=== PATIENT | female | born 1950 | race African-American/Black ===

== ENCOUNTER 2016-11-29 10:30 | Day surgery (SDC) | payer MEDICARE, OTHER ==
[2016-11-27 09:24] VITALS: BMI 30.2
[~2016-11-29 10:30] MED LIST: LACTATED RINGERS 1,000 ML IV SCH; LIDOCAINE 1% 20 ML VIAL (10MG/ML) FOR IV START INTRADERMA PRN
[2016-11-29 11:00] VITALS: RESP 16; TEMP 97.7
[2016-11-29] MEDS ORDERED: PROPOFOL 10 MG/ML 20 ML VIAL IV ONE (11:31)
--- NOTE | 2016-11-29 12:23 | P.PCN ---
Date of Procedure: 11/29/16 Procedure(s) Performed: BRIEF HISTORY: Patient is a 66-year-old, pleasant -[place] female, scheduled for an upper endoscopy as a part of evaluation of iron deficiency anemia and intermittent black tarry stools. She is has history of end-stage liver disease on hemodialysis and lately has been requiring blood transfusions almost on a monthly basis. Her last upper endoscopy was done a year ago and was noted to have duodenal telangiectasia. She is hence scheduled for an upper endoscopy to evaluate further.. PROCEDURE PERFORMED: Esophagogastroduodenoscopy with argon plasma coagulation. PREOPERATIVE DIAGNOSIS: Iron deficiency anemia and black tarry stools. IV sedation per anesthesia. PROCEDURE: After informed consent was obtained, the patient was brought into the endoscopy unit. IV sedation was administered by Anesthesia under continuous monitoring. Initially the Olympus GIF-140 video endoscope was inserted into the mouth. Esophagus intubated without any difficulty. It was gradually advanced into the stomach and duodenum and carefully examined. The bulb and the second part of the duodenum appeared normal. However there were scattered angiectasia noted in the duodenal bulb as well as along the duodenal sweep one of which had mild oozing . Argon plasma coagulation was performed and all the visualized angiectasia were coagulated with good hemostasis. The scope at this time was withdrawn to the stomach, adequately insufflated with air, and upon careful examination, mucosa of the antrum, body, cardia and the fundus appeared normal. The scope was then withdrawn into the esophagus. The GE junction was located at 39 cm from the incisors. The esophagus appeared normal. There were no erosions or ulcerations seen and the patient tolerated the procedure well. IMPRESSION: 1. Scattered angiectasia in the duodenal bulb as well as the duodenal sweep, one of which had active oozing status post argon plasma coagulation as described above. 2. No evidence of esophagitis or peptic ulcer disease. RECOMMENDATIONS: The findings of this examination were discussed with the patient as well as a family. She was advised to have CBC on a regular basis. She will be seen in office if she has recurrent iron deficiency anemia or bleeding.
[2016-11-29 12:37] VITALS: BP 110/63; PULSE 68
== END 2016-11-29 12:49 | disposition home or self-care (01) ==
LOC: ORWHC2ENDO 10:30
PROVIDERS: ATTEND Internal Medicine Gastroenterology
DX: K31.811 Angiodysplasia of stomach and duodenum with bleeding (principal); D50.9 Iron deficiency anemia, unspecified; I10 Essential (primary) hypertension; E07.9 Disorder of thyroid, unspecified; Z85.3 Personal history of malignant neoplasm of breast; Z90.12 Acquired absence of left breast and nipple; Z90.710 Acquired absence of both cervix and uterus; Z79.899 Other long term (current) drug therapy
CPT/HCPCS: 43255; J2704

== ENCOUNTER 2018-09-09 11:17 | Day surgery (SDC) | payer MEDICARE, OTHER ==
[2018-09-05 13:22] VITALS: BMI 29.3
[~2018-09-09 11:17] MED LIST changes: -LACTATED RINGERS 1,000 ML IV SCH; +MIDAZOLAM (PF) 2 MG/2 ML VIAL IV PRN
[2018-09-09 11:47] VITALS: TEMP 99
[2018-09-09] MEDS: LACTATED RINGERS 1,000 ML IV SCH ×2 (12:10→12:11)
[2018-09-09] MEDS ORDERED: PROPOFOL 10 MG/ML 20 ML VIAL IV ONE (12:11)
[2018-09-09 12:56] VITALS: RESP 18
[2018-09-09] MEDS ORDERED: ACETAMINOPHEN TAB 325 MG TAB PO ONE (13:12)
[2018-09-09] MEDS ORDERED: HEPARIN SODIUM,PORCINE 100 UNIT/ML 5 ML VIAL IV ONE (13:37)
[2018-09-09 13:48] VITALS: BP 130/76; PULSE 78
--- NOTE | 2018-09-09 16:47 | PCN ---
PROCEDURE NOTE DATE OF SERVICE: 09/09/2018. PREOP DIAGNOSIS: Anemia. POSTOP DIAGNOSIS: Anemia. ANESTHESIA: Local with IV systemic sedation. DESCRIPTION OF PROCEDURE: Utilizing the sterile technique, the skin overlying the right iliac crest was prepared with Betadine and alcohol. After adequate sterile draping and local anesthesia, 1% lidocaine and systemic sedation size 11 4 inch Jamshidi needle was utilized to access the periosteum with ease. A total of 10 mL of aspirate and 4 cm bone core biopsies were obtained. The patient tolerated the procedure very well. There was no immediate procedure related complications. TOTAL BLOOD LOSS: Less than 1 mL. RESULTS: Pending. MMODL / IJN: [id number] /
== END 2018-09-09 15:00 | disposition home or self-care (01) ==
LOC: OR 11:17
PROVIDERS: ATTEND Internal Medicine Hematology & Oncology
DX: I12.0 Hypertensive chronic kidney disease with stage 5 chronic kidney disease or end stage renal disease (principal); N18.6 End stage renal disease; D63.1 Anemia in chronic kidney disease; D72.810 Lymphocytopenia; Z99.2 Dependence on renal dialysis; F17.210 Nicotine dependence, cigarettes, uncomplicated; J44.9 Chronic obstructive pulmonary disease, unspecified; M19.90 Unspecified osteoarthritis, unspecified site; K21.9 Gastro-esophageal reflux disease without esophagitis; Z80.49 Family history of malignant neoplasm of other genital organs; Z79.890 Hormone replacement therapy; Z79.51 Long term (current) use of inhaled steroids; Z79.899 Other long term (current) drug therapy
CPT/HCPCS: 84132; 38222; J1642; J2704

== ENCOUNTER 2018-09-23 05:05 | Inpatient (IN) | payer MEDICARE ==
[2018-09-23] MEDS ORDERED: PANTOPRAZOLE 40 MG/10 ML VIAL IVP STA (05:11)
[2018-09-23] MEDS ORDERED: SODIUM CHLORIDE 0.9% 1,000 ML IV STA (05:11)
--- NOTE | 2018-09-23 05:11 | ED ---
GI Bleed HPI - General Stated complaint: abd pain Time Seen by Provider: 09/23/18 05:09 - History of Present Illness Initial comments: Zane is a 68-year-old female with extensive past medical history most significant for chronic renal disease on dialysis Saturday as well as frequent admissions to outside hospital for recurrent episodes of anemia requiring transfusion. Patient reports she was admitted last week to an outside facility and had endoscopy with no acute findings. She reports that today she is experiencing abdominal pain and nausea so she called EMS, EMS reports in route to the hospital she did have a large volume emesis which was noted to be coffee ground. Patient reports feeling better after vomiting. Upon arrival she reported some persistent abdominal pain however she'll large bloody bowel movement reported improvement in her abdominal pain. - Related Data Home Medications Medication Instructions Recorded Confirmed Albuterol Nebulized [Ventolin 2.5 mg INHALATION BID PRN 01/26/15 09/09/18 Nebulized] Labetalol HCl 200 mg PO TID PRN 01/26/15 09/09/18 Levothyroxine Sodium [Synthroid] 100 mcg PO QAM 01/26/15 09/09/18 Umeclidinium [place] [Incruse 2 puff INHALATION BID PRN 11/27/16 09/09/18 Ellipta] Calcitriol [Rocaltrol] 0.25 mcg PO Q48H 02/24/18 09/09/18 Calcium Carb-Mag Carb-Folic 1 each PO TID 02/24/18 09/09/18 [Magnebind 400 Rx] Zolpidem Tartrate [Ambien Cr] 6.25 mg PO HS PRN 02/24/18 09/09/18 Allergies Allergy/AdvReac Type Severity Reaction Status Date / Time No Known Allergies Allergy Verified 09/09/18 11:40 Review of Systems ROS Statement: Those systems with pertinent positive or pertinent negative responses have been documented in the HPI. ROS Other: All systems not noted in ROS Statement are negative. Past Medical History Past Medical History: Asthma, Cancer, COPD, Dialysis, GERD/Reflux, Hearing Disorder / Deafness, Hypertension, Osteoarthritis (OA), Renal Disease, Thyroid Disorder Additional Past Medical History / Comment(s): HEMODIALYSIS SAT,SAT, SAT, BREAST CANCER. anemia- receives blood tranfusions weekly History of Any Multi-Drug Resistant Organisms: None Reported Past Surgical History: Breast Surgery, Hysterectomy Additional Past Surgical History / Comment(s): LEFT MASTECTOMY , DIALYSIS GRAFT - UPPER LEFT ARM, PARTIAL THYROIDECTOMY,COLONOSCOPY, EGD Past Anesthesia/Blood Transfusion Reactions: Motion Sickness Smoking Status: Current every day smoker - Past Family History Daughter(s) Family Medical History: Deep Vein Thrombosis (DVT) Mother Family Medical History: Cancer Additional Family Medical History / Comment(s): OVARIAN Brother(s) Family Medical History: Cancer General Exam - General Exam Comments Initial Comments: Physical Exam GENERAL: Chronically ill appearing, appears uncomfortable HENT: Normocephalic, Atraumatic. EYES: PERRL, EOMI Conjunctival pallor PULMONARY: Unlabored respirations. CARDIOVASCULAR: RRR ABDOMEN: Soft, NABS mild diffuse tenderness SKIN: Pallor, dry : Deferred NEUROLOGIC: Patient is alert and oriented x3. Moving all extremities spontaneously MUSCULOSKELETAL: Generalized atrophy PSYCHIATRIC: situational depression Limitations: no limitations Course Vital Signs 09/23/18 09/23/18 09/23/18 05:14 06:55 07:02 Temperature 97.6 F 97.7 F Pulse Rate 75 87 86 Respiratory 16 18 17 Rate Blood Pressure 88/52 116/62 115/60 O2 Sat by Pulse 98 100 100 Oximetry 09/23/18 07:12 Temperature 97.7 F Pulse Rate 87 Respiratory 17 Rate Blood Pressure 109/59 O2 Sat by Pulse 100 Oximetry Medical Decision Making - Medical Decision Making Was seen and evaluated history is obtained from the patient and review of medical record Upon initial evaluation patient has coffee-ground emesis at bedside patient did have large volume melanotic stool.. Labs with multiple abnormalities including acute on chronic anemia with a hemoglobin of 6.2 patient reports she was last told her hemoglobin was 8.0 on Saturday, patient did not attend dialysis on Saturday she had to attend a She was noted be hypertensive upon arrival however blood pressures improving with fluids patient care was discussed with her primary care physician Dr. Kwong who accepts the admission requested the patient be admitted to the ICU , patient care was discussed with Dr. Sol in the ICU attending who accepts the patient to the ICU for acute anemia with GI bleed. Patient care was discussed with GI on-call doctor while she who is familiar with the patient and performed her endoscopy last week he will evaluate the patient. Nephrology was consult it for management of patient's chronic kidney disease and need for dialysis. - Lab Data Result diagrams: 09/23/18 05:36 09/23/18 05:36 Lab Results 09/23/18 09/23/18 09/23/18 Range/Units 05:36 05:36 05:36 WBC 6.9 (3.8-10.6) k/uL RBC 2.01 L (3.80-5.40) m/uL Hgb 6.2 L* (11.4-16.0) gm/dL Hct 19.8 L* (34.0-46.0) % MCV 98.3 D (80.0-100.0) fL MCH 31.0 (25.0-35.0) pg MCHC 31.6 (31.0-37.0) g/dL RDW 20.5 H (11.5-15.5) % Plt Count 165 (150-450) k/uL Neutrophils % 87 % Lymphocytes % 7 % Monocytes % 2 % Eosinophils % 2 % Basophils % 0 % Neutrophils # 6.0 (1.3-7.7) k/uL Lymphocytes # 0.5 L (1.0-4.8) k/uL Monocytes # 0.2 (0-1.0) k/uL Eosinophils # 0.2 (0-0.7) k/uL Basophils # 0.0 (0-0.2) k/uL Hypochromasia Marked Poikilocytosis Slight Anisocytosis Moderate Macrocytosis Moderate Sodium 135 L (137-145) mmol/L Potassium 5.1 (3.5-5.1) mmol/L Chloride 106 (98-107) mmol/L Carbon Dioxide 21 L (22-30) mmol/L Anion Gap 8 mmol/L BUN 97 H (7-17) mg/dL Creatinine 10.04 H* (0.52-1.04) mg/dL Est GFR (CKD-EPI)AfAm 4 (>60 ml/min/1.73 sqM) Est GFR (CKD-EPI)NonAf 4 (>60 ml/min/1.73 sqM) Glucose 134 H (74-99) mg/dL Plasma Lactic Acid Chin 1.3 (0.7-2.0) mmol/L Calcium 8.2 L (8.4-10.2) mg/dL Total Bilirubin 0.4 (0.2-1.3) mg/dL AST 28 (14-36) U/L ALT 27 (9-52) U/L Alkaline Phosphatase 64 (38-126) U/L Troponin I (0.000-0.034) ng/mL Total Protein 4.8 L (6.3-8.2) g/dL Albumin 2.5 L (3.5-5.0) g/dL Lipase 279 (23-300) U/L Stool Occult Blood (Negative) Blood Type Blood Type Recheck Antibody Screen Crossmatch Spec Expiration Date 09/23/18 09/23/18 09/23/18 Range/Units 05:36 05:36 06:15 WBC (3.8-10.6) k/uL RBC (3.80-5.40) m/uL Hgb (11.4-16.0) gm/dL Hct (34.0-46.0) % MCV (80.0-100.0) fL MCH (25.0-35.0) pg MCHC (31.0-37.0) g/dL RDW (11.5-15.5) % Plt Count (150-450) k/uL Neutrophils % % Lymphocytes % % Monocytes % % Eosinophils % % Basophils % % Neutrophils # (1.3-7.7) k/uL Lymphocytes # (1.0-4.8) k/uL Monocytes # (0-1.0) k/uL Eosinophils # (0-0.7) k/uL Basophils # (0-0.2) k/uL Hypochromasia Poikilocytosis Anisocytosis Macrocytosis Sodium (137-145) mmol/L Potassium (3.5-5.1) mmol/L Chloride (98-107) mmol/L Carbon Dioxide (22-30) mmol/L Anion Gap mmol/L BUN (7-17) mg/dL Creatinine (0.52-1.04) mg/dL Est GFR (CKD-EPI)AfAm (>60 ml/min/1.73 sqM) Est GFR (CKD-EPI)NonAf (>60 ml/min/1.73 sqM) Glucose (74-99) mg/dL Plasma Lactic Acid Chin (0.7-2.0) mmol/L Calcium (8.4-10.2) mg/dL Total Bilirubin (0.2-1.3) mg/dL AST (14-36) U/L ALT (9-52) U/L Alkaline Phosphatase (38-126) U/L Troponin I <0.012 (0.000-0.034) ng/mL Total Protein (6.3-8.2) g/dL Albumin (3.5-5.0) g/dL Lipase (23-300) U/L Stool Occult Blood Positive H (Negative) Blood Type O Positive Blood Type Recheck No Antibody Screen NEGATIVE Crossmatch See Detail Spec Expiration Date 09/26/2018 2334 Disposition Clinical Impression: Melena, Hematemesis, Acute anemia, ESRD (end stage renal disease), Dialysis patient, noncompliant Disposition: ADMITTED IP TO THIS [facility] Condition: Serious Is patient prescribed a controlled substance at d/c from ED?: No
[2018-09-23 05:50] LABS: Anisocytosis Moderate; Basophils % (A) 0 %; Eosinophils # (A) 0.2 k/uL (0-0.7); Eosinophils % (A) 2 %; Hypochromasia Marked; Lymphocytes # (A) 0.5 k/uL (1.0-4.8); Lymphocytes % (A) 7 %; MCHC 31.6 g/dL (31.0-37.0); Macrocytosis Moderate; Monocytes # (A) 0.2 k/uL (0-1.0); Monocytes % (A) 2 %; Neutrophils % (A) 87 %; Platelet Count 165 k/uL (150-450); Poikilocytosis Slight; RBC 2.01 m/uL (3.80-5.40); RDW 20.5 % (11.5-15.5); WBC 6.9 k/uL (3.8-10.6)
[2018-09-23 05:59] LABS: MCV 98.3 fL (80.0-100.0)
[2018-09-23 06:00] LABS: HCT 19.8 % (34.0-46.0); HGB 6.2 gm/dL (11.4-16.0)
[2018-09-23 06:03] LABS: Albumin 2.5 g/dL (3.5-5.0); Calcium 8.2 mg/dL (8.4-10.2); Potassium 5.1 mmol/L (3.5-5.1); Total Bilirubin 0.4 mg/dL (0.2-1.3); Total Protein 4.8 g/dL (6.3-8.2)
[2018-09-23] MEDS ORDERED: NALOXONE 0.4 MG/ML 1 ML VIAL IV PRN (06:16)
[2018-09-23] MEDS: SODIUM CHLORIDE 0.9% 1,000 ML IV SCH (07:04)
[2018-09-23 08:35] VITALS: BMI 29.0
[2018-09-23 09:30] LABS: Glucose,Whole Blood 109 mg/dL (75-99)
[2018-09-23] MEDS: PANTOPRAZOLE 40 MG/10 ML VIAL IV SCH (09:44)
[2018-09-23] MEDS ORDERED: HYDROmorphone 0.5 MG/0.5 ML SYRINGE IVP STA (10:53)
--- NOTE | 2018-09-23 11:55 | P.CONS ---
History of Present Illness - Reason for Consult Consult date: 09/23/18 GI bleed anemia Requesting physician: Julio Kwong - Chief Complaint anemia melena - History of Present Illness 68-year-old female with a history of end-stage renal disease hemodialysis Saturday, chronic iron deficiency anemia requiring multiple blood transfusions iron supplementation in the outpatient setting, GI bleeds of multiple hospitalizations for symptomatic anemia, bleeding small bowel AVMs, multiple endoscopies. Recent bone marrow biopsy a few Weeks ago; MDS versus LEOLA. Patient was recently hospitalized at [facility] over the Weekend for symptomatic anemia acute gi bleed melena. EGD performed Saturday09/20/[address] Fernández with findings of bleeding AVM in the duodenal bulb s/p gold probe ablation. Admission hemoglobin at [facility] was 5.2 and discharge hemoglobin was 8.1. She received 3 units of blood. She reports persistent dark dark-colored bowel movements and nonbloody emesis prior to admission. Epigastric discomfort. Hemoccult was 6.2. MCV 98. Platelet 165. Creatinine 10. BUN 97. FOBT positive. APTT 22.1. Patient does not take any medications that would cause her to bleed. Review of Systems Constitutional: Denies fever, chills, sweats, weight gain, or loss. HEENT: Negative for migraines, blurred vision or loss, earaches, drainage, tinnitus, oral mucosal lesions, dysphagia, or odynophagia. CARDIAC: Negative for chest pain, arrhythmias, or palpitation. RESPIRATORY: Negative for shortness of breath, hemoptysis, cough, or sputum production. GI: See HPI for pertinent findings. : Negative for hematuria, urgency, frequency, polyuria, or dysuria. GYNc: Denies possibility of . Negative vaginal discharge. MUSCULOSKELETAL: Negative for muscle aches, swelling, arthritis, and arthralgias. NEUROLOGIC: Negative for stroke or TIA. ENDOCRINE: Negative for thyroid problems. SKIN: Negative for rash or itching. PSYCHIATRIC: Negative history for depression and anxiety Past Medical History Past Medical History: Asthma, Cancer, COPD, Dialysis, GERD/Reflux, GI Bleed, Hearing Disorder / Deafness, Hypertension, Osteoarthritis (OA), Renal Disease, Thyroid Disorder Additional Past Medical History / Comment(s): HEMODIALYSIS SAT,SAT, SAT-last dialysis was 2/22/19 [facility] d/t unable to go yesterday 09/22/18, anemia- receives blood tranfusions weekly, past upper and lower GI bleeds per pt and recently admitted to [facility] for GI bleed-had EGD-no source found, L breast cancer with L mastectomy and chemotherapy, arthritis in multiple joints, hypothyroid, SOBOBA bilaterally History of Any Multi-Drug Resistant Organisms: None Reported Past Surgical History: Breast Surgery, Hysterectomy, Tubal Ligation Additional Past Surgical History / Comment(s): L BREAST BIOPSY, LEFT MASTECTOMY , DIALYSIS GRAFT- UPPER LEFT ARM, PARTIAL THYROIDECTOMY,COLONOSCOPIES, EGDS, D& C, L SHOULDER CYST REMOVED. Past Anesthesia/Blood Transfusion Reactions: No Reported Reaction, Motion Sickness Additional Past Anesthesia/Blood Transfusion Reaction / Comm: Pt has received numerous transfusions without reaction. Smoking Status: Current every day smoker - Past Family History Daughter(s) Family Medical History: Deep Vein Thrombosis (DVT) Mother Family Medical History: Cancer Additional Family Medical History / Comment(s): OVARIAN Brother(s) Family Medical History: Cancer Additional Family Medical History / Comment(s): Brother had "blood" cancer. Medications and Allergies Home Medications Medication Instructions Recorded Confirmed Type Albuterol Nebulized [Ventolin 2.5 mg INHALATION BID PRN 01/26/15 09/23/18 History Nebulized] Labetalol HCl 200 mg PO TID PRN 01/26/15 09/23/18 History Umeclidinium [place] [Incruse 2 puff INHALATION RT-BID PRN 11/27/16 09/23/18 History Ellipta] Calcitriol [Rocaltrol] 0.25 mcg PO Q48H 02/24/18 09/23/18 History Calcium Carb-Mag Carb-Folic 1 tab PO TID 02/24/18 09/23/18 History [Magnebind 400 Rx] Zolpidem Tartrate [Ambien Cr] 6.25 mg PO HS PRN 02/24/18 09/23/18 History Levothyroxine Sodium [Synthroid] 100 mcg PO DAILY 09/23/18 09/23/18 History Allergies Allergy/AdvReac Type Severity Reaction Status Date / Time No Known Allergies Allergy Verified 09/23/18 08:05 Physical Exam Vitals: Vital Signs Temp Pulse Resp BP Pulse Ox 09/23/18 11:30 82 12 123/68 100 02/26/19 11:00 80 11 L 118/70 100 09/23/18 10:54 97.5 F L 81 12 115/71 100 09/23/18 10:30 79 13 117/70 100 09/23/18 10:24 97.9 F 79 12 112/64 99 09/23/18 10:14 97.8 F 81 12 113/64 100 09/23/18 10:00 78 11 L 113/64 100 09/23/18 09:51 97.5 F L 76 12 100/67 100 09/23/18 09:50 76 15 100 09/23/18 09:47 76 12 100 09/23/18 09:30 100/67 09/23/18 09:20 97.5 F L 76 12 100/67 100 09/23/18 09:12 97.9 F 79 18 100/67 09/23/18 08:40 97.6 F 77 12 104/60 100 09/23/18 08:30 78 12 88/51 100 09/23/18 08:20 79 12 88/51 100 09/23/18 08:10 75 13 82/48 100 09/23/18 08:00 77 12 98/54 100 09/23/18 07:50 82 13 111/59 100 09/23/18 07:42 97.6 F 82 18 111/59 100 09/23/18 07:40 85 23 89/79 09/23/18 07:30 87 19 111/63 09/23/18 07:20 86 12 118/57 100 09/23/18 07:12 97.7 F 87 17 109/59 100 09/23/18 07:10 86 11 L 124/59 99 09/23/18 07:02 97.7 F 86 17 115/60 100 09/23/18 07:00 87 13 116/62 98 09/23/18 06:55 97.6 F 87 18 116/62 100 09/23/18 06:50 87 11 L 116/62 09/23/18 06:40 90 14 112/62 09/23/18 06:30 87 36 H 105/58 99 09/23/18 06:20 84 10 L 105/58 96 09/23/18 06:10 85 16 105/55 100 09/23/18 06:00 83 5 L 100 09/23/18 05:50 81 12 79 L 09/23/18 05:40 80 9 L 87 L 09/23/18 05:30 82 24 102/52 09/23/18 05:20 74 15 88/52 97 09/23/18 05:14 75 16 88/52 98 09/23/18 05:10 100 09/23/18 05:09 100 Intake and Output 09/22/18 09/23/18 09/23/18 22:59 06:59 14:59 Intake Total 370 Balance 370 Intake: IV 60 Sodium Chloride 0.9% 1, 60 000 ml @ 20 mls/hr IV . Q24H [facility] Rx#:[id number] Blood Product 310 Rc As-1 Unit 0 [id number] Rc As-1 Unit 310 [id number] Other: Voiding Method Bedpan # Bowel Movements 1 Weight 76.657 kg 76.657 kg General appearance: The patient is alert, oriented, in no acute distress. HET: Head is normocephalic and atraumatic. Pupils are equal and reactive. Oropharynx is clear without lesions. Neck: Supple without lymphadenopathy. Trachea midline. Heart: S1 S2. Regular rate and rhythm. Lungs: No crackles or wheezes are heard. Abdomen: Soft, nontender, nondistended with bowel sounds. No peritoneal signs. No palpable organomegaly or masses. Extremities: Normal skin color and turgor. No cyanosis, rash, ulceration, clubbing, or edema. Radial and pedal pulses are 2/4 bilaterally. Neurological: No focal deficits. Strength and sensation are grossly intact. Results CBC & Chem 7: 09/23/18 05:36 09/23/18 05:36 Labs: Abnormal Lab Results - Last 24 Hours (Table) 09/23/18 09/23/18 09/23/18 Range/Units 05:36 05:36 05:36 RBC 2.01 L (3.80-5.40) m/uL Hgb 6.2 L* (11.4-16.0) gm/dL Hct 19.8 L* (34.0-46.0) % RDW 20.5 H (11.5-15.5) % Lymphocytes # 0.5 L (1.0-4.8) k/uL Sodium 135 L (137-145) mmol/L Carbon Dioxide 21 L (22-30) mmol/L BUN 97 H (7-17) mg/dL Creatinine 10.04 H* (0.52-1.04) mg/dL Glucose 134 H (74-99) mg/dL POC Glucose (mg/dL) (75-99) mg/dL Calcium 8.2 L (8.4-10.2) mg/dL Total Protein 4.8 L (6.3-8.2) g/dL Albumin 2.5 L (3.5-5.0) g/dL Stool Occult Blood (Negative) Crossmatch See Detail 09/23/18 09/23/18 Range/Units 06:15 09:27 RBC (3.80-5.40) m/uL Hgb (11.4-16.0) gm/dL Hct (34.0-46.0) % RDW (11.5-15.5) % Lymphocytes # (1.0-4.8) k/uL Sodium (137-145) mmol/L Carbon Dioxide (22-30) mmol/L BUN (7-17) mg/dL Creatinine (0.52-1.04) mg/dL Glucose (74-99) mg/dL POC Glucose (mg/dL) 109 H (75-99) mg/dL Calcium (8.4-10.2) mg/dL Total Protein (6.3-8.2) g/dL Albumin (3.5-5.0) g/dL Stool Occult Blood Positive H (Negative) Crossmatch Assessment and Plan (1) Acute GI bleeding Current Visit: Yes Status: Acute Code(s): K92.2 - GASTROINTESTINAL HEMORRHAGE, UNSPECIFIED SNOMED Code(s): 11023482 (2) Chronic GI bleeding Current Visit: Yes Status: Acute Code(s): K92.2 - GASTROINTESTINAL HEMORRHAGE, UNSPECIFIED SNOMED Code(s): 59593209 (3) Small bowel arteriovenous malformation Current Visit: Yes Status: Acute Code(s): K55.20 - ANGIODYSPLASIA OF COLON WITHOUT HEMORRHAGE SNOMED Code(s): 094040288 (4) Acute blood loss anemia Current Visit: Yes Status: Acute Code(s): D62 - ACUTE POSTHEMORRHAGIC ANEMIA SNOMED Code(s): 918817032 (5) Symptomatic anemia Current Visit: Yes Status: Acute Code(s): D64.9 - ANEMIA, UNSPECIFIED SNOMED Code(s): 598631286 (6) ESRD (end stage renal disease) Current Visit: Yes Status: Acute Code(s): N18.6 - END STAGE RENAL DISEASE SNOMED Code(s): 29891912 (7) Melena Current Visit: Yes Status: Acute Code(s): K92.1 - MELENA SNOMED Code(s): 8064680 Plan: 1. Dr. Fernández recommend repeat EGD today. CBC every 6 hours. Protonix 40 mg twice daily. Further recommendations forthcoming after EGD evaluation. The developer support engineer has discussed the risks, benefits and alternative therapies for the above-mentioned procedure and for both sedation/analgesia as well as necessary blood product administration, if indicated, as they pertain to this patient. The patient has indicated understanding and acceptance of the risks and procedures discussed. Thank you for this kind referral and the opportunity to participate in the care of your patient. This consultation was discussed with Dr. Fernández. The impression and plan of care have been directed as dictated.
--- NOTE | 2018-09-23 13:23 | P.HPIM ---
History of Present Illness H&P Date: 09/23/18 Chief Complaint: GI bleeding Yolande is a 68-year-old white female well-known to me. She is admitted over at [facility] about every 2-3 weeks for anemia of chronic disease. She typically receives 1-3 units of packed red blood cells during that stay. She's been worked up for GI bleeding multiple times including just recently with Dr. Fernández. She presented emergency room after having abdominal pain for 1 day and then several episodes of coffee-ground emesis. Her hemoglobin emergency room was 6.2. This is NOT Unusual for her. She has end-stage renal failure on hemodialysis on Saturday. This is thought to be the cause of her anemia in the past as there were no findings on endoscopy. She is now resting comfortably intensive care unit is hearty received 1 unit of packed red blood cells. Review of Systems All systems: negative Past Medical History Past Medical History: Asthma, Cancer (L breast cancer with L mastectomy and chemotherapy, ), COPD, Dialysis, GERD/Reflux, GI Bleed, Hearing Disorder / Deafness, Hypertension, Osteoarthritis (OA), Renal Disease (HEMODIALYSIS SAT,SAT , SAT-last dialysis was 09/19/18), Thyroid Disorder (Hypothyroidism) History of Any Multi-Drug Resistant Organisms: None Reported Past Surgical History: Breast Surgery, Hysterectomy, Tubal Ligation Additional Past Surgical History / Comment(s): L BREAST BIOPSY, LEFT MASTECTOMY , DIALYSIS GRAFT- UPPER LEFT ARM, PARTIAL THYROIDECTOMY,COLONOSCOPIES, EGDS, D& C, L SHOULDER CYST REMOVED. Past Anesthesia/Blood Transfusion Reactions: No Reported Reaction, Motion Sickness Additional Past Anesthesia/Blood Transfusion Reaction / Comment(s): Pt has received numerous transfusions without reaction. Smoking Status: Current every day smoker - Past Family History Daughter(s) Family Medical History: Deep Vein Thrombosis (DVT) Mother Family Medical History: Cancer Additional Family Medical History / Comment(s): OVARIAN Brother(s) Family Medical History: Cancer Additional Family Medical History / Comment(s): Brother had "blood" cancer. Medications and Allergies Home Medications Medication Instructions Recorded Confirmed Type Albuterol Nebulized [Ventolin 2.5 mg INHALATION BID PRN 01/26/15 09/23/18 History Nebulized] Labetalol HCl 200 mg PO TID PRN 01/26/15 09/23/18 History Umeclidinium [place] [Incruse 2 puff INHALATION RT-BID PRN 11/27/16 09/23/18 History Ellipta] Calcitriol [Rocaltrol] 0.25 mcg PO Q48H 02/24/18 09/23/18 History Calcium Carb-Mag Carb-Folic 1 tab PO TID 02/24/18 09/23/18 History [Magnebind 400 Rx] Zolpidem Tartrate [Ambien Cr] 6.25 mg PO HS PRN 02/24/18 09/23/18 History Levothyroxine Sodium [Synthroid] 100 mcg PO DAILY 09/23/18 09/23/18 History Allergies Allergy/AdvReac Type Severity Reaction Status Date / Time No Known Allergies Allergy Verified 09/23/18 08:05 Physical Exam Vitals: Vital Signs Temp Pulse Resp BP Pulse Ox 09/23/18 11:30 82 12 123/68 100 09/23/18 11:00 80 11 L 118/70 100 09/23/18 10:54 97.5 F L 81 12 115/71 100 09/23/18 10:30 79 13 117/70 100 09/23/18 10:24 97.9 F 79 12 112/64 99 09/23/18 10:14 97.8 F 81 12 113/64 100 09/23/18 10:00 78 11 L 113/64 100 09/23/18 09:51 97.5 F L 76 12 100/67 100 09/23/18 09:50 76 15 100 09/23/18 09:47 76 12 100 09/23/18 09:30 100/67 09/23/18 09:20 97.5 F L 76 12 100/67 100 09/23/18 09:12 97.9 F 79 18 100/67 09/23/18 08:40 97.6 F 77 12 104/60 100 09/23/18 08:30 78 12 88/51 100 09/23/18 08:20 79 12 88/51 100 09/23/18 08:10 75 13 82/48 100 09/23/18 08:00 77 12 98/54 100 09/23/18 07:50 82 13 111/59 100 09/23/18 07:42 97.6 F 82 18 111/59 100 09/23/18 07:40 85 23 89/79 09/23/18 07:30 87 19 111/63 09/23/18 07:20 86 12 118/57 100 09/23/18 07:12 97.7 F 87 17 109/59 100 09/23/18 07:10 86 11 L 124/59 99 09/23/18 07:02 97.7 F 86 17 115/60 100 09/23/18 07:00 87 13 116/62 98 09/23/18 06:55 97.6 F 87 18 116/62 100 09/23/18 06:50 87 11 L 116/62 09/23/18 06:40 90 14 112/62 09/23/18 06:30 87 36 H 105/58 99 09/23/18 06:20 84 10 L 105/58 96 09/23/18 06:10 85 16 105/55 100 09/23/18 06:00 83 5 L 100 09/23/18 05:50 81 12 79 L 09/23/18 05:40 80 9 L 87 L 09/23/18 05:30 82 24 102/52 09/23/18 05:20 74 15 88/52 97 09/23/18 05:14 75 16 88/52 98 09/23/18 05:10 100 09/23/18 05:09 100 Intake and Output 09/22/18 09/23/18 09/23/18 22:59 06:59 14:59 Intake Total 370 Balance 370 Intake: IV 60 Sodium Chloride 0.9% 1, 60 000 ml @ 20 mls/hr IV . Q24H [facility] Rx#:[id number] Blood Product 310 As-1 Unit 0 [id number] As-1 Unit 310 [id number] Other: Voiding Method Bedpan # Bowel Movements 1 Weight 76.657 kg 76.657 kg GENERAL: Fatigue -Iraqi female, in mild distress due to abdominal pain. HEAD: Atraumatic, normocephalic. EYES: Pupils equal round and reactive to light, extraocular movements intact, sclera anicteric, conjunctiva are normal. ENT:nares patent, oropharynx clear without exudates. Moist mucous membranes. NECK: Normal range of motion, supple without lymphadenopathy or JVD, no thyromegaly LUNGS: Breath sounds Hoarse to auscultation bilaterally and equal. No wheezes rales or rhonchi. HEART: Regular rate and rhythm without murmurs, rubs or gallops.S1S2 Normal ABDOMEN: Soft, normoactive bowel sounds. No guarding, no rebound. No masses appreciated.Pain to palpation of the right lower quadrant EXTREMITIES: Normal range of motion, no pitting or edema. No clubbing or cyanosis. +Bruit left arm. NEUROLOGICAL: Cranial nerves II through XII grossly intact. Normal speech, normal gait. PSYCH: Normal mood, normal affect. SKIN: Warm, Dry, normal turgor, no rashes or lesions noted. Results CBC & Chem 7: 09/23/18 05:36 09/23/18 05:36 Labs: Abnormal Lab Results - Last 24 Hours (Table) 09/23/18 09/23/18 09/23/18 Range/Units 05:36 05:36 05:36 RBC 2.01 L (3.80-5.40) m/uL Hgb 6.2 L* (11.4-16.0) gm/dL Hct 19.8 L* (34.0-46.0) % RDW 20.5 H (11.5-15.5) % Lymphocytes # 0.5 L (1.0-4.8) k/uL Sodium 135 L (137-145) mmol/L Carbon Dioxide 21 L (22-30) mmol/L BUN 97 H (7-17) mg/dL Creatinine 10.04 H* (0.52-1.04) mg/dL Glucose 134 H (74-99) mg/dL POC Glucose (mg/dL) (75-99) mg/dL Calcium 8.2 L (8.4-10.2) mg/dL Total Protein 4.8 L (6.3-8.2) g/dL Albumin 2.5 L (3.5-5.0) g/dL Stool Occult Blood (Negative) Crossmatch See Detail 09/23/18 09/23/18 Range/Units 06:15 09:27 RBC (3.80-5.40) m/uL Hgb (11.4-16.0) gm/dL Hct (34.0-46.0) % RDW (11.5-15.5) % Lymphocytes # (1.0-4.8) k/uL Sodium (137-145) mmol/L Carbon Dioxide (22-30) mmol/L BUN (7-17) mg/dL Creatinine (0.52-1.04) mg/dL Glucose (74-99) mg/dL POC Glucose (mg/dL) 109 H (75-99) mg/dL Calcium (8.4-10.2) mg/dL Total Protein (6.3-8.2) g/dL Albumin (3.5-5.0) g/dL Stool Occult Blood Positive H (Negative) Crossmatch Thrombosis Risk Factor Assmnt - DVT/VTE Prophylaxis DVT/VTE Prophylaxis: Contraindicated - See note (Active GI bleeding) - Choose All That Apply Any of the Below Risk Factors Present?: Yes Each Factor Represents 1 point: Abnormal pulmonary function (COPD), Obesity ( BMI >25) Other Risk Factors: Yes Each Risk Factor Represents 2 Points: Age 61-74 years Each Risk Factor Represents 3 Points: Family history of DVT/PE Other congenital or acquired thrombophilia - If yes, enter type in comment: No Thrombosis Risk Factor Assessment Total Risk Factor Score: 7 Thrombosis Risk Factor Assessment Level: High Risk Assessment and Plan (1) Hypothyroid Current Visit: Yes Status: Acute Code(s): E03.9 - HYPOTHYROIDISM, UNSPECIFIED SNOMED Code(s): 07670319 (2) Tobacco abuse Current Visit: Yes Status: Acute Code(s): Z72.0 - TOBACCO USE SNOMED Code( s): 388466165 (3) Acute GI bleeding Current Visit: Yes Status: Acute Code(s): K92.2 - GASTROINTESTINAL HEMORRHAGE, UNSPECIFIED SNOMED Code(s): 87045118 (4) Acute blood loss anemia Current Visit: Yes Status: Acute Code(s): D62 - ACUTE POSTHEMORRHAGIC ANEMIA SNOMED Code(s): 428822256 (5) Dialysis patient, noncompliant Current Visit: Yes Status: Acute Code(s): Z91.15 - PATIENT'S NONCOMPLIANCE WITH RENAL DIALYSIS SNOMED Code(s): 939811147091344 (6) ESRD (end stage renal disease) Current Visit: Yes Status: Acute Code(s): N18.6 - END STAGE RENAL DISEASE SNOMED Code(s): 06177746 (7) Hematemesis Current Visit: Yes Status: Acute Code(s): K92.0 - HEMATEMESIS SNOMED Code( s): 8194023 Plan: She is currently receiving 1 unit will receive a second unit, she may still need if there is well.Her anemia is not as severe as it has been recently. We'll consult GI once again and she may need a cauterization and repeat endoscopy. Critical care consult with Dr. Wiggins, Nephrology Await consult and recommendations. Repeat labs in a.m. She was reevaluated in the next 24 hours.
--- NOTE | 2018-09-23 13:52 | P.CNPUL ---
History of Present Illness Consult date: 09/23/18 Requesting physician: Jacob Littlejohn Jr Reason for consult: other Chief complaint: Acute GI blood loss anemia, chronic anemia History of present illness: Patient is 68-year-old -[place]ish female with past medical history of ESRD on hemodialysis on Saturday schedule, chronic iron deficiency anemia, requiring blood transfusions and iron transfusions in the outpatient setting. Previous hospitalizations for GI bleeding. Patient is not on any anticoagulation. She thinks her last colonoscopy was about a year ago, maybe longer. She was hospitalized at [facility] last week, and she had a EGD with Dr. 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 She was transfused with 3 units of packed red blood cells at the [facility] for hemoglobin of 5.2 and discharge hemoglobin was 8.1. Patient started having severe cramping in her lower abdomen yesterday, she had been passing dark stools at home, she had called 911 yesterday went into the emergency. For evaluation, on the way to the hospital patient had a one episode of coffee-ground emesis, and large dark stool. Labs have been reviewed, and showed a white blood count of 6.9, hemoglobin of 6.2, platelet count of 165, sodium was 135, potassium is 5.1, CO2 is 21, BUN was 97, creatinine was 10.04. Stool occult was positive. Complete shortness of breath or chest pain, patient did miss her regular dialysis day yesterday due to a friend's . Denies any fever or chills, she is on 2 L per nasal cannula and her pulse ox 100%. Hemodynamically stable. Patient is receiving 2 units of packed red blood cells, immobile globin of 6.2. He is resting in bed, still having severe abdominal cramping across the lower abdomen , service has been consulted, and the recommendation was appreciated. Further vomiting or bloody bm's since admission. Patient is on IV Protonix 40 mg daily , she was given a liter bolus in the emergency department. She came up to the intensive care unit, and were consulted for ICU management. Review of Systems All systems: negative Constitutional: Denies chills, Denies fever Eyes: denies blurred vision, denies pain Ears, nose, mouth and throat: Denies headache, Denies sore throat Cardiovascular: Denies chest pain, Denies shortness of breath Respiratory: Denies cough Gastrointestinal: Reports abdominal pain, Reports coffee ground emesis, Reports vomiting, Denies diarrhea, Denies nausea Genitourinary: Denies dysuria, Denies hematuria Musculoskeletal: Denies myalgias Integumentary: Denies pruritus, Denies rash Neurological: Denies numbness, Denies weakness Psychiatric: Denies anxiety, Denies depression Endocrine: Denies fatigue, Denies weight change Past Medical History Past Medical History: Asthma, Cancer, COPD, Dialysis, GERD/Reflux, GI Bleed, Hearing Disorder / Deafness, Hypertension, Osteoarthritis (OA), Renal Disease, Thyroid Disorder Additional Past Medical History / Comment(s): HEMODIALYSIS SAT,SAT, SAT-last dialysis was 09/19/18Saturday d/t unable to go yesterday 09/22/18, anemia- receives blood tranfusions weekly, past upper and lower GI bleeds per pt and recently admitted to [facility] for GI bleed-had EGD-no source found, L breast cancer with L mastectomy and chemotherapy, arthritis in multiple joints, hypothyroid, [employer] [place] bilaterally History of Any Multi-Drug Resistant Organisms: None Reported Past Surgical History: Breast Surgery, Hysterectomy, Tubal Ligation Additional Past Surgical History / Comment(s): L BREAST BIOPSY, LEFT MASTECTOMY , DIALYSIS GRAFT- UPPER LEFT ARM, PARTIAL THYROIDECTOMY,COLONOSCOPIES, EGDS, D& C, L SHOULDER CYST REMOVED. Past Anesthesia/Blood Transfusion Reactions: No Reported Reaction, Motion Sickness Additional Past Anesthesia/Blood Transfusion Reaction / Comment(s): Pt has received numerous transfusions without reaction. Smoking Status: Current every day smoker - Past Family History Daughter(s) Family Medical History: Deep Vein Thrombosis (DVT) Mother Family Medical History: Cancer Additional Family Medical History / Comment(s): OVARIAN Brother(s) Family Medical History: Cancer Additional Family Medical History / Comment(s): Brother had "blood" cancer. Medications and Allergies Home Medications Medication Instructions Recorded Confirmed Type Albuterol Nebulized [Ventolin 2.5 mg INHALATION BID PRN 01/26/15 09/23/18 History Nebulized] Labetalol HCl 200 mg PO TID PRN 01/26/15 09/23/18 History Umeclidinium [place] [Incruse 2 puff INHALATION RT-BID PRN 11/27/16 09/23/18 History Ellipta] Calcitriol [Rocaltrol] 0.25 mcg PO Q48H 02/24/18 09/23/18 History Calcium Carb-Mag Carb-Folic 1 tab PO TID 02/24/18 09/23/18 History [Magnebind 400 Rx] Zolpidem Tartrate [Ambien Cr] 6.25 mg PO HS PRN 02/24/18 09/23/18 History Levothyroxine Sodium [Synthroid] 100 mcg PO DAILY 09/23/18 09/23/18 History Allergies Allergy/AdvReac Type Severity Reaction Status Date / Time No Known Allergies Allergy Verified 09/23/18 08:05 Physical Exam Vitals: Vital Signs Temp Pulse Resp BP Pulse Ox 09/23/18 11:30 82 12 123/68 100 09/23/18 11:00 80 11 L 118/70 100 09/23/18 10:54 97.5 F L 81 12 115/71 100 09/23/18 10:30 79 13 117/70 100 09/23/18 10:24 97.9 F 79 12 112/64 99 09/23/18 10:14 97.8 F 81 12 113/64 100 09/23/18 10:00 78 11 L 113/64 100 09/23/18 09:51 97.5 F L 76 12 100/67 100 09/23/18 09:50 76 15 100 09/23/18 09:47 76 12 100 09/23/18 09:30 100/67 09/23/18 09:20 97.5 F L 76 12 100/67 100 09/23/18 09:12 97.9 F 79 18 100/67 09/23/18 08:40 97.6 F 77 12 104/60 100 09/23/18 08:30 78 12 88/51 100 09/23/18 08:20 79 12 88/51 100 09/23/18 08:10 75 13 82/48 100 09/23/18 08:00 77 12 98/54 100 09/23/18 07:50 82 13 111/59 100 09/23/18 07:42 97.6 F 82 18 111/59 100 09/23/18 07:40 85 23 89/79 09/23/18 07:30 87 19 111/63 09/23/18 07:20 86 12 118/57 100 09/23/18 07:12 97.7 F 87 17 109/59 100 09/23/18 07:10 86 11 L 124/59 99 09/23/18 07:02 97.7 F 86 17 115/60 100 09/23/18 07:00 87 13 116/62 98 09/23/18 06:55 97.6 F 87 18 116/62 100 09/23/18 06:50 87 11 L 116/62 09/23/18 06:40 90 14 112/62 09/23/18 06:30 87 36 H 105/58 99 09/23/18 06:20 84 10 L 105/58 96 09/23/18 06:10 85 16 105/55 100 09/23/18 06:00 83 5 L 100 09/23/18 05:50 81 12 79 L 09/23/18 05:40 80 9 L 87 L 09/23/18 05:30 82 24 102/52 09/23/18 05:20 74 15 88/52 97 09/23/18 05:14 75 16 88/52 98 09/23/18 05:10 100 09/23/18 05:09 100 Intake and Output 09/22/18 09/23/18 09/23/18 22:59 06:59 14:59 Intake Total 370 Balance 370 Intake: IV 60 Sodium Chloride 0.9% 1, 60 000 ml @ 20 mls/hr IV . Q24H [facility] Rx#:[id number] Blood Product 310 As-1 Unit 0 [id number] As-1 Unit 310 [id number] Other: Voiding Method Bedpan # Bowel Movements 1 Weight 76.657 kg 76.657 kg GENERAL EXAM: Somnolent, 68-year-old -[place]ish female, to moderate amount of distress from abdominal cramping HEAD: Normocephalic/atraumatic. EYES: Normal reaction of pupils, equal size. Conjunctiva pink, sclera white. NOSE: Clear with pink turbinates. THROAT: No erythema or exudates. NECK: No masses, no JVD, no thyroid enlargement, no adenopathy. CHEST: No chest wall deformity. Symmetrical expansion. LUNGS: Equal air entry with no crackles, wheeze, rhonchi or dullness. CVS: Regular rate and rhythm, normal S1 and S2, no gallops, no murmurs, no rubs ABDOMEN: Soft, nontender. No hepatosplenomegaly, normal bowel sounds, no guarding or rigidity. EXTREMITIES: No clubbing, no edema, no cyanosis, 2+ pulses and upper and lower extremities. MUSCULOSKELETAL: Muscle strength and tone normal. SPINE: No scoliosis or deformity SKIN: No rashes CENTRAL NERVOUS SYSTEM: Alert and oriented -3. No focal deficits, tone is normal in all 4 extremities. PSYCHIATRIC: Alert and oriented -3. Appropriate affect. Intact judgment and insight. Results - Laboratory Findings CBC and BMP: 09/23/18 05:36 09/23/18 05:36 Abnormal lab findings: Abnormal Labs 09/23/18 09/23/18 09/23/18 05:36 05:36 05:36 RBC 2.01 L Hgb 6.2 L* Hct 19.8 L* RDW 20.5 H Lymphocytes # 0.5 L Sodium 135 L Carbon Dioxide 21 L BUN 97 H Creatinine 10.04 H* Glucose 134 H POC Glucose (mg/dL) Calcium 8.2 L Total Protein 4.8 L Albumin 2.5 L Stool Occult Blood Crossmatch See Detail 09/23/18 09/23/18 06:15 09:27 RBC Hgb Hct RDW Lymphocytes # Sodium Carbon Dioxide BUN Creatinine Glucose POC Glucose (mg/dL) 109 H Calcium Total Protein Albumin Stool Occult Blood Positive H Crossmatch Assessment and Plan Plan: Assessment: #1. Acute GI blood loss anemia, patient presented with coffee-ground emesis, and black stools #2. Recent hospitalization for anemia, patient had a EGD on Saturday, 2018 which revealed AVM malformation which was ablated. Patient has received 3 units of packed red blood cells during that admission and was discharged home on Saturday #3. Chronic anemia, with history of multiple blood and iron transfusions #4. End-stage renal disease, on hemodialysis, on Saturday schedule. Patient missed her dialysis yesterday due to a friend's #5. History of left breast cancer status post mastectomy and chemotherapy #6. History of COPD, not active #7. Chronic smoker #8. Hypothyroidism Plan: Patient is being transfused with 2 units of packed red blood cells today for hemoglobin of 6.2, will continue monitoring serial H&H's. Continue with Protonix, GI service has been consulted, and patient will undergo repeat EGD today. Continue close hemodynamic monitoring. She will remain in the intensive care unit. I performed a history & physical examination of the patient and discussed their management with my nurse practitioner, Sierra Jesus. I reviewed the nurse practitioner's note and agree with the documented findings and plan of care. Lung sounds are positive for clear breath sounds. The findings and the impression was discussed with the patient. I attest to the documentation by the nurse practitioner. Time with Patient: Greater than 30
[2018-09-23] MEDS ORDERED: PHENYLEPHRINE-0.9% NACL SYG 1 MG/10 ML SYRINGE ONE (14:58)
[2018-09-23] MEDS ORDERED: LIDOCAINE 1% INJ 10MG/ML (20 ML MDV) ONE (14:58)
[2018-09-23] MEDS ORDERED: IV FLUID CONTINUATION 350 ML IV ONE (14:58)
[2018-09-23] MEDS ORDERED: PROPOFOL 10 MG/ML 20 ML VIAL IV ONE (14:58)
--- NOTE | 2018-09-23 15:30 | P.PCN ---
Date of Procedure: 09/23/18 Description of Procedure: BRIEF HISTORY: 68-year-old female with a history of end-stage renal disease hemodialysis Saturday, chronic iron deficiency anemia requiring multiple blood transfusions iron supplementation in the outpatient setting, GI bleeds of multiple hospitalizations for symptomatic anemia, bleeding small bowel AVMs, multiple endoscopies. Recent bone marrow biopsy a few Weeks ago; MDS versus LEOLA. Patient was recently hospitalized at [facility] over the Weekend for symptomatic anemia acute gi bleed melena. EGD performed Saturday by Dr. Fernández with findings of bleeding AVM in the duodenal bulb s/p gold probe ablation. Admission hemoglobin at [facility] was 5.2 and discharge hemoglobin was 8.1. She received 3 units of blood. She reports persistent dark dark-colored bowel movements and nonbloody emesis prior to admission. Epigastric discomfort. Hemoccult was 6.2. MCV 98. Platelet 165. Creatinine 10. BUN 97. FOBT positive. APTT 22.1. PROCEDURE PERFORMED: Esophagogastroduodenoscopy. PREOPERATIVE DIAGNOSIS: Anemia of acute blood loss, coffee-ground emesis. ESTIMATED BLOOD LOSS: Minimal. IV sedation per anesthesia. PROCEDURE: After informed consent was obtained, the patient was brought into the endoscopy unit. IV sedation was administered by Anesthesia under continuous monitoring. Initially the Olympus GIF-190 video endoscope was inserted into the mouth. Esophagus intubated without any difficulty. It was gradually advanced into the stomach and duodenum and carefully examined. Old dark hemolyzed blood was noted in the bulb and second portion of the duodenum without any source of bleeding or active bleeding noted. The area of prior cold probe ablation on was noted in the duodenal bulb. The scope at this time was withdrawn to the stomach, adequately insufflated with air, and upon careful examination, mucosa of the antrum, body, cardia and the fundus inspected with no source of active bleeding or fresh blood noted. Some old blood seen throughout the stomach. Retained food debris also noted. The scope was then withdrawn into the esophagus. The GE junction was located at 36 cm from the incisors. The esophagus appeared normal. There were no erosions or ulcerations seen and the patient tolerated the procedure well. IMPRESSION: 1. No active bleeding or fresh blood in the entire examined esophagus, stomach and duodenum. 2. Some old hemolyzed blood and debris noted in the stomach and duodenum. 3. Area of prior ablation of AVM in the duodenal wall noted. RECOMMENDATIONS: The findings of this examination were discussed with the patient. Would keep patient nothing by mouth with ice chips and meds with sips of water for now. Continue to monitor hemoglobin and transfuse as needed. Likely source of patient's bleeding is a small bowel AVM which patient has been noted to have in the past. Consideration for capsule endoscopy for further evaluation. Continue Protonix therapy. We will continue to follow.
[2018-09-23] MEDS: HYDROmorphone 0.5 MG/0.5 ML SYRINGE IVP PRN (17:04)
[2018-09-23 17:56] LABS: Anisocytosis Slight; HCT 28.5 % (34.0-46.0); Hypochromasia Moderate; MCH 29.9 pg (25.0-35.0); MCHC 31.6 g/dL (31.0-37.0); MCV 94.6 fL (80.0-100.0); Macrocytosis Slight; Mean Platelet Volume 8.4; Platelet Count 177 k/uL (150-450); Poikilocytosis Slight; RBC 3.02 m/uL (3.80-5.40); WBC 10.7 k/uL (3.8-10.6)
[2018-09-23 18:01] LABS: Prothrombin Time 10.6 sec (9.0-12.0)
[2018-09-24 05:05] LABS: Anisocytosis Slight; HCT 28.6 % (34.0-46.0); Hypochromasia Moderate; MCH 29.9 pg (25.0-35.0); MCHC 31.6 g/dL (31.0-37.0); MCV 94.8 fL (80.0-100.0); Macrocytosis Slight; Mean Platelet Volume 6.9; Platelet Count 212 k/uL (150-450); Poikilocytosis Slight; RBC 3.01 m/uL (3.80-5.40); WBC 10.4 k/uL (3.8-10.6)
[2018-09-24 05:10] LABS: INR 0.9 (<1.2); Partial Thromboplastin Time 26.3 sec (22.0-30.0); Prothrombin Time 10.1 sec (9.0-12.0)
[2018-09-24 05:11] LABS: Albumin 2.5 g/dL (3.5-5.0); Calcium 7.4 mg/dL (8.4-10.2); Magnesium 3.1 mg/dL (1.6-2.3); Phosphorus 6.4 mg/dL (2.5-4.5); Potassium 5.7 mmol/L (3.5-5.1); Total Bilirubin 0.5 mg/dL (0.2-1.3); Total Protein 4.8 g/dL (6.3-8.2)
[2018-09-24 05:48] LABS: Band Neutrophils % 42 %; Lymphocytes # (M) 0.21 k/uL (1.0-4.8); Monocytes # (M) 0.52 k/uL (0-1.0); Neutrophils % (M) 51 %; Nucleated Red Blood Cells 0 /100 WBC (0-0); Total Cells Counted 100
[2018-09-24 05:49] LABS: Target Cells Present
[2018-09-24] MEDS: PANTOPRAZOLE 40 MG/10 ML VIAL IV SCH (09:35)
[2018-09-24] MEDS: SODIUM CHLORIDE 0.9% 1,000 ML IV SCH (09:35)
--- NOTE | 2018-09-24 10:57 | P.NPCON ---
History of Present Illness - Reason for Consult end stage renal disease - History of Present Illness Reason for consultation: End-stage renal disease History of present illness: Patient is a 68-year-old female seen in renal consultation for end-stage renal disease. She is maintained on hemodialysis on a Saturday schedule via left upper extremity AV graft. Patient presented to the hospital with abdominal pain. Hemoglobin was 6.2 on admission. She did receive 3 units of blood transfusion. Hemoglobin stable at 9.0 this morning. She underwent an EGD yesterday which revealed no active bleeding. There are potential plans to do capsule endoscopy this admission. Patient has anemia requiring multiple blood transfusions. 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 She did have black tarry stools last night. No vomiting. Patient does miss outpatient dialysis treatments quite frequently. She scheduled for dialysis today. She missed Saturday's treatment. Vital signs are stable. General: The patient appeared well nourished and normally developed. HEENT: Head exam is unremarkable. Neck is without jugular venous distension. LUNGS: Lungs are clear to auscultation and percussion. Breath sounds decreased. HEART: Rate and Rhythm are regular. First and second heart sounds normal. No murmurs, rubs or gallops. ABDOMEN: Abdominal exam reveals normal bowel sounds. Non-tender and non- distended. No evidence of peritonitis. EXTREMITITES: No clubbing, cyanosis, or edema. Past Medical History Past Medical History: Asthma, Cancer, COPD, Dialysis, GERD/Reflux, GI Bleed, Hearing Disorder / Deafness, Hypertension, Osteoarthritis (OA), Renal Disease, Thyroid Disorder Additional Past Medical History / Comment(s): HEMODIALYSIS SAT,SAT, SAT-last dialysis was 09/19/18Saturday d/t unable to go yesterday 09/22/18, anemia- receives blood tranfusions weekly, past upper and lower GI bleeds per pt and recently admitted to [facility] for GI bleed-had EGD-no source found, L breast cancer with L mastectomy and chemotherapy, arthritis in multiple joints, hypothyroid, PLATINUM bilaterally History of Any Multi-Drug Resistant Organisms: None Reported Past Surgical History: Breast Surgery, Hysterectomy, Tubal Ligation Additional Past Surgical History / Comment(s): L BREAST BIOPSY, LEFT MASTECTOMY , DIALYSIS GRAFT- UPPER LEFT ARM, PARTIAL THYROIDECTOMY,COLONOSCOPIES, EGDS, D& C, L SHOULDER CYST REMOVED. Past Anesthesia/Blood Transfusion Reactions: No Reported Reaction, Motion Sickness Additional Past Anesthesia/Blood Transfusion Reaction / Comment(s): Pt has received numerous transfusions without reaction. Smoking Status: Current every day smoker - Past Family History Daughter(s) Family Medical History: Deep Vein Thrombosis (DVT) Mother Family Medical History: Cancer Additional Family Medical History / Comment(s): OVARIAN Brother(s) Family Medical History: Cancer Additional Family Medical History / Comment(s): Brother had "blood" cancer. Medications and Allergies Home Medications Medication Instructions Recorded Confirmed Type Albuterol Nebulized [Ventolin 2.5 mg INHALATION BID PRN 01/26/15 09/23/18 History Nebulized] Labetalol HCl 200 mg PO TID PRN 01/26/15 09/23/18 History Umeclidinium [place] [Incruse 2 puff INHALATION RT-BID PRN 11/27/16 09/23/18 History Ellipta] Calcitriol [Rocaltrol] 0.25 mcg PO Q48H 02/24/18 09/23/18 History Calcium Carb-Mag Carb-Folic 1 tab PO TID 02/24/18 09/23/18 History [Magnebind 400 Rx] Zolpidem Tartrate [Ambien Cr] 6.25 mg PO HS PRN 02/24/18 09/23/18 History Levothyroxine Sodium [Synthroid] 100 mcg PO DAILY 09/23/18 09/23/18 History Allergies Allergy/AdvReac Type Severity Reaction Status Date / Time No Known Allergies Allergy Verified 09/23/18 08:05 Physical Exam Vitals: Vital Signs Temp Pulse Resp BP Pulse Ox 09/24/18 10:00 81 19 122/72 100 09/24/18 09:00 84 11 L 120/67 98 09/24/18 08:00 98.6 F 85 11 L 139/68 100 09/24/18 07:00 84 16 132/62 100 09/24/18 06:30 84 20 132/62 100 09/24/18 06:00 89 27 H 127/65 100 09/24/18 05:00 81 14 132/64 99 09/24/18 04:00 98.4 F 88 18 136/96 100 09/24/18 03:30 92 12 117/65 99 09/24/18 03:00 88 16 127/65 100 09/24/18 02:30 87 18 118/65 98 09/24/18 02:00 87 15 123/68 99 09/24/18 01:30 89 14 127/65 100 09/24/18 01:00 85 14 126/73 99 09/24/18 00:30 85 14 130/66 99 09/24/18 00:00 98.2 F 89 16 133/70 100 09/23/18 23:30 87 14 130/70 100 09/23/18 23:00 85 16 136/67 98 09/23/18 22:30 84 14 130/75 100 09/23/18 22:00 89 15 138/70 98 09/23/18 21:30 87 20 114/66 97 09/23/18 21:00 87 14 114/65 98 09/23/18 20:30 98.7 F 87 12 118/66 98 09/23/18 20:00 89 12 124/65 98 09/23/18 19:00 87 7 L 126/66 99 09/23/18 18:00 86 12 122/68 98 09/23/18 17:30 84 10 L 122/68 99 09/23/18 17:00 89 10 L 123/65 100 09/23/18 16:30 81 11 L 120/67 98 09/23/18 16:00 98.1 F 83 12 113/61 97 09/23/18 15:00 43 L 12 128/70 100 09/23/18 14:30 86 10 L 129/73 100 09/23/18 14:00 84 10 L 126/72 100 09/23/18 13:30 83 9 L 126/76 100 09/23/18 13:10 98.0 F 84 12 130/71 100 09/23/18 13:00 84 9 L 127/67 100 09/23/18 12:30 82 9 L 114/65 100 09/23/18 12:00 98.0 F 84 12 119/66 100 09/23/18 11:30 82 12 123/68 100 09/23/18 11:00 80 11 L 118/70 100 09/23/18 10:54 97.5 F L 81 12 115/71 100 Intake and Output 09/23/18 09/24/18 09/24/18 22:59 06:59 14:59 Intake Total 160 160 80 Output Total 200 Balance 160 160 -120 Intake: IV 160 160 80 Sodium Chloride 0.9% 1, 160 160 80 000 ml @ 20 mls/hr IV . Q24H [facility] Rx#:[id number] Output: Urine 200 Other: Voiding Method Bedpan Bedpan Bedside Commode # Voids 1 1 # Bowel Movements 1 Weight 78.5 kg Results - Lab Results Most recent lab results Calcium 7.4 mg/dL (8.4-10.2) L 09/24/18 04:35 Phosphorus 6.4 mg/dL (2.5-4.5) H 09/24/18 04:35 Magnesium 3.1 mg/dL (1.6-2.3) H 09/24/18 04:35 09/24/18 04:35 09/24/18 04:35 Assessment and Plan Plan: Assessment: 1. End-stage renal disease maintained on hemodialysis on a Saturday schedule via left upper extremity AV graft. 2. Acute blood loss anemia status post blood transfusion. Hemoglobin stable. Status post EGD which revealed no active bleeding. Concern for small bowel AVMs. 3. Hyperkalemia secondary to GI bleed and chronic kidney disease. 4. Metabolic acidosis secondary to chronic kidney disease. 5. Hypertension with chronic kidney disease. Controlled. 6. Chronic kidney disease mineral bone disease. Plan: Hemodialysis today. Add Aranesp. She can hopefully get the capsule endoscopy done this admission as she's been requiring multiple admissions for anemia and blood transfusions for the last several months. Thank you for the consultation. I will continue to follow the patient with you during her hospital stay.
[2018-09-24] MEDS: DARBEPOETIN ALFA 40 MCG/0.4 ML SYRINGE SQ SCH (12:07)
[2018-09-24] MEDS ORDERED: ALBUTEROL NEBULIZED 2.5 MG/3 ML INHALATION PRN ×2 (12:38→13:00)
[2018-09-24] MEDS ORDERED: LABETALOL 200 MG TAB PO PRN (12:38)
--- NOTE | 2018-09-24 12:42 | P.PN ---
Subjective Progress Note Date: 09/24/18 Principal diagnosis: GI bleed No active bleeding this morning. Hemoglobin stable at 9. Dialysis scheduled today. Status post EGD yesterday but no evidence of active GI bleeding. No emesis. No fever. Minimal abdominal discomfort. Objective - Vital Signs Vital signs: Vital Signs Temp 98.6 F 09/24/18 08:00 Pulse 81 09/24/18 10:00 Resp 19 09/24/18 10:00 BP 122/72 09/24/18 10:00 Pulse Ox 100 09/24/18 10:00 Intake & Output 09/23/18 09/24/18 09/24/18 18:59 06:59 18:59 Intake Total 895 240 80 Output Total 100 200 Balance 795 240 -120 Weight 76.657 kg 78.5 kg Intake: IV 275 240 80 Sodium Chloride 0.9% 1, 200 240 80 000 ml @ 20 mls/hr IV . Q24H [facility] Rx#:[id number] Blood Product 620 Rc As-1 Unit 310 [id number] Rc As-1 Unit 310 [id number] Output: Urine 100 200 Other: Voiding Method Bedpan Bedpan Bedside Commode # Voids 1 1 # Bowel Movements 1 1 - Exam General appearance: The patient is alert, oriented, in no acute distress. HET: Head is normocephalic and atraumatic. Pupils are equal and reactive. Oropharynx is clear without lesions. Neck: Supple without lymphadenopathy. Trachea midline. Heart: S1 S2. Regular rate and rhythm. Lungs: No crackles or wheezes are heard. Abdomen: Soft, mildly tender midabdomen, nondistended with bowel sounds. No peritoneal signs. No palpable organomegaly or masses. Extremities: Normal skin color and turgor. No cyanosis, rash, ulceration, clubbing, or edema. Radial and pedal pulses are 2/4 bilaterally. Neurological: No focal deficits. Strength and sensation are grossly intact. - Labs CBC & Chem 7: 09/24/18 04:35 09/24/18 04:35 Labs: Abnormal Lab Results - Last 24 Hours (Table) 09/23/18 09/23/18 09/24/18 Range/Units 05:36 17:32 04:35 WBC 10.7 H (3.8-10.6) k/uL RBC 3.02 L 3.01 L (3.80-5.40) m/uL Hgb 9.0 L D 9.0 L (11.4-16.0) gm/dL Hct 28.5 L 28.6 L (34.0-46.0) % RDW 19.0 H 19.0 H (11.5-15.5) % Neutrophils # (Manual) 9.60 H (1.3-7.7) k/uL Lymphocytes # (Manual) 0.21 L (1.0-4.8) k/uL Potassium (3.5-5.1) mmol/L Chloride (98-107) mmol/L Carbon Dioxide (22-30) mmol/L BUN (7-17) mg/dL Creatinine (0.52-1.04) mg/dL Calcium (8.4-10.2) mg/dL Phosphorus (2.5-4.5) mg/dL Magnesium (1.6-2.3) mg/dL AST (14-36) U/L Total Protein (6.3-8.2) g/dL Albumin (3.5-5.0) g/dL Crossmatch See Detail 09/24/18 Range/Units 04:35 WBC (3.8-10.6) k/uL RBC (3.80-5.40) m/uL Hgb (11.4-16.0) gm/dL Hct (34.0-46.0) % RDW (11.5-15.5) % Neutrophils # (Manual) (1.3-7.7) k/uL Lymphocytes # (Manual) (1.0-4.8) k/uL Potassium 5.7 H (3.5-5.1) mmol/L Chloride 110 H (98-107) mmol/L Carbon Dioxide 20 L (22-30) mmol/L BUN 98 H (7-17) mg/dL Creatinine 10.19 H* (0.52-1.04) mg/dL Calcium 7.4 L (8.4-10.2) mg/dL Phosphorus 6.4 H (2.5-4.5) mg/dL Magnesium 3.1 H (1.6-2.3) mg/dL AST 61 H (14-36) U/L Total Protein 4.8 L (6.3-8.2) g/dL Albumin 2.5 L (3.5-5.0) g/dL Crossmatch Assessment and Plan (1) Acute GI bleeding Narrative/Plan: Status post recent surveillance EGD yesterday with no evidence of active bleeding previous EGD performed 09/20/2018 reported findings of bleeding AVM in the duodenal bulb status post gold probe ablation. Current Visit: Yes Status: Acute Code(s): K92.2 - GASTROINTESTINAL HEMORRHAGE, UNSPECIFIED SNOMED Code(s): 83019504 (2) Chronic GI bleeding Current Visit: Yes Status: Acute Code(s): K92.2 - GASTROINTESTINAL HEMORRHAGE, UNSPECIFIED SNOMED Code(s): 73354483 (3) Small bowel arteriovenous malformation Current Visit: Yes Status: Acute Code(s): K55.20 - ANGIODYSPLASIA OF COLON WITHOUT HEMORRHAGE SNOMED Code(s): 690071919 (4) Acute blood loss anemia Current Visit: Yes Status: Acute Code(s): D62 - ACUTE POSTHEMORRHAGIC ANEMIA SNOMED Code(s): 241247800 (5) Symptomatic anemia Current Visit: Yes Status: Acute Code(s): D64.9 - ANEMIA, UNSPECIFIED SNOMED Code(s): 241340465 (6) ESRD (end stage renal disease) Current Visit: Yes Status: Acute Code(s): N18.6 - END STAGE RENAL DISEASE SNOMED Code(s): 58940166 (7) Melena Current Visit: Yes Status: Acute Code(s): K92.1 - MELENA SNOMED Code(s): 3376336 Plan: 1. Capsule endoscopy tomorrow morning rule out small bowel pathology. Clear liquid renal diet today NPO after midnight. CBC monitoring. Protonix 40 mg twice daily. Assessment and plan a care discussed with Dr. Fernández
--- NOTE | 2018-09-24 12:43 | P.PN ---
Philip Lanier is a 68-year-old white female well-known to me. She is admitted over at [facility] about every 2-3 weeks for anemia of chronic disease. She typically receives 1-3 units of packed red blood cells during that stay. She's been worked up for GI bleeding multiple times including just recently with Dr. 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 She presented emergency room after having abdominal pain for 1 day and then several episodes of coffee-ground emesis. Her hemoglobin emergency room was 6.2. This is NOT Unusual for her. She has end-stage renal failure on hemodialysis on Saturday. This is thought to be the cause of her anemia in the past as there were no findings on endoscopy. She is now resting comfortably intensive care unit is hearty received 1 unit of packed red blood cells. 09/24/2018: Patient is resting comfortably intensive care unit. She is scheduled to have dialysis later today. She is status post EGD yesterday. She was found to have no active bleeding or fresh blood in the esophagus stomach and duodenum. She was found to have the the area of prior ablation of AV M of the duodenal wall was once again noted by him. GI is now planning a pill endoscopy in the morning. She is currently on clear liquids. She continues to complain of some mild left lower quadrant abdominal pain. She is status post 2 units packed red blood cells in total. Hemoglobin today is 9.0.she denies any chest pains, pressures, or shortness of breath this time. Objective - Vital Signs Vital signs: Vital Signs Temp 98.6 F 09/24/18 08:00 Pulse 81 09/24/18 10:00 Resp 19 09/24/18 10:00 BP 122/72 09/24/18 10:00 Pulse Ox 100 09/24/18 10:00 Intake & Output 09/23/18 09/24/18 09/24/18 18:59 06:59 18:59 Intake Total 895 240 80 Output Total 100 200 Balance 795 240 -120 Weight 76.657 kg 78.5 kg Intake: IV 275 240 80 Sodium Chloride 0.9% 1, 200 240 80 000 ml @ 20 mls/hr IV . Q24H [facility] Rx#:[id number] Blood Product 620 Rc As-1 Unit 310 [id number] Rc As-1 Unit 310 [id number] Output: Urine 100 200 Other: Voiding Method Bedpan Bedpan Bedside Commode # Voids 1 1 # Bowel Movements 1 1 - Exam GENERAL: Fatigued -Citizen Of [place] female, in min distress due to abdominal pain. NECK: Normal range of motion, supple without lymphadenopathy or JVD, no thyromegaly LUNGS: Breath sounds Hoarse to auscultation bilaterally and equal. No wheezes rales or rhonchi. HEART: Regular rate and rhythm without murmurs, rubs or gallops.S1S2 Normal ABDOMEN: Soft, normoactive bowel sounds. No guarding, no rebound. No masses appreciated.Pain to palpation of the right lower quadrant EXTREMITIES: Normal range of motion, no pitting or edema. No clubbing or cyanosis. +Bruit left arm. NEUROLOGICAL: Cranial nerves II through XII grossly intact. Normal speech, normal gait. PSYCH: Normal mood, normal affect. SKIN: Warm, Dry, normal turgor, no rashes or lesions noted. - Labs CBC & Chem 7: 09/24/18 04:35 09/24/18 04:35 Labs: Abnormal Lab Results - Last 24 Hours (Table) 09/23/18 09/23/18 09/24/18 Range/Units 05:36 17:32 04:35 WBC 10.7 H (3.8-10.6) k/uL RBC 3.02 L 3.01 L (3.80-5.40) m/uL Hgb 9.0 L D 9.0 L (11.4-16.0) gm/dL Hct 28.5 L 28.6 L (34.0-46.0) % RDW 19.0 H 19.0 H (11.5-15.5) % Neutrophils # (Manual) 9.60 H (1.3-7.7) k/uL Lymphocytes # (Manual) 0.21 L (1.0-4.8) k/uL Potassium (3.5-5.1) mmol/L Chloride (98-107) mmol/L Carbon Dioxide (22-30) mmol/L BUN (7-17) mg/dL Creatinine (0.52-1.04) mg/dL Calcium (8.4-10.2) mg/dL Phosphorus (2.5-4.5) mg/dL Magnesium (1.6-2.3) mg/dL AST (14-36) U/L Total Protein (6.3-8.2) g/dL Albumin (3.5-5.0) g/dL Crossmatch See Detail 09/24/18 Range/Units 04:35 WBC (3.8-10.6) k/uL RBC (3.80-5.40) m/uL Hgb (11.4-16.0) gm/dL Hct (34.0-46.0) % RDW (11.5-15.5) % Neutrophils # (Manual) (1.3-7.7) k/uL Lymphocytes # (Manual) (1.0-4.8) k/uL Potassium 5.7 H (3.5-5.1) mmol/L Chloride 110 H (98-107) mmol/L Carbon Dioxide 20 L (22-30) mmol/L BUN 98 H (7-17) mg/dL Creatinine 10.19 H* (0.52-1.04) mg/dL Calcium 7.4 L (8.4-10.2) mg/dL Phosphorus 6.4 H (2.5-4.5) mg/dL Magnesium 3.1 H (1.6-2.3) mg/dL AST 61 H (14-36) U/L Total Protein 4.8 L (6.3-8.2) g/dL Albumin 2.5 L (3.5-5.0) g/dL Crossmatch Assessment and Plan (1) Hypothyroid Current Visit: Yes Status: Acute Code(s): E03.9 - HYPOTHYROIDISM, UNSPECIFIED SNOMED Code(s): 06928763 (2) Tobacco abuse Current Visit: Yes Status: Acute Code(s): Z72.0 - TOBACCO USE SNOMED Code( s): 217924775 (3) Acute GI bleeding Current Visit: Yes Status: Acute Code(s): K92.2 - GASTROINTESTINAL HEMORRHAGE, UNSPECIFIED SNOMED Code(s): 05004263 (4) Acute blood loss anemia Current Visit: Yes Status: Acute Code(s): D62 - ACUTE POSTHEMORRHAGIC ANEMIA SNOMED Code(s): 375496749 (5) Dialysis patient, noncompliant Current Visit: Yes Status: Acute Code(s): Z91.15 - PATIENT'S NONCOMPLIANCE WITH RENAL DIALYSIS SNOMED Code(s): 099195140853544 (6) ESRD (end stage renal disease) Current Visit: Yes Status: Acute Code(s): N18.6 - END STAGE RENAL DISEASE SNOMED Code(s): 02875047 (7) Hematemesis Current Visit: Yes Status: Acute Code(s): K92.0 - HEMATEMESIS SNOMED Code( s): 6169800 Plan: Await consult and recommendations.weight pill endoscopy in the a.m. Repeat labs in a.m. She was reevaluated in the next 24 hours.she can go to a [facility] clear by critical care and GI.
--- NOTE | 2018-09-24 13:53 | P.PN ---
Subjective Progress Note Date: 09/24/18 Principal diagnosis: GI bleed. Patient is 68-year-old -[place] female with past medical history of ESRD on hemodialysis on Saturday schedule, chronic iron deficiency anemia, requiring blood transfusions and iron transfusions in the outpatient setting. Previous hospitalizations for GI bleeding. Patient is not on any anticoagulation. She thinks her last colonoscopy was about a year ago, maybe longer. She was hospitalized at [facility] last week, and she had a EGD with Dr. 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 She was transfused with 3 units of packed red blood cells at the [facility] for hemoglobin of 5.2 and discharge hemoglobin was 8.1. Patient started having severe cramping in her lower abdomen yesterday, she had been passing dark stools at home, she had called 911 yesterday went into the emergency. For evaluation, on the way to the hospital patient had a one episode of coffee-ground emesis, and large dark stool. Labs have been reviewed, and showed a white blood count of 6.9, hemoglobin of 6.2, platelet count of 165, sodium was 135, potassium is 5.1, CO2 is 21, BUN was 97, creatinine was 10.04. Stool occult was positive. Complete shortness of breath or chest pain, patient did miss her regular dialysis day yesterday due to a friend's . Denies any fever or chills, she is on 2 L per nasal cannula and her pulse ox 100%. Hemodynamically stable. Patient is receiving 2 units of packed red blood cells, immobile globin of 6.2. He is resting in bed, still having severe abdominal cramping across the lower abdomen , service has been consulted, and the recommendation was appreciated. Further vomiting or bloody bm's since admission. Patient is on IV Protonix 40 mg daily , she was given a liter bolus in the emergency department. She came up to the intensive care unit, and were consulted for ICU management. The patient is seen today 09/24/2018 in follow-up in the intensive care unit. She is currently sitting up in a chair at the bedside. She is awake and alert in no acute distress. Currently maintaining good O2 saturations up to 100% on room air. She's been afebrile. Hemodynamically stable. White count 10.4. Potassium 5.7. Chloride 110. Bicarb 20. Creatinine 10.19. Stool for occult blood was positive. No further active bleeding this morning. EGD performed yesterday showed no evidence of active GI bleeding. She is scheduled for hemodialysis today. Possible capsule endoscopy this admission. Objective - Vital Signs Vital signs: Vital Signs Temp 98.6 F 09/24/18 08:00 Pulse 81 09/24/18 10:00 Resp 19 09/24/18 10:00 BP 122/72 09/24/18 10:00 Pulse Ox 100 09/24/18 10:00 Intake & Output 09/23/18 09/24/18 09/24/18 18:59 06:59 18:59 Intake Total 895 240 80 Output Total 100 200 Balance 795 240 -120 Weight 76.657 kg 78.5 kg Intake: IV 275 240 80 Sodium Chloride 0.9% 1, 200 240 80 000 ml @ 20 mls/hr IV . Q24H [facility] Rx#:[id number] Blood Product 620 Rc As-1 Unit 310 [id number] Rc As-1 Unit 310 [id number] Output: Urine 100 200 Other: Voiding Method Bedpan Bedpan Bedside Commode # Voids 1 1 # Bowel Movements 1 1 - Exam GENERAL EXAM: Awake alert, 68-year-old female, no acute distress less abdominal cramping HEAD: Normocephalic/atraumatic. EYES: Normal reaction of pupils, equal size. Conjunctiva pink, sclera white. NOSE: Clear with pink turbinates. THROAT: No erythema or exudates. NECK: No masses, no JVD, no thyroid enlargement, no adenopathy. CHEST: No chest wall deformity. Symmetrical expansion. LUNGS: Equal air entry with no crackles, wheeze, rhonchi or dullness. CVS: Regular rate and rhythm, normal S1 and S2, no gallops, no murmurs, no rubs ABDOMEN: Soft, nontender. No hepatosplenomegaly, normal bowel sounds, no guarding or rigidity. EXTREMITIES: No clubbing, no edema, no cyanosis, 2+ pulses and upper and lower extremities. MUSCULOSKELETAL: Muscle strength and tone normal. SPINE: No scoliosis or deformity SKIN: No rashes CENTRAL NERVOUS SYSTEM: Alert and oriented -3. No focal deficits, tone is normal in all 4 extremities. PSYCHIATRIC: Alert and oriented -3. Appropriate affect. Intact judgment and insight. - Labs CBC & Chem 7: 09/24/18 04:35 09/24/18 04:35 Labs: Abnormal Lab Results - Last 24 Hours (Table) 09/23/18 09/24/18 09/24/18 Range/Units 17:32 04:35 04:35 WBC 10.7 H (3.8-10.6) k/uL RBC 3.02 L 3.01 L (3.80-5.40) m/uL Hgb 9.0 L D 9.0 L (11.4-16.0) gm/dL Hct 28.5 L 28.6 L (34.0-46.0) % RDW 19.0 H 19.0 H (11.5-15.5) % Neutrophils # (Manual) 9.60 H (1.3-7.7) k/uL Lymphocytes # (Manual) 0.21 L (1.0-4.8) k/uL Potassium 5.7 H (3.5-5.1) mmol/L Chloride 110 H (98-107) mmol/L Carbon Dioxide 20 L (22-30) mmol/L BUN 98 H (7-17) mg/dL Creatinine 10.19 H* (0.52-1.04) mg/dL Calcium 7.4 L (8.4-10.2) mg/dL Phosphorus 6.4 H (2.5-4.5) mg/dL Magnesium 3.1 H (1.6-2.3) mg/dL AST 61 H (14-36) U/L Total Protein 4.8 L (6.3-8.2) g/dL Albumin 2.5 L (3.5-5.0) g/dL Assessment and Plan Assessment: Assessment: #1. Acute GI blood loss anemia, patient presented with coffee-ground emesis, and black stools #2. Recent hospitalization for anemia, patient had a EGD on Saturday, 2018 which revealed AVM malformation which was ablated. Patient has received 3 units of packed red blood cells during that admission and was discharged home on Saturday #3. Chronic anemia, with history of multiple blood and iron transfusions #4. End-stage renal disease, on hemodialysis, on Saturday schedule. Patient missed her dialysis yesterday due to a friend's #5. History of left breast cancer status post mastectomy and chemotherapy #6. History of COPD, not active #7. Chronic smoker #8. Hypothyroidism Plan: The patient was seen and evaluated by Dr. Sol. Lab results reviewed. She is currently stable from the pulmonary and critical care standpoint. EGD showed no active bleeding. Possible capsule study this admission. She is due for hemodialysis today. If she remains stable she could be transferred out of the ICU. We will continue to follow make further recommendations based on her clinical status. I, the cosigning physician, performed a history & physical examination of the patient. Lungs sounds are clear. Maintaining good O2 saturations in the 90s on room air. I discussed the assessment and plan of care with my nurse practitioner, Claribel Aviles. I attest to the above note as dictated by her.
[2018-09-24] MEDS: IPRATROPIUM 0.5 MG/2.5 ML NEBU INHALATION SCH ×2 (15:27→19:33)
[2018-09-24] MEDS: LEVOTHYROXINE 100 MCG TAB PO SCH (15:51)
[2018-09-24] MEDS: CALCIUM CARB-MAG CARB-FOLIC 1 EACH TAB PO SCH ×2 (15:51→22:15)
[2018-09-24] MEDS: CALCITRIOL 0.25 MCG CAP PO SCH (15:51)
[2018-09-24] MEDS ORDERED: POLYETHYLENE GLYCOL 3350 17 GM POWD.PACK PO ONE (17:00)
[2018-09-24] MEDS ORDERED: ZOLPIDEM 5 MG TAB PO PRN (21:00)
[2018-09-25 06:01] LABS: Anisocytosis Slight; HCT 27.1 % (34.0-46.0); HGB 8.6 gm/dL (11.4-16.0); Hypochromasia Moderate; MCH 29.5 pg (25.0-35.0); MCHC 31.6 g/dL (31.0-37.0); MCV 93.2 fL (80.0-100.0); Platelet Count 208 k/uL (150-450); Poikilocytosis Slight; RBC 2.91 m/uL (3.80-5.40); RDW 18.3 % (11.5-15.5)
[2018-09-25 06:11] LABS: Albumin 2.4 g/dL (3.5-5.0); Magnesium 2.3 mg/dL (1.6-2.3); Phosphorus 5.6 mg/dL (2.5-4.5); Potassium 4.6 mmol/L (3.5-5.1); Total Bilirubin 0.4 mg/dL (0.2-1.3); Total Protein 4.7 g/dL (6.3-8.2)
[2018-09-25] MEDS: SODIUM CHLORIDE 0.9% 1,000 ML IV SCH (06:22)
[2018-09-25] MEDS: LEVOTHYROXINE 100 MCG TAB PO SCH (06:22)
[2018-09-25] MEDS ORDERED: SIMETHICONE 40 MG/0.6 ML DROPS 2,000 MG/30 ML BOTTLE PO ONE (07:36)
[2018-09-25] MEDS: IPRATROPIUM 0.5 MG/2.5 ML NEBU INHALATION SCH ×4 (09:33→19:38)
--- NOTE | 2018-09-25 09:46 | P.PN ---
Subjective Patient is seen in follow-up for end-stage renal disease. She is maintained on hemodialysis on a Saturday schedule. Hemoglobin 8.6 today. She is undergoing capsule endoscopy. Denies chest pain or shortness of breath. Tolerated hemodialysis well yesterday. Vital signs are stable. General: The patient appeared well nourished and normally developed. HEENT: Head exam is unremarkable. Neck is without jugular venous distension. LUNGS: Lungs are clear to auscultation and percussion. Breath sounds decreased. HEART: Rate and Rhythm are regular. First and second heart sounds normal. No murmurs, rubs or gallops. ABDOMEN: Abdominal exam reveals normal bowel sounds. Non-tender and non- distended. No evidence of peritonitis. EXTREMITITES: No clubbing, cyanosis, or edema. Objective - Vital Signs Vital signs: Vital Signs Temp 99.3 F 09/25/18 06:17 Pulse 89 09/25/18 06:17 Resp 15 09/25/18 06:17 BP 131/71 09/25/18 06:17 Pulse Ox 100 09/25/18 06:17 Intake & Output 09/24/18 09/25/18 09/25/18 18:59 06:59 18:59 Intake Total 160 320 Output Total 400 Balance -240 320 Weight 76.7 kg Intake: IV 160 280 Sodium Chloride 0.9% 1, 160 280 000 ml @ 20 mls/hr IV . Q24H [facility] Rx#:[id number] Oral 40 Output: Urine 400 Other: Voiding Method Bedside Commode Bedside Commode # Bowel Movements 1 - Labs CBC & Chem 7: 09/25/18 05:29 09/25/18 05:29 Labs: Abnormal Lab Results - Last 24 Hours (Table) 09/25/18 09/25/18 Range/Units 05:29 05:29 RBC 2.91 L (3.80-5.40) m/uL Hgb 8.6 L (11.4-16.0) gm/dL Hct 27.1 L (34.0-46.0) % RDW 18.3 H (11.5-15.5) % Sodium 135 L (137-145) mmol/L BUN 53 H (7-17) mg/dL Creatinine 6.76 H (0.52-1.04) mg/dL Calcium 7.0 L (8.4-10.2) mg/dL Phosphorus 5.6 H (2.5-4.5) mg/dL AST 44 H (14-36) U/L Total Protein 4.7 L (6.3-8.2) g/dL Albumin 2.4 L (3.5-5.0) g/dL Assessment and Plan Plan: Assessment: 1. End-stage renal disease maintained on hemodialysis on a Saturday schedule via left upper extremity AV graft. 2. Acute blood loss anemia status post blood transfusion. Hemoglobin stable. Status post EGD which revealed no active bleeding. Concern for small bowel AVMs. 3. Hyperkalemia secondary to GI bleed and chronic kidney disease. Improved postdialysis. 4. Metabolic acidosis secondary to chronic kidney disease. Improved postdialysis. 5. Hypertension with chronic kidney disease. Controlled. 6. Chronic kidney disease mineral bone disease. 7. Status post parathyroidectomy maintained on calcium supplementation and calcitriol. Plan: Hemodialysis tomorrow. Maintain Aranesp. Follow up results of capsule endoscopy.
[2018-09-25] MEDS: PANTOPRAZOLE 40 MG/10 ML VIAL IV SCH (10:21)
[2018-09-25] MEDS: CALCIUM CARB-MAG CARB-FOLIC 1 EACH TAB PO SCH ×3 (10:22→21:46)
[2018-09-25] MEDS: HYDROmorphone 0.5 MG/0.5 ML SYRINGE IVP PRN (10:32)
--- NOTE | 2018-09-25 12:04 | P.PN ---
Subjective Progress Note Date: 09/25/18 Principal diagnosis: GI bleed Per nursing no active bleeding. Small bowel capsule endoscopy in process. Reports mild epigastric discomfort. Afebrile. Hemoglobin 8.6. Objective - Vital Signs Vital signs: Vital Signs Temp 99.3 F 09/25/18 06:17 Pulse 89 09/25/18 06:17 Resp 15 09/25/18 06:17 BP 131/71 09/25/18 06:17 Pulse Ox 100 09/25/18 06:17 Intake & Output 09/24/18 09/25/18 09/25/18 18:59 06:59 18:59 Intake Total 160 320 Output Total 400 Balance -240 320 Weight 76.7 kg Intake: IV 160 280 Sodium Chloride 0.9% 1, 160 280 000 ml @ 20 mls/hr IV . Q24H [facility] Rx#:[id number] Oral 40 Output: Urine 400 Other: Voiding Method Bedside Commode Bedside Commode Bedside Commode # Bowel Movements 1 - Exam General appearance: The patient is alert, oriented, in no acute distress. HET: Head is normocephalic and atraumatic. Pupils are equal and reactive. Oropharynx is clear without lesions. Neck: Supple without lymphadenopathy. Trachea midline. Heart: S1 S2. Regular rate and rhythm. Lungs: No crackles or wheezes are heard. Abdomen: Soft, mildly tender midabdomen, nondistended with bowel sounds. No peritoneal signs. No palpable organomegaly or masses. Extremities: Normal skin color and turgor. No cyanosis, rash, ulceration, clubbing, or edema. Radial and pedal pulses are 2/4 bilaterally. Neurological: No focal deficits. Strength and sensation are grossly intact. - Labs CBC & Chem 7: 09/25/18 05:29 09/25/18 05:29 Labs: Abnormal Lab Results - Last 24 Hours (Table) 09/25/18 09/25/18 Range/Units 05:29 05:29 RBC 2.91 L (3.80-5.40) m/uL Hgb 8.6 L (11.4-16.0) gm/dL Hct 27.1 L (34.0-46.0) % RDW 18.3 H (11.5-15.5) % Sodium 135 L (137-145) mmol/L BUN 53 H (7-17) mg/dL Creatinine 6.76 H (0.52-1.04) mg/dL Calcium 7.0 L (8.4-10.2) mg/dL Phosphorus 5.6 H (2.5-4.5) mg/dL AST 44 H (14-36) U/L Total Protein 4.7 L (6.3-8.2) g/dL Albumin 2.4 L (3.5-5.0) g/dL Assessment and Plan (1) Acute GI bleeding Narrative/Plan: Status post recent surveillance EGD yesterday with no evidence of active bleeding previous EGD performed 09/20/2018 reported findings of bleeding AVM in the duodenal bulb status post gold probe ablation. Underlying small bowel source of bleed cannot be excluded. Capsule endoscopy in process. Current Visit: Yes Status: Acute Code(s): K92.2 - GASTROINTESTINAL HEMORRHAGE, UNSPECIFIED SNOMED Code(s): 20195883 (2) Chronic GI bleeding Current Visit: Yes Status: Acute Code(s): K92.2 - GASTROINTESTINAL HEMORRHAGE, UNSPECIFIED SNOMED Code(s): 61600211 (3) Small bowel arteriovenous malformation Current Visit: Yes Status: Acute Code(s): K55.20 - ANGIODYSPLASIA OF COLON WITHOUT HEMORRHAGE SNOMED Code(s): 087006749 (4) Acute blood loss anemia Current Visit: Yes Status: Acute Code(s): D62 - ACUTE POSTHEMORRHAGIC ANEMIA SNOMED Code(s): 528712944 (5) Symptomatic anemia Current Visit: Yes Status: Acute Code(s): D64.9 - ANEMIA, UNSPECIFIED SNOMED Code(s): 431089464 (6) ESRD (end stage renal disease) Current Visit: Yes Status: Acute Code(s): N18.6 - END STAGE RENAL DISEASE SNOMED Code(s): 37047158 (7) Melena Current Visit: Yes Status: Acute Code(s): K92.1 - MELENA SNOMED Code(s): 9949962 Plan: 1. Capsule endoscopy; will review results in a.m. Clear liquid renal diet today. CBC monitoring. Protonix 40 mg twice daily. Assessment and plan a care discussed with Dr. Fernández
--- NOTE | 2018-09-25 13:17 | P.PN ---
Philip Lanier is a 68-year-old white female well-known to me. She is admitted over at [facility] about every 2-3 weeks for anemia of chronic disease. She typically receives 1-3 units of packed red blood cells during that stay. She's been worked up for GI bleeding multiple times including just recently with Dr. 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 She presented emergency room after having abdominal pain for 1 day and then several episodes of coffee-ground emesis. Her hemoglobin emergency room was 6.2. This is NOT Unusual for her. She has end-stage renal failure on hemodialysis on Saturday. This is thought to be the cause of her anemia in the past as there were no findings on endoscopy. She is now resting comfortably intensive care unit is hearty received 1 unit of packed red blood cells. 09/24/2018: Patient is resting comfortably intensive care unit. She is scheduled to have dialysis later today. She is status post EGD yesterday. She was found to have no active bleeding or fresh blood in the esophagus stomach and duodenum. She was found to have the the area of prior ablation of AV M of the duodenal wall was once again noted by him. GI is now planning a pill endoscopy in the morning. She is currently on clear liquids. She continues to complain of some mild left lower quadrant abdominal pain. She is status post 2 units packed red blood cells in total. Hemoglobin today is 9.0.she denies any chest pains, pressures, or shortness of breath this time. 09/25/2018: Patient resting comfortably in the Intensive care unit.She is undergoing pill endoscopy.Hemoglobin is 8.6 today.she denies any chest pains, pressures, or shortness of breath this time.He continues to have some mild pain and now indicates suprapubic area. Objective - Vital Signs Vital signs: Vital Signs Temp 99.3 F 09/25/18 06:17 Pulse 89 09/25/18 06:17 Resp 15 09/25/18 06:17 BP 131/71 09/25/18 06:17 Pulse Ox 100 09/25/18 06:17 Intake & Output 09/24/18 09/25/18 09/25/18 18:59 06:59 18:59 Intake Total 160 320 Output Total 400 Balance -240 320 Weight 76.7 kg Intake: IV 160 280 Sodium Chloride 0.9% 1, 160 280 000 ml @ 20 mls/hr IV . Q24H [facility] Rx#:[id number] Oral 40 Output: Urine 400 Other: Voiding Method Bedside Commode Bedside Commode Bedside Commode # Bowel Movements 1 - Exam GENERAL: Fatigued -[place] female, in min distress due to abdominal pain. NECK: Normal range of motion, supple without lymphadenopathy or JVD, no thyromegaly LUNGS: Breath sounds Hoarse to auscultation bilaterally and equal. No wheezes rales or rhonchi. HEART: Regular rate and rhythm without murmurs, rubs or gallops.S1S2 Normal ABDOMEN: Soft, normoactive bowel sounds. No guarding, no rebound. No masses appreciated.Pain to palpation of the right lower quadrant EXTREMITIES: Normal range of motion, no pitting or edema. No clubbing or cyanosis. +Bruit left arm. NEUROLOGICAL: Cranial nerves II through XII grossly intact. Normal speech, normal gait. PSYCH: Normal mood, normal affect. SKIN: Warm, Dry, normal turgor, no rashes or lesions noted. - Labs CBC & Chem 7: 09/25/18 05:29 09/25/18 05:29 Labs: Abnormal Lab Results - Last 24 Hours (Table) 09/25/18 09/25/18 Range/Units 05:29 05:29 RBC 2.91 L (3.80-5.40) m/uL Hgb 8.6 L (11.4-16.0) gm/dL Hct 27.1 L (34.0-46.0) % RDW 18.3 H (11.5-15.5) % Sodium 135 L (137-145) mmol/L BUN 53 H (7-17) mg/dL Creatinine 6.76 H (0.52-1.04) mg/dL Calcium 7.0 L (8.4-10.2) mg/dL Phosphorus 5.6 H (2.5-4.5) mg/dL AST 44 H (14-36) U/L Total Protein 4.7 L (6.3-8.2) g/dL Albumin 2.4 L (3.5-5.0) g/dL Assessment and Plan (1) Hypothyroid Current Visit: Yes Status: Acute Code(s): E03.9 - HYPOTHYROIDISM, UNSPECIFIED SNOMED Code(s): 63763953 (2) Tobacco abuse Current Visit: Yes Status: Acute Code(s): Z72.0 - TOBACCO USE SNOMED Code( s): 306355376 (3) Acute GI bleeding Current Visit: Yes Status: Acute Code(s): K92.2 - GASTROINTESTINAL HEMORRHAGE, UNSPECIFIED SNOMED Code(s): 87144464 (4) Acute blood loss anemia Current Visit: Yes Status: Acute Code(s): D62 - ACUTE POSTHEMORRHAGIC ANEMIA SNOMED Code(s): 794546231 (5) Dialysis patient, noncompliant Current Visit: Yes Status: Acute Code(s): Z91.15 - PATIENT'S NONCOMPLIANCE WITH RENAL DIALYSIS SNOMED Code(s): 580580245376055 (6) ESRD (end stage renal disease) Current Visit: Yes Status: Acute Code(s): N18.6 - END STAGE RENAL DISEASE SNOMED Code(s): 52343709 (7) Hematemesis Current Visit: Yes Status: Acute Code(s): K92.0 - HEMATEMESIS SNOMED Code( s): 3477166 Plan: Await pill endoscopy to be completed Repeat labs in a.m. She was reevaluated in the next 24 hours.she can go to a [facility] clear by critical care and GI. she may be stable for D/C in am. continue Dialysisi [facility]
--- NOTE | 2018-09-25 16:53 | P.PN ---
Subjective Progress Note Date: 09/25/18 Patient is 68-year-old -[place] female with past medical history of ESRD on hemodialysis on Saturday schedule, chronic iron deficiency anemia, requiring blood transfusions and iron transfusions in the outpatient setting. Previous hospitalizations for GI bleeding. Patient is not on any anticoagulation. She thinks her last colonoscopy was about a year ago, maybe longer. She was hospitalized at [facility] last week, and she had a EGD with Dr. 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 She was transfused with 3 units of packed red blood cells at the [facility] for hemoglobin of 5.2 and discharge hemoglobin was 8.1. Patient started having severe cramping in her lower abdomen yesterday, she had been passing dark stools at home, she had called 911 yesterday went into the emergency. For evaluation, on the way to the hospital patient had a one episode of coffee-ground emesis, and large dark stool. Labs have been reviewed, and showed a white blood count of 6.9, hemoglobin of 6.2, platelet count of 165, sodium was 135, potassium is 5.1, CO2 is 21, BUN was 97, creatinine was 10.04. Stool occult was positive. Complete shortness of breath or chest pain, patient did miss her regular dialysis day yesterday due to a friend's . Denies any fever or chills, she is on 2 L per nasal cannula and her pulse ox 100%. Hemodynamically stable. Patient is receiving 2 units of packed red blood cells, immobile globin of 6.2. He is resting in bed, still having severe abdominal cramping across the lower abdomen , service has been consulted, and the recommendation was appreciated. Further vomiting or bloody bm's since admission. Patient is on IV Protonix 40 mg daily , she was given a liter bolus in the emergency department. She came up to the intensive care unit, and were consulted for ICU management. The patient is seen today 09/24/2018 in follow-up in the intensive care unit. She is currently sitting up in a chair at the bedside. She is awake and alert in no acute distress. Currently maintaining good O2 saturations up to 100% on room air. She's been afebrile. Hemodynamically stable. White count 10.4. Potassium 5.7. Chloride 110. Bicarb 20. Creatinine 10.19. Stool for occult blood was positive. No further active bleeding this morning. EGD performed yesterday showed no evidence of active GI bleeding. She is scheduled for hemodialysis today. Possible capsule endoscopy this admission. On 09/25/2018, I'm seeing this patient for a follow-up. She is doing well. Her last dialysis session was yesterday. She is having oral intake. No nausea. No vomiting. No GI bleed. EGD was performed and the patient has no active site of GI bleeding in the upper GI tract and the patient is undergoing a capsule endoscopy for now. Hemoglobin is stable at 8.6. Rest of the electrodes are all within normal limits pH is resting comfortably in bed. She remains on IV Protonix. Objective - Vital Signs Vital signs: Vital Signs Temp 98.6 F 09/25/18 15:00 Pulse 81 09/25/18 15:08 Resp 17 09/25/18 15:00 BP 142/72 09/25/18 15:00 Pulse Ox 97 09/25/18 15:00 Intake & Output 09/24/18 09/25/18 09/25/18 18:59 06:59 18:59 Intake Total 160 320 Output Total 400 0 Balance -240 320 0 Weight 76.7 kg Intake: IV 160 280 Sodium Chloride 0.9% 1, 160 280 000 ml @ 20 mls/hr IV . Q24H [facility] Rx#:[id number] Oral 40 Output: Urine 400 0 Other: Voiding Method Bedside Commode Bedside Commode Bedside Commode # Bowel Movements 1 - Exam GENERAL EXAM: Awake alert, 68-year-old female, no acute distress less abdominal cramping HEAD: Normocephalic/atraumatic. EYES: Normal reaction of pupils, equal size. Conjunctiva pink, sclera white. NOSE: Clear with pink turbinates. THROAT: No erythema or exudates. NECK: No masses, no JVD, no thyroid enlargement, no adenopathy. CHEST: No chest wall deformity. Symmetrical expansion. LUNGS: Equal air entry with no crackles, wheeze, rhonchi or dullness. CVS: Regular rate and rhythm, normal S1 and S2, no gallops, no murmurs, no rubs ABDOMEN: Soft, nontender. No hepatosplenomegaly, normal bowel sounds, no guarding or rigidity. EXTREMITIES: No clubbing, no edema, no cyanosis, 2+ pulses and upper and lower extremities. MUSCULOSKELETAL: Muscle strength and tone normal. SPINE: No scoliosis or deformity SKIN: No rashes CENTRAL NERVOUS SYSTEM: Alert and oriented -3. No focal deficits, tone is normal in all 4 extremities. PSYCHIATRIC: Alert and oriented -3. Appropriate affect. Intact judgment and insight. - Labs CBC & Chem 7: 09/25/18 05:29 09/25/18 05:29 Labs: Abnormal Lab Results - Last 24 Hours (Table) 09/25/18 09/25/18 Range/Units 05:29 05:29 RBC 2.91 L (3.80-5.40) m/uL Hgb 8.6 L (11.4-16.0) gm/dL Hct 27.1 L (34.0-46.0) % RDW 18.3 H (11.5-15.5) % Sodium 135 L (137-145) mmol/L BUN 53 H (7-17) mg/dL Creatinine 6.76 H (0.52-1.04) mg/dL Calcium 7.0 L (8.4-10.2) mg/dL Phosphorus 5.6 H (2.5-4.5) mg/dL AST 44 H (14-36) U/L Total Protein 4.7 L (6.3-8.2) g/dL Albumin 2.4 L (3.5-5.0) g/dL Assessment and Plan Plan: Assessment: #1. Acute GI blood loss anemia, patient presented with coffee-ground emesis, and black stools. Upper GI endoscopy was negative. The patient undergoing a capsule endoscopy for now. Hemoglobin stable at 8.6. #2. Recent hospitalization for anemia, patient had a EGD on Saturday, 2018 which revealed AVM malformation which was ablated. Patient has received 3 units of packed red blood cells during that admission and was discharged home on Saturday. Repeat endoscopy was done and the patient was not found to have any acute bleeding site and the previous AV malformation was well ablated. No ulceration. Endoscopy Was Recommended. #3. Chronic anemia, with history of multiple blood and iron transfusions #4. End-stage renal disease, on hemodialysis, on Saturday schedule. The patient is less dialysis was yesterday. #5. History of left breast cancer status post mastectomy and chemotherapy #6. History of COPD, not active #7. Chronic smoker #8. Hypothyroidism Plan The patient is stable. Hemoglobin stable. Capsule endoscopy to be completed patient can be transferred to a medical surgical floor.
[2018-09-26] MEDS: SODIUM CHLORIDE 0.9% 1,000 ML IV SCH (05:34)
[2018-09-26] MEDS: LEVOTHYROXINE 100 MCG TAB PO SCH (06:08)
[2018-09-26] MEDS: CALCIUM CARB-MAG CARB-FOLIC 1 EACH TAB PO SCH ×3 (08:10→21:18)
[2018-09-26] MEDS: PANTOPRAZOLE 40 MG/10 ML VIAL IV SCH (08:10)
[2018-09-26] MEDS: IPRATROPIUM 0.5 MG/2.5 ML NEBU INHALATION SCH ×4 (08:25→20:36)
--- NOTE | 2018-09-26 08:59 | P.PN ---
Subjective Patient is seen in follow-up for end-stage renal disease. She is maintained on hemodialysis on a Saturday schedule. Hemoglobin 8.6 as of yesterday. She is undergoing capsule endoscopy. Denies chest pain or shortness of breath. Scheduled for hemodialysis today. Feels tired. No active complaints. No active bleeding. Vital signs are stable. General: The patient appeared well nourished and normally developed. HEENT: Head exam is unremarkable. Neck is without jugular venous distension. LUNGS: Lungs are clear to auscultation and percussion. Breath sounds decreased. HEART: Rate and Rhythm are regular. First and second heart sounds normal. No murmurs, rubs or gallops. ABDOMEN: Abdominal exam reveals normal bowel sounds. Non-tender and non- distended. No evidence of peritonitis. EXTREMITITES: No clubbing, cyanosis, or edema. Objective - Vital Signs Vital signs: Vital Signs Temp 99.0 F 09/26/18 08:33 Pulse 68 09/26/18 08:33 Resp 18 09/26/18 08:33 BP 119/68 09/26/18 08:33 Pulse Ox 100 09/26/18 08:33 Intake & Output 09/25/18 09/26/18 09/26/18 18:59 06:59 18:59 Output Total 0 Balance 0 Output: Urine 0 Other: Voiding Method Bedside Commode Bedside Commode # Voids 1 - Labs CBC & Chem 7: 09/25/18 05:29 09/25/18 05:29 Assessment and Plan Plan: Assessment: 1. End-stage renal disease maintained on hemodialysis on a Saturday schedule via left upper extremity AV graft. 2. Acute blood loss anemia status post blood transfusion. Hemoglobin 8.6 as of yesterday. Status post EGD which revealed no active bleeding. Concern for small bowel AVMs. 3. Hyperkalemia secondary to GI bleed and chronic kidney disease. Improved postdialysis. 4. Metabolic acidosis secondary to chronic kidney disease. Improved postdialysis. 5. Hypertension with chronic kidney disease. Controlled. 6. Chronic kidney disease mineral bone disease. 7. Status post parathyroidectomy maintained on calcium supplementation and calcitriol. Plan: Hemodialysis today. Maintain Aranesp. Follow up results of capsule endoscopy.
[2018-09-26 11:10] LABS: Glucose,Whole Blood 82 mg/dL (75-99)
--- NOTE | 2018-09-26 12:03 | P.PN ---
Subjective Progress Note Date: 09/26/18 Principal diagnosis: GI bleed Per nursing no active bleeding. Small bowel capsule endoscopy completed results pending. Receiving dialysis. Hungry. Afebrile. Hemoglobin 8.6 yesterday no CBC today to review. Objective - Vital Signs Vital signs: Vital Signs Temp 99.0 F 09/26/18 08:33 Pulse 68 09/26/18 08:33 Resp 18 09/26/18 08:33 BP 119/68 09/26/18 08:33 Pulse Ox 100 09/26/18 08:33 Intake & Output 09/25/18 09/26/18 09/26/18 18:59 06:59 18:59 Output Total 0 Balance 0 Weight 76.7 kg Output: Urine 0 Other: Voiding Method Bedside Commode Bedside Commode Bedside Commode # Voids 1 - Exam General appearance: The patient is alert, oriented, in no acute distress. HET: Head is normocephalic and atraumatic. Pupils are equal and reactive. Oropharynx is clear without lesions. Neck: Supple without lymphadenopathy. Trachea midline. Heart: S1 S2. Regular rate and rhythm. Lungs: No crackles or wheezes are heard. Abdomen: Soft, mildly tender midabdomen, nondistended with bowel sounds. No peritoneal signs. No palpable organomegaly or masses. Extremities: Normal skin color and turgor. No cyanosis, rash, ulceration, clubbing, or edema. Radial and pedal pulses are 2/4 bilaterally. Neurological: No focal deficits. Strength and sensation are grossly intact. - Labs CBC & Chem 7: 09/25/18 05:29 09/25/18 05:29 Assessment and Plan (1) Acute GI bleeding Narrative/Plan: Status post recent surveillance EGD yesterday with no evidence of active bleeding previous EGD performed 09/20/2018 reported findings of bleeding AVM in the duodenal bulb status post gold probe ablation. Underlying small bowel source of bleed cannot be excluded. Capsule endoscopy in process. Current Visit: Yes Status: Acute Code(s): K92.2 - GASTROINTESTINAL HEMORRHAGE, UNSPECIFIED SNOMED Code(s): 41938356 (2) Chronic GI bleeding Current Visit: Yes Status: Acute Code(s): K92.2 - GASTROINTESTINAL HEMORRHAGE, UNSPECIFIED SNOMED Code(s): 60171064 (3) Small bowel arteriovenous malformation Current Visit: Yes Status: Acute Code(s): K55.20 - ANGIODYSPLASIA OF COLON WITHOUT HEMORRHAGE SNOMED Code(s): 160075577 (4) Acute blood loss anemia Current Visit: Yes Status: Acute Code(s): D62 - ACUTE POSTHEMORRHAGIC ANEMIA SNOMED Code(s): 431189608 (5) Symptomatic anemia Current Visit: Yes Status: Acute Code(s): D64.9 - ANEMIA, UNSPECIFIED SNOMED Code(s): 963433778 (6) ESRD (end stage renal disease) Current Visit: Yes Status: Acute Code(s): N18.6 - END STAGE RENAL DISEASE SNOMED Code(s): 75546116 (7) Melena Current Visit: Yes Status: Acute Code(s): K92.1 - MELENA SNOMED Code(s): 0734098 Plan: 1. Small bowel capsule results pending further recommendations to follow. Full liquid renal diet. CBC monitoring. Continue GI prophylaxis. Assessment and plan a care discussed with Dr. Fernández
[2018-09-26 12:19] LABS: Anisocytosis Slight; Basophils % (A) 0 %; Eosinophils # (A) 0.1 k/uL (0-0.7); Eosinophils % (A) 2 %; HCT 30.3 % (34.0-46.0); HGB 9.5 gm/dL (11.4-16.0); Hypochromasia Moderate; Lymphocytes # (A) 0.2 k/uL (1.0-4.8); Lymphocytes % (A) 3 %; MCH 28.5 pg (25.0-35.0); MCHC 31.4 g/dL (31.0-37.0); MCV 90.7 fL (80.0-100.0); Monocytes # (A) 0.3 k/uL (0-1.0); Monocytes % (A) 6 %; Neutrophils # (A) 4.8 k/uL (1.3-7.7); Neutrophils % (A) 87 %; Platelet Count 251 k/uL (150-450); Poikilocytosis Slight; RBC 3.33 m/uL (3.80-5.40); RDW 17.1 % (11.5-15.5); WBC 5.6 k/uL (3.8-10.6)
[2018-09-26] MEDS: HYDROcodone/APAP 5-325MG 1 EACH TAB PO PRN (13:24)
--- NOTE | 2018-09-26 14:17 | P.PN ---
Philip Lanier is a 68-year-old white female well-known to me. She is admitted over at [facility] about every 2-3 weeks for anemia of chronic disease. She typically receives 1-3 units of packed red blood cells during that stay. She's been worked up for GI bleeding multiple times including just recently with Dr. 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 She presented emergency room after having abdominal pain for 1 day and then several episodes of coffee-ground emesis. Her hemoglobin emergency room was 6.2. This is NOT Unusual for her. She has end-stage renal failure on hemodialysis on Saturday. This is thought to be the cause of her anemia in the past as there were no findings on endoscopy. She is now resting comfortably intensive care unit is hearty received 1 unit of packed red blood cells. 09/24/2018: Patient is resting comfortably intensive care unit. She is scheduled to have dialysis later today. She is status post EGD yesterday. She was found to have no active bleeding or fresh blood in the esophagus stomach and duodenum. She was found to have the the area of prior ablation of AV M of the duodenal wall was once again noted by him. GI is now planning a pill endoscopy in the morning. She is currently on clear liquids. She continues to complain of some mild left lower quadrant abdominal pain. She is status post 2 units packed red blood cells in total. Hemoglobin today is 9.0.she denies any chest pains, pressures, or shortness of breath this time. 09/25/2018: Patient resting comfortably in the Intensive care unit.She is undergoing pill endoscopy.Hemoglobin is 8.6 today.she denies any chest pains, pressures, or shortness of breath this time.He continues to have some mild pain and now indicates suprapubic area. 09/26/2018: Patient is resting comfortably now on the floor. She is status post pill endoscopy. Results are pending. She complains of ongoing minimal and the little pain suprapubically. She is on full liquids this time. She is asking for more food.she denies any chest pains, pressures, or shortness of breath this time.He continues to have some mild pain and now indicates suprapubic area. Objective - Vital Signs Vital signs: Vital Signs Temp 98.5 F 09/26/18 13:29 Pulse 103 H 09/26/18 13:29 Resp 16 09/26/18 13:29 BP 105/56 09/26/18 13:29 Pulse Ox 100 09/26/18 08:33 Intake & Output 09/25/18 09/26/18 09/26/18 18:59 06:59 18:59 Intake Total 482 Output Total 0 Balance 0 482 Weight 76.7 kg Intake: Oral 482 Output: Urine 0 Other: Voiding Method Bedside Commode Bedside Commode Bedside Commode # Voids 1 - Exam GENERAL: Fatigued -Y[place]i female, in min distress due to abdominal pain. NECK: Normal range of motion, supple without lymphadenopathy or JVD, no thyromegaly LUNGS: Breath sounds Hoarse to auscultation bilaterally and equal. No wheezes rales or rhonchi. HEART: Regular rate and rhythm without murmurs, rubs or gallops.S1S2 Normal ABDOMEN: Soft, normoactive bowel sounds. No guarding, no rebound. No masses appreciated.Pain to palpation of the right lower quadrant EXTREMITIES: Normal range of motion, no pitting or edema. No clubbing or cyanosis. +Bruit left arm. NEUROLOGICAL: Cranial nerves II through XII grossly intact. Normal speech, normal gait. PSYCH: Normal mood, normal affect. SKIN: Warm, Dry, normal turgor, no rashes or lesions noted. - Labs CBC & Chem 7: 09/26/18 12:08 09/25/18 05:29 Labs: Abnormal Lab Results - Last 24 Hours (Table) 09/26/18 Range/Units 12:08 RBC 3.33 L (3.80-5.40) m/uL Hgb 9.5 L (11.4-16.0) gm/dL Hct 30.3 L (34.0-46.0) % RDW 17.1 H (11.5-15.5) % Lymphocytes # 0.2 L (1.0-4.8) k/uL Assessment and Plan (1) Hypothyroid Current Visit: Yes Status: Acute Code(s): E03.9 - HYPOTHYROIDISM, UNSPECIFIED SNOMED Code(s): 63905642 (2) Tobacco abuse Current Visit: Yes Status: Acute Code(s): Z72.0 - TOBACCO USE SNOMED Code( s): 413540647 (3) Acute GI bleeding Current Visit: Yes Status: Acute Code(s): K92.2 - GASTROINTESTINAL HEMORRHAGE, UNSPECIFIED SNOMED Code(s): 90261895 (4) Acute blood loss anemia Current Visit: Yes Status: Acute Code(s): D62 - ACUTE POSTHEMORRHAGIC ANEMIA SNOMED Code(s): 213873164 (5) Dialysis patient, noncompliant Current Visit: Yes Status: Acute Code(s): Z91.15 - PATIENT'S NONCOMPLIANCE WITH RENAL DIALYSIS SNOMED Code(s): 874340488948588 (6) ESRD (end stage renal disease) Current Visit: Yes Status: Acute Code(s): N18.6 - END STAGE RENAL DISEASE SNOMED Code(s): 51457942 (7) Hematemesis Current Visit: Yes Status: Acute Code(s): K92.0 - HEMATEMESIS SNOMED Code( s): 6687828 Plan: 4 ongoing continued pain, we'll check a urinalysis as her pain is suprapubic. Advance diet as a renal liquid diet is minimal Await pill endoscopy results Repeat labs in a.m. She was reevaluated in the next 24 hours. she may be stable for D/C in am. continue Dialysisi [facility]
[2018-09-26] MEDS: CALCITRIOL 0.25 MCG CAP PO SCH (15:09)
[2018-09-26 16:52] LABS: Glucose,Whole Blood 119 mg/dL (75-99)
[2018-09-27] MEDS: LEVOTHYROXINE 100 MCG TAB PO SCH (05:15)
[2018-09-27] MEDS: SODIUM CHLORIDE 0.9% 1,000 ML IV SCH (05:16)
[2018-09-27] MEDS: IPRATROPIUM 0.5 MG/2.5 ML NEBU INHALATION SCH ×4 (07:44→20:09)
[2018-09-27] MEDS: PANTOPRAZOLE 40 MG/10 ML VIAL IV SCH (09:57)
[2018-09-27] MEDS: CALCIUM CARB-MAG CARB-FOLIC 1 EACH TAB PO SCH ×3 (09:57→23:05)
[2018-09-27 10:46] LABS: Anisocytosis Slight; Basophils % (A) 0 %; Eosinophils # (A) 0.1 k/uL (0-0.7); Eosinophils % (A) 2 %; HCT 25.4 % (34.0-46.0); HGB 8.2 gm/dL (11.4-16.0); Hypochromasia Moderate; Lymphocytes # (A) 0.2 k/uL (1.0-4.8); Lymphocytes % (A) 2 %; MCH 29.7 pg (25.0-35.0); MCHC 32.1 g/dL (31.0-37.0); MCV 92.5 fL (80.0-100.0); Mean Platelet Volume 6.9; Monocytes # (A) 0.6 k/uL (0-1.0); Monocytes % (A) 10 %; Neutrophils # (A) 5.4 k/uL (1.3-7.7); Neutrophils % (A) 84 %; Platelet Count 239 k/uL (150-450); Poikilocytosis Slight; RBC 2.75 m/uL (3.80-5.40); RDW 17.1 % (11.5-15.5); WBC 6.4 k/uL (3.8-10.6)
[2018-09-27] MEDS ORDERED: NA PHOS,M-B/NA PHOS,DI-BA 133 ML ENEMA RECTAL STA (12:04)
--- NOTE | 2018-09-27 12:54 | P.PN ---
Subjective Progress Note Date: 09/27/18 Seen and examined for the follow-up of end-stage renal disease. Tolerating lunch. No abdominal pain nausea vomiting or diarrhea. Objective - Vital Signs Vital signs: Vital Signs Temp 98.5 F 09/27/18 07:53 Pulse 95 09/27/18 07:53 Resp 16 09/27/18 07:53 BP 134/61 09/27/18 07:53 Pulse Ox 100 09/27/18 07:53 Intake & Output 09/26/18 09/27/18 09/27/18 18:59 06:59 18:59 Intake Total 592 70 Output Total 0 Balance 592 70 Weight 76.7 kg Intake: IV 70 Sodium Chloride 0.9% 1, 70 000 ml @ 20 mls/hr IV . Q24H EDWARD Rx#:[id number] Oral 592 Output: Urine 0 Other: Voiding Method Bedside Commode # Voids 0 # Bowel Movements 0 - Exam No acute distress S1-S2 heard Lungs clear Left upper arm AVG. - Labs CBC & Chem 7: 09/27/18 10:00 09/25/18 05:29 Labs: Abnormal Lab Results - Last 24 Hours (Table) 09/26/18 09/27/18 Range/Units 16:50 10:00 RBC 2.75 L (3.80-5.40) m/uL Hgb 8.2 L (11.4-16.0) gm/dL Hct 25.4 L (34.0-46.0) % RDW 17.1 H (11.5-15.5) % Lymphocytes # 0.2 L (1.0-4.8) k/uL POC Glucose (mg/dL) 119 H (75-99) mg/dL Assessment and Plan Assessment: #1 end-stage renal disease, MWF via left upper arm AVG. #2 anemia suspect GI bleed, status post PRBC. Hemoglobin stable #3 hypertension with ESRD #4 metabolic bone disease with ESRD #5 hyperkalemia resolved with dialysis. Plan: #1 plan hemodialysis Saturday as per outpatient schedule. #2 hemodynamically stable. Appreciate GI input #3 on add Aranesp.
--- NOTE | 2018-09-27 12:55 | P.PN ---
Progress Note - Text Patient was seen and examined today. Planning discharge later this afternoon. UA is pending. pill endoscopy results and further GI recommendations forthcoming.
--- NOTE | 2018-09-27 13:06 | PN ---
PROGRESS NOTE DATE OF DICTATION: 09/27/2018 This patient is a 68-year-old -[place] female admitted to hospital with anemia and GI bleed. She underwent an upper endoscopy by Dr. Fernández on 09/23/2018 and was noted to have no active bleeding. 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 Because of the ongoing anemia, she underwent a small bowel capsule endoscopy 2 days ago which showed multiple scattered angiectasia in the proximal jejunum with no active bleeding. The patient denies any symptoms. She complains of some nausea but no abdominal pain. No melena. PHYSICAL EXAMINATION: Appears comfortable. No apparent distress. Vital signs are stable. Blood pressure is 132/61, pulse rate 95, temperature 98.5. HEENT EXAMINATION: Unremarkable. Conjunctivae are pink, sclerae anicteric. Oral cavity with no lesions. NECK: No JVD or lymph node enlargement. Chest was clear to auscultation. HEART: Regular rate and rhythm. ABDOMEN: Soft. Bowel sounds are positive. No organomegaly. EXTREMITIES: No pedal edema. SKIN: No rashes. NEURO: Alert and oriented x3. No focal deficits. LABS: Labs from today show WBC 6.4, hemoglobin 8.2. Platelets are normal. Basic metabolic panel showed a BUN of 53 and creatinine 6.76. IMPRESSION: 1. Anemia/gastrointestinal bleed. She underwent EGD 3 days ago that showed no evidence of active bleeding. She had an EGD on 09/20/2018 while at [facility] that showed actively bleeding duodenal AVM that was cauterized. Subsequent small-bowel capsule endoscopy done 2 days ago showed multiple scattered angiectasia in the small bowel with no active bleeding. 2. End-stage renal disease, on hemodialysis. 3. Chronic anemia. RECOMMENDATIONS: Discussed with the patient the small-bowel capsule endoscopy results that showed scattered angioectasia in the proximal small bowel. At this time, since the hemoglobin is stable, we will not have any further endoscopic intervention. However, if she continues to drop her hemoglobin, we will consider a small bowel enteroscopy in the near future. Thank you for this consultation. MMODL / IJN: [id number] /
[2018-09-27] MEDS ORDERED: MAGNESIUM CITRATE 296 ML BOTTLE PO ONE (15:45)
[2018-09-28] MEDS: LEVOTHYROXINE 100 MCG TAB PO SCH (05:46)
[2018-09-28] MEDS: PANTOPRAZOLE 40 MG/10 ML VIAL IV SCH (08:08)
[2018-09-28] MEDS: CALCIUM CARB-MAG CARB-FOLIC 1 EACH TAB PO SCH ×3 (08:11→21:04)
[2018-09-28] MEDS: SODIUM CHLORIDE 0.9% 1,000 ML IV SCH (08:13)
[2018-09-28] MEDS: IPRATROPIUM 0.5 MG/2.5 ML NEBU INHALATION SCH ×4 (08:37→20:06)
[2018-09-28] MEDS ORDERED: NA PHOS,M-B/NA PHOS,DI-BA 133 ML ENEMA RECTAL ONE (10:47)
--- NOTE | 2018-09-28 12:01 | PN ---
PROGRESS NOTE DATE OF SERVICE: September 28, 2018 Patient is a 68-year-old pleasant white female admitted to the hospital with symptomatic anemia and a hemoglobin of 7, requiring a unit of blood transfusion. She had an upper endoscopy done by Dr. Fernández 4 days ago, which was unremarkable with no active bleeding. She had an upper endoscopy on September 20 that showed an actively bleeding arteriovenous malformation in the duodenum that was cauterized. Subsequent small bowel capsule endoscopy showed multiple nonbleeding arteriovenous malformations in the proximal small bowel. She complains of lower abdominal discomfort and constipation. No bowel movements for the last 3 days. She was given a bottle of magnesium citrate yesterday with no help. PHYSICAL EXAMINATION: She appears comfortable, in no apparent distress. Vital signs stable. Blood pressure is 133/86, pulse rate 82 per minute and afebrile. HEENT examination unremarkable. Conjunctivae pink. Sclerae anicteric. Oral cavity no lesions. Neck: No JVD or lymph node enlargement. Chest was clear to auscultation. HEART: Regular rate and rhythm. ABDOMEN: Soft, it was slightly tender in the lower abdominal area. Extremities: No pedal edema. Skin: No rashes. NEUROLOGIC: Alert and oriented x3. No focal deficits. LABS: From today hemoglobin is 8.2, WBC is 6.4, and platelets are normal. IMPRESSION: 1. Anemia most likely multifactorial in etiology, part of it contributed with anemia of chronic disease and partly related to occult blood loss. Recent small bowel capsule endoscopy showed scattered angioectasia in the proximal small bowel with no active bleeding. 2. End-stage renal disease, on hemodialysis. 3. Abdominal pain and constipation. No help with magnesium citrate yesterday. RECOMMENDATIONS: 1. We will give her Fleets enema x1 today. 2. Monitor CBC on a daily basis. 3. Plan on outpatient small bowel endoscopy. 4. We will follow with you closely during the hospital stay. Thank you for this consultation. MMODL / IJN: [id number] /
[2018-09-28 12:21] LABS: Amorphous Sediment,Urine Few /hpf; Appearance,Urine Cloudy (Clear); Bilirubin,Urine Negative (Negative); Blood,Urine Negative (Negative); Color,Urine Yellow; Glucose,Urine (UA) Negative (Negative); Ketones,Urine Negative (Negative); Leukocyte Esterase,Urine Negative (Negative); Nitrite,Urine Negative (Negative); Protein,Urine 1+ (Negative); Specific Gravity,Urine 1.012 (1.001-1.035); Squamous Epithelial Cell,Urine 4 /hpf (0-4); Urobilinogen,Urine <2.0 mg/dL (<2.0); WBC,Urine 2 /hpf (0-5)
--- NOTE | 2018-09-28 12:23 | P.PN ---
Philip Lanier is a 68-year-old white female well-known to me. She is admitted over at [facility] about every 2-3 weeks for anemia of chronic disease. She typically receives 1-3 units of packed red blood cells during that stay. She's been worked up for GI bleeding multiple times including just recently with Dr. 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 She presented emergency room after having abdominal pain for 1 day and then several episodes of coffee-ground emesis. Her hemoglobin emergency room was 6.2. This is NOT Unusual for her. She has end-stage renal failure on hemodialysis on Saturday. This is thought to be the cause of her anemia in the past as there were no findings on endoscopy. She is now resting comfortably intensive care unit is hearty received 1 unit of packed red blood cells. 09/24/2018: Patient is resting comfortably intensive care unit. She is scheduled to have dialysis later today. She is status post EGD yesterday. She was found to have no active bleeding or fresh blood in the esophagus stomach and duodenum. She was found to have the the area of prior ablation of AV M of the duodenal wall was once again noted by him. GI is now planning a pill endoscopy in the morning. She is currently on clear liquids. She continues to complain of some mild left lower quadrant abdominal pain. She is status post 2 units packed red blood cells in total. Hemoglobin today is 9.0.she denies any chest pains, pressures, or shortness of breath this time. 09/25/2018: Patient resting comfortably in the Intensive care unit.She is undergoing pill endoscopy.Hemoglobin is 8.6 today.she denies any chest pains, pressures, or shortness of breath this time.He continues to have some mild pain and now indicates suprapubic area. 09/26/2018: Patient is resting comfortably now on the floor. She is status post pill endoscopy. Results are pending. She complains of ongoing minimal and the little pain suprapubically. She is on full liquids this time. She is asking for more food.she denies any chest pains, pressures, or shortness of breath this time.He continues to have some mild pain and now indicates suprapubic area. 09/28/2018: Patient continued to have suprapubic pain yesterday, but her urine was never sent. GI had cleared her with outpatient follow-up. Patient though not had a stool and had refused enema in favor of the mag citrate. Currently she continues with the same complaints. Objective - Vital Signs Vital signs: Vital Signs Temp 98.2 F 09/28/18 07:00 Pulse 89 09/28/18 07:00 Resp 17 09/28/18 07:40 BP 119/68 09/28/18 07:00 Pulse Ox 100 09/28/18 07:00 Intake & Output 09/27/18 09/28/18 09/28/18 18:59 06:59 18:59 Intake Total 0 Balance 0 Intake: Intake, IV Titration 0 Amount Sodium Chloride 0.9% 1, 0 000 ml @ 20 mls/hr IV . Q24H EDWARD Rx#:[id number] Other: Voiding Method Bedside Commode # Voids 1 1 - Exam GENERAL: Fatigued -[place] female, in min distress due to abdominal pain. NECK: Normal range of motion, supple without lymphadenopathy or JVD, no thyromegaly LUNGS: Breath sounds Hoarse to auscultation bilaterally and equal. No wheezes rales or rhonchi. HEART: Regular rate and rhythm without murmurs, rubs or gallops.S1S2 Normal ABDOMEN: Soft, normoactive bowel sounds. No guarding, no rebound. No masses appreciated.Pain to palpation of the right lower quadrant EXTREMITIES: Normal range of motion, no pitting or edema. No clubbing or cyanosis. +Bruit left arm. NEUROLOGICAL: Cranial nerves II through XII grossly intact. Normal speech, normal gait. PSYCH: Normal mood, normal affect. SKIN: Warm, Dry, normal turgor, no rashes or lesions noted. - Labs CBC & Chem 7: 09/27/18 10:00 09/25/18 05:29 Assessment and Plan (1) Hypothyroid Current Visit: Yes Status: Acute Code(s): E03.9 - HYPOTHYROIDISM, UNSPECIFIED SNOMED Code(s): 22424928 (2) Tobacco abuse Current Visit: Yes Status: Acute Code(s): Z72.0 - TOBACCO USE SNOMED Code( s): 721142661 (3) Acute GI bleeding Current Visit: Yes Status: Acute Code(s): K92.2 - GASTROINTESTINAL HEMORRHAGE, UNSPECIFIED SNOMED Code(s): 71737009 (4) Acute blood loss anemia Current Visit: Yes Status: Acute Code(s): D62 - ACUTE POSTHEMORRHAGIC ANEMIA SNOMED Code(s): 909122444 (5) Dialysis patient, noncompliant Current Visit: Yes Status: Acute Code(s): Z91.15 - PATIENT'S NONCOMPLIANCE WITH RENAL DIALYSIS SNOMED Code(s): 795893388824501 (6) ESRD (end stage renal disease) Current Visit: Yes Status: Acute Code(s): N18.6 - END STAGE RENAL DISEASE SNOMED Code(s): 96189001 (7) Hematemesis Current Visit: Yes Status: Acute Code(s): K92.0 - HEMATEMESIS SNOMED Code( s): 7962644 Plan: 4 ongoing continued pain, we'll check a urinalysis as her pain is suprapubic. This was not done yesterday for some reason. It is been collected today. We will obtain a KUB abdomen evaluate the pain for constipation at this time. A fleets enemas been ordered, she was encouraged to use it. Due to her ongoing pain, or discharge is been held this time. continue Dialysisi MWF Wait results of upcoming tests, and she may be stable for discharge later today.
--- NOTE | 2018-09-28 13:50 | XR ---
EXAMINATION TYPE: XR abdomen 2V DATE OF EXAM: 09/28/2018 CLINICAL DATA: 68 year-old female abdominal pain, low hemoglobin, PHH COMPARISON: 08/27/2010 FINDINGS: No evidence for free intraperitoneal air. Gassy colon and small bowel loops with multiple air-fluid levels seen throughout. Some of the colon i s mildly dilated measuring up to 6.6 cm. Some small bowel loops are also mildly dilated measuring up to 3.6 cm. IMPRESSION: Gassy colon and small bowel loops with multiple air-fluid levels. There is mild dilatation of both sm all and large bowel. Correlate for a marked generalized ileus. Distal colonic obstruction is also a d ifferential consideration. Clinically correlate.
--- NOTE | 2018-09-28 14:27 | P.PN ---
Subjective Progress Note Date: 09/28/18 Seen and examined for the follow-up of end-stage renal disease. Came back from x-ray just now still complaining of abdominal pain. No nausea vomiting or diarrhea. Objective - Vital Signs Vital signs: Vital Signs Temp 98.2 F 09/28/18 07:00 Pulse 89 09/28/18 07:00 Resp 17 09/28/18 07:40 BP 119/68 09/28/18 07:00 Pulse Ox 100 09/28/18 07:00 Intake & Output 09/27/18 09/28/18 09/28/18 18:59 06:59 18:59 Intake Total 0 Balance 0 Intake: Intake, IV Titration 0 Amount Sodium Chloride 0.9% 1, 0 000 ml @ 20 mls/hr IV . Q24H EDWARD Rx#:[id number] Other: Voiding Method Bedside Commode # Voids 1 1 2 # Bowel Movements 1 - Exam No acute distress S1-S2 heard Lungs clear Left upper arm AVG. - Labs CBC & Chem 7: 09/27/18 10:00 09/25/18 05:29 Labs: Abnormal Lab Results - Last 24 Hours (Table) 09/28/18 Range/Units 12:00 Urine Appearance Cloudy H (Clear) Urine Protein 1+ H (Negative) Amorphous Sediment Few H (None) /hpf Assessment and Plan Assessment: #1 end-stage renal disease, MWF via left upper arm AVG. #2 anemia suspect GI bleed, status post PRBC. Hemoglobin stable #3 hypertension with ESRD #4 metabolic bone disease with ESRD #5 hyperkalemia resolved with dialysis. #6 abdominal pain with Ileus. Plan: #1 plan hemodialysis Saturday as per outpatient schedule. #2 hemodynamically stable. Appreciate GI input, capsule endoscopy multiple angiodysplasias no active bleeding #3 on Aranesp.
[2018-09-28] MEDS: CALCITRIOL 0.25 MCG CAP PO SCH (15:41)
[2018-09-29] MEDS: LEVOTHYROXINE 100 MCG TAB PO SCH (05:43)
[2018-09-29] MEDS: SODIUM CHLORIDE 0.9% 1,000 ML IV SCH (07:49)
[2018-09-29] MEDS: CALCIUM CARB-MAG CARB-FOLIC 1 EACH TAB PO SCH ×3 (07:53→22:25)
[2018-09-29] MEDS: PANTOPRAZOLE 40 MG/10 ML VIAL IV SCH (07:53)
[2018-09-29] MEDS: IPRATROPIUM 0.5 MG/2.5 ML NEBU INHALATION SCH ×4 (08:47→20:10)
[2018-09-29 08:48] LABS: Anisocytosis Slight; Basophils % (A) 0 %; Eosinophils # (A) 0.1 k/uL (0-0.7); Eosinophils % (A) 2 %; HGB 8.3 gm/dL (11.4-16.0); Hypochromasia Moderate; Lymphocytes # (A) 0.2 k/uL (1.0-4.8); Lymphocytes % (A) 3 %; MCH 28.6 pg (25.0-35.0); MCHC 30.7 g/dL (31.0-37.0); MCV 93.1 fL (80.0-100.0); Mean Platelet Volume 6.9; Monocytes # (A) 0.7 k/uL (0-1.0); Monocytes % (A) 9 %; Neutrophils % (A) 82 %; Platelet Count 333 k/uL (150-450); Poikilocytosis Slight; RDW 17.2 % (11.5-15.5); WBC 7.3 k/uL (3.8-10.6)
--- NOTE | 2018-09-29 17:39 | P.PN ---
Subjective Progress Note Date: 09/29/18 Principal diagnosis: Blood loss anemia, anemia of chronic disease, end-stage renal disease with hemodialysis Patient's awake alert oriented, complains of mild diffuse abdominal pain Objective - Vital Signs Vital signs: Vital Signs Temp 98.3 F 09/29/18 15:00 Pulse 85 09/29/18 15:00 Resp 12 09/29/18 15:00 BP 123/63 09/29/18 15:00 Pulse Ox 98 09/29/18 15:00 Intake & Output 09/28/18 09/29/18 09/29/18 18:59 06:59 18:59 Weight 76.7 kg Other: Voiding Method Bedside Commode Toilet # Voids 2 1 1 # Bowel Movements 1 - Exam General: [Patient awake, alert and oriented times 3. Patient in no acute distress.] Conjunctiva pale HEENT: [PERRL. EOMI. No pharyngeal erythema or exudate.] Neck: [No adenopathy.] Cardiac: [Heart regular in rate and rhythm. No S3. No S4. No clicks, rubs. No murmur.] Lungs: [Clear to auscultation bilaterally.] Abdomen: [No mass. No organomegaly. Bowel sounds presnt and normoactive in all 4 quadrants.] Extremes: [No edema no cyanosis no claudication normal pulses] : Normal female genitalia Musculoskeletal: [No joint erythema, edema or tenderness.] Skin: [No rash.] Neurologic: [No lateralizing deficits. CN II - XII grossly intact.] Lymphatic: [No adenopathy.] - Labs CBC & Chem 7: 09/29/18 08:14 09/25/18 05:29 Labs: Abnormal Lab Results - Last 24 Hours (Table) 09/29/18 Range/Units 08:14 RBC 2.90 L (3.80-5.40) m/uL Hgb 8.3 L (11.4-16.0) gm/dL Hct 27.0 L (34.0-46.0) % MCHC 30.7 L (31.0-37.0) g/dL RDW 17.2 H (11.5-15.5) % Lymphocytes # 0.2 L (1.0-4.8) k/uL Assessment and Plan (1) Acute GI bleeding Current Visit: Yes Status: Acute Code(s): K92.2 - GASTROINTESTINAL HEMORRHAGE, UNSPECIFIED SNOMED Code(s): 65359730 (2) Acute anemia Current Visit: Yes Status: Acute Code(s): D64.9 - ANEMIA, UNSPECIFIED SNOMED Code(s): 313080679 (3) Acute blood loss anemia Current Visit: Yes Status: Acute Code(s): D62 - ACUTE POSTHEMORRHAGIC ANEMIA SNOMED Code(s): 268513061 (4) Chronic GI bleeding Current Visit: Yes Status: Acute Code(s): K92.2 - GASTROINTESTINAL HEMORRHAGE, UNSPECIFIED SNOMED Code(s): 21593054 (5) Dialysis patient, noncompliant Current Visit: Yes Status: Acute Code(s): Z91.15 - PATIENT'S NONCOMPLIANCE WITH RENAL DIALYSIS SNOMED Code(s): 525477166693749 (6) Difficulty in walking Current Visit: Yes Status: Acute Code(s): R26.2 - DIFFICULTY IN WALKING, NOT ELSEWHERE CLASSIFIED SNOMED Code(s): 636097296 (7) ESRD (end stage renal disease) Current Visit: Yes Status: Acute Code(s): N18.6 - END STAGE RENAL DISEASE SNOMED Code(s): 69276258 Plan: #1 end-stage renal disease hemodialysis via left upper arm #2 anemia secondary to GI bleed status post transfused with packed red cells hemoglobin is as high as it's been in some time at 8.5 #3 hypertension end-stage renal disease #4 metabolic bone disease with end-stage renal disease Hyperkalemia resolved with dialysis #6 abdominal pain with ileus patient didn't move bowels prior to my examination Plan hemodialysis this evening Patient is hemodynamically stable discuss case with GI will advance diet as tolerated Patient is on Aranesp. Anticipate possible discharge home tomorrow Time with Patient: Greater than 30
--- NOTE | 2018-09-29 19:50 | PN ---
PROGRESS NOTE Patient is seen for followup for end-stage renal disease. She was admitted with severe anemia and she was found to have a GI bleed. Patient had EGD on September 20 which showed actively bleeding AVM, and that was cauterized. However, she had a repeat EGD done about 5 days ago which did not reveal any new findings. There were multiple AVMs with no bleeding. Patient is scheduled for hemodialysis today. She denies any significant complaints except for abdominal discomfort. Oral intake is on the lower side. On examination this morning, blood pressure was 135/73, heart rate of 90 per minute. Patient is afebrile. EXAMINATION OF THE HEART: S1 and S2. EXAMINATION OF LUNGS: Bilateral breath sounds are heard. ABDOMEN: Soft, non-tender. Examination of lower extremities shows no significant edema. [employer] exam is grossly intact. Labs show hemoglobin of 8.3 g/dL. ASSESSMENT: 1. End-stage renal disease, on hemodialysis on a Saturday, Saturday, Saturday schedule via left arm AV fistula. Patient will be dialyzed today. 2. Gastrointestinal bleed with previous endoscopy on September 20 showing active bleeding from AVM which was cauterized. Repeat endoscopy about 5 days ago did not reveal any new findings. 3. Chronic kidney disease mineral bone disorder. 4. Anemia, multifactorial, maintained on Aranesp. 5. Hypothyroidism. PLAN: Hemodialysis today. MMODL / IJN: [id number] /
[2018-09-29] MEDS: POLYETHYLENE GLYCOL 3350 17 GM POWD.PACK PO SCH (22:25)
--- NOTE | 2018-09-29 22:45 | P.PN ---
Subjective Progress Note Date: 09/29/18 Principal diagnosis: Anemia of acute blood loss Lying in bed, abdominal pain improving. She does report a bowel movement today but still feels somewhat constipated. No blood per rectum reported. Objective - Vital Signs Vital signs: Vital Signs Temp 99.1 F 09/29/18 19:51 Pulse 81 09/29/18 19:51 Resp 16 09/29/18 19:51 BP 129/71 09/29/18 19:51 Pulse Ox 98 09/29/18 19:51 Intake & Output 09/29/18 09/29/18 09/30/18 06:59 18:59 06:59 Weight 76.7 kg Other: Voiding Method Toilet # Voids 1 1 - Exam On physical examination, patient appears comfortable in no apparent distress. HEAD: Normocephalic, atraumatic. EYES: No scleral icterus. No conjunctival injection. MOUTH: No lesions, tongue midline. NECK: Trachea midline, no gross abnormalities. CHEST: Clear to auscultation with no wheezing or rhonchi appreciated. HEART: Regular rate and rhythm. ABDOMEN: Soft, obese. Bowel sounds are positive. No organomegaly. No guarding or rigidity. EXTREMITIES: No pedal edema. SKIN: No rashes, no jaundice. NEUROLOGIC: Alert and oriented x3. No focal deficits. - Labs CBC & Chem 7: 09/29/18 08:14 09/25/18 05:29 Labs: Abnormal Lab Results - Last 24 Hours (Table) 09/29/18 Range/Units 08:14 RBC 2.90 L (3.80-5.40) m/uL Hgb 8.3 L (11.4-16.0) gm/dL Hct 27.0 L (34.0-46.0) % MCHC 30.7 L (31.0-37.0) g/dL RDW 17.2 H (11.5-15.5) % Lymphocytes # 0.2 L (1.0-4.8) k/uL Assessment and Plan (1) Acute GI bleeding Narrative/Plan: No active bleeding on upper endoscopy, however video capsule endoscopy showed multiple nonbleeding arteriovenous malformations in the small bowel which are likely the source of the patient's acute blood loss. Current Visit: Yes Status: Acute Code(s): K92.2 - GASTROINTESTINAL HEMORRHAGE, UNSPECIFIED SNOMED Code(s): 02642418 (2) Acute blood loss anemia Current Visit: Yes Status: Acute Code(s): D62 - ACUTE POSTHEMORRHAGIC ANEMIA SNOMED Code(s): 015328807 Plan: Supportive care Diet advanced Continue to monitor hemoglobin and transfuse as needed Consider small bowel enteroscopy if further signs or symptoms of GI bleeding or if hemoglobin falls further, however at this time stable with no active bleeding seen on video capsule endoscopy MiraLAX daily added to bowel regimen Thank you for allowing us to participate in care of the patient we will continue to follow
[2018-09-30] MEDS: LEVOTHYROXINE 100 MCG TAB PO SCH (05:29)
[2018-09-30] MEDS: PANTOPRAZOLE 40 MG/10 ML VIAL IV SCH (08:15)
[2018-09-30] MEDS: CALCIUM CARB-MAG CARB-FOLIC 1 EACH TAB PO SCH ×3 (08:15→20:16)
[2018-09-30] MEDS: SODIUM CHLORIDE 0.9% 1,000 ML IV SCH (08:16)
--- NOTE | 2018-09-30 09:21 | P.PN ---
Subjective Progress Note Date: 09/30/18 Principal diagnosis: GI bleed Small nonbloody bowel movement today. Reports generalized abdominal discomfort no emesis. Hemoglobin yesterday 8.3. Objective - Vital Signs Vital signs: Vital Signs Temp 98.7 F 09/30/18 07:00 Pulse 87 09/30/18 07:00 Resp 14 09/30/18 07:00 BP 121/71 09/30/18 07:00 Pulse Ox 100 09/30/18 07:00 Intake & Output 09/29/18 09/30/18 09/30/18 18:59 06:59 18:59 Weight 76.7 kg Other: Voiding Method Toilet # Voids 1 0 - Exam General appearance: The patient is alert, oriented, in no acute distress. HET: Head is normocephalic and atraumatic. Pupils are equal and reactive. Oropharynx is clear without lesions. Neck: Supple without lymphadenopathy. Trachea midline. Heart: S1 S2. Regular rate and rhythm. Lungs: No crackles or wheezes are heard. Abdomen: Soft, mildly tender midabdomen, nondistended with bowel sounds. No peritoneal signs. No palpable organomegaly or masses. Extremities: Normal skin color and turgor. No cyanosis, rash, ulceration, clubbing, or edema. Radial and pedal pulses are 2/4 bilaterally. Neurological: No focal deficits. Strength and sensation are grossly intact. - Labs CBC & Chem 7: 09/29/18 08:14 09/25/18 05:29 Assessment and Plan (1) Acute GI bleeding Narrative/Plan: No active bleeding on upper endoscopy, however video capsule endoscopy showed multiple nonbleeding arteriovenous malformations in the small bowel which are likely the source of the patient's acute blood loss. Current Visit: Yes Status: Acute Code(s): K92.2 - GASTROINTESTINAL HEMORRHAGE, UNSPECIFIED SNOMED Code(s): 71701616 (2) Chronic GI bleeding Current Visit: Yes Status: Acute Code(s): K92.2 - GASTROINTESTINAL HEMORRHAGE, UNSPECIFIED SNOMED Code(s): 61098470 (3) Small bowel arteriovenous malformation Current Visit: Yes Status: Acute Code(s): K55.20 - ANGIODYSPLASIA OF COLON WITHOUT HEMORRHAGE SNOMED Code(s): 413874872 (4) Acute blood loss anemia Current Visit: Yes Status: Acute Code(s): D62 - ACUTE POSTHEMORRHAGIC ANEMIA SNOMED Code(s): 034460379 (5) Symptomatic anemia Current Visit: Yes Status: Acute Code(s): D64.9 - ANEMIA, UNSPECIFIED SNOMED Code(s): 843493589 (6) ESRD (end stage renal disease) Current Visit: Yes Status: Acute Code(s): N18.6 - END STAGE RENAL DISEASE SNOMED Code(s): 51564456 (7) Melena Current Visit: Yes Status: Acute Code(s): K92.1 - MELENA SNOMED Code(s): 8952410 Plan: Supportive care; discharge planning per medicine. Diet advanced Continue to monitor hemoglobin and transfuse as needed Consider small bowel enteroscopy if further signs or symptoms of GI bleeding or if hemoglobin falls further, however at this time stable with no active bleeding seen on video capsule endoscopy MiraLAX daily added to bowel regimen Assessment and plan a care discussed with Dr. Fernández
[2018-09-30] MEDS: IPRATROPIUM 0.5 MG/2.5 ML NEBU INHALATION SCH ×4 (09:33→19:22)
--- NOTE | 2018-09-30 12:26 | PN ---
PROGRESS NOTE Patient is seen for followup for end-stage renal disease. She had her dialysis yesterday, which patient tolerated fairly well. She continues to complain of abdominal pain. Patient has not had much bowel movement. An abdominal x-ray done about 2 days ago shows nonspecific gas pattern. The patient is not eating much. She is being seen by GI. PHYSICAL EXAMINATION: On examination, blood pressure is 121/71, heart rate 87 per minute. She is afebrile. EXAMINATION OF THE HEART: S1 and S2. EXAMINATION OF THE LUNGS: Decreased breath sounds at the bases. Abdomen is soft, nontender. Examination of the lower extremities shows no evidence of edema. 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 ASSESSMENT: 1. End-stage renal disease, on hemodialysis on a Saturday, Saturday, Saturday schedule. 2. Acute gastrointestinal bleed, currently no active bleeding noted. 3. Abdominal pain, etiology unclear. The patient is not eating much. I will add some lactulose as she has not had good bowel movements yet, even with the enemas. I feel the patient may be re-admitted if her abdominal pain is not improved prior to admission. 4. Anemia secondary to gastrointestinal bleed and anemia of chronic disease. 5. Chronic kidney disease mineral bone disorder. PLAN: Add lactulose. Hemodialysis in a.m. if patient is still hospitalized. Consider repeating imaging studies of the abdomen. MMODL / IJN: [id number] /
[2018-09-30] MEDS: CALCITRIOL 0.25 MCG CAP PO SCH (14:49)
[2018-09-30] MEDS: HYDROcodone/APAP 5-325MG 1 EACH TAB PO PRN (16:39)
--- NOTE | 2018-09-30 17:51 | P.PN ---
Subjective Progress Note Date: 09/30/18 Principal diagnosis: Blood loss anemia, anemia of chronic disease, end-stage renal disease with hemodialysis Patient's awake alert oriented, complains of mild diffuse abdominal pain, persistent abdominal pain mild reviewed x-ray suggests mechanical ileus Objective - Vital Signs Vital signs: Vital Signs Temp 98.3 F 09/30/18 15:00 Pulse 87 09/30/18 15:00 Resp 16 09/30/18 15:00 BP 98/61 09/30/18 15:00 Pulse Ox 95 09/30/18 15:00 Intake & Output 09/29/18 09/30/18 09/30/18 18:59 06:59 18:59 Weight 76.7 kg Other: Voiding Method Toilet Toilet # Voids 1 0 0 - Exam General: [Patient awake, alert and oriented times 3. Patient in no acute distress.] Conjunctiva pale HEENT: [PERRL. EOMI. No pharyngeal erythema or exudate.] Neck: [No adenopathy.] Cardiac: [Heart regular in rate and rhythm. No S3. No S4. No clicks, rubs. No murmur.] Lungs: [Clear to auscultation bilaterally.] Abdomen: [No mass. No organomegaly. Bowel sounds noted however dull and limited Extremes: [No edema no cyanosis no claudication normal pulses] : Normal female genitalia Musculoskeletal: [No joint erythema, edema or tenderness.] Skin: [No rash.] Neurologic: [No lateralizing deficits. CN II - XII grossly intact.] Lymphatic: [No adenopathy.] - Labs CBC & Chem 7: 09/29/18 08:14 09/25/18 05:29 Assessment and Plan (1) Acute GI bleeding Current Visit: Yes Status: Acute Code(s): K92.2 - GASTROINTESTINAL HEMORRHAGE, UNSPECIFIED SNOMED Code(s): 37529730 (2) Acute anemia Current Visit: Yes Status: Acute Code(s): D64.9 - ANEMIA, UNSPECIFIED SNOMED Code(s): 012911175 (3) Acute blood loss anemia Current Visit: Yes Status: Acute Code(s): D62 - ACUTE POSTHEMORRHAGIC ANEMIA SNOMED Code(s): 756214060 (4) Chronic GI bleeding Current Visit: Yes Status: Acute Code(s): K92.2 - GASTROINTESTINAL HEMORRHAGE, UNSPECIFIED SNOMED Code(s): 56419236 (5) Dialysis patient, noncompliant Current Visit: Yes Status: Acute Code(s): Z91.15 - PATIENT'S NONCOMPLIANCE WITH RENAL DIALYSIS SNOMED Code(s): 868708097402923 (6) Difficulty in walking Current Visit: Yes Status: Acute Code(s): R26.2 - DIFFICULTY IN WALKING, NOT ELSEWHERE CLASSIFIED SNOMED Code(s): 763045580 (7) ESRD (end stage renal disease) Current Visit: Yes Status: Acute Code(s): N18.6 - END STAGE RENAL DISEASE SNOMED Code(s): 05781944 Plan: #1 end-stage renal disease hemodialysis via left upper arm #2 anemia secondary to GI bleed status post transfused with packed red cells hemoglobin is as high as it's been in some time at 8.5 #3 hypertension end-stage renal disease #4 metabolic bone disease with end-stage renal disease Hyperkalemia resolved with dialysis #6 abdominal pain with ileus patient , did have small non-tarry brown BM earlier today Plan hemodialysis this evening Patient is hemodynamically stable discuss case with GI will advance diet as tolerated Patient is on Aranesp. Did initiate lactulose orally for bowel movements was suggested by Dr. Nugent however the order was not written Anticipate possible discharge home tomorrow Time with Patient: Greater than 30
[2018-09-30] MEDS: POLYETHYLENE GLYCOL 3350 17 GM POWD.PACK PO SCH (20:18)
[2018-09-30] MEDS: LACTULOSE 20 GM/30 ML CUP PO SCH (20:18)
[2018-09-30] MEDS: DICYCLOMINE 10 MG CAP PO PRN (22:58)
[2018-10-01] MEDS: LEVOTHYROXINE 100 MCG TAB PO SCH (05:21)
[2018-10-01] MEDS: IPRATROPIUM 0.5 MG/2.5 ML NEBU INHALATION SCH ×4 (07:17→19:57)
[2018-10-01] MEDS: SODIUM CHLORIDE 0.9% 1,000 ML IV SCH (10:50)
[2018-10-01] MEDS: CALCIUM CARB-MAG CARB-FOLIC 1 EACH TAB PO SCH ×2 (10:51→16:46)
[2018-10-01] MEDS: LACTULOSE 20 GM/30 ML CUP PO SCH (10:54)
[2018-10-01] MEDS: PANTOPRAZOLE 40 MG/10 ML VIAL IV SCH (10:54)
--- NOTE | 2018-10-01 11:55 | P.PN ---
Subjective Progress Note Date: 10/01/18 Principal diagnosis: GI bleed Status post recent surveillance EGD last week for evaluation of GI bleed anemia followed by small bowel capsule endoscopy with evidence of multiple bleeding AVMs. Presently not actively bleeding. Small nonbloody bowel movement today. Reports generalized abdominal discomfort midabdomen now much improved from yesterday no emesis. Hemoglobin 2 days ago 8.3. Dialysis schedule today. Afebrile. Objective - Vital Signs Vital signs: Vital Signs Temp 98.1 F 10/01/18 07:10 Pulse 86 10/01/18 07:10 Resp 18 10/01/18 07:10 BP 119/67 10/01/18 07:10 Pulse Ox 97 10/01/18 07:17 Intake & Output 09/30/18 10/01/18 10/01/18 18:59 06:59 18:59 Intake Total 296 Balance 296 Intake: Oral 296 Other: Voiding Method Toilet Toilet # Voids 0 1 - Exam General appearance: The patient is alert, oriented, in no acute distress. HET: Head is normocephalic and atraumatic. Pupils are equal and reactive. Oropharynx is clear without lesions. Neck: Supple without lymphadenopathy. Trachea midline. Heart: S1 S2. Regular rate and rhythm. Lungs: No crackles or wheezes are heard. Abdomen: Soft, mildly tender midabdomen, nondistended with bowel sounds. No peritoneal signs. No palpable organomegaly or masses. Extremities: Normal skin color and turgor. No cyanosis, rash, ulceration, clubbing, or edema. Radial and pedal pulses are 2/4 bilaterally. Neurological: No focal deficits. Strength and sensation are grossly intact. - Labs CBC & Chem 7: 09/29/18 08:14 09/25/18 05:29 Assessment and Plan (1) Acute GI bleeding Narrative/Plan: No active bleeding on upper endoscopy, however video capsule endoscopy showed multiple nonbleeding arteriovenous malformations in the small bowel which are likely the source of the patient's acute blood loss. Current Visit: Yes Status: Acute Code(s): K92.2 - GASTROINTESTINAL HEMORRHAGE, UNSPECIFIED SNOMED Code(s): 38279683 (2) Chronic GI bleeding Current Visit: Yes Status: Acute Code(s): K92.2 - GASTROINTESTINAL HEMORRHAGE, UNSPECIFIED SNOMED Code(s): 84905895 (3) Small bowel arteriovenous malformation Current Visit: Yes Status: Acute Code(s): K55.20 - ANGIODYSPLASIA OF COLON WITHOUT HEMORRHAGE SNOMED Code(s): 640370162 (4) Acute blood loss anemia Current Visit: Yes Status: Acute Code(s): D62 - ACUTE POSTHEMORRHAGIC ANEMIA SNOMED Code(s): 472631807 (5) Symptomatic anemia Current Visit: Yes Status: Acute Code(s): D64.9 - ANEMIA, UNSPECIFIED SNOMED Code(s): 777677908 (6) ESRD (end stage renal disease) Current Visit: Yes Status: Acute Code(s): N18.6 - END STAGE RENAL DISEASE SNOMED Code(s): 11722394 (7) Melena Current Visit: Yes Status: Acute Code(s): K92.1 - MELENA SNOMED Code(s): 1818745 Plan: 1. Abdominal pain not much improvement with laxatives hand drawer in Dr. Fernández recommends computed tomography scan abdomen and pelvis with oral contrast only. CBC BMP. We'll continue to follow. Continue with present medical therapy. Assessment and plan a care discussed with Dr. Fernández
[2018-10-01] MEDS: IOPAMIDOL-300 CONTRAST 30 ML VIAL (ORAL USE) PO PRN ×2 (12:54→14:16)
--- NOTE | 2018-10-01 13:59 | P.PN ---
Subjective Progress Note Date: 10/01/18 Principal diagnosis: Blood loss anemia, anemia of chronic disease, end-stage renal disease with hemodialysis Patient's awake alert oriented, complains of mild diffuse abdominal pain, persistent abdominal pain mild reviewed x-ray suggests mechanical ileus 10/01/2018 Patient awake alert vital signs are stable abdomin is much less tender today, GI recommending CT abdomen and pelvis with oral contrast to assess abdominal discomfort. Hemodialysis today as well Objective - Vital Signs Vital signs: Vital Signs Temp 98.1 F 10/01/18 07:10 Pulse 86 10/01/18 07:10 Resp 18 10/01/18 07:10 BP 119/67 10/01/18 07:10 Pulse Ox 97 10/01/18 07:17 Intake & Output 09/30/18 10/01/18 10/01/18 18:59 06:59 18:59 Intake Total 296 Balance 296 Intake: Oral 296 Other: Voiding Method Toilet Toilet # Voids 0 1 - Exam General: [Patient awake, alert and oriented times 3. Patient in no acute distress.] Conjunctiva pale HEENT: [PERRL. EOMI. No pharyngeal erythema or exudate.] Neck: [No adenopathy.] Cardiac: [Heart regular in rate and rhythm. No S3. No S4. No clicks, rubs. No murmur.] Lungs: [Clear to auscultation bilaterally.] Abdomen: [No mass. No organomegaly. Bowel sounds noted however dull and limited Extremes: [No edema no cyanosis no claudication normal pulses] : Normal female genitalia Musculoskeletal: [No joint erythema, edema or tenderness.] Skin: [No rash.] Neurologic: [No lateralizing deficits. CN II - XII grossly intact.] Lymphatic: [No adenopathy.] - Labs CBC & Chem 7: 09/29/18 08:14 09/25/18 05:29 Assessment and Plan (1) Acute GI bleeding Current Visit: Yes Status: Acute Code(s): K92.2 - GASTROINTESTINAL HEMORRHAGE, UNSPECIFIED SNOMED Code(s): 42809373 (2) Acute anemia Current Visit: Yes Status: Acute Code(s): D64.9 - ANEMIA, UNSPECIFIED SNOMED Code(s): 995866493 (3) Acute blood loss anemia Current Visit: Yes Status: Acute Code(s): D62 - ACUTE POSTHEMORRHAGIC ANEMIA SNOMED Code(s): 899479001 (4) Chronic GI bleeding Current Visit: Yes Status: Acute Code(s): K92.2 - GASTROINTESTINAL HEMORRHAGE, UNSPECIFIED SNOMED Code(s): 34666534 (5) Dialysis patient, noncompliant Current Visit: Yes Status: Acute Code(s): Z91.15 - PATIENT'S NONCOMPLIANCE WITH RENAL DIALYSIS SNOMED Code(s): 295111808315634 (6) Difficulty in walking Current Visit: Yes Status: Acute Code(s): R26.2 - DIFFICULTY IN WALKING, NOT ELSEWHERE CLASSIFIED SNOMED Code(s): 875343258 (7) ESRD (end stage renal disease) Current Visit: Yes Status: Acute Code(s): N18.6 - END STAGE RENAL DISEASE SNOMED Code(s): 41546302 Plan: #1 end-stage renal disease hemodialysis via left upper arm #2 anemia secondary to GI bleed status post transfused with packed red cells hemoglobin is as high as it's been in some time at 8.5 #3 hypertension end-stage renal disease #4 metabolic bone disease with end-stage renal disease Hyperkalemia resolved with dialysis #6 abdominal pain with ileus patient , significant bowel sounds throughout, abdominal gas no BM today Plan hemodialysis this evening Patient is hemodynamically stable discuss case with GI will advance diet as tolerated Patient is on Aranesp. Did initiate lactulose, yesterday GI is recommending CT abdomen and pelvis with oral contrast, awaiting test and results will also get a CBC for tomorrow Anticipate possible discharge home tomorrow Time with Patient: Greater than 30
[2018-10-01] MEDS: DARBEPOETIN ALFA 40 MCG/0.4 ML SYRINGE SQ SCH (14:17)
[2018-10-01 15:33] LABS: Anisocytosis Slight; Basophils % (A) 0 %; Eosinophils # (A) 0.1 k/uL (0-0.7); Eosinophils % (A) 1 %; HCT 28.2 % (34.0-46.0); HGB 8.6 gm/dL (11.4-16.0); Hypochromasia Moderate; Lymphocytes # (A) 0.2 k/uL (1.0-4.8); Lymphocytes % (A) 3 %; MCH 27.5 pg (25.0-35.0); MCHC 30.5 g/dL (31.0-37.0); Mean Platelet Volume 7.3; Monocytes # (A) 0.8 k/uL (0-1.0); Monocytes % (A) 11 %; Neutrophils # (A) 5.4 k/uL (1.3-7.7); Neutrophils % (A) 80 %; Platelet Count 446 k/uL (150-450); Poikilocytosis Slight; RBC 3.13 m/uL (3.80-5.40); RDW 17.3 % (11.5-15.5); WBC 6.7 k/uL (3.8-10.6)
--- NOTE | 2018-10-01 15:37 | CT ---
EXAMINATION TYPE: CT abdomen pelvis wo con DATE OF EXAM: 10/01/2018 COMPARISON: Prior CT 01/21/2014, abdomen 09/28/2018 HISTORY: Abdominal pain, acute anemia CT DLP: 410 mGycm Automated exposure control for dose reduction was used. TECHNIQUE: Helical acquisition of images from the lung bases through the pelvis. FINDINGS: Lack of intravenous contrast could compromise sensitivity. There is gastric wall thickening . Luminal high attenuation is present within the stomach and portions of the small bowel possibly rel ated to medication, correlate. LUNG BASES: Some minimal basilar atelectasis or scarring is present. Possible central line coursing t owards the right ventricle is decreased pericardial effusion. AORTA: No significant abnormality is appreciated. LIVER/GB: No significant abnormality is appreciated. PANCREAS: No significant abnormality is seen. SPLEEN: No significant abnormality is seen. ADRENALS: No significant abnormality is seen. KIDNEYS: Small as on prior exam. Possible cortical cyst present on the right measuring 2 cm.. REPRODUCTIVE ORGANS: Not seen URINARY BLADDER: No significant abnormality is seen. BOWEL: Some colonic wall thickening is noted towards the splenic flexure. There is a metallic densit y present within the proximal large bowel measuring 15 mm with associated artifact. Diverticular heaton ges associated with the colon. Small bowel fold thickening also present. Colonic interposition anteri or to the liver. FREE AIR: No Free Air is visible. ASCITES: None visible. PELVIC ADENOPATHY: None visualized. RETROPERITONEAL ADENOPATHY: No Retroperitoneal Adenopathy visible. OSSEOUS STRUCTURES: No significant abnormality is seen. IMPRESSION: CORRELATE FOR GASTROENTERITIS, COLITIS. CORRELATE FOR LUMINAL HIGH DENSITY CONTENTS WITHIN THE STOMAC H AND SMALL BOWEL. NONCONTRAST EXAM. Diverticulosis and additional findings above.
[2018-10-01 15:49] LABS: Calcium 7.2 mg/dL (8.4-10.2); Potassium 4.4 mmol/L (3.5-5.1)
[2018-10-01] MEDS ORDERED: GELATIN SPONGE,ABSORB (LARGE) 1 EACH SPONGE ONE (18:00)
[2018-10-01 19:05] LABS: Glucose,Whole Blood 113 mg/dL (75-99)
[2018-10-01] MEDS ORDERED: SODIUM CHLORIDE 0.9% 500 ML 500 ML IV ONE (19:11)
[2018-10-01] MEDS ORDERED: SODIUM CHLORIDE 0.9% 500 ML 500 ML IV PRN (21:07)
--- NOTE | 2018-10-01 21:56 | PN ---
PROGRESS NOTE Patient was seen this morning for followup for end-stage renal disease. She states her abdominal pain is slightly better. Patient also had some bowel movement. She is maintained on lactulose. On examination this morning, blood pressure was 119/67, heart rate of about 90 per minute. Patient is afebrile. EXAMINATION OF THE HEART: S1 and S2. EXAMINATION OF LUNGS: Bilateral breath sounds are heard. ABDOMEN: Soft. There is minimal tenderness noted in the lower abdomen. Examination of lower extremities shows no significant edema. 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 Labs show hemoglobin 8.6 on 10/01/2018, sodium 134, potassium 4.4, serum calcium 7.2. ASSESSMENT: 1. End-stage renal disease, on hemodialysis on a Saturday, Saturday, Saturday schedule. Patient will be dialyzed today. 2. Anemia secondary to gastrointestinal bleed, currently stable. No active bleeding noted at this time. 3. Abdominal pain, etiology unclear, possibly related to constipation. There is some improvement in her abdominal pain. I will continue with the lactulose. Patient is being followed by GI. 4. Chronic kidney disease mineral bone disorder. 5. Hypertension, currently stable. PLAN: Hemodialysis today. Increase oral intake and increase lactulose to b.i.d. MMODL / IJN: [id number] /
[2018-10-01 22:44] LABS: Anisocytosis Slight; Basophils % (A) 0 %; Eosinophils % (A) 0 %; HCT 27.9 % (34.0-46.0); HGB 8.7 gm/dL (11.4-16.0); Hypochromasia Marked; Lymphocytes # (A) 0.2 k/uL (1.0-4.8); Lymphocytes % (A) 3 %; MCH 28.3 pg (25.0-35.0); MCHC 31.2 g/dL (31.0-37.0); MCV 90.7 fL (80.0-100.0); Mean Platelet Volume 6.4; Monocytes # (A) 0.7 k/uL (0-1.0); Monocytes % (A) 10 %; Neutrophils # (A) 5.9 k/uL (1.3-7.7); Neutrophils % (A) 85 %; Platelet Count 396 k/uL (150-450); Poikilocytosis Slight; RBC 3.07 m/uL (3.80-5.40); RDW 17.3 % (11.5-15.5); WBC 6.9 k/uL (3.8-10.6)
[2018-10-02] MEDS: CALCIUM CARB-MAG CARB-FOLIC 1 EACH TAB PO SCH ×3 (01:19→15:25)
[2018-10-02] MEDS: POLYETHYLENE GLYCOL 3350 17 GM POWD.PACK PO SCH ×2 (01:19→20:04)
[2018-10-02] MEDS: LACTULOSE 20 GM/30 ML CUP PO SCH (07:45)
[2018-10-02] MEDS: PANTOPRAZOLE 40 MG TABLET PO SCH (07:46)
[2018-10-02] MEDS: LEVOTHYROXINE 100 MCG TAB PO SCH (07:46)
[2018-10-02] MEDS: SODIUM CHLORIDE 0.9% 1,000 ML IV SCH (07:46)
[2018-10-02] MEDS: IPRATROPIUM 0.5 MG/2.5 ML NEBU INHALATION SCH ×4 (08:41→20:31)
--- NOTE | 2018-10-02 11:10 | P.PN ---
Subjective Progress Note Date: 10/02/18 Principal diagnosis: GI bleed Status post recent surveillance EGD last week for evaluation of GI bleed anemia followed by small bowel capsule endoscopy with evidence of multiple bleeding AVMs. Presently not actively bleeding. Reports generalized abdominal discomfort midabdomen mildly improved from yesterday no emesis. Hemoglobin stable 8.7. Afebrile. CT no evidence of free air or bowel obstruction metallic density mentioned in the colon most likely small bowel capsule from noninvasive endoscopy. Objective - Vital Signs Vital signs: Vital Signs Temp 98.6 F 10/02/18 07:00 Pulse 96 10/02/18 07:00 Resp 20 10/02/18 07:00 BP 115/66 10/02/18 07:00 Pulse Ox 100 10/02/18 07:00 Intake & Output 10/01/18 10/02/18 10/02/18 18:59 06:59 18:59 Intake Total 50 200 Balance 50 200 Weight 76.7 kg Intake: Oral 50 200 Other: Voiding Method Toilet Toilet # Voids 1 - Exam General appearance: The patient is alert, oriented, in no acute distress. HET: Head is normocephalic and atraumatic. Pupils are equal and reactive. Or opharynx is clear without lesions. Neck: Supple without lymphadenopathy. Trachea midline. Heart: S1 S2. Regular rate and rhythm. Lungs: No crackles or wheezes are heard. Abdomen: Soft, mildly tender midabdomen, nondistended with bowel sounds. No peritoneal signs. No palpable organomegaly or masses. Extremities: Normal skin color and turgor. No cyanosis, rash, ulceration, clubbing, or edema. Radial and pedal pulses are 2/4 bilaterally. Neurological: No focal deficits. Strength and sensation are grossly intact. - Labs CBC & Chem 7: 10/01/18 22:18 10/01/18 15:00 Labs: Abnormal Lab Results - Last 24 Hours (Table) 10/01/18 10/01/18 10/01/18 Range/Units 15:00 15:00 19:03 RBC 3.13 L (3.80-5.40) m/uL Hgb 8.6 L (11.4-16.0) gm/dL Hct 28.2 L (34.0-46.0) % MCHC 30.5 L (31.0-37.0) g/dL RDW 17.3 H (11.5-15.5) % Lymphocytes # 0.2 L (1.0-4.8) k/uL Sodium 134 L (137-145) mmol/L Chloride 97 L (98-107) mmol/L BUN 74 H (7-17) mg/dL Creatinine 9.38 H* (0.52-1.04) mg/dL POC Glucose (mg/dL) 113 H (75-99) mg/dL Calcium 7.2 L (8.4-10.2) mg/dL 10/01/18 Range/Units 22:18 RBC 3.07 L (3.80-5.40) m/uL Hgb 8.7 L (11.4-16.0) gm/dL Hct 27.9 L (34.0-46.0) % MCHC (31.0-37.0) g/dL RDW 17.3 H (11.5-15.5) % Lymphocytes # 0.2 L (1.0-4.8) k/uL Sodium (137-145) mmol/L Chloride (98-107) mmol/L BUN (7-17) mg/dL Creatinine (0.52-1.04) mg/dL POC Glucose (mg/dL) (75-99) mg/dL Calcium (8.4-10.2) mg/dL Assessment and Plan (1) Acute GI bleeding Narrative/Plan: No active bleeding on upper endoscopy, however video capsule endoscopy showed multiple nonbleeding arteriovenous malformations in the small bowel which are likely the source of the patient's acute blood loss. Current Visit: Yes Status: Acute Code(s): K92.2 - GASTROINTESTINAL HEMORRHAGE, UNSPECIFIED SNOMED Code(s): 93952902 (2) Chronic GI bleeding Current Visit: Yes Status: Acute Code(s): K92.2 - GASTROINTESTINAL HEMORRHAGE, UNSPECIFIED SNOMED Code(s): 72323932 (3) Small bowel arteriovenous malformation Current Visit: Yes Status: Acute Code(s): K55.20 - ANGIODYSPLASIA OF COLON WITHOUT HEMORRHAGE SNOMED Code(s): 949918713 (4) Acute blood loss anemia Current Visit: Yes Status: Acute Code(s): D62 - ACUTE POSTHEMORRHAGIC ANEMIA SNOMED Code(s): 110958309 (5) Symptomatic anemia Current Visit: Yes Status: Acute Code(s): D64.9 - ANEMIA, UNSPECIFIED SNOMED Code(s): 123652006 (6) ESRD (end stage renal disease) Current Visit: Yes Status: Acute Code(s): N18.6 - END STAGE RENAL DISEASE SNOMED Code(s): 29421637 (7) Melena Current Visit: Yes Status: Acute Code(s): K92.1 - MELENA SNOMED Code(s): 9411780 Plan: 1. Agreeable for discharge. Return to office 1-2 weeks. CBC monitoring outpatient setting. Iron supplementation blood transfusion as indicated. Assessment and plan a care discussed with Dr. Fernández
--- NOTE | 2018-10-02 12:37 | P.PN ---
Subjective Patient is seen in follow-up for end-stage renal disease. She is maintained on hemodialysis on a Saturday schedule. Hemoglobin stable at 8.7. Complains of mild abdominal discomfort. Had 2 loose bowel movements this morning. No chest pain or shortness of breath. Vital signs are stable. General: The patient appeared well nourished and normally developed. HEENT: Head exam is unremarkable. Neck is without jugular venous distension. LUNGS: Lungs are clear to auscultation and percussion. Breath sounds decreased. HEART: Rate and Rhythm are regular. First and second heart sounds normal. No murmurs, rubs or gallops. ABDOMEN: Abdominal exam reveals normal bowel sounds. Non-tender and non- distended. No evidence of peritonitis. EXTREMITITES: No clubbing, cyanosis, or edema. Objective - Vital Signs Vital signs: Vital Signs Temp 98.6 F 10/02/18 07:00 Pulse 96 10/02/18 07:00 Resp 20 10/02/18 07:00 BP 115/66 10/02/18 07:00 Pulse Ox 100 10/02/18 07:00 Intake & Output 10/01/18 10/02/18 10/02/18 18:59 06:59 18:59 Intake Total 50 200 Balance 50 200 Weight 76.7 kg Intake: Oral 50 200 Other: Voiding Method Toilet Toilet # Voids 1 - Labs CBC & Chem 7: 10/01/18 22:18 10/01/18 15:00 Labs: Abnormal Lab Results - Last 24 Hours (Table) 10/01/18 10/01/18 10/01/18 Range/Units 15:00 15:00 19:03 RBC 3.13 L (3.80-5.40) m/uL Hgb 8.6 L (11.4-16.0) gm/dL Hct 28.2 L (34.0-46.0) % MCHC 30.5 L (31.0-37.0) g/dL RDW 17.3 H (11.5-15.5) % Lymphocytes # 0.2 L (1.0-4.8) k/uL Sodium 134 L (137-145) mmol/L Chloride 97 L (98-107) mmol/L BUN 74 H (7-17) mg/dL Creatinine 9.38 H* (0.52-1.04) mg/dL POC Glucose (mg/dL) 113 H (75-99) mg/dL Calcium 7.2 L (8.4-10.2) mg/dL 10/01/18 Range/Units 22:18 RBC 3.07 L (3.80-5.40) m/uL Hgb 8.7 L (11.4-16.0) gm/dL Hct 27.9 L (34.0-46.0) % MCHC (31.0-37.0) g/dL RDW 17.3 H (11.5-15.5) % Lymphocytes # 0.2 L (1.0-4.8) k/uL Sodium (137-145) mmol/L Chloride (98-107) mmol/L BUN (7-17) mg/dL Creatinine (0.52-1.04) mg/dL POC Glucose (mg/dL) (75-99) mg/dL Calcium (8.4-10.2) mg/dL Assessment and Plan Plan: Assessment: 1. End-stage renal disease maintained on hemodialysis on a Saturday F riday schedule via left upper extremity AV graft. 2. Acute blood loss anemia status post blood transfusion. Hemoglobin stable. Status post EGD which revealed no active bleeding. Capsule endoscopy revealed AVMs. 3. Hyperkalemia secondary to GI bleed and chronic kidney disease. Improved postdialysis. 4. Metabolic acidosis secondary to chronic kidney disease. Improved postdialysis. 5. Hypertension with chronic kidney disease. Controlled. 6. Chronic kidney disease mineral bone disease. 7. Status post parathyroidectomy maintained on calcium supplementation and calcitriol. Plan: Hemodialysis tomorrow. Maintain Aranesp.
[2018-10-02] MEDS: CALCITRIOL 0.25 MCG CAP PO SCH (15:25)
--- NOTE | 2018-10-02 18:21 | P.DS ---
Providers Date of admission: 09/23/18 06:16 Expected date of discharge: 10/02/18 Attending physician: Julio Kwong Consults: 09/23/18 06:16 Consult Physician Stat Consulting Provider: Vini Sol Consult Reason/Comments: GIB - ICU mgmt Do you want consulting provider notified?: Already Contacted Consult Physician Stat Consulting Provider: Karri Fernández Consult Reason/Comments: unstable GIB Do you want consulting provider notified?: Already Contacted 09/23/18 13:23 Consult Physician Routine Consulting Provider: Arpan Blackburn Consult Reason/Comments: esrd Do you want consulting provider notified?: Yes Primary care physician: Jacob Littlejohn - Discharge Diagnosis(es) (1) Acute GI bleeding Current Visit: Yes Status: Acute (2) Acute anemia Current Visit: Yes Status: Acute (3) Acute blood loss anemia Current Visit: Yes Status: Acute (4) Chronic GI bleeding Current Visit: Yes Status: Acute (5) Dialysis patient, noncompliant Current Visit: Yes Status: Acute (6) Difficulty in walking Current Visit: Yes Status: Acute (7) ESRD (end stage renal disease) Current Visit: Yes Status: Acute Hospital Course: This patient was admitted to the hospital with acute GI bleed she has known history of duodenal ulcer disease as well as intermittent chronic gastritis as well as end-stage renal disease anemia of chronic disease and hemodialysis dependent General: [Patient awake, alert and oriented times 3. Patient in no acute distress.] HEENT: [PERRL. EOMI. No pharyngeal erythema or exudate.] Neck: [No adenopathy.] Cardiac: [Heart regular in rate and rhythm. No S3. No S4. No clicks, rubs. No murmur.] Lungs: [Clear to auscultation bilaterally.] Abdomen: [No mass. No organomegaly. Bowel sounds presnt and normoactive in all 4 quadrants.] Extremes: [No edema no cyanosis no claudication normal pulses] : Normal female genitalia Musculoskeletal: [No joint erythema, edema or tenderness.] Skin: [No rash.] Neurologic: [No lateralizing deficits. CN II - XII grossly intact.] Lymphatic: [No adenopathy.] Pertinent Studies: Patient is to be dialyzed tonight and if dialysis completes early enough she wishes to go home this evening If not achieving goal home first thing tomorrow morning I will follow up with her in the office early next week Patient Condition at Discharge: Fair Plan - Discharge Summary Discharge Rx Participant: Yes New Discharge Prescriptions: No Action Albuterol Nebulized [Ventolin Nebulized] 2.5 mg INHALATION BID PRN PRN Reason: Shortness Of Breath Labetalol HCl 200 mg PO TID PRN PRN Reason: elevated blood pressure Umeclidinium [place] [Incruse Ellipta] 2 puff INHALATION RT-BID PRN PRN Reason: Shortness Of Breath Calcitriol [Rocaltrol] 0.25 mcg PO Q48H Zolpidem Tartrate [Ambien Cr] 6.25 mg PO HS PRN PRN Reason: Insomnia Calcium Carb-Mag Carb-Folic [Magnebind 400 Rx] 1 tab PO TID Levothyroxine Sodium [Synthroid] 100 mcg PO DAILY Discharge Medication List Albuterol Nebulized [Ventolin Nebulized] 2.5 mg INHALATION BID PRN 01/26/15 [History] Labetalol HCl 200 mg PO TID PRN 01/26/15 [History] Umeclidinium [place] [Incruse Ellipta] 2 puff INHALATION RT-BID PRN 11/27/16 [History] Calcitriol [Rocaltrol] 0.25 mcg PO Q48H 02/24/18 [History] Calcium Carb-Mag Carb-Folic [Magnebind 400 Rx] 1 tab PO TID 02/24/18 [History] Zolpidem Tartrate [Ambien Cr] 6.25 mg PO HS PRN 02/24/18 [History] Levothyroxine Sodium [Synthroid] 100 mcg PO DAILY 09/23/18 [History] Follow up Appointment(s)/Referral(s): Jacob Littlejohn Jr, DO [Primary Care Provider] - 10/07/18 1:30 pm [facility] [NON-STAFF] - Karri Fernández MD [STAFF PHYSICIAN] - 2 Weeks Activity/Diet/Wound Care/Special Instructions: Rollator walker - delivered to bedside by [facility] Plan Goals (MU): May be discharged tonight following dialysis if dialysis is completed before 10:00 Discharge Disposition: HOME SELF-CARE
[2018-10-02] MEDS ORDERED: ONDANSETRON 4 MG TAB PO PRN (20:05)
[2018-10-02 20:08] LABS: Glucose,Whole Blood 96 mg/dL (75-99)
[2018-10-02] MEDS: DICYCLOMINE 10 MG CAP PO PRN (20:32)
[2018-10-02] MEDS ORDERED: ONDANSETRON 4 MG/2 ML VIAL IVP PRN (20:58)
[2018-10-03] MEDS: CALCIUM CARB-MAG CARB-FOLIC 1 EACH TAB PO SCH ×2 (00:38→08:48)
[2018-10-03] MEDS: SODIUM CHLORIDE 0.9% 1,000 ML IV SCH (06:33)
[2018-10-03 06:52] LABS: Glucose,Whole Blood 96 mg/dL (75-99)
[2018-10-03 07:09] VITALS: RESP 14; TEMP 98.8
[2018-10-03] MEDS: IPRATROPIUM 0.5 MG/2.5 ML NEBU INHALATION SCH ×2 (07:50→11:54)
[2018-10-03] MEDS: LACTULOSE 20 GM/30 ML CUP PO SCH (08:48)
[2018-10-03] MEDS: LEVOTHYROXINE 100 MCG TAB PO SCH (08:49)
[2018-10-03] MEDS: PANTOPRAZOLE 40 MG TABLET PO SCH (08:49)
[2018-10-03 11:00] LABS: Albumin 2.5 g/dL (3.5-5.0); Calcium 6.9 mg/dL (8.4-10.2); Potassium 4.3 mmol/L (3.5-5.1); Total Bilirubin 0.3 mg/dL (0.2-1.3); Total Protein 5.1 g/dL (6.3-8.2)
[2018-10-03 11:34] LABS: Glucose,Whole Blood 82 mg/dL (75-99)
[2018-10-03 13:42] VITALS: BP 118/63; PULSE 90
[2018-10-03] MEDS: DICYCLOMINE 10 MG CAP PO PRN (14:24)
== END 2018-10-03 15:40 | disposition home or self-care (01) | DRG 377 ==
LOC: EC 05:05 → 2SICU 06:16 → 4SSUR 09-25 17:33
PROVIDERS: ADMIT Family Medicine; ATTEND Family Medicine
PROC: 30233N1 Transfusion of Nonautologous Red Blood Cells into Peripheral Vein, Percutaneous Approach (ICD-10-PCS; 2018-09-23)
PROC: 0DJ08ZZ Inspection of Upper Intestinal Tract, Via Natural or Artificial Opening Endoscopic (ICD-10-PCS; principal; 2018-09-23 09:40)
PROC: 5A1D70Z Performance of Urinary Filtration, Intermittent, Less than 6 Hours Per Day (ICD-10-PCS; 2018-09-24)
PROC: 0DJ07ZZ Inspection of Upper Intestinal Tract, Via Natural or Artificial Opening (ICD-10-PCS; 2018-09-25)
PROC: 5A1D70Z Performance of Urinary Filtration, Intermittent, Less than 6 Hours Per Day (ICD-10-PCS; 2018-09-26)
PROC: 5A1D70Z Performance of Urinary Filtration, Intermittent, Less than 6 Hours Per Day (ICD-10-PCS; 2018-09-29)
PROC: 5A1D70Z Performance of Urinary Filtration, Intermittent, Less than 6 Hours Per Day (ICD-10-PCS; 2018-10-01)
PROC: 5A1D70Z Performance of Urinary Filtration, Intermittent, Less than 6 Hours Per Day (ICD-10-PCS; 2018-10-03)
DX: K31.811 Angiodysplasia of stomach and duodenum with bleeding (principal); N18.6 End stage renal disease; D62 Acute posthemorrhagic anemia; I12.0 Hypertensive chronic kidney disease with stage 5 chronic kidney disease or end stage renal disease; E87.2 Acidosis; K56.7 Ileus, unspecified; J44.9 Chronic obstructive pulmonary disease, unspecified; E83.9 Disorder of mineral metabolism, unspecified; E87.5 Hyperkalemia; D50.0 Iron deficiency anemia secondary to blood loss (chronic); D63.1 Anemia in chronic kidney disease; E89.0 Postprocedural hypothyroidism; K21.9 Gastro-esophageal reflux disease without esophagitis; M19.90 Unspecified osteoarthritis, unspecified site; H91.90 Unspecified hearing loss, unspecified ear; R26.2 Difficulty in walking, not elsewhere classified; F17.210 Nicotine dependence, cigarettes, uncomplicated; Z71.6 Tobacco abuse counseling; Z79.51 Long term (current) use of inhaled steroids; Z79.890 Hormone replacement therapy; Z79.899 Other long term (current) drug therapy; Z99.2 Dependence on renal dialysis; Z91.15 Patient's noncompliance with renal dialysis; Z90.710 Acquired absence of both cervix and uterus; Z90.12 Acquired absence of left breast and nipple; Z92.21 Personal history of antineoplastic chemotherapy; Z87.11 Personal history of peptic ulcer disease; Z85.3 Personal history of malignant neoplasm of breast; Z98.51 Tubal ligation status; Z83.2 Family history of diseases of the blood and blood-forming organs and certain disorders involving the immune mechanism; Z80.41 Family history of malignant neoplasm of ovary; Z80.6 Family history of leukemia
CPT/HCPCS: 36415; 43235; 74019; 74176; 80048; 80053; 81001; 82272; 83605; 83690; 83735; 84100; 84484; 85025; 85027; 85610; 85730; 86850; 86900; 86901; 86920; 90935; 91110; 94760; 96361; 96374; 99285

== ENCOUNTER 2018-10-07 18:06 | Inpatient (IN) | payer MEDICARE ==
--- NOTE | 2018-10-07 18:50 | ED ---
Abdominal Pain HPI - General Chief Complaint: Abdominal Pain Stated Complaint: Abd.pain Time Seen by Provider: 10/07/18 18:22 Source: patient, EMS Mode of arrival: EMS Limitations: no limitations - History of Present Illness Initial Comments: 68-year-old female with past medical history of COPD, end-stage renal disease on dialysis Saturday last dialysis was Saturday (missed Saturday), hypertension, previous GI bleed presenting today for chief complaint of diffuse abdominal pain and diarrhea. Patient states that she was admitted and discha rged recently from the hospital this past Saturday. She states she had a paracentesis performed at this time. Patient states the pain is in her whole stomach she cannot localize the pain. She states that is constant and she has had diarrhea that is light in color and foul smelling. She states she has to 3 episodes today, she states she has come weaker as the diarrhea continues.Pt states she has had some mild SOB that feels identical to when she has "low blood". Patient denies any fever, chills, night sweats, nausea, vomiting, chest pain, headache, dizziness. Patient denies melena or hematochezia. Patient denies use of anticoagulants. Patient states she has been able to eat and drink however she feels as though "the runs right through her". Remaining review of systems negative, Patient denies any recent numbness or tingling, dysuria or hematuria, constipation, palpitations, visual changes, or any other complaints. Upon arrival pt VS within acceptable limits, patient afebrile. - Related Data Home Medications Medication Instructions Recorded Confirmed Albuterol Nebulized [Ventolin 2.5 mg INHALATION RT-BID PRN 01/26/15 10/07/18 Nebulized] Labetalol HCl 200 mg PO TID PRN 01/26/15 10/07/18 Umeclidinium [place] [Incruse 2 puff INHALATION RT-BID PRN 11/27/16 10/07/18 Ellipta] Calcitriol [Rocaltrol] 0.25 mcg PO Q48H 02/24/18 10/07/18 Calcium Carb-Mag Carb-Folic 1 tab PO TID 02/24/18 10/07/18 [Magnebind 400 Rx] Zolpidem Tartrate [Ambien Cr] 6.25 mg PO HS PRN 02/24/18 10/07/18 Levothyroxine Sodium [Synthroid] 100 mcg PO DAILY 09/23/18 10/07/18 Omeprazole 20 mg PO DAILY PRN 10/07/18 10/07/18 Allergies Allergy/AdvReac Type Severity Reaction Status Date / Time No Known Allergies Allergy Verified 10/07/18 18:24 Review of Systems ROS Statement: Those systems with pertinent positive or pertinent negative responses have been documented in the HPI. ROS Other: All systems not noted in ROS Statement are negative. Past Medical History Past Medical History: Asthma, Cancer, COPD, Dialysis, GERD/Reflux, GI Bleed, Hearing Disorder / Deafness, Hypertension, Osteoarthritis (OA), Renal Disease, Thyroid Disorder Additional Past Medical History / Comment(s): HEMODIALYSIS SAT,SAT, SAT-last dialysis was 09/19/18Saturday d/t unable to go yesterday 09/22/18, anemia- receives blood tranfusions weekly, past upper and lower GI bleeds per pt and recently admitted to [facility] for GI bleed-had EGD-no source found, L breast cancer with L mastectomy and chemotherapy, arthritis in multiple joints, hypothyroid, ATQASUK bilaterally History of Any Multi-Drug Resistant Organisms: None Reported Past Surgical History: Breast Surgery, Hysterectomy, Tubal Ligation Additional Past Surgical History / Comment(s): L BREAST BIOPSY, LEFT MASTECTOMY , DIALYSIS GRAFT- UPPER LEFT ARM, PARTIAL THYROIDECTOMY,COLONOSCOPIES, EGDS, D&C, L SHOULDER CYST REMOVED. Past Anesthesia/Blood Transfusion Reactions: No Reported Reaction, Motion Sickness Additional Past Anesthesia/Blood Transfusion Reaction / Comment(s): Pt has received numerous transfusions without reaction. Past Psychological History: No Psychological Hx Reported Smoking Status: Current every day smoker Past Alcohol Use History: None Reported Past Drug Use History: None Reported - Past Family History Daughter(s) Family Medical History: Deep Vein Thrombosis (DVT) Mother Family Medical History: Cancer Additional Family Medical History / Comment(s): OVARIAN Brother(s) Family Medical History: Cancer Additional Family Medical History / Comment(s): Brother had "blood" cancer. General Exam - General Exam Comments Initial Comments: General: The patient is awake and alert, in no distress, and does not appear acutely ill. Eye: +3 mm pupils are equal, round and reactive to light, extra-ocular movements are intact. No nystagmus. There is normal conjunctiva bilaterally. No signs of icterus. Ears, nose, mouth and throat: There are moist mucous membranes and no oral lesions. Neck: The neck is supple, there is no tenderness or JVD. Cardiovascular: There is a regular rate and rhythm. No murmur, rub or gallop is appreciated. Respiratory: Lungs are clear to auscultation, respirations are non-labored, breath sounds are equal. No wheezes, stridor, rales, or rhonchi. Gastrointestinal: No noted diaphoresis, jaundice, pallor, protecting postures or squirming. Symmetrical pigmentation of abdomen without signs of inflammation, striae present. Umbilicus mildline, inverted without swelling. No dilated veins. Abdomen contour obese, no noted abdominal distention. No visible masses. No p eristalsis, aortic pulsations, or ventral hernia. Bowel sounds audible in all 4 quadrants, unremarkable. Patient tender to light and deep palpation diffusely no localization of the pain no rigidity. Mild guarding. Liver edge, not palpable. Spleen edge, right and left kidney not palpable. Superior bladder margin non-tender. Special Testing: Positive shifting dullness, fluid wave. Negative [place], Rovsing, McBurney, Z[place]ma, cutaneous hyperesthesia. Negative Heel Jar test. No CVA tenderness. D igital rectal exam deferred. Negative ojeda turners or cullens sign Musculoskeletal: Normal ROM, no tenderness. Strength 5/5. Sensation intact. Radial pulses equal bilaterally 2+. Neurological: A&O x 3. CN II-XII intact, There are no obvious motor or sensory deficits. Coordination appears grossly intact. Speech is normal. Skin: Skin is warm and dry and no rashes or lesions are noted. Psychiatric: Cooperative, appropriate mood & affect, normal judgment. Limitations: no limitations Course Vital Signs 10/07/18 10/07/18 10/07/18 18:18 18:30 21:20 Temperature 97.4 F L 97.6 F Pulse Rate 88 89 Respiratory 16 18 18 Rate Blood Pressure 114/64 114/64 119/92 O2 Sat by Pulse 100 99 100 Oximetry - Reevaluation(s) Reevaluation #1: Critical hemoglobin value. Transfusion initiated. Patient refused occult blood, I explained the importance of the test--patient continues to refuse, saying "I have no GI bleed" 10/07/18 19:56 Medical Decision Making - Medical Decision Making 68-year-old female end-stage renal disease. Patient missed dialysis on Saturday. Presenting for abdominal pain, diarrhea. Patient states she has mild shortness of breath similar to when she's had low hemoglobin in the past. Patient denies chest pain. Hemoglobin 5. Patient transfused red blood cells. In addition patient creatinine elevated, mildly elevated from baseline. Patient refused repeatedly occult blood testing. Differential diagnosis for low hemoglobin include GI bleed. pt given protonix. Potassium within normal limits. Calcium appears chronically low. Patient give IVF. Discussed the case with attending provider Dr. Cotter who admitted patient after speaking with accepting physician Dr. Kwong. Further orders at this time. Nephrology as well as GI on consult. Patient appears stable upon transfer to the floor. Patient agreeable to admission denies questions at this time. - Lab Data Result diagrams: 10/07/18 19:11 10/07/18 19:11 Lab Results 10/07/18 10/07/18 10/07/18 Range/Units 19:11 19:11 19:11 WBC 7.9 (3.8-10.6) k/uL RBC 1.79 L (3.80-5.40) m/uL Hgb 5.1 L* D (11.4-16.0) gm/dL Hct 16.2 L* (34.0-46.0) % MCV 90.6 (80.0-100.0) fL MCH 28.3 (25.0-35.0) pg MCHC 31.2 (31.0-37.0) g/dL RDW 18.3 H (11.5-15.5) % Plt Count 591 H (150-450) k/uL Neutrophils % 88 % Lymphocytes % 3 % Monocytes % 6 % Eosinophils % 1 % Basophils % 0 % Neutrophils # 7.0 (1.3-7.7) k/uL Lymphocytes # 0.2 L (1.0-4.8) k/uL Monocytes # 0.5 (0-1.0) k/uL Eosinophils # 0.1 (0-0.7) k/uL Basophils # 0.0 (0-0.2) k/uL Hypochromasia Marked Poikilocytosis Slight Anisocytosis Slight Sodium 137 (137-145) mmol/L Potassium 4.3 (3.5-5.1) mmol/L Chloride 102 (98-107) mmol/L Carbon Dioxide 19 L (22-30) mmol/L Anion Gap 16 mmol/L BUN 92 H (7-17) mg/dL Creatinine 12.62 H* (0.52-1.04) mg/dL Est GFR (CKD-EPI)AfAm 3 (>60 ml/min/1.73 sqM) Est GFR (CKD-EPI)NonAf 3 (>60 ml/min/1.73 sqM) Glucose 98 (74-99) mg/dL Plasma Lactic Acid Chin 1.1 (0.7-2.0) mmol/L Calcium 6.8 L (8.4-10.2) mg/dL Total Bilirubin 0.4 (0.2-1.3) mg/dL AST 19 (14-36) U/L ALT 25 (9-52) U/L Alkaline Phosphatase 72 (38-126) U/L Total Protein 5.6 L (6.3-8.2) g/dL Albumin 2.8 L (3.5-5.0) g/dL Amylase 69 (30-110) U/L Lipase 238 (23-300) U/L Disposition Clinical Impression: Anemia, Low hemoglobin, Abdominal pain, Diarrhea, Hypocalcemia, End stage renal disease Disposition: ADMITTED IP TO THIS [facility] Condition: Stable Is patient prescribed a controlled substance at d/c from ED?: No Time of Disposition: 20:38 Decision to Admit Reason: Admit from EC Decision Date: 10/07/18 Decision Time: 20:38
[2018-10-07 19:35] LABS: Anisocytosis Slight; Basophils % (A) 0 %; Eosinophils # (A) 0.1 k/uL (0-0.7); Eosinophils % (A) 1 %; Hypochromasia Marked; Lymphocytes # (A) 0.2 k/uL (1.0-4.8); Lymphocytes % (A) 3 %; MCH 28.3 pg (25.0-35.0); MCHC 31.2 g/dL (31.0-37.0); MCV 90.6 fL (80.0-100.0); Mean Platelet Volume 6.2; Monocytes # (A) 0.5 k/uL (0-1.0); Monocytes % (A) 6 %; Neutrophils % (A) 88 %; Platelet Count 591 k/uL (150-450); Poikilocytosis Slight; RBC 1.79 m/uL (3.80-5.40); RDW 18.3 % (11.5-15.5); WBC 7.9 k/uL (3.8-10.6)
[2018-10-07 19:37] LABS: HCT 16.2 % (34.0-46.0); HGB 5.1 gm/dL (11.4-16.0)
[2018-10-07 19:38] LABS: Albumin 2.8 g/dL (3.5-5.0); Calcium 6.8 mg/dL (8.4-10.2); Potassium 4.3 mmol/L (3.5-5.1); Total Bilirubin 0.4 mg/dL (0.2-1.3); Total Protein 5.6 g/dL (6.3-8.2)
--- NOTE | 2018-10-07 19:43 | XR ---
EXAMINATION: XR chest 2V DATE AND TIME: 10/07/2018 7:30 PM CLINICAL INDICATION: PHH; Pain TECHNIQUE: Departmental protocol COMPARISON: 09/30/2015 FINDINGS: Right IJ catheter tip superimposed over the right atrium; this catheter was not present on the prior study. Bilateral axillary stents noted. The cardiac silhouette is not enlarged. Thoracic aorta tortuosity redemonstrated. The lungs are clear. The pleural spaces are negative. The skeletal structures and soft tissues are negative for acute findings. IMPRESSION: NO ACUTE PROCESS. Right IJ catheter tip superimposed over the right atrium.
[2018-10-07] MEDS ORDERED: SODIUM CHLORIDE 0.9% 1,000 ML IV ONE (19:56)
[2018-10-07] MEDS ORDERED: NALOXONE 0.4 MG/ML 1 ML VIAL IV PRN (20:26)
[2018-10-07] MEDS ORDERED: PANTOPRAZOLE 40 MG/10 ML VIAL IVP STA (20:39)
--- NOTE | 2018-10-07 20:47 | CT ---
EXAMINATION TYPE: CT abdomen pelvis wo con DATE OF EXAM: 10/07/2018 COMPARISON: 10/01/2018 CT HISTORY: Abdomen pain & diarrhea CT DLP: 433 mGycm Automated exposure control for dose reduction was used. TECHNIQUE: Helical acquisition of images was performed from the lung bases through the pelvis. FINDINGS: Within the limitations of noncontrast CT the following observations are made: VISUALIZED SUPRADIAPHRAGMATIC STRUCTURES: No acute findings. However, coronary calcifications noted, with mild cardiomegaly and mitral valve plane calcifications. LIVER/GB: No significant abnormality is appreciated. PANCREAS: No significant abnormality is seen. SPLEEN: No significant abnormality is seen. ADRENALS: No significant abnormality is seen. KIDNEYS: Bilateral renal atrophy with bilateral renal cysts noted. Obstructive uropathy. PERITONEAL CAVITY: No pneumoperitoneum or fluid. RETROPERITONEAL ADENOPATHY: None visualized REPRODUCTIVE ORGANS: No significant abnormality is seen URINARY BLADDER: No significant abnormality is seen. PELVIC ADENOPATHY: None visualized. OSSEOUS STRUCTURES: No acute findings. BOWEL: The descending colon shows circumferential moderate mural thickening and indistinctness. Ther e are numerous colonic diverticula, and these include numerous diverticula along the course of the in flammatory left colon changes, but the segment of involved colon is longer than expected for divertic ulitis. Would suggest clinical consideration of ischemic or inflammatory/infectious colitis. No pneum atosis. No extraluminal gas. No fluid collections. IMPRESSION: OVERALL SIMILAR LEFT COLONIC FINDINGS WHEN COMPARED THE PRIOR CT OF 10/01/2018.
[2018-10-07] MEDS: SODIUM CHLORIDE 0.9% 1,000 ML IV SCH (21:27)
[2018-10-08 00:04] LABS: INR 0.9 (<1.2); Partial Thromboplastin Time 24.6 sec (22.0-30.0); Prothrombin Time 9.9 sec (9.0-12.0)
[2018-10-08 09:25] LABS: Anisocytosis Slight; HCT 25.5 % (34.0-46.0); Hypochromasia Marked; MCH 28.3 pg (25.0-35.0); MCHC 31.4 g/dL (31.0-37.0); MCV 90.1 fL (80.0-100.0); Mean Platelet Volume 6.2; Platelet Count 393 k/uL (150-450); Poikilocytosis Slight; Potassium 4.2 mmol/L (3.5-5.1); RBC 2.84 m/uL (3.80-5.40); RDW 18.3 % (11.5-15.5); WBC 6.7 k/uL (3.8-10.6)
[2018-10-08 09:34] LABS: Calcium 6.3 mg/dL (8.4-10.2)
--- NOTE | 2018-10-08 09:38 | P.CONS ---
History of Present Illness - Reason for Consult Consult date: 10/08/18 GI bleed anemia Requesting physician: Julio Kwong - Chief Complaint abdominal pain diarrhea - History of Present Illness 68-year-old female end-stage renal disease hemodialysis dependent, chronic anemia, multiple GI bleeds, history of small bowel duodenal AVMs, multiple hospitalizations for GI bleeds/anemia. Patient was recently discharged 6 days ago after being hospitalized for 10 days for acute GI bleed abdominal pain. Patient underwent EGD September 20 at [facility] for acute GI bleed anemia with findings of a actively bleeding AVM in the duodenum that was cauterized. She subsequently was readmitted a few days later here at [facility] for persistent anemia abdominal pain. Re-surveillance EGD performed no evidence of active bleeding. Small bowel capsule endoscopy was completed with findings of multiple angiectasias in the proximal small bowel. Received a total of 3 units of blood during her last hospital admission but has received multiple units of blood and an outpatient basis over the last few months. Discharge hemoglobin on 10/01/2018 was 8.7. Admission hemoglobin 5.1. MCV 90. Platelet 591. INR 0.9. BUN 92. Creatinine 12.6. CT abdomen and pelvis descending colon shows circumferential moderate mural thickening indistinctiveness. Numerous colonic diverticula along the course of the inflammatory left colon but the segment involved is longer than expected for diverticulitis differentials include possible ischemic possible inflammatory possible infectious colitis. No evidence of pneumatosis or extraluminal gas. Patient reports left lower quadrant abdominal pain with multiple nonbloody bowel movements. She mainly denies melena or gross hematochezia. C. diff negative. Patient received 1 unit of blood last night and repeat CBC is pending. Presently her abdominal pain is improved. Dialysis schedule today. Review of Systems Constitutional: Denies fever, chills, sweats, weight gain, or loss. HEENT: Negative for migraines, blurred vision or loss, earaches, drainage, tinnitus, oral mucosal lesions, dysphagia, or odynophagia. CARDIAC: Negative for chest pain, arrhythmias, or palpitation. RESPIRATORY: Negative for shortness of breath, hemoptysis, cough, or sputum production. GI: See HPI for pertinent findings. : Negative for hematuria, urgency, frequency, polyuria, or dysuria. GYNc: Denies possibility of . Negative vaginal discharge. MUSCULOSKELETAL: Negative for muscle aches, swelling, arthritis, and arthralgias. NEUROLOGIC: Negative for stroke or TIA. ENDOCRINE: Negative for thyroid problems. SKIN: Negative for rash or itching. PSYCHIATRIC: Negative history for depression and anxiety Past Medical History Past Medical History: Asthma, Cancer, COPD, Dialysis, GERD/Reflux, GI Bleed, Hearing Disorder / Deafness, Hypertension, Osteoarthritis (OA), Renal Disease, Thyroid Disorder Additional Past Medical History / Comment(s): HEMODIALYSIS SAT,SAT, SAT-last dialysis was 09/19/18Saturday d/t unable to go yesterday 09/22/18, anemia- receives blood tranfusions weekly, past upper and lower GI bleeds per pt and recently admitted to [facility] for GI bleed-had EGD-no source found, L breast cancer with L mastectomy and chemotherapy, arthritis in multiple joints, hypothyroid, MCGRATH bilaterally History of Any Multi-Drug Resistant Organisms: None Reported Past Surgical History: Breast Surgery, Hysterectomy, Tubal Ligation Additional Past Surgical History / Comment(s): L BREAST BIOPSY, LEFT MASTECTOMY , DIALYSIS GRAFT- UPPER LEFT ARM, PARTIAL THYROIDECTOMY,COLONOSCOPIES, EGDS, D&C, L SHOULDER CYST REMOVED. Past Anesthesia/Blood Transfusion Reactions: No Reported Reaction, Motion Sickness Additional Past Anesthesia/Blood Transfusion Reaction / Comm: Pt has received numerous transfusions without reaction. Past Psychological History: No Psychological Hx Reported Smoking Status: Current every day smoker Past Alcohol Use History: None Reported Past Drug Use History: None Reported - Past Family History Daughter(s) Family Medical History: Deep Vein Thrombosis (DVT) Mother Family Medical History: Cancer Additional Family Medical History / Comment(s): OVARIAN Brother(s) Family Medical History: Cancer Additional Family Medical History / Comment(s): Brother had "blood" cancer. Medications and Allergies Home Medications Medication Instructions Recorded Confirmed Type Albuterol Nebulized [Ventolin 2.5 mg INHALATION RT-BID PRN 01/26/15 10/07/18 History Nebulized] Labetalol HCl 200 mg PO TID PRN 01/26/15 10/07/18 History Umeclidinium [place] [Incruse 2 puff INHALATION RT-BID PRN 11/27/16 10/07/18 H istory Ellipta] Calcitriol [Rocaltrol] 0.25 mcg PO Q48H 02/24/18 10/07/18 History Calcium Carb-Mag Carb-Folic 1 tab PO TID 02/24/18 10/07/18 History [Magnebind 400 Rx] Zolpidem Tartrate [Ambien Cr] 6.25 mg PO HS PRN 02/24/18 10/07/18 History Levothyroxine Sodium [Synthroid] 100 mcg PO DAILY 09/23/18 10/07/18 History Omeprazole 20 mg PO DAILY PRN 10/07/18 10/07/18 History Allergies Allergy/AdvReac Type Severity Reaction Status Date / Time No Known Allergies Allergy Verified 10/07/18 18:24 Physical Exam Vitals: Vital Signs Temp Pulse Pulse Resp BP BP Pulse Ox 10/08/18 07:00 98.0 F 84 15 119/66 100 10/08/18 00:29 98.0 F 85 16 130/73 10/08/18 00:18 98.4 F 84 16 118/73 100 10/08/18 00:03 98.2 F 85 16 127/69 100 10/07/18 23:33 98.3 F 87 15 120/68 100 10/07/18 23:31 98.3 F 87 15 120/68 100 10/07/18 23:23 98.3 F 89 14 120/69 100 10/07/18 23:20 98.3 F 89 14 120/69 100 10/07/18 22:10 98.2 F 87 14 120/70 100 10/07/18 21:20 97.6 F 89 18 119/92 100 10/07/18 18:30 18 114/64 99 10/07/18 18:18 97.4 F L 88 16 114/64 100 Intake and Output 10/07/18 10/08/18 10/08/18 22:59 06:59 14:59 Intake Total 1145 Output Total 3 Balance 1142 Intake: Intake, IV Titration 525 Amount Sodium Chloride 0.9% 1, 525 000 ml @ 75 mls/hr IV . [id number] Rx#:[id number] Blood Product 620 Rc As-1 Unit 310 [id number] Output: Urine/Stool Mix 3 Other: Voiding Method Bedpan # Bowel Movements 1 Weight 76.204 kg General appearance: The patient is alert, oriented, in no acute distress. HET: Head is normocephalic and atraumatic. Pupils are equal and reactive. Oropharynx is clear without lesions. Neck: Supple without lymphadenopathy. Trachea midline. Heart: S1 S2. Regular rate and rhythm. Lungs: No crackles or wheezes are heard. Abdomen: Soft, dairy mild left lower quadrant tenderness, nondistended with bowel sounds. No peritoneal signs. No palpable organomegaly or masses. Extremities: Normal skin color and turgor. No cyanosis, rash, ulceration, clubbing, or edema. Radial and pedal pulses are 2/4 bilaterally. Neurological: No focal deficits. Strength and sensation are grossly intact. Results CBC & Chem 7: 10/08/18 08:55 10/08/18 08:55 Labs: Abnormal Lab Results - Last 24 Hours (Table) 10/07/18 10/07/18 10/07/18 Range/Units 19:11 19:11 20:32 RBC 1.79 L (3.80-5.40) m/uL Hgb 5.1 L* D (11.4-16.0) gm/dL Hct 16.2 L* (34.0-46.0) % RDW 18.3 H (11.5-15.5) % Plt Count 591 H (150-450) k/uL Lymphocytes # 0.2 L (1.0-4.8) k/uL Carbon Dioxide 19 L (22-30) mmol/L BUN 92 H (7-17) mg/dL Creatinine 12.62 H* (0.52-1.04) mg/dL Calcium 6.8 L (8.4-10.2) mg/dL Total Protein 5.6 L (6.3-8.2) g/dL Albumin 2.8 L (3.5-5.0) g/dL Crossmatch See Detail CT scan - abdomen: report reviewed (Dr. Min) Assessment and Plan (1) Abdominal pain Narrative/Plan: 68-year-old female end-stage renal disease hemodialysis dependent with a history of GI bleed secondary to bleeding small bowel angiectasia status post EGD 2 within the last 3 weeks with findings of bleeding duodenal AVM status post APC as well as small bowel capsule endoscopy that reported multiple angiectasia is in the proximal small bowel. Recent surveillance EGD 2 weeks ago reported no evidence of active bleeding. Admitted with left lower quadrant abdominal pain with multiple episodes of nonbloody diarrhea and recurrent anemia hemoglobin 5.1 suggestive of acute blood loss anemia most likely from bleeding small bowel AVMs however underlying colonic source cannot be excluded. Computed tomography scan reported segment of left colon that appeared inflamed possible ischemic possible inflammatory possible infectious differential. Current Visit: Yes Status: Acute Code(s): R10.9 - UNSPECIFIED ABDOMINAL PAIN SNOMED Code(s): 39649686 (2) ESRD (end stage renal disease) Current Visit: Yes Status: Acute Code(s): N18.6 - END STAGE RENAL DISEASE SNOMED Code(s): 75120024 (3) Acute blood loss anemia Current Visit: No Status: Acute Code(s): D62 - ACUTE POSTHEMORRHAGIC ANEMIA SNOMED Code(s): 598635213 (4) Small bowel arteriovenous malformation Current Visit: Yes Status: Acute Code(s): K55.20 - ANGIODYSPLASIA OF COLON WITHOUT HEMORRHAGE SNOMED Code(s): 392782554 Plan: 1. Presently abdominal pain is improved. No evidence of active bleeding per patient and nursing. Continue with Protonix 40 mg daily. Hemodialysis today. Blood transfusions as indicated. Inpatient endoscopy will be contingent on her clinical course patient may require a push enteroscopy if bleeding occurs. Dr. Min recommends blood transfusions as indicated. Iron therapy. 2. Light diet renal as tolerated. Thank you for this kind referral and the opportunity to participate in the care of your patient. This consultation was discussed with Dr. Min. The impression and plan of care have been directed as dictated.
[2018-10-08] MEDS ORDERED: LABETALOL 200 MG TAB PO PRN (13:05)
[2018-10-08] MEDS ORDERED: PANTOPRAZOLE 40 MG TABLET PO PRN (13:05)
[2018-10-08] MEDS ORDERED: ALBUTEROL NEBULIZED 2.5 MG/3 ML INHALATION PRN (13:05)
--- NOTE | 2018-10-08 13:05 | P.HPIM ---
History of Present Illness H&P Date: 10/08/18 Chief Complaint: End-stage renal disease, recent history of GI bleed admitted 6 days ago 68-year-old female well-known to my practice end-stage renal disease with hemodialysis dependent history of GI bleed secondary to small bowel angiectasia is status post EGD 2 within the last 3 weeks per GI bleedings of duodenal AVM post-capsule endoscopy multiple telangiectasias in the proximal small bowel. Patient has been followed up with heme oncology for iron infusions as well as possible diagnosis of angiodysplasia. Was admitted last night through the emergency room with a hemoglobin of 5 patient complains of less abdominal pain than a last stay. Review of Systems Constitutional: Reports as per HPI (Conjunctiva pale) Ears, nose, mouth and throat: Reports as per HPI Cardiovascular: Reports as per HPI Respiratory: Reports as per HPI Gastrointestinal: Reports as per HPI, Reports excessive gas Genitourinary: Reports as per HPI Menstruation: Reports postmenopausal Integumentary: Reports as per HPI Neurological: Reports as per HPI Psychiatric: Reports as per HPI Past Medical History Past Medical History: Asthma, Cancer, COPD, Dialysis, GERD/Reflux, GI Bleed, Hearing Disorder / Deafness, Hypertension, Osteoarthritis (OA), Renal Disease, Thyroid Disorder Additional Past Medical History / Comment(s): HEMODIALYSIS SAT,SAT, SAT-last dialysis was 09/19/18Saturday d/t unable to go yesterday 09/22/18, anemia- receives blood tranfusions weekly, past upper and lower GI bleeds per pt and recently admitted to [facility] for GI bleed-had EGD-no source found, L breast cancer with L mastectomy and chemotherapy, arthritis in multiple joints, hypothyroid, THLOPTHLOCCO [place] bilaterally History of Any Multi-Drug Resistant Organisms: None Reported Past Surgical History: Breast Surgery, Hysterectomy, Tubal Ligation Additional Past Surgical History / Comment(s): L BREAST BIOPSY, LEFT MASTECTOMY , DIALYSIS GRAFT- UPPER LEFT ARM, PARTIAL THYROIDECTOMY,COLONOSCOPIES, EGDS, D&C, L SHOULDER CYST REMOVED. Past Anesthesia/Blood Transfusion Reactions: No Reported Reaction, Motion Sickness Additional Past Anesthesia/Blood Transfusion Reaction / Comment(s): Pt has received numerous transfusions without reaction. Past Psychological History: No Psychological Hx Reported Smoking Status: Current every day smoker Past Alcohol Use History: None Reported Past Drug Use History: None Reported - Past Family History Daughter(s) Family Medical History: Deep Vein Thrombosis (DVT) Mother Family Medical History: Cancer Additional Family Medical History / Comment(s): OVARIAN Brother(s) Family Medical History: Cancer Additional Family Medical History / Comment(s): Brother had "blood" cancer. Medications and Allergies Home Medications Medication Instructions Recorded Confirmed Type Albuterol Nebulized [Ventolin 2.5 mg INHALATION RT-BID PRN 01/26/15 10/07/18 History Nebulized] Labetalol HCl 200 mg PO TID PRN 01/26/15 10/07/18 History Umeclidinium [place] [Incruse 2 puff INHALATION RT-BID PRN 11/27/16 10/07/18 His tory Ellipta] Calcitriol [Rocaltrol] 0.25 mcg PO Q48H 02/24/18 10/07/18 History Calcium Carb-Mag Carb-Folic 1 tab PO TID 02/24/18 10/07/18 History [Magnebind 400 Rx] Zolpidem Tartrate [Ambien Cr] 6.25 mg PO HS PRN 02/24/18 10/07/18 History Levothyroxine Sodium [Synthroid] 100 mcg PO DAILY 09/23/18 10/07/18 History Omeprazole 20 mg PO DAILY PRN 10/07/18 10/07/18 History Allergies Allergy/AdvReac Type Severity Reaction Status Date / Time No Known Allergies Allergy Verified 10/07/18 18:24 Physical Exam Osteopathic Statement: *. No significant issues noted on an osteopathic structural exam other than those noted in the History and Physical/Consult. Vitals: Vital Signs Temp Pulse Pulse Resp BP BP Pulse Ox 10/08/18 08:00 84 15 10/08/18 07:00 98.0 F 84 15 119/66 100 10/08/18 00:29 98.0 F 85 16 130/73 10/08/18 00:18 98.4 F 84 16 118/73 100 10/08/18 00:03 98.2 F 85 16 127/69 100 10/07/18 23:33 98.3 F 87 15 120/68 100 10/07/18 23:31 98.3 F 87 15 120/68 100 10/07/18 23:23 98.3 F 89 14 120/69 100 10/07/18 23:20 98.3 F 89 14 120/69 100 10/07/18 22:10 98.2 F 87 14 120/70 100 10/07/18 21:20 97.6 F 89 18 119/92 100 10/07/18 18:30 18 114/64 99 10/07/18 18:18 97.4 F L 88 16 114/64 100 Intake and Output 10/07/18 10/08/18 10/08/18 22:59 06:59 14:59 Intake Total 1145 120 Output Total 3 Balance 1142 120 Intake: Intake, IV Titration 525 Amount Sodium Chloride 0.9% 1, 525 000 ml @ 75 mls/hr IV . [id number] [facility] Rx#:[id number] Oral 120 Blood Product 620 Rc As-1 Unit 310 [id number] Output: Urine/Stool Mix 3 Other: Voiding Method Bedpan Bedpan # Bowel Movements 1 Weight 76.204 kg General: [Patient awake, alert and oriented times 3. Patient in no acute distress.] HEENT: [PERRL. EOMI. No pharyngeal erythema or exudate.] Neck: [No adenopathy.] Cardiac: [Heart regular in rate and rhythm. No S3. No S4. No clicks, rubs. No murmur.] Lungs: [Clear to auscultation bilaterally.] Abdomen: [No mass. No organomegaly. Bowel sounds presnt and normoactive in all 4 quadrants.] Mild diffuse abdominal pain Extremes: [No edema no cyanosis no claudication normal pulses] : Normal female genitalia Musculoskeletal: [No joint erythema, edema or tenderness.] Skin: [No rash.] Neurologic: [No lateralizing deficits. CN II - XII grossly intact.] Lymphatic: [No adenopathy.] Results CBC & Chem 7: 10/08/18 08:55 10/08/18 08:55 Labs: Abnormal Lab Results - Last 24 Hours (Table) 10/07/18 10/07/18 10/07/18 Range/Units 19:11 19:11 20:32 RBC 1.79 L (3.80-5.40) m/uL Hgb 5.1 L* D (11.4-16.0) gm/dL Hct 16.2 L* (34.0-46.0) % RDW 18.3 H (11.5-15.5) % Plt Count 591 H (150-450) k/uL Lymphocytes # 0.2 L (1.0-4.8) k/uL Carbon Dioxide 19 L (22-30) mmol/L BUN 92 H (7-17) mg/dL Creatinine 12.62 H* (0.52-1.04) mg/dL Glucose (74-99) mg/dL Calcium 6.8 L (8.4-10.2) mg/dL Total Protein 5.6 L (6.3-8.2) g/dL Albumin 2.8 L (3.5-5.0) g/dL Stool Lactoferrin (NEGATIVE) Crossmatch See Detail 10/07/18 10/08/18 10/08/18 Range/Units Unknown 08:55 08:55 RBC 2.84 L (3.80-5.40) m/uL Hgb 8.0 L D (11.4-16.0) gm/dL Hct 25.5 L (34.0-46.0) % RDW 18.3 H (11.5-15.5) % Plt Count (150-450) k/uL Lymphocytes # (1.0-4.8) k/uL Carbon Dioxide 17 L (22-30) mmol/L BUN 85 H (7-17) mg/dL Creatinine 11.55 H* (0.52-1.04) mg/dL Glucose 123 H (74-99) mg/dL Calcium 6.3 L* (8.4-10.2) mg/dL Total Protein (6.3-8.2) g/dL Albumin (3.5-5.0) g/dL Stool Lactoferrin POSITIVE H (NEGATIVE) Crossmatch Microbiology - Last 24 Hours (Table) 10/07/18 Unknown Stool Culture - Preliminary Stool Thrombosis Risk Factor Assmnt - Choose All That Apply Any of the Below Risk Factors Present?: Yes Each Factor Represents 1 point: Abnormal pulmonary function (COPD), Obesity (BMI >25) Other Risk Factors: Yes Each Risk Factor Represents 2 Points: Age 61-74 years Other congenital or acquired thrombophilia - If yes, enter type in comment: No Thrombosis Risk Factor Assessment Total Risk Factor Score: 4 Thrombosis Risk Factor Assessment Level: Moderate Risk Assessment and Plan (1) Anemia Current Visit: Yes Status: Acute Code(s): D64.9 - ANEMIA, UNSPECIFIED SNOMED Code(s): 743537144 (2) ESRD (end stage renal disease) Current Visit: Yes Status: Acute Code(s): N18.6 - END STAGE RENAL DISEASE SNOMED Code(s): 53319608 (3) Low hemoglobin Current Visit: Yes Status: Acute Code(s): D64.9 - ANEMIA, UNSPECIFIED SNOMED Code(s): 601858388 (4) Acute anemia Current Visit: No Status: Acute Code(s): D64.9 - ANEMIA, UNSPECIFIED SNOMED Code(s): 142534320 (5) Symptomatic anemia Current Visit: No Status: Acute Code(s): D64.9 - ANEMIA, UNSPECIFIED SNOMED Code(s): 451412353 Plan: End-stage renal disease dialysis dependent Dialysis today Anemia of chronic disease, recent GI bleed within the last 3 weeks, Weakness fatigue secondary to anemia Consultation with GI secondary to GI bleed appreciated Small bowel AVM by history apparently no evidence of bleeding Transfuse PRBCs as scheduled Time with Patient: Greater than 30
[2018-10-08] MEDS ORDERED: IPRATROPIUM 0.5 MG/2.5 ML NEBU INHALATION PRN (13:15)
[2018-10-08] MEDS: SODIUM CHLORIDE 0.9% 1,000 ML IV SCH (13:35)
[2018-10-08] MEDS: CALCIUM CARB-MAG CARB-FOLIC 1 EACH TAB PO SCH (17:11)
--- NOTE | 2018-10-08 20:50 | CONS ---
CONSULTATION REASON FOR CONSULT: End-stage renal disease. HISTORY OF PRESENT ILLNESS: Patient is a 68-year-old female with end-stage renal disease, on hemodialysis on a Saturday, Saturday, Saturday schedule. Patient was admitted to the hospital with significant anemia and hemoglobin of 5.1 g/dL. She has been transfused. Hemoglobin was up to 8.0. Patient does have history of GI bleed with significant AVMs in her bowel. She did have cauterization of one of the bleeding AVMs on one of her previous admissions in August. On this admission, patient denies any active bleeding. She did have some abdominal pain during her last admission but denies any significant abdominal pain currently. Patient did not go for her dialysis on Saturday. Her last treatment was last week. PAST MEDICAL HISTORY: 1. End-stage renal disease. 2. Anemia with history of GI bleed with duodenal AVMs and AVMs throughout her bowel as well. 3. Osteoarthritis. 4. CKD mineral bone disorder. 5. History of left breast cancer with left mastectomy and chemotherapy. 6. Hypothyroidism. 7. COPD. 8. Gastroesophageal reflux disease. 9. Hearing loss. PAST SURGICAL HISTORY: 1. Hysterectomy. 2. Tubal ligation. 3. Breast biopsy. 4. Left mastectomy. 5. AV graft. 6. Thyroidectomy. 7. Colonoscopies. 8. EGD. 9. Dilation and curettage. MEDICATIONS: Include: 1. Labetalol. 2. Rocaltrol. 3. MagnaBind. 4. Synthroid. 5. Omeprazole. ALLERGIES: NONE. PHYSICAL EXAMINATION: Patient is comfortable, awake. She is not in any acute distress. Blood pressure this morning was 119/66, heart rate about 84 per minute. Patient is afebrile. EXAMINATION OF THE HEART: S1 and S2. EXAMINATION OF LUNGS: Bilateral breath sounds are heard. ABDOMEN: Soft, non-tender. Examination of lower extremities shows no significant edema. BENEFIT DIRECTOR exam is grossly intact. LABS: Hemoglobin 8.0, potassium 4.2, BUN 85, serum creatinine 11.5. ASSESSMENT: 1. End-stage renal disease, on hemodialysis on a Saturday, Saturday, Saturday schedule. Patient will be dialyzed today. 2. Anemia with history of gastrointestinal bleed with previous history of bleeding AVM and history of multiple AVMs throughout the bowel noted on capsule endoscopy. GI is on consult. 3. Chronic kidney disease mineral bone disorder. 4. Hypertension. PLAN: Discontinue IV fluids. Hemodialysis today. Will follow up with plans from GI standpoint. Unfortunately, there may not be much more that could be done since patient does have significant AVMs which could potentially bleed at any time. MMSHYAML / SURENDRA: [id number] /
[2018-10-08 23:16] LABS: Hepatitis B Surface AB- Quant 3.5 mIU/mL
[2018-10-09] MEDS: LEVOTHYROXINE 100 MCG TAB PO SCH (05:17)
[2018-10-09] MEDS: CALCIUM CARB-MAG CARB-FOLIC 1 EACH TAB PO SCH ×3 (07:36→16:59)
--- NOTE | 2018-10-09 10:56 | P.PN ---
Subjective Progress Note Date: 10/09/18 Principal diagnosis: GI bleed anemia abdominal pain No bleeding. Hgb 8 s/p 1 unit of blood. Afebrile. Positive lactoferrin. Objective - Vital Signs Vital signs: Vital Signs Temp 99.0 F 10/09/18 06:54 Pulse 82 10/09/18 06:54 Resp 16 10/09/18 06:54 BP 107/60 10/09/18 06:54 Pulse Ox 100 10/09/18 06:54 Intake & Output 10/08/18 10/09/18 10/09/18 18:59 06:59 18:59 Intake Total 360 1200 Balance 360 1200 Intake: Intake, IV Titration 1200 Amount Sodium Chloride 0.9% 1, 1200 000 ml @ 75 mls/hr IV . [id number] [facility] Rx#:[id number] Oral 360 Other: Voiding Method Bedpan Bedpan # Voids 1 # Bowel Movements 1 1 - Exam General appearance: The patient is alert, oriented, in no acute distress. HET: Head is normocephalic and atraumatic. Pupils are equal and reactive. Oropharynx is clear without lesions. Neck: Supple without lymphadenopathy. Trachea midline. Heart: S1 S2. Regular rate and rhythm. Lungs: No crackles or wheezes are heard. Abdomen: Soft, dairy mild left lower quadrant tenderness, nondistended with bowel sounds. No peritoneal signs. No palpable organomegaly or masses. Extremities: Normal skin color and turgor. No cyanosis, rash, ulceration, clubbing, or edema. Radial and pedal pulses are 2/4 bilaterally. Neurological: No focal deficits. Strength and sensation are grossly intact. - Labs CBC & Chem 7: 10/08/18 08:55 10/08/18 08:55 Labs: Abnormal Lab Results - Last 24 Hours (Table) 10/07/18 Range/Units Unknown Stool Lactoferrin POSITIVE H (NEGATIVE) Microbiology - Last 24 Hours (Table) 10/07/18 19:55 Blood Culture - Preliminary Blood No Growth after 24 hours 10/07/18 Unknown Stool Culture - Preliminary Stool Assessment and Plan (1) Abdominal pain Narrative/Plan: 68-year-old female end-stage renal disease hemodialysis dependent with a history of GI bleed secondary to bleeding small bowel angiectasia status post EGD 2 within the last 3 weeks with findings of bleeding duodenal AVM status post APC as well as small bowel capsule endoscopy that reported multiple angiectasia is in the proximal small bowel. Recent surveillance EGD 2 weeks ago reported no evidence of active bleeding. Admitted with left lower quadrant abdominal pain with multiple episodes of nonbloody diarrhea and recurrent anemia hemoglobin 5.1 suggestive of acute blood loss anemia most likely from bleeding small bowel AVMs however underlying colonic source cannot be excluded. Computed tomography scan reported segment of left colon that appeared inflamed possible ischemic possible inflammatory possible infectious differential. Current Visit: Yes Status: Acute Code(s): R10.9 - UNSPECIFIED ABDOMINAL PAIN SNOMED Code(s): 38354624 (2) ESRD (end stage renal disease) Current Visit: Yes Status: Acute Code(s): N18.6 - END STAGE RENAL DISEASE SNOMED Code(s): 05580259 (3) Acute blood loss anemia Current Visit: No Status: Acute Code(s): D62 - ACUTE POSTHEMORRHAGIC ANEMIA SNOMED Code(s): 541717440 (4) Small bowel arteriovenous malformation Current Visit: Yes Status: Acute Code(s): K55.20 - ANGIODYSPLASIA OF COLON WITHOUT HEMORRHAGE SNOMED Code(s): 221677229 Plan: 1. No evidence of active bleeding per patient and nursing. Continue with Protonix 40 mg daily. Hemodialysis as scheduled. Blood transfusions as indicated. Inpatient endoscopy will be contingent on her clinical course patient may require a push enteroscopy if bleeding occurs. Dr. Min recommends blood transfusions as indicated. Iron therapy. 2. Light diet renal as tolerated. Assessment and plan of care discussed with Dr. Min.
[2018-10-09] MEDS: CALCITRIOL 0.25 MCG CAP PO SCH (12:31)
--- NOTE | 2018-10-09 16:18 | PN ---
PROGRESS NOTE Patient is seen for followup for end-stage renal disease. She was admitted with anemia and has been transfused packed RBCs. Most likely, she had another GI bleed. No further bleeding is noted. The patient's CT scan did show evidence of possible colitis. This morning she states she is having abdominal pain and does not have an appetite. PHYSICAL EXAMINATION: Blood pressure was 107/60, heart rate 82 per minute. She is afebrile. Examination of the heart S1, S2. Examination of the lungs, decreased breath sounds at bases. Examination of the abdomen reveals mild tenderness in the left lower quadrant. Examination of the lower extremities shows no evidence of edema. EDITORIAL CLERK exam is grossly intact. LAB: Show from yesterday, hemoglobin 8.0. We do not have any labs today. ASSESSMENT: 1. End-stage renal disease, on hemodialysis on a Saturday, Saturday, Saturday schedule. We will plan for hemodialysis in a.m. 2. Anemia with previous history of GI bleed with a history of multiple AVMs. 3. Possible diverticulitis versus colitis. 4. Chronic kidney disease mineral bone disorder. PLAN: We will discuss with Gastroenterology regarding possible course of antibiotics and will plan for hemodialysis in a.m. MMODL / IJN: [id number] /
--- NOTE | 2018-10-09 18:57 | P.PN ---
Subjective Progress Note Date: 10/09/18 Principal diagnosis: End-stage renal disease hemodialysis dependent, chronic anemia, blood loss anemia recent GI bleed Patient is awake alert vital signs stable hemoglobin 8 complains of mild left lower quadrant irritation consistent with inflammatory process on the left Blood cultures no growth at 24 hours stool culture final result pending Awaiting final blood cultures before starting any antibiotics Objective - Vital Signs Vital signs: Vital Signs Temp 98.7 F 10/09/18 14:02 Pulse 82 10/09/18 14:02 Resp 16 10/09/18 14:02 BP 107/61 10/09/18 14:02 Pulse Ox 100 10/09/18 14:02 Intake & Output 10/08/18 10/09/18 10/09/18 18:59 06:59 18:59 Intake Total 360 1200 1100 Balance 360 1200 1100 Intake: Intake, IV Titration 1200 300 Amount Sodium Chloride 0.9% 1, 1200 300 000 ml @ 75 mls/hr IV . [id number] [facility] Rx#:[id number] Oral 360 800 Other: Voiding Method Bedpan Bedpan # Voids 1 1 # Bowel Movements 1 1 - Exam General: [Patient awake, alert and oriented times 3. Patient in no acute distress.] HEENT: [PERRL. EOMI. No pharyngeal erythema or exudate.] Neck: [No adenopathy.] Cardiac: [Heart regular in rate and rhythm. No S3. No S4. No clicks, rubs. No murmur.] Lungs: [Clear to auscultation bilaterally.] Abdomen: [No mass. No organomegaly. Bowel sounds presnt and normoactive in all 4 quadrants.] Extremes: [No edema no cyanosis no claudication normal pulses] : Normal female genitalia Musculoskeletal: [No joint erythema, edema or tenderness.] Skin: [No rash.] Neurologic: [No lateralizing deficits. CN II - XII grossly intact.] Lymphatic: [No adenopathy.] - Labs CBC & Chem 7: 10/08/18 08:55 10/08/18 08:55 Labs: Microbiology - Last 24 Hours (Table) 10/07/18 19:55 Blood Culture - Preliminary Blood No Growth after 24 hours Assessment and Plan (1) Anemia Current Visit: Yes Status: Acute Code(s): D64.9 - ANEMIA, UNSPECIFIED SNOMED Code(s): 151327624 (2) ESRD (end stage renal disease) Current Visit: Yes Status: Acute Code(s): N18.6 - END STAGE RENAL DISEASE SNOMED Code(s): 89638241 (3) Low hemoglobin Current Visit: Yes Status: Acute Code(s): D64.9 - ANEMIA, UNSPECIFIED SNOMED Code(s): 071956452 (4) Acute anemia Current Visit: No Status: Acute Code(s): D64.9 - ANEMIA, UNSPECIFIED SNOM ED Code(s): 481450957 (5) Symptomatic anemia Current Visit: No Status: Acute Code(s): D64.9 - ANEMIA, UNSPECIFIED SNOMED Code(s): 472126536 Plan: End-stage renal disease dialysis dependent Dialysis today Anemia of chronic disease, recent GI bleed within the last 3 weeks, Weakness fatigue secondary to anemia Consultation with GI secondary to GI bleed appreciated Small bowel AVM by history apparently no evidence of bleeding Blood cultures negative after 24 hours stool culture pending Transfuse PRBCs as scheduled
[2018-10-10] MEDS: LEVOTHYROXINE 100 MCG TAB PO SCH (05:59)
[2018-10-10] MEDS: CALCIUM CARB-MAG CARB-FOLIC 1 EACH TAB PO SCH ×3 (07:28→18:21)
--- NOTE | 2018-10-10 08:46 | P.PN ---
Subjective Progress Note Date: 10/10/18 Principal diagnosis: GI bleed anemia abdominal pain Mild left sided abdominal pain. Passing looser BM this morning slight blood tinged. CBC pending. Dialysis today. Afebrile. Objective - Vital Signs Vital signs: Vital Signs Temp 98.2 F 10/10/18 07:00 Pulse 80 10/10/18 07:00 Resp 17 10/10/18 07:00 BP 104/61 10/10/18 07:00 Pulse Ox 99 10/10/18 07:00 Intake & Output 10/09/18 10/10/18 10/10/18 18:59 06:59 18:59 Intake Total 1100 500 Balance 1100 500 Intake: Intake, IV Titration 300 Amount Sodium Chloride 0.9% 1, 300 000 ml @ 75 mls/hr IV . [id number] [facility] Rx#:[id number] Oral 800 500 Other: Voiding Method Bedpan # Voids 1 - Exam General appearance: The patient is alert, oriented, in no acute distress. HET: Head is normocephalic and atraumatic. Pupils are equal and reactive. Oropharynx is clear without lesions. Neck: Supple without lymphadenopathy. Trachea midline. Heart: S1 S2. Regular rate and rhythm. Lungs: No crackles or wheezes are heard. Abdomen: Soft, dairy mild left lower quadrant tenderness, nondistended with bowel sounds. No peritoneal signs. No palpable organomegaly or masses. Extremities: Normal skin color and turgor. No cyanosis, rash, ulceration, clubbing, or edema. Radial and pedal pulses are 2/4 bilaterally. Neurological: No focal deficits. Strength and sensation are grossly intact. - Labs CBC & Chem 7: 10/10/18 09:23 10/10/18 09:23 Labs: Microbiology - Last 24 Hours (Table) 10/07/18 19:55 Blood Culture - Preliminary Blood No Growth after 48 hours Assessment and Plan (1) Abdominal pain Narrative/Plan: 68-year-old female end-stage renal disease hemodialysis dependent with a history of GI bleed secondary to bleeding small bowel angiectasia status post EGD 2 within the last 3 weeks with findings of bleeding duodenal AVM status post APC as well as small bowel capsule endoscopy that reported multiple angiectasia is in the proximal small bowel. Recent surveillance EGD 2 weeks ago reported no evidence of active bleeding. Admitted with left lower quadrant abdominal pain with multiple episodes of nonbloody diarrhea and recurrent anemia hemoglobin 5.1 suggestive of acute blood loss anemia most likely from bleeding small bowel AVMs however underlying colonic source cannot be excluded. Computed tomography scan reported segment of left colon that appeared inflamed possible ischemic possible inflammatory possible infectious differential. Current Visit: Yes Status: Acute Code(s): R10.9 - UNSPECIFIED ABDOMINAL PAIN SNOMED Code(s): 96152663 (2) ESRD (end stage renal disease) Current Visit: Yes Status: Acute Code(s): N18.6 - END STAGE RENAL DISEASE SNOMED Code(s): 14600275 (3) Acute blood loss anemia Current Visit: No Status: Acute Code(s): D62 - ACUTE POSTHEMORRHAGIC ANEMIA SNOMED Code(s): 145473787 (4) Small bowel arteriovenous malformation Current Visit: Yes Status: Acute Code(s): K55.20 - ANGIODYSPLASIA OF COLON WITHOUT HEMORRHAGE SNOMED Code(s): 831660909 Plan: 1. CBC daily. Continue with Protonix 40 mg daily. Hemodialysis as scheduled. Blood transfusions as indicated. Inpatient endoscopy/push enteroscopy scheduled tomorrow with Dr. Min. 2. Light diet renal as tolerated for now clear liquids for dinner. Nothing by mouth after midnight. Assessment and plan of care discussed with Dr. Dooley.
[2018-10-10 09:49] LABS: Anisocytosis Slight; Basophils % (A) 1 %; Eosinophils # (A) 0.1 k/uL (0-0.7); Eosinophils % (A) 2 %; HCT 21.6 % (34.0-46.0); Hypochromasia Marked; Lymphocytes # (A) 0.2 k/uL (1.0-4.8); Lymphocytes % (A) 4 %; MCH 28.2 pg (25.0-35.0); MCHC 31.2 g/dL (31.0-37.0); MCV 90.4 fL (80.0-100.0); Mean Platelet Volume 6.1; Monocytes # (A) 0.4 k/uL (0-1.0); Monocytes % (A) 7 %; Neutrophils # (A) 4.2 k/uL (1.3-7.7); Neutrophils % (A) 85 %; Platelet Count 311 k/uL (150-450); Poikilocytosis Slight; RBC 2.39 m/uL (3.80-5.40); RDW 18.6 % (11.5-15.5)
[2018-10-10 09:51] LABS: Calcium 6.6 mg/dL (8.4-10.2); Potassium 3.3 mmol/L (3.5-5.1)
[2018-10-10 10:08] LABS: HGB 6.7 gm/dL (11.4-16.0)
--- NOTE | 2018-10-10 15:52 | P.PN ---
Subjective Progress Note Date: 10/10/18 Principal diagnosis: End-stage renal disease hemodialysis dependent, chronic anemia, blood loss anemia recent GI bleed Patient is awake alert vital signs stable hemoglobin 8 complains of mild left lower quadrant irritation consistent with inflammatory process on the left Blood cultures no growth at 24 hours stool culture final result pending Awaiting final blood cultures before starting any antibiotics 10/10/2018 Patient's awake alert, vital signs are stable awaiting final blood and stool cultures. Patient's still complaining of left-sided discomfort enteroscopy being performed by Dr. Dinh tomorrow patient does not have an elevated white count and is afebrile Objective - Vital Signs Vital signs: Vital Signs Temp 98.2 F 10/10/18 15:03 Pulse 82 10/10/18 15:03 Resp 12 10/10/18 15:03 BP 119/66 10/10/18 15:03 Pulse Ox 100 10/10/18 15:00 Intake & Output 10/09/18 10/10/18 10/10/18 18:59 06:59 18:59 Intake Total 1100 500 200 Balance 1100 500 200 Intake: Intake, IV Titration 300 Amount Sodium Chloride 0.9% 1, 300 000 ml @ 75 mls/hr IV . [id number] [facility] Rx#:[id number] Oral 800 500 200 Blood Product 0 Rc As-1 Unit 0 [id number] Other: Voiding Method Bedpan # Voids 1 2 - Exam General: [Patient awake, alert and oriented times 3. Patient in no acute distress.] HEENT: [PERRL. EOMI. No pharyngeal erythema or exudate.] Neck: [No adenopathy.] Cardiac: [Heart regular in rate and rhythm. No S3. No S4. No clicks, rubs. No murmur.] Lungs: [Clear to auscultation bilaterally.] Abdomen: [No mass. No organomegaly. Bowel sounds presnt and normoactive in all 4 quadrants.] Extremes: [No edema no cyanosis no claudication normal pulses] : Normal female genitalia Musculoskeletal: [No joint erythema, edema or tenderness.] Skin: [No rash.] Neurologic: [No lateralizing deficits. CN II - XII grossly intact.] Lymphatic: [No adenopathy.] - Labs CBC & Chem 7: 10/10/18 09:23 10/10/18 09:23 Labs: Abnormal Lab Results - Last 24 Hours (Table) 10/07/18 10/10/18 10/10/18 Range/Units 20:32 09:23 09:23 RBC 2.39 L (3.80-5.40) m/uL Hgb 6.7 L* (11.4-16.0) gm/dL Hct 21.6 L (34.0-46.0) % RDW 18.6 H (11.5-15.5) % Lymphocytes # 0.2 L (1.0-4.8) k/uL Potassium 3.3 L (3.5-5.1) mmol/L Chloride 109 H (98-107) mmol/L BUN 47 H (7-17) mg/dL Creatinine 8.46 H* (0.52-1.04) mg/dL Glucose 126 H (74-99) mg/dL Calcium 6.6 L (8.4-10.2) mg/dL Crossmatch See Detail Microbiology - Last 24 Hours (Table) 10/07/18 Unknown Stool Culture - Preliminary Stool 10/07/18 19:55 Blood Culture - Preliminary Blood No Growth after 48 hours Assessment and Plan (1) Anemia Current Visit: Yes Status: Acute Code(s): D64.9 - ANEMIA, UNSPECIFIED SNOMED Code(s): 736304446 (2) ESRD (end stage renal disease) Current Visit: Yes Status: Acute Code(s): N18.6 - END STAGE RENAL DISEASE SNOMED Code(s): 12570697 (3) Low hemoglobin Current Visit: Yes Status: Acute Code(s): D64.9 - ANEMIA, UNSPECIFIED SNOMED Code(s): 431822687 (4) Acute anemia Current Visit: No Status: Acute Code(s): D64.9 - ANEMIA, UNSPECIFIED SNOMED Code(s): 409636804 (5) Symptomatic anemia Current Visit: No Status: Acute Code(s): D64.9 - ANEMIA, UNSPECIFIED SNOMED Code(s): 678128476 Plan: End-stage renal disease dialysis dependent Dialysis today Anemia of chronic disease, recent GI bleed within the last 3 weeks, Weakness fatigue secondary to anemia Consultation with GI secondary to GI bleed appreciated 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 Dinh to perform push enteroscopy tomorrow Transfuse PRBCs as scheduled Time with Patient: Greater than 30
--- NOTE | 2018-10-10 23:46 | PN ---
PROGRESS NOTE Patient is seen for followup for end-stage renal disease. She was seen this morning. The patient stated she was having mild abdominal pain. However, she states that she has been eating better and her pain is not as bad as it was initially. The patient is scheduled for hemodialysis today. PHYSICAL EXAMINATION: This morning the blood pressure was 104/61, heart rate of 90 per minute. Patient is afebrile. Examination of the heart S1, S2. Examination of the lungs, decreased breath sounds at bases. ABDOMEN: Soft. Minimal tenderness in the left lower quadrant. LEAD PRINCIPAL TECHNICAL ARCHITECT exam is grossly intact. LAB: Show hemoglobin 6.7 today. Sodium 139, potassium 3.3. ASSESSMENT: 1. End-stage renal disease, on hemodialysis on a Saturday, Saturday, Saturday schedule. 2. Anemia with history of gastrointestinal bleed, status post packed RBCs transfusion. Hemoglobin drawn with dialysis came back at 6.7. We will recheck it again in a.m. and if it is lower patient will be transfused again. She is being followed by Gastroenterology. The patient will be maintained on Aranesp as well. 3. CKD mineral bone disorder, currently on Rocaltrol. PLAN: Hemodialysis today. Add Aranesp and follow up on Gastroenterology recommendations. MMODL / IJN: [id number] /
[2018-10-11] MEDS: LEVOTHYROXINE 100 MCG TAB PO SCH (07:09)
[2018-10-11] MEDS ORDERED: DARBEPOETIN ALFA 40 MCG/0.4 ML SYRINGE SQ SCH (07:45)
[2018-10-11] MEDS: CALCIUM CARB-MAG CARB-FOLIC 1 EACH TAB PO SCH ×3 (08:05→17:16)
[2018-10-11] MEDS: CALCITRIOL 0.25 MCG CAP PO SCH (08:05)
--- NOTE | 2018-10-11 10:22 | P.PN ---
Subjective Progress Note Date: 10/11/18 Principal diagnosis: End-stage renal disease hemodialysis dependent, chronic anemia, blood loss anemia recent GI bleed Patient is awake alert vital signs stable hemoglobin 8 complains of mild left lower quadrant irritation consistent with inflammatory process on the left Blood cultures no growth at 24 hours stool culture final result pending Awaiting final blood cultures before starting any antibiotics 10/10/2018 Patient's awake alert, vital signs are stable awaiting final blood and stool cultures. Patient's still complaining of left-sided discomfort enteroscopy being performed by Dr. Dinh tomorrow patient does not have an elevated white count and is afebrile 10/11/2018 Patient awake alert oriented 3, still complains of mild left quadrant pain, GI procedure boarded for tomorrow Objective - Vital Signs Vital signs: Vital Signs Temp 98.8 F 10/11/18 07:00 Pulse 91 10/11/18 07:00 Resp 15 10/11/18 07:00 BP 115/56 10/11/18 07:00 Pulse Ox 100 10/11/18 07:00 Intake & Output 10/10/18 10/11/18 10/11/18 18:59 06:59 18:59 Intake Total 510 1250 100 Balance 510 1250 100 Intake: Oral 200 1250 100 Blood Product 310 Rc As-1 Unit 310 [id number] Other: Voiding Method Bedpan Bedpan # Voids 2 2 - Exam General: [Patient awake, alert and oriented times 3. Patient in no acute distress.] HEENT: [PERRL. EOMI. No pharyngeal erythema or exudate.] Neck: [No adenopathy.] Cardiac: [Heart regular in rate and rhythm. No S3. No S4. No clicks, rubs. No murmur.] Lungs: [Clear to auscultation bilaterally.] Abdomen: [No mass. No organomegaly. Bowel sounds presnt and normoactive in all 4 quadrants.] Extremes: [No edema no cyanosis no claudication normal pulses] : Normal female genitalia Musculoskeletal: [No joint erythema, edema or tenderness.] Skin: [No rash.] Neurologic: [No lateralizing deficits. CN II - XII grossly intact.] Lymphatic: [No adenopathy.] - Labs CBC & Chem 7: 10/10/18 09:23 10/10/18 09:23 Labs: Abnormal Lab Results - Last 24 Hours (Table) 10/07/18 Range/Units 20:32 Crossmatch See Detail Microbiology - Last 24 Hours (Table) 10/07/18 Unknown Stool Culture - Final Stool 10/07/18 19:55 Blood Culture - Preliminary Blood No Growth after 72 hours Assessment and Plan (1) Anemia Current Visit: Yes Status: Acute Code(s): D64.9 - ANEMIA, UNSPECIFIED SNOMED Code(s): 065901488 (2) ESRD (end stage renal disease) Current Visit: Yes Status: Acute Code(s): N18.6 - END STAGE RENAL DISEASE SNOMED Code(s): 79500419 (3) Low hemoglobin Current Visit: Yes Status: Acute Code(s): D64.9 - ANEMIA, UNSPECIFIED SNOMED Code(s): 081876829 (4) Acute anemia Current Visit: No Status: Acute Code(s): D64.9 - ANEMIA, UNSPECIFIED SNOMED Code(s): 932700862 (5) Symptomatic anemia Current Visit: No Status: Acute Code(s): D64.9 - ANEMIA, UNSPECIFIED SNOMED Code(s): 096380456 Plan: End-stage renal disease dialysis dependent Dialysis today Anemia of chronic disease, recent GI bleed within the last 3 weeks, Weakness fatigue secondary to anemia Consultation with GI secondary to GI bleed appreciated 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 Dinh to perform push enteroscopy tomorrow Transfuse PRBCs as scheduled
[2018-10-11 11:01] LABS: Anisocytosis Slight; Basophils % (A) 1 %; Eosinophils # (A) 0.1 k/uL (0-0.7); Eosinophils % (A) 1 %; HCT 24.5 % (34.0-46.0); HGB 7.7 gm/dL (11.4-16.0); Hypochromasia Marked; Lymphocytes # (A) 0.3 k/uL (1.0-4.8); Lymphocytes % (A) 5 %; MCH 27.8 pg (25.0-35.0); MCHC 31.3 g/dL (31.0-37.0); Mean Platelet Volume 6.8; Monocytes # (A) 0.4 k/uL (0-1.0); Monocytes % (A) 9 %; Neutrophils # (A) 3.9 k/uL (1.3-7.7); Neutrophils % (A) 81 %; Platelet Count 276 k/uL (150-450); Poikilocytosis Slight; RBC 2.75 m/uL (3.80-5.40); RDW 18.3 % (11.5-15.5); WBC 4.8 k/uL (3.8-10.6)
[2018-10-11] MEDS: HYDROmorphone 1 MG/ML 1 ML SYRINGE IVP PRN (12:00)
--- NOTE | 2018-10-11 15:38 | PN ---
PROGRESS NOTE Patient is seen for followup for end-stage renal disease. She was dialyzed yesterday. Patient is complaining of abdominal pain again today. She states she does not want to eat much. She has been evaluated by GI and it looks like patient is scheduled for a push enteroscopy, I believe for tomorrow. PHYSICAL EXAMINATION: Currently, blood pressure this morning was 115/56, heart rate 91 per minute, patient is afebrile. Examination of the heart, S1, S2. Examination of the lungs, bilateral breath sounds are heard. Abdomen is soft, mild tenderness noted in the left lower quadrant. LITHOGRAPH DESIGNER exam is grossly intact. Examination of the lower extremities shows no evidence of edema. LABS: Show hemoglobin 7.7 today. Potassium was 3.3 yesterday. ASSESSMENT: 1. End-stage renal disease, on hemodialysis on a Saturday, Saturday, Saturday schedule. Patient will be dialyzed again on Saturday. 2. Gastrointestinal bleed. Scheduled for push enteroscopy tomorrow. Patient has been followed by GI. She has significant AVMs throughout the bowel. 3. Hypokalemia, status post replacement with dialysis yesterday. 4. Hypertension, currently controlled. 5. CKD mineral bone disorder, maintained on calcitriol. PLAN: Repeat hemodialysis on Saturday. Will follow up on results of push enteroscopy tomorrow. MMODL / IJN: [id number] /
--- NOTE | 2018-10-11 17:29 | PN ---
PROGRESS NOTE DATE OF SERVICE: 10/11/2018 Patient is a 68-year-old pleasant white female admitted to the hospital with severe symptomatic anemia with a hemoglobin of 6.5 requiring 2 units of blood transfusion. Patient had multiple hospitalizations recently with severe anemia and black tarry stools. She had an upper endoscopy by Dr. Fernández in August of 2018 at [facility] that showed actively bleeding duodenal angioectasia that was cauterized. Subsequently, she had a repeat upper endoscopy 3 weeks ago, which did not show any further bleeding. She did have small bowel capsule endoscopy that showed multiple nonbleeding angioectasia in the proximal small bowel. She has end-stage renal disease on hemodialysis, the last one was yesterday. This morning she still complains of some abdominal pain. Reports no nausea, vomiting. Has black tarry stools. PHYSICAL EXAMINATION: Appears comfortable, in no apparent distress. Vital signs are stable. Blood pressure is 132/62, pulse rate 94, temperature 99.6. HEENT examination unremarkable. Conjunctivae are pink, sclerae nonicteric, oral cavity no lesions. The chest was clear to auscultation. HEART: Regular rate and rhythm. ABDOMEN: Soft. Bowel sounds are positive. No organomegaly. EXTREMITIES: No pedal edema. SKIN: No rashes. NEURO: Alert and oriented x3. No focal deficits. LABS: Hemoglobin 7.7, yesterday it was 6.7, BUN is 47, creatinine 8.46. IMPRESSION: Acute gastrointestinal bleed with intermittent episodes of melena and drop in hemoglobin requiring blood transfusions frequently in the last several months. Upper endoscopy by Dr. Fernández in August of 2018 showed actively bleeding duodenal angioectasia that was cauterized. A small bowel capsule endoscopy showed multiple nonbleeding angioectasia in the proximal small bowel. RECOMMENDATION: 1. Will proceed with EGD/small bowel enteroscopy tomorrow with possible cautery. 2. In the meantime, monitor CBC on a daily basis and transfuse if the hemoglobin is less than 7. 3. Continue with PPIs. 4. Will follow the patient closely during the hospital stay. Thank you for this consultation. MMODL / IJN: [id number] /
[2018-10-12] MEDS: LEVOTHYROXINE 100 MCG TAB PO SCH (07:23)
[2018-10-12] MEDS: CALCIUM CARB-MAG CARB-FOLIC 1 EACH TAB PO SCH ×3 (07:23→17:34)
[2018-10-12] MEDS: HYDROmorphone 1 MG/ML 1 ML SYRINGE IVP PRN ×2 (08:49→17:34)
[2018-10-12] MEDS ORDERED: IV FLUID CONTINUATION 500 ML IV ONE (09:12)
[2018-10-12] MEDS ORDERED: PROPOFOL 10 MG/ML 20 ML VIAL IV ONE (09:17)
--- NOTE | 2018-10-12 09:30 | P.PCN ---
Date of Procedure: 10/12/18 Procedure(s) Performed: BRIEF HISTORY: Patient is a 68-year-old, pleasant, of intermittent female, admitted to the hospital with recurrent melena and severe anemia requiring blood transfusions frequently. She had upper endoscopy a month ago that showed bleeding arterial venous malformation the duodenum that was cauterized. The sequelae because of the persistent GI bleed and anemia and she had a small bowel capsule endoscopy that showed multiple scattered angiectasia in the proximal small bowel with no active bleeding. Patient was discharged home and she was readmitted within a week with anemia and hemoglobin of 6.5 requiring 2 more units of blood transfusion. Hence she is scheduled for an upper endoscopy/enteroscopy to evaluate this further. PROCEDURE PERFORMED: Esophagogastroduodenoscopy/enteroscopy with cautery using a gold. PREOPERATIVE DIAGNOSIS: Recurrent GI bleed/small bowel capsule endoscopy showing scattered angiectasia in the proximal small bowel. IV sedation per anesthesia. PROCEDURE: After informed consent was obtained, the patient was brought into the endoscopy unit. IV sedation was administered by Anesthesia under continuous monitoring. Initially the Olympus GIF-140 video endoscope was inserted into the mouth. Esophagus intubated without any difficulty. It was gradually advanced into the stomach, duodenum and proximal jejunum and carefully examined. The scope was advanced at least 100 cm into the proximal small bowel. In the proximal jejunum there were 3 scattered angiectasia identified each measuring between 5-6 mm in size with no active bleeding and ultimate cauterized using a gold probe. The bulb of the duodenum appeared normal. In the second part of the duodenum there was a 5 mm angiectasia with no active bleeding that was also cauterized. The scope at this time was withdrawn to the stomach, adequately insufflated with air, and upon careful examination, mucosa of the antrum, body, cardia and the fundus appeared normal. The scope was then withdrawn into the esophagus. The GE junction was located at 39 cm from the incisors. The esophagus appeared normal. There were no erosions or ulcerations seen and the patient tolerated the procedure well. IMPRESSION: 1. Scattered angiectasia noted in the duodenum and the proximal jejunum with no active bleeding status post cautery using a gold probe. 2. Hiatal hernia. RECOMMENDATIONS: The findings of this examination were discussed with the patient. Diet will be advanced as tolerated. Monitor CBC closely. If she continues to have recurrent anemia/melena she may be a candidate for a small bowel double balloon enteroscopy for which she needs to be transferred to [facility]..
--- NOTE | 2018-10-12 13:51 | P.PN ---
Subjective Progress Note Date: 10/12/18 Principal diagnosis: End-stage renal disease hemodialysis dependent, chronic anemia, blood loss anemia recent GI bleed Patient is awake alert vital signs stable hemoglobin 8 complains of mild left lower quadrant irritation consistent with inflammatory process on the left Blood cultures no growth at 24 hours stool culture final result pending Awaiting final blood cultures before starting any antibiotics 10/10/2018 Patient's awake alert, vital signs are stable awaiting final blood and stool cultures. Patient's still complaining of left-sided discomfort enteroscopy being performed by Dr. Dinh tomorrow patient does not have an elevated white count and is afebrile 10/11/2018 Patient awake alert oriented 3, still complains of mild left quadrant pain, GI procedure boarded for tomorrow 10/12/2018 Patient drowsy but arousable still feeling the effects of the anesthetic underwent push enteroscopy with gold probe. No evidence of re-current bleeding however multiple angiectasia is we will follow serial H&H's will reevaluate patient in the morning Objective - Vital Signs Vital signs: Vital Signs Temp 97.6 F 10/12/18 10:59 Pulse 76 10/12/18 10:59 Resp 15 10/12/18 10:59 BP 128/75 10/12/18 10:59 Pulse Ox 100 10/12/18 10:59 Intake & Output 10/11/18 10/12/18 10/12/18 18:59 06:59 18:59 Intake Total 460 580 100 Balance 460 580 100 Intake: IV 100 Oral 460 580 Other: # Voids 1 1 - Exam General: [Patient awake, alert and oriented times 3. Patient in no acute distress.] HEENT: [PERRL. EOMI. No pharyngeal erythema or exudate.] Neck: [No adenopathy.] Cardiac: [Heart regular in rate and rhythm. No S3. No S4. No clicks, rubs. No murmur.] Lungs: [Clear to auscultation bilaterally.] Abdomen: [No mass. No organomegaly. Bowel sounds presnt and normoactive in all 4 quadrants.] Extremes: [No edema no cyanosis no claudication normal pulses] : Normal female genitalia Musculoskeletal: [No joint erythema, edema or tenderness.] Skin: [No rash.] Neurologic: [No lateralizing deficits. CN II - XII grossly intact.] Lymphatic: [No adenopathy.] - Labs CBC & Chem 7: 10/11/18 10:38 10/10/18 09:23 Labs: Microbiology - Last 24 Hours (Table) 10/07/18 Unknown Stool Culture - Final Stool 10/07/18 19:55 Blood Culture - Preliminary Blood No Growth after 96 hours Assessment and Plan (1) Anemia Current Visit: Yes Status: Acute Code(s): D64.9 - ANEMIA, UNSPECIFIED SNOMED Code(s): 530642767 (2) ESRD (end stage renal disease) Current Visit: Yes Status: Acute Code(s): N18.6 - END STAGE RENAL DISEASE SNOMED Code(s): 12417234 (3) Low hemoglobin Current Visit: Yes Status: Acute Code(s): D64.9 - ANEMIA, UNSPECIFIED SNOMED Code(s): 036703506 (4) Acute anemia Current Visit: No Status: Acute Code(s): D64.9 - ANEMIA, UNSPECIFIED SNOMED Code(s): 014172463 (5) Symptomatic anemia Current Visit: No Status: Acute Code(s): D64.9 - ANEMIA, UNSPECIFIED SNOMED Code(s): 873788466 Plan: End-stage renal disease dialysis dependent Dialysis today Anemia of chronic disease, recent GI bleed within the last 3 weeks, Weakness fatigue secondary to anemia Consultation with GI secondary to GI bleed appreciated 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 Gustavo Dooley performed push enteroscopy with gold probe little or no active bleeding noted we'll follow serial H&H's Transfuse PRBCs as scheduled Time with Patient: Greater than 30
--- NOTE | 2018-10-12 14:54 | PN ---
PROGRESS NOTE Patient is seen for followup for end-stage renal disease. She is complaining of abdominal pain today. Patient had EGD, enteroscopy done today. She was found to have scattered angioectasia in the duodenum. No active bleeding was noted. PHYSICAL EXAMINATION: This morning blood pressure was 111/61, heart rate 79 per minute. She is afebrile. Examination of the heart S1, S2. Examination lungs bilateral breath sounds are heard. Abdomen is soft. Mild tenderness in the lower abdomen. Examination of lower extremities shows no evidence of edema. LAB: Show hemoglobin 7.7 from yesterday. ASSESSMENT: 1. End-stage renal disease, on hemodialysis on a Saturday, Saturday, Saturday schedule. Patient will be dialyzed tomorrow. 2. Gastrointestinal bleed status post EGD today with no evidence of active bleeding. The patient does have significant angioectasia in the bowel. 3. Hypokalemia, status post replacement with dialysis. 4. Abdominal pain, nonspecific. 5. Anemia status post packed RBCs transfusion. Etiology is gastrointestinal bleed. PLAN: Hemodialysis in a.m. Repeat CBC in a.m. and transfuse if indicated. MMODL / IJN: [id number] /
[2018-10-13] MEDS: LEVOTHYROXINE 100 MCG TAB PO SCH (06:11)
[2018-10-13] MEDS: CALCIUM CARB-MAG CARB-FOLIC 1 EACH TAB PO SCH ×3 (07:41→17:30)
[2018-10-13] MEDS ORDERED: GELATIN SPONGE,ABSORB (LARGE) 1 EACH SPONGE ONE (08:19)
[2018-10-13 10:06] LABS: Anisocytosis Slight; Basophils % (A) 1 %; Eosinophils # (A) 0.1 k/uL (0-0.7); Eosinophils % (A) 2 %; HCT 25.1 % (34.0-46.0); HGB 7.6 gm/dL (11.4-16.0); Hypochromasia Marked; Lymphocytes # (A) 0.2 k/uL (1.0-4.8); Lymphocytes % (A) 4 %; MCH 26.5 pg (25.0-35.0); MCHC 30.1 g/dL (31.0-37.0); MCV 88.1 fL (80.0-100.0); Mean Platelet Volume 7.5; Monocytes # (A) 0.4 k/uL (0-1.0); Monocytes % (A) 6 %; Neutrophils # (A) 5.3 k/uL (1.3-7.7); Neutrophils % (A) 87 %; Platelet Count 312 k/uL (150-450); Poikilocytosis Slight; RBC 2.85 m/uL (3.80-5.40); WBC 6.1 k/uL (3.8-10.6)
--- NOTE | 2018-10-13 10:21 | P.PN ---
Subjective Patient is seen in follow-up for end-stage renal disease. She is maintained on hemodialysis on a Saturday schedule. Currently seen while undergoing hemodialysis. Denies any active bleeding. Hemoglobin 7.6 this morning. No chest pain or shortness of breath. Vital signs are stable. General: The patient appeared well nourished and normally developed. HEENT: Head exam is unremarkable. Neck is without jugular venous distension. LUNGS: Lungs are clear to auscultation and percussion. Breath sounds decreased. HEART: Rate and Rhythm are regular. First and second heart sounds normal. No murmurs, rubs or gallops. ABDOMEN: Abdominal exam reveals normal bowel sounds. Non-tender and non- distended. No evidence of peritonitis. EXTREMITITES: No clubbing, cyanosis, or edema. Objective - Vital Signs Vital signs: Vital Signs Temp 98.5 F 10/13/18 07:00 Pulse 78 10/13/18 07:00 Resp 12 10/13/18 07:00 BP 109/64 10/13/18 07:00 Pulse Ox 98 10/13/18 07:00 Intake & Output 10/12/18 10/13/18 10/13/18 18:59 06:59 18:59 Intake Total 100 240 Balance 100 240 Intake: IV 100 Oral 240 Other: # Voids 1 0 # Bowel Movements 0 - Labs CBC & Chem 7: 10/13/18 09:45 10/10/18 09:23 Labs: Abnormal Lab Results - Last 24 Hours (Table) 10/13/18 Range/Units 09:45 RBC 2.85 L (3.80-5.40) m/uL Hgb 7.6 L (11.4-16.0) gm/dL Hct 25.1 L (34.0-46.0) % MCHC 30.1 L (31.0-37.0) g/dL RDW 18.0 H (11.5-15.5) % Lymphocytes # 0.2 L (1.0-4.8) k/uL Microbiology - Last 24 Hours (Table) 10/07/18 19:55 Blood Culture - Preliminary Blood No Growth after 120 hours 10/07/18 Unknown Stool Culture - Final Stool Assessment and Plan Plan: Assessment: 1. End-stage renal disease maintained on hemodialysis on a Saturday schedule. 2. Acute GI bleed status post blood transfusion this admission. She underwent EGD and enteroscopy on October 12 which showed scattered angiectasias in the proximal small bowel. Maintained on Aranesp. 3. Hypertension with chronic kidney disease. Controlled. 4. Chronic kidney disease mineral bone disease status post parathyroidectomy maintained on calcitriol. Plan: Currently seen while undergoing hemodialysis. Next treatment on Saturday.
[2018-10-13 10:34] LABS: Calcium 6.9 mg/dL (8.4-10.2); Potassium 3.9 mmol/L (3.5-5.1)
--- NOTE | 2018-10-13 12:56 | P.PN ---
Subjective Per Dr. Jacob Littlejohn End-stage renal disease hemodialysis dependent, chronic anemia, blood loss anemia recent GI bleed Patient is awake alert vital signs stable hemoglobin 8 complains of mild left lower quadrant irritation consistent with inflammatory process on the left Blood cultures no growth at 24 hours stool culture final result pending Awaiting final blood cultures before starting any antibiotics 10/10/2018 Patient's awake alert, vital signs are stable awaiting final blood and stool cultures. Patient's still complaining of left-sided discomfort enteroscopy being performed by Dr. Dinh tomorrow patient does not have an elevated white count and is afebrile 10/11/2018 Patient awake alert oriented 3, still complains of mild left quadrant pain, GI procedure boarded for tomorrow 10/12/2018 Patient drowsy but arousable still feeling the effects of the anesthetic underwent push enteroscopy with gold probe. No evidence of re-current bleeding however multiple angiectasia is we will follow serial H&H's will reevaluate patient in the morning 10/13/2018. Patient is awake and alert. She is undergoing dialysis. She is admitted for low hemoglobin once again, this is a chronic ongoing issue for her. She recently underwent EGD, colonoscopy, and pill endoscopy. She was hospitalized and evaluated for this. She came emergency room just recently with abdominal pain and diarrhea. She is doing better. She underwent EGD 1 days ago with findings of Scattered angiectasia noted in the duodenum and the proximal jejunum with no active bleeding status post cautery using a gold probe. She continues to complain of some mild generalized abdominal pain and diarrhea. GI and nephrology are following her. She denies any chest pains, pressures, or shortness of breath this time. Objective - Vital Signs Vital signs: Vital Signs Temp 98.5 F 10/13/18 07:00 Pulse 78 10/13/18 07:00 Resp 12 10/13/18 07:00 BP 109/64 10/13/18 07:00 Pulse Ox 98 10/13/18 07:00 Intake & Output 10/12/18 10/13/18 10/13/18 18:59 06:59 18:59 Intake Total 100 240 Balance 100 240 Intake: IV 100 Oral 240 Other: # Voids 1 0 # Bowel Movements 0 - Exam General: The patient is awake and Fatigued, in no distress, She is currently undergoing dialysis. Neck: The neck is supple, there is no thyromegaly, lymphadenopathy, tenderness or JVD. Chest wall: Dialysis catheter in place. Cardiovascular: S1S2 is normal, There is a regular rate and rhythm. No murmur, rub or gallop is appreciated. Respiratory: Lungs are clear to auscultation bilaterally, respirations are non-labored, breath sounds are equal. Gastrointestinal: Soft, non-distended, without masses or organomegaly noted. There is no rebound or guarding present. Bowel sounds are unremarkable. There is generalized pain to palpation, mild Musculoskeletal: Normal ROM, no tenderness, There is no pedal edema. There is no calf tenderness or swelling. No cords were appreciated. Neurological: CN II-XII intact, there are no obvious motor or sensory deficits. Coordination appears grossly intact. Speech is normal. Skin: Skin is warm and dry and no rashes or lesions are noted. - Labs CBC & Chem 7: 10/13/18 09:45 10/13/18 09:45 Labs: Abnormal Lab Results - Last 24 Hours (Table) 10/13/18 10/13/18 Range/Units 09:45 09:45 RBC 2.85 L (3.80-5.40) m/uL Hgb 7.6 L (11.4-16.0) gm/dL Hct 25.1 L (34.0-46.0) % MCHC 30.1 L (31.0-37.0) g/dL RDW 18.0 H (11.5-15.5) % Lymphocytes # 0.2 L (1.0-4.8) k/uL BUN 43 H (7-17) mg/dL Creatinine 8.48 H* (0.52-1.04) mg/dL Glucose 120 H (74-99) mg/dL Calcium 6.9 L (8.4-10.2) mg/dL Microbiology - Last 24 Hours (Table) 10/07/18 19:55 Blood Culture - Preliminary Blood No Growth after 120 hours 10/07/18 Unknown Stool Culture - Final Stool Assessment and Plan (1) Chronic blood loss anemia Current Visit: Yes Status: Acute Code(s): D50.0 - IRON DEFICIENCY ANEMIA SECONDARY TO BLOOD LOSS (CHRONIC) SNOMED Code(s): 622431886 (2) Abdominal pain Current Visit: Yes Status: Acute Code(s): R10.9 - UNSPECIFIED ABDOMINAL PAIN SNOMED Code(s): 06529711 (3) Diarrhea Current Visit: Yes Status: Acute Code(s): R19.7 - DIARRHEA, UNSPECIFIED SNOMED Code(s): 46403428 (4) ESRD (end stage renal disease) Current Visit: Yes Status: Acute Code(s): N18.6 - END STAGE RENAL DISEASE SNOMED Code(s): 27494710 (5) Small bowel arteriovenous malformation Current Visit: Yes Status: Acute Code(s): K55.20 - ANGIODYSPLASIA OF COLON WITHOUT HEMORRHAGE SNOMED Code(s): 659268341 (6) Chronic GI bleeding Current Visit: No Status: Acute Code(s): K92.2 - GASTROINTESTINAL HEMORRHAGE, UNSPECIFIED SNOMED Code(s): 63306943 (7) Dialysis patient, noncompliant Current Visit: No Status: Acute Code(s): Z91.15 - PATIENT'S NONCOMPLIANCE WITH RENAL DIALYSIS SNOMED Code(s): 862150865965723 (8) Symptomatic anemia Current Visit: No Status: Acute Code(s): D64.9 - ANEMIA, UNSPECIFIED SNOMED Code(s): 038104125 (9) Tobacco abuse Current Visit: No Status: Acute Code(s): Z72.0 - TOBACCO USE SNOMED Code(s): 859458261 Plan: She'll continue hemodialysis, Saturday, at the direction of nephrology. We'll await further recommendations from gastroenterology before discharge. She'll continue on a renal diet as tolerated. Weight on her upcoming laboratory studies, but her hemoglobin was stable today. She'll be reevaluated in the next 24 hours.
[2018-10-13] MEDS: CALCITRIOL 0.25 MCG CAP PO SCH (13:09)
[2018-10-13] MEDS: HYDROmorphone 1 MG/ML 1 ML SYRINGE IVP PRN (15:43)
--- NOTE | 2018-10-13 21:44 | P.PN ---
Subjective Progress Note Date: 10/13/18 Principal diagnosis: GI bleed, anemia of acute blood loss, small bowel avm's Patient lying in bed, tolerating her diet. No signs or symptoms of GI bleeding. Objective - Vital Signs Vital signs: Vital Signs Temp 99.1 F 10/13/18 20:02 Pulse 84 10/13/18 20:02 Resp 16 10/13/18 20:02 BP 93/55 10/13/18 20:02 Pulse Ox 100 10/13/18 20:02 Intake & Output 10/13/18 10/13/18 10/14/18 06:59 18:59 06:59 Intake Total 240 100 Balance 240 100 Intake: Oral 240 100 Other: Voiding Method Bedpan # Voids 0 0 # Bowel Movements 0 - Exam On physical examination, patient appears comfortable in no apparent distress. HEAD: Normocephalic, atraumatic. EYES: No scleral icterus. No conjunctival injection. MOUTH: No lesions, tongue midline. NECK: Trachea midline, no gross abnormalities. CHEST: Clear to auscultation with no wheezing or rhonchi appreciated. HEART: Regular rate and rhythm. ABDOMEN: Soft, obese. Bowel sounds are positive. No organomegaly. No guarding or rigidity. EXTREMITIES: No pedal edema. SKIN: No rashes, no jaundice. NEUROLOGIC: Alert and oriented x3. No focal deficits. - Labs CBC & Chem 7: 10/13/18 09:45 10/13/18 09:45 Labs: Abnormal Lab Results - Last 24 Hours (Table) 10/13/18 10/13/18 Range/Units 09:45 09:45 RBC 2.85 L (3.80-5.40) m/uL Hgb 7.6 L (11.4-16.0) gm/dL Hct 25.1 L (34.0-46.0) % MCHC 30.1 L (31.0-37.0) g/dL RDW 18.0 H (11.5-15.5) % Lymphocytes # 0.2 L (1.0-4.8) k/uL BUN 43 H (7-17) mg/dL Creatinine 8.48 H* (0.52-1.04) mg/dL Glucose 120 H (74-99) mg/dL Calcium 6.9 L (8.4-10.2) mg/dL Microbiology - Last 24 Hours (Table) 10/07/18 19:55 Blood Culture - Preliminary Blood No Growth after 120 hours Assessment and Plan (1) Chronic blood loss anemia Narrative/Plan: Patient with long-standing history of anemia which is multifactorial in the setting of end-stage renal disease and chronic blood loss due to small bowel AVMs. On this admission patient was taken for a push enteroscopy with multiple small bowel AVMs in the duodenum and jejunum ablated. Current Visit: Yes Status: Acute Code(s): D50.0 - IRON DEFICIENCY ANEMIA SECONDARY TO BLOOD LOSS (CHRONIC) SNOMED Code(s): 578747318 (2) Small bowel arteriovenous malformation Current Visit: Yes Status: Acute Code(s): K55.20 - ANGIODYSPLASIA OF COLON WITHOUT HEMORRHAGE SNOMED Code(s): 145120337 Plan: Supportive care Okay for diet Continue to monitor hemoglobin and hematocrit and transfuse as needed Continue to monitor for signs or symptoms of GI bleeding Continue Protonix therapy The patient has further bleeding then would benefit from referral to tertiary center such as [facility] for double balloon enteroscopy Thank you for allowing us to participate in the care of the patient we will continue to follow
[2018-10-14] MEDS: LEVOTHYROXINE 100 MCG TAB PO SCH (05:24)
[2018-10-14 07:53] LABS: Anisocytosis Slight; Basophils % (A) 0 %; Eosinophils # (A) 0.1 k/uL (0-0.7); Eosinophils % (A) 3 %; HCT 25.2 % (34.0-46.0); Hypochromasia Marked; Lymphocytes # (A) 0.2 k/uL (1.0-4.8); Lymphocytes % (A) 6 %; MCH 28.5 pg (25.0-35.0); MCHC 31.7 g/dL (31.0-37.0); MCV 90.1 fL (80.0-100.0); Mean Platelet Volume 6.1; Monocytes # (A) 0.4 k/uL (0-1.0); Monocytes % (A) 10 %; Neutrophils # (A) 3.1 k/uL (1.3-7.7); Neutrophils % (A) 79 %; Platelet Count 289 k/uL (150-450); Poikilocytosis Slight; RDW 18.3 % (11.5-15.5)
[2018-10-14] MEDS: HYDROmorphone 1 MG/ML 1 ML SYRINGE IVP PRN (08:39)
[2018-10-14] MEDS: CALCIUM CARB-MAG CARB-FOLIC 1 EACH TAB PO SCH ×3 (08:45→18:04)
[2018-10-14] MEDS ORDERED: HYDROcodone/APAP 5-325MG 1 EACH TAB PO PRN (11:15)
--- NOTE | 2018-10-14 11:51 | P.PN ---
Subjective Patient is seen in follow-up for end-stage renal disease. She is maintained on hemodialysis on a Saturday schedule. Tolerated hemodialysis well yesterday. Patient states she's having left lower quadrant abdominal discomfort. She had 2 episodes of black bowel movements this morning. Hemoglobin 8.0 this morning. No chest pain or shortness of breath. Hemoglobin 7.6 this morning. No chest pain or shortness of breath. Vital signs are stable. General: The patient appeared well nourished and normally developed. HEENT: Head exam is unremarkable. Neck is without jugular venous distension. LUNGS: Lungs are clear to auscultation and percussion. Breath sounds decreased. HEART: Rate and Rhythm are regular. First and second heart sounds normal. No murmurs, rubs or gallops. ABDOMEN: Abdominal exam reveals normal bowel sounds. Mild tenderness to palpation. Soft. EXTREMITITES: No clubbing, cyanosis, or edema. Objective - Vital Signs Vital signs: Vital Signs Temp 99.4 F 10/14/18 07:00 Pulse 90 10/14/18 07:00 Resp 12 10/14/18 07:00 BP 122/64 10/14/18 07:00 Pulse Ox 100 10/14/18 07:00 Intake & Output 10/13/18 10/14/18 10/14/18 18:59 06:59 18:59 Intake Total 240 350 Balance 240 350 Intake: Oral 240 350 Other: Voiding Method Bedpan Toilet # Voids 0 - Labs CBC & Chem 7: 10/14/18 07:09 10/13/18 09:45 Labs: Abnormal Lab Results - Last 24 Hours (Table) 10/14/18 Range/Units 07:09 RBC 2.80 L (3.80-5.40) m/uL Hgb 8.0 L (11.4-16.0) gm/dL Hct 25.2 L (34.0-46.0) % RDW 18.3 H (11.5-15.5) % Lymphocytes # 0.2 L (1.0-4.8) k/uL Microbiology - Last 24 Hours (Table) 10/07/18 19:55 Blood Culture - Final Blood No Growth after 144 hours Assessment and Plan Plan: Assessment: 1. End-stage renal disease maintained on hemodialysis on a Saturday schedule. 2. Acute GI bleed status post blood transfusion this admission. She underwent EGD and enteroscopy on October 12 which showed scattered angiectasias in the proximal small bowel. Maintained on Aranesp. She again had 2 episodes of black colored bowel movements today. 3. Hypertension with chronic kidney disease. Controlled. 4. Chronic kidney disease mineral bone disease status post parathyroidectomy maintained on calcitriol. Plan: Hemodialysis tomorrow. Discussed with GI. No further intervention plans. They recommend transferring her to a tertiary care facility for further workup.
--- NOTE | 2018-10-14 12:20 | P.PN ---
Subjective End-stage renal disease hemodialysis dependent, chronic anemia, blood loss anemia recent GI bleed Patient is awake alert vital signs stable hemoglobin 8 complains of mild left lower quadrant irritation consistent with inflammatory process on the left Blood cultures no growth at 24 hours stool culture final result pending Awaiting final blood cultures before starting any antibiotics 10/10/2018 Patient's awake alert, vital signs are stable awaiting final blood and stool cultures. Patient's still complaining of left-sided discomfort enteroscopy being performed by Dr. Dinh tomorrow patient does not have an elevated white count and is afebrile 10/11/2018 Patient awake alert oriented 3, still complains of mild left quadrant pain, GI procedure boarded for tomorrow 10/12/2018 Patient drowsy but arousable still feeling the effects of the anesthetic underwent push enteroscopy with gold probe. No evidence of re-current bleeding however multiple angiectasia is we will follow serial H&H's will reevaluate patient in the morning The above notes are per Dr. Jacob Littlejohn 10/13/2018. Patient is awake and alert. She is undergoing dialysis. She is admitted for low hemoglobin once again, this is a chronic ongoing issue for her. She rece ntly underwent EGD, colonoscopy, and pill endoscopy. She was hospitalized and evaluated for this. She came emergency room just recently with abdominal pain and diarrhea. She is doing better. She underwent EGD 1 days ago with findings of Scattered angiectasia noted in the duodenum and the proximal jejunum with no active bleeding status post cautery using a gold probe. She continues to complain of some mild generalized abdominal pain and diarrhea. GI and nephrology are following her. She denies any chest pains, pressures, or shortness of breath this time. 10/14/2018: Nursing reports she had black stool last night, but it has not been checked for occult blood. GI indicate that should she have any more active bleeding she should be transferred [facility].. She continues to com plain of left lower quadrant pain. She denies any chest pains, pressures, or shortness breath. She had hemodialysis 1 day ago. Objective - Vital Signs Vital signs: Vital Signs Temp 99.4 F 10/14/18 07:00 Pulse 90 10/14/18 07:00 Resp 12 10/14/18 07:00 BP 122/64 10/14/18 07:00 Pulse Ox 100 10/14/18 07:00 Intake & Output 10/13/18 10/14/18 10/14/18 18:59 06:59 18:59 Intake Total 240 350 Balance 240 350 Intake: Oral 240 350 Other: Voiding Method Bedpan Toilet # Voids 0 - Exam General: The patient is awake and Fatigued, in no distress, She is currently undergoing dialysis. Neck: The neck is supple, there is no thyromegaly, lymphadenopathy, tenderness or JVD. Chest wall: Dialysis catheter in place. Cardiovascular: S1S2 is normal, There is a regular rate and rhythm. No murmur, rub or gallop is appreciated. Respiratory: Lungs are clear to auscultation bilaterally, respirations are non-labored, breath sounds are equal. Gastrointestinal: Soft, non-distended, without masses or organomegaly noted. There is no rebound or guarding present. Bowel sounds are unremarkable. There is now mild to moderate left lower quadrant pain to palpation. Musculoskeletal: Normal ROM, no tenderness, There is no pedal edema. There is no calf tenderness or swelling. No cords were appreciated. Neurological: CN II-XII intact, there are no obvious motor or sensory deficits. Coordination appears grossly intact. Speech is normal. Skin: Skin is warm and dry and no rashes or lesions are noted. - Labs CBC & Chem 7: 10/14/18 07:09 10/13/18 09:45 Labs: Abnormal Lab Results - Last 24 Hours (Table) 10/14/18 Range/Units 07:09 RBC 2.80 L (3.80-5.40) m/uL Hgb 8.0 L (11.4-16.0) gm/dL Hct 25.2 L (34.0-46.0) % RDW 18.3 H (11.5-15.5) % Lymphocytes # 0.2 L (1.0-4.8) k/uL Microbiology - Last 24 Hours (Table) 10/07/18 19:55 Blood Culture - Final Blood No Growth after 144 hours Assessment and Plan (1) Chronic blood loss anemia Current Visit: Yes Status: Acute Code(s): D50.0 - IRON DEFICIENCY ANEMIA SECONDARY TO BLOOD LOSS (CHRONIC) SNOMED Code(s): 687723841 (2) Abdominal pain Current Visit: Yes Status: Acute Code(s): R10.9 - UNSPECIFIED ABDOMINAL PAIN SNOMED Code(s): 04897555 (3) Diarrhea Current Visit: Yes Status: Acute Code(s): R19.7 - DIARRHEA, UNSPECIFIED SNOMED Code(s): 02096759 (4) ESRD (end stage renal disease) Current Visit: Yes Status: Acute Code(s): N18.6 - END STAGE RENAL DISEASE SNOMED Code(s): 83507736 (5) Small bowel arteriovenous malformation Current Visit: Yes Status: Acute Code(s): K55.20 - ANGIODYSPLASIA OF COLON WITHOUT HEMORRHAGE SNOMED Code(s): 015477028 (6) Chronic GI bleeding Current Visit: No Status: Acute Code(s): K92.2 - GASTROINTESTINAL HEMORRHAGE, UNSPECIFIED SNOMED Code(s): 41114935 (7) Dialysis patient, noncompliant Current Visit: No Status: Acute Code(s): Z91.15 - PATIENT'S NONCOMPLIANCE WITH RENAL DIALYSIS SNOMED Code(s): 656014753859353 (8) Symptomatic anemia Current Visit: No Status: Acute Code(s): D64.9 - ANEMIA, UNSPECIFIED SNOMED Code(s): 847554847 (9) Tobacco abuse Current Visit: No Status: Acute Code(s): Z72.0 - TOBACCO USE SNOMED Code(s): 326934243 Plan: She'll continue hemodialysis, Saturday, at the direction of nephrology. We'll await on her stool. She has no further stool today, and she like to go home, she could go with [facility] when necessary for her abdominal pain. She'll continue on a renal diet as tolerated. She'll be reevaluated in the next 24 hours or discharged based on the current findings
[2018-10-14 13:50] VITALS: BMI 28.8
[2018-10-15] MEDS: LEVOTHYROXINE 100 MCG TAB PO SCH (05:58)
[2018-10-15] MEDS: CALCIUM CARB-MAG CARB-FOLIC 1 EACH TAB PO SCH ×3 (08:10→15:01)
[2018-10-15 08:30] VITALS: RESP 12
[2018-10-15 08:59] LABS: Anisocytosis Slight; Basophils % (A) 1 %; Eosinophils # (A) 0.2 k/uL (0-0.7); Eosinophils % (A) 5 %; HCT 23.6 % (34.0-46.0); HGB 7.5 gm/dL (11.4-16.0); Hypochromasia Marked; Lymphocytes # (A) 0.4 k/uL (1.0-4.8); Lymphocytes % (A) 10 %; MCH 28.9 pg (25.0-35.0); MCHC 31.8 g/dL (31.0-37.0); MCV 90.9 fL (80.0-100.0); Mean Platelet Volume 7.9; Monocytes # (A) 0.5 k/uL (0-1.0); Monocytes % (A) 13 %; Neutrophils # (A) 2.8 k/uL (1.3-7.7); Neutrophils % (A) 70 %; Platelet Count 282 k/uL (150-450)
--- NOTE | 2018-10-15 11:52 | P.PN ---
Subjective Patient is seen in follow-up for end-stage renal disease. She is maintained on hemodialysis on a Saturday schedule. Currently seen while undergoing hemodialysis. Abdominal discomfort is improved. No chest pain or shortness of breath. Hemoglobin 7.5 today. According to the nurse no bowel movements overnight. No active bleeding noted. Vital signs are stable. General: The patient appeared well nourished and normally developed. HEENT: Head exam is unremarkable. Neck is without jugular venous distension. LUNGS: Lungs are clear to auscultation and percussion. Breath sounds decreased. HEART: Rate and Rhythm are regular. First and second heart sounds normal. No murmurs, rubs or gallops. ABDOMEN: Abdominal exam reveals normal bowel sounds. Mild tenderness to palpation. Soft. EXTREMITITES: No clubbing, cyanosis, or edema. Objective - Vital Signs Vital signs: Vital Signs Temp 98.4 F 10/15/18 07:00 Pulse 74 10/15/18 07:00 Resp 12 10/15/18 07:00 BP 121/66 10/15/18 07:00 Pulse Ox 99 10/15/18 07:00 Intake & Output 10/14/18 10/15/18 10/15/18 18:59 06:59 18:59 Intake Total 250 Balance 250 Weight 76.204 kg Intake: Oral 250 Other: Voiding Method Toilet Toilet Toilet # Voids 0 - Labs CBC & Chem 7: 10/15/18 07:15 10/13/18 09:45 Labs: Abnormal Lab Results - Last 24 Hours (Table) 10/15/18 Range/Units 07:15 RBC 2.60 L (3.80-5.40) m/uL Hgb 7.5 L (11.4-16.0) gm/dL Hct 23.6 L (34.0-46.0) % RDW 18.0 H (11.5-15.5) % Lymphocytes # 0.4 L (1.0-4.8) k/uL Assessment and Plan Plan: Assessment: 1. End-stage renal disease maintained on hemodialysis on a Saturday schedule. 2. Acute GI bleed status post blood transfusion this admission. She underwent EGD and enteroscopy on October 12 which showed scattered angiectasias in the proximal small bowel. Maintained on Aranesp. 3. Hypertension with chronic kidney disease. Controlled. 4. Chronic kidney disease mineral bone disease status post parathyroidectomy maintained on calcitriol. Plan: Currently seen while undergoing hemodialysis. Next treatment on Saturday. Discussed with GI. No further intervention plans. They recommend transferring her to a tertiary care facility for further workup if she was to develop active bleeding again. Stable to be discharged home from nephrology standpoint.
--- NOTE | 2018-10-15 13:10 | P.DS ---
Providers Date of admission: 10/07/18 20:23 Expected date of discharge: 10/15/18 Attending physician: Julio Kwong Consults: 10/07/18 20:26 Consult Physician Routine Consulting Provider: Elizabeth Nugent Consult Reason/Comments: ESRD patient Do you want consulting provider notified?: Yes Primary care physician: Jacob Littlejohn - Discharge Diagnosis(es) (1) Chronic blood loss anemia Current Visit: Yes Status: Acute (2) Abdominal pain Current Visit: Yes Status: Acute (3) Diarrhea Current Visit: Yes Status: Acute (4) ESRD (end stage renal disease) Current Visit: Yes Status: Acute (5) Small bowel arteriovenous malformation Current Visit: Yes Status: Acute (6) Chronic GI bleeding Current Visit: No Status: Acute (7) Dialysis patient, noncompliant Current Visit: No Status: Acute (8) Symptomatic anemia Current Visit: No Status: Acute (9) Tobacco abuse Current Visit: No Status: Acute Hospital Course: End-stage renal disease hemodialysis dependent, chronic anemia, blood loss anemia recent GI bleed Patient is awake alert vital signs stable hemoglobin 8 complains of mild left lower quadrant irritation consistent with inflammatory process on the left Blood cultures no growth at 24 hours stool culture final result pending Awaiting final blood cultures before starting any antibiotics 10/10/2018 Patient's awake alert, vital signs are stable awaiting final blood and stool cultures. Patient's still complaining of left-sided discomfort enteroscopy being performed by Dr. Dinh tomorrow patient does not have an elevated white count and is afebrile 10/11/2018 Patient awake alert oriented 3, still complains of mild left quadrant pain, GI procedure boarded for tomorrow 10/12/2018 Patient drowsy but arousable still feeling the effects of the anesthetic underwent push enteroscopy with gold probe. No evidence of re-current bleeding however multiple angiectasia is we will follow serial H&H's will reevaluate patient in the morning The above notes are per Dr. Jacob Littlejohn 10/13/2018. Patient is awake and alert. She is undergoing dialysis. She is admitted for low hemoglobin once again, this is a chronic ongoing issue for her. She recently underwent EGD, colonoscopy, and pill endoscopy. She was hospitalized and evaluated for this. She came emergency room just recently with abdominal pain and diarrhea. She is doing better. She underwent EGD 1 days ago with findings of Scattered angiectasia noted in the duodenum and the proximal jejunum with no active bleeding status post cautery using a gold probe. She continues to complain of some mild generalized abdominal pain and diarrhea. GI and nephrology are following her. She denies any chest pains, pressures, or shortness of breath this time. 10/14/2018: Nursing reports she had black stool last night, but it has not been checked for occult blood. GI indicate that should she have any more active bleeding she should be transferred [facility].. She continues to complain of left lower quadrant pain. She denies any chest pains, pressures, or shortness breath. She had hemodialysis 1 day ago. 10/15/2018: No bowel movement for the past 2 days. She reports her pain is much improved with [place]. She like to go home. Patient Condition at Discharge: Stable Plan - Discharge Summary Discharge Rx Participant: Yes New Discharge Prescriptions: New HYDROcodone/APAP 5-325MG [[place] 5-325] 1 each PO Q6HR PRN #20 tab PRN Reason: Pain Continue Albuterol Nebulized [Ventolin Nebulized] 2.5 mg INHALATION RT-BID PRN PRN Reason: Shortness Of Breath Labetalol HCl 200 mg PO TID PRN PRN Reason: elevated blood pressure Umeclidinium [place] [Incruse Ellipta] 2 puff INHALATION RT-BID PRN PRN Reason: Shortness Of Breath Calcitriol [Rocaltrol] 0.25 mcg PO Q48H Zolpidem Tartrate [Ambien Cr] 6.25 mg PO HS PRN PRN Reason: Insomnia Calcium Carb-Mag Carb-Folic [Magnebind 400] 1 tab PO TID Levothyroxine Sodium [Synthroid] 100 mcg PO DAILY Omeprazole 20 mg PO DAILY PRN PRN Reason: Gi Upset Discharge Medication List Albuterol Nebulized [Ventolin Nebulized] 2.5 mg INHALATION RT-BID PRN 01/26/15 [History] Labetalol HCl 200 mg PO TID PRN 01/26/15 [History] Umeclidinium [place] [Incruse Ellipta] 2 puff INHALATION RT-BID PRN 11/27/16 [History] Calcitriol [Rocaltrol] 0.25 mcg PO Q48H 02/24/18 [History] Calcium Carb-Mag Carb-Folic [Magnebind 400] 1 tab PO TID 02/24/18 [History] Zolpidem Tartrate [Ambien Cr] 6.25 mg PO HS PRN 02/24/18 [History] Levothyroxine Sodium [Synthroid] 100 mcg PO DAILY 09/23/18 [History] Omeprazole 20 mg PO DAILY PRN 10/07/18 [History] HYDROcodone/APAP 5-325MG [[place] 5-325] 1 each PO Q6HR PRN #20 tab 10/15/18 [Rx] Follow up Appointment(s)/Referral(s): [facility], [NON-STAFF] - As Needed Activity/Diet/Wound Care/Special Instructions: [facility] may have shower chairs. Please call to check into this, #[phone]. Discharge Disposition: HOME SELF-CARE
[2018-10-15] MEDS: CALCITRIOL 0.25 MCG CAP PO SCH (15:01)
[2018-10-15 15:31] VITALS: BP 135/66; PULSE 86; TEMP 98
== END 2018-10-15 16:34 | disposition home health service (06) | DRG 377 ==
LOC: EC 18:06 → 4SSUR 20:23
PROVIDERS: ADMIT Family Medicine; ATTEND Family Medicine
PROC: 30240N1 Transfusion of Nonautologous Red Blood Cells into Central Vein, Open Approach (ICD-10-PCS; 2018-10-07)
PROC: 5A1D70Z Performance of Urinary Filtration, Intermittent, Less than 6 Hours Per Day (ICD-10-PCS; 2018-10-08)
PROC: 0D5A8ZZ Destruction of Jejunum, Via Natural or Artificial Opening Endoscopic (ICD-10-PCS; 2018-10-12)
PROC: 0D598ZZ Destruction of Duodenum, Via Natural or Artificial Opening Endoscopic (ICD-10-PCS; principal; 2018-10-12 08:45)
PROC: 5A1D70Z Performance of Urinary Filtration, Intermittent, Less than 6 Hours Per Day (ICD-10-PCS; 2018-10-13)
PROC: 5A1D70Z Performance of Urinary Filtration, Intermittent, Less than 6 Hours Per Day (ICD-10-PCS; 2018-10-14)
PROC: 5A1D70Z Performance of Urinary Filtration, Intermittent, Less than 6 Hours Per Day (ICD-10-PCS; 2018-10-15)
DX: K55.21 Angiodysplasia of colon with hemorrhage (principal); N18.6 End stage renal disease; I12.0 Hypertensive chronic kidney disease with stage 5 chronic kidney disease or end stage renal disease; D62 Acute posthemorrhagic anemia; E83.9 Disorder of mineral metabolism, unspecified; E83.51 Hypocalcemia; J44.9 Chronic obstructive pulmonary disease, unspecified; K31.819 Angiodysplasia of stomach and duodenum without bleeding; D50.0 Iron deficiency anemia secondary to blood loss (chronic); E87.6 Hypokalemia; D63.8 Anemia in other chronic diseases classified elsewhere; K44.9 Diaphragmatic hernia without obstruction or gangrene; K21.9 Gastro-esophageal reflux disease without esophagitis; E89.2 Postprocedural hypoparathyroidism; E89.0 Postprocedural hypothyroidism; H91.90 Unspecified hearing loss, unspecified ear; M19.90 Unspecified osteoarthritis, unspecified site; F17.200 Nicotine dependence, unspecified, uncomplicated; Z71.6 Tobacco abuse counseling; Z91.15 Patient's noncompliance with renal dialysis; Z99.2 Dependence on renal dialysis; Z79.890 Hormone replacement therapy; Z79.899 Other long term (current) drug therapy; Z90.12 Acquired absence of left breast and nipple; Z85.3 Personal history of malignant neoplasm of breast; Z98.51 Tubal ligation status; Z90.710 Acquired absence of both cervix and uterus; Z92.21 Personal history of antineoplastic chemotherapy; Z83.2 Family history of diseases of the blood and blood-forming organs and certain disorders involving the immune mechanism; Z80.41 Family history of malignant neoplasm of ovary; Z80.6 Family history of leukemia
CPT/HCPCS: 36415; 43255; 71046; 74176; 80048; 80053; 82150; 83605; 83630; 83690; 85025; 85027; 85610; 85730; 86706; 86850; 86900; 86901; 86920; 87040; 87045; 87046; 87324; 87340; 90935; 93005; 96361; 96374; 99285

== ENCOUNTER 2019-01-30 10:34 | Inpatient (IN) | payer MEDICARE, OTHER ==
--- NOTE | 2019-01-30 11:18 | ED ---
General Adult HPI - General Chief complaint: Recheck/Abnormal Lab/Rx Stated complaint: low hemoglobin Time Seen by Provider: 01/30/19 10:40 Source: patient, RN notes reviewed Mode of arrival: wheelchair Limitations: no limitations - History of Present Illness Initial comments: This is a 69-year-old female who presents emergency department with past medical history significant for renal failure. Patient states she also has hypertension. Patient states she is also been anemic and gets a transfusion on a regular basis. Patient states she started feeling fatigued and short of breath over the last few days and she decided come in to be checked because this is typical she feels when she is very anemic. Patient denies any chest pain or palpitations. Patient denies any headache. Patient states she is slightly lightheaded on occasion. Patient denies any abdominal pain patient denies nausea vomiting diarrhea. Patient denies any calf pain or leg swelling. - Related Data Home Medications Medication Instructions Recorded Confirmed Albuterol Nebulized [Ventolin 2.5 mg INHALATION RT-BID PRN 01/26/15 01/30/19 Nebulized] Labetalol HCl 200 mg PO TID PRN 01/26/15 01/30/19 Levothyroxine Sodium [Synthroid] 100 mcg PO DAILY 09/23/18 01/30/19 Calcitriol [Rocaltrol] 0.5 mcg PO DAILY 01/30/19 01/30/19 Calcium Acetate [PhosLo] 667 mg PO TID 01/30/19 01/30/19 traMADol HCL [Ultram] 50 mg PO Q6H PRN 01/30/19 01/30/19 Allergies Allergy/AdvReac Type Severity Reaction Status Date / Time No Known Allergies Allergy Verified 01/30/19 10:51 Review of Systems ROS Statement: Those systems with pertinent positive or pertinent negative responses have been documented in the HPI. ROS Other: All systems not noted in ROS Statement are negative. Past Medical History Past Medical History: Asthma, Cancer, COPD, Dialysis, GERD/Reflux, GI Bleed, Hearing Disorder / Deafness, Hypertension, Osteoarthritis (OA), Renal Disease, Thyroid Disorder Additional Past Medical History / Comment(s): HEMODIALYSIS MON,WED, FRI-, anemia- receives blood tranfusions weekly, past upper and lower GI bleeds L breast cancer with L mastectomy and chemotherapy, arthritis in multiple joints, hypothyroid, T[place]ALIP bilaterally History of Any Multi-Drug Resistant Organisms: None Reported Past Surgical History: Breast Surgery, Hysterectomy, Tubal Ligation Additional Past Surgical History / Comment(s): L BREAST BIOPSY, LEFT MASTECTOMY , DIALYSIS GRAFT- UPPER LEFT ARM, PARTIAL THYROIDECTOMY,COLONOSCOPIES, EGDS, D&C, L SHOULDER CYST REMOVED. Past Anesthesia/Blood Transfusion Reactions: No Reported Reaction, Motion Sickness Additional Past Anesthesia/Blood Transfusion Reaction / Comment(s): Pt has received numerous transfusions without reaction. Past Psychological History: No Psychological Hx Reported Smoking Status: Current every day smoker Past Alcohol Use History: None Reported Past Drug Use History: None Reported - Past Family History Daughter(s) Family Medical History: Deep Vein Thrombosis (DVT) Mother Family Medical History: Cancer Additional Family Medical History / Comment(s): OVARIAN Brother(s) Family Medical History: Cancer Additional Family Medical History / Comment(s): Brother had "blood" cancer. General Exam - General Exam Comments Initial Comments: GENERAL: Patient is well-developed and well-nourished. Patient is nontoxic and well- hydrated and is in mild distress. ENT: Neck is soft and supple. No significant lymphadenopathy is noted. Oropharynx is clear. Moist mucous membranes. Neck has full range of motion without eliciting any pain. EYES: The sclera were anicteric and conjunctiva were very pale. Extraocular movements were intact and pupils were equal round and reactive to light. Eyelids were unremarkable. PULMONARY: Unlabored respirations. Good breath sounds bilaterally. No audible rales rhonchi or wheezing was noted. CARDIOVASCULAR: There is a regular rate and rhythm without any murmurs gallops or rubs. ABDOMEN: Soft and nontender with normal bowel sounds. SKIN: Skin is clear with no lesions or rashes and otherwise unremarkable. NEUROLOGIC: Patient is alert and oriented x3. Cranial nerves II through XII are grossly intact. Motor and sensory are also intact. Normal speech, volume and content. Symmetrical smile. MUSCULOSKELETAL: Normal extremities with adequate strength and full range of motion. No lower extremity swelling or edema. No calf tenderness. LYMPHATICS: No significant lymphadenopathy is noted PSYCHIATRIC: Normal psychiatric evaluation. Limitations: no limitations Course Vital Signs 01/30/19 10:40 Temperature 98.4 F Pulse Rate 81 Respiratory 18 Rate Blood Pressure 118/64 O2 Sat by Pulse 100 Oximetry Medical Decision Making - Medical Decision Making EKG shows a normal sinus rhythm at 81 bpm HI interval is 178 QRS is 92 QT interval 410 QTC is 476. Patient's EKG shows no ST segment elevation or depression. Patient's hemoglobin Qubec 4. once I ordered 2 units of packed red blood cells. - Lab Data Result diagrams: 01/30/19 11:54 01/30/19 11:54 Lab Results 01/30/19 01/30/19 01/30/19 Range/Units 11:53 11:54 11:54 WBC 4.3 (3.8-10.6) k/uL RBC 1.35 L (3.80-5.40) m/uL Hgb 4.1 L* (11.4-16.0) gm/dL Hct 13.6 L* (34.0-46.0) % MCV 100.3 H (80.0-100.0) fL MCH 30.5 (25.0-35.0) pg MCHC 30.4 L (31.0-37.0) g/dL RDW 17.0 H (11.5-15.5) % Plt Count 250 (150-450) k/uL Neutrophils % 82 % Lymphocytes % 6 % Monocytes % 5 % Eosinophils % 5 % Basophils % 0 % Neutrophils # 3.5 (1.3-7.7) k/uL Lymphocytes # 0.2 L (1.0-4.8) k/uL Monocytes # 0.2 (0-1.0) k/uL Eosinophils # 0.2 (0-0.7) k/uL Basophils # 0.0 (0-0.2) k/uL Manual Slide Review Performed Polychromasia Present Hypochromasia Moderate Poikilocytosis (manual Present Anisocytosis Slight Macrocytosis Slight PT 10.4 (9.0-12.0) sec INR 1.0 (<1.2) APTT 24.0 (22.0-30.0) sec Sodium (137-145) mmol/L Potassium (3.5-5.1) mmol/L Chloride (98-107) mmol/L Carbon Dioxide (22-30) mmol/L Anion Gap mmol/L BUN (7-17) mg/dL Creatinine (0.52-1.04) mg/dL Est GFR (CKD-EPI)AfAm (>60 ml/min/1.73 sqM) Est GFR (CKD-EPI)NonAf (>60 ml/min/1.73 sqM) Glucose (74-99) mg/dL Calcium (8.4-10.2) mg/dL Magnesium (1.6-2.3) mg/dL Total Bilirubin (0.2-1.3) mg/dL AST (14-36) U/L ALT (9-52) U/L Alkaline Phosphatase (38-126) U/L Total Protein (6.3-8.2) g/dL Albumin (3.5-5.0) g/dL Blood Type O Positive Blood Type Recheck No Antibody Screen NEGATIVE Crossmatch See Detail Spec Expiration Date 02/02/2019 - 235201/30/19 Range/Units 11:54 WBC (3.8-10.6) k/uL RBC (3.80-5.40) m/uL Hgb (11.4-16.0) gm/dL Hct (34.0-46.0) % MCV (80.0-100.0) fL MCH (25.0-35.0) pg MCHC (31.0-37.0) g/dL RDW (11.5-15.5) % Plt Count (150-450) k/uL Neutrophils % % Lymphocytes % % Monocytes % % Eosinophils % % Basophils % % Neutrophils # (1.3-7.7) k/uL Lymphocytes # (1.0-4.8) k/uL Monocytes # (0-1.0) k/uL Eosinophils # (0-0.7) k/uL Basophils # (0-0.2) k/uL Manual Slide Review Polychromasia Hypochromasia Poikilocytosis (manual Anisocytosis Macrocytosis PT (9.0-12.0) sec INR (<1.2) APTT (22.0-30.0) sec Sodium 140 (137-145) mmol/L Potassium 5.2 H (3.5-5.1) mmol/L Chloride 108 H (98-107) mmol/L Carbon Dioxide 17 L (22-30) mmol/L Anion Gap 15 mmol/L BUN 138 H* (7-17) mg/dL Creatinine 10.38 H* (0.52-1.04) mg/dL Est GFR (CKD-EPI)AfAm 4 (>60 ml/min/1.73 sqM) Est GFR (CKD-EPI)NonAf 3 (>60 ml/min/1.73 sqM) Glucose 88 (74-99) mg/dL Calcium 6.7 L (8.4-10.2) mg/dL Magnesium 2.4 H (1.6-2.3) mg/dL Total Bilirubin 0.2 (0.2-1.3) mg/dL AST 26 (14-36) U/L ALT 18 (9-52) U/L Alkaline Phosphatase 36 L (38-126) U/L Total Protein 5.0 L (6.3-8.2) g/dL Albumin 2.7 L (3.5-5.0) g/dL Blood Type Blood Type Recheck Antibody Screen Crossmatch Spec Expiration Date Disposition Clinical Impression: Anemia, Renal failure Disposition: ADMITTED IP TO THIS [facility] Referrals: Jacob Littlejohn Jr, [Primary Care Provider] - 1-2 days Time of Disposition: 13:08
[2019-01-30 12:05] LABS: Anisocytosis Slight; Basophils % (A) 0 %; Eosinophils # (A) 0.2 k/uL (0-0.7); Eosinophils % (A) 5 %; Hypochromasia Moderate; Lymphocytes # (A) 0.2 k/uL (1.0-4.8); Lymphocytes % (A) 6 %; MCH 30.5 pg (25.0-35.0); MCHC 30.4 g/dL (31.0-37.0); MCV 100.3 fL (80.0-100.0); Macrocytosis Slight; Mean Platelet Volume 6.8; Monocytes # (A) 0.2 k/uL (0-1.0); Monocytes % (A) 5 %; Neutrophils # (A) 3.5 k/uL (1.3-7.7); Neutrophils % (A) 82 %; Platelet Count 250 k/uL (150-450); RBC 1.35 m/uL (3.80-5.40); WBC 4.3 k/uL (3.8-10.6)
[2019-01-30 12:10] LABS: HCT 13.6 % (34.0-46.0); HGB 4.1 gm/dL (11.4-16.0)
[2019-01-30 12:14] LABS: Albumin 2.7 g/dL (3.5-5.0); Calcium 6.7 mg/dL (8.4-10.2); Magnesium 2.4 mg/dL (1.6-2.3); Potassium 5.2 mmol/L (3.5-5.1); Total Bilirubin 0.2 mg/dL (0.2-1.3)
[2019-01-30 12:21] LABS: Prothrombin Time 10.4 sec (9.0-12.0)
[2019-01-30 12:41] LABS: Poikilocytosis (M) Present; Polychromasia Present
[2019-01-30] MEDS ORDERED: IPRATROPIUM-ALBUTEROL 3 ML NEB INHALATION PRN (15:49)
[2019-01-30] MEDS: IPRATROPIUM-ALBUTEROL 3 ML NEB INHALATION SCH ×2 (16:20→21:08)
[2019-01-30 20:02] VITALS: RESP 18
[2019-01-30] MEDS ORDERED: ALBUTEROL NEBULIZED 2.5 MG/3 ML INHALATION PRN (20:36)
[2019-01-30] MEDS ORDERED: traMADol 50 MG TAB PO PRN (20:36)
[2019-01-30] MEDS ORDERED: LABETALOL 200 MG TAB PO PRN (20:36)
[2019-01-30] MEDS: CALCIUM ACETATE 667 MG CAP PO SCH (20:46)
[2019-01-30 20:53] LABS: Anisocytosis Slight; Basophils % (A) 0 %; Eosinophils # (A) 0.1 k/uL (0-0.7); Eosinophils % (A) 4 %; HCT 22.3 % (34.0-46.0); Lymphocytes # (A) 0.3 k/uL (1.0-4.8); Lymphocytes % (A) 8 %; MCH 29.6 pg (25.0-35.0); MCHC 32.6 g/dL (31.0-37.0); Mean Platelet Volume 6.7; Monocytes # (A) 0.2 k/uL (0-1.0); Monocytes % (A) 7 %; Neutrophils % (A) 80 %; Platelet Count 206 k/uL (150-450); RBC 2.46 m/uL (3.80-5.40); RDW 17.1 % (11.5-15.5); WBC 3.7 k/uL (3.8-10.6)
[2019-01-30 21:08] LABS: HGB 7.3 gm/dL (11.4-16.0); MCV 90.6 fL (80.0-100.0)
[2019-01-31] MEDS ORDERED: LEVOTHYROXINE 100 MCG TAB PO SCH (06:30)
[2019-01-31] MEDS: IPRATROPIUM-ALBUTEROL 3 ML NEB INHALATION SCH ×2 (08:08→11:16)
[2019-01-31] MEDS: CALCIUM ACETATE 667 MG CAP PO SCH (08:50)
[2019-01-31] MEDS ORDERED: CALCITRIOL 0.25 MCG CAP PO SCH (09:00)
[2019-01-31 09:15] LABS: Anisocytosis Slight; Basophils % (A) 0 %; Eosinophils # (A) 0.2 k/uL (0-0.7); Eosinophils % (A) 4 %; HCT 23.8 % (34.0-46.0); HGB 7.7 gm/dL (11.4-16.0); Hypochromasia Slight; Lymphocytes # (A) 0.4 k/uL (1.0-4.8); Lymphocytes % (A) 8 %; MCH 29.1 pg (25.0-35.0); MCHC 32.4 g/dL (31.0-37.0); MCV 89.9 fL (80.0-100.0); Mean Platelet Volume 7.2; Monocytes # (A) 0.3 k/uL (0-1.0); Monocytes % (A) 6 %; Neutrophils % (A) 81 %; Platelet Count 217 k/uL (150-450); Poikilocytosis Slight; RBC 2.65 m/uL (3.80-5.40); RDW 17.7 % (11.5-15.5)
--- NOTE | 2019-01-31 10:35 | CONS ---
CONSULTATION REASON FOR CONSULT: End-stage renal disease. HISTORY OF PRESENT ILLNESS: The patient is a 69-year-old female with end-stage renal disease, on hemodialysis on a Saturday, Saturday, Saturday schedule. Patient was admitted to the hospital with complaints of weakness, increased shortness of breath. She is admitted to the hospital almost every week for blood transfusions. She had a GI bleed previously in March of last year with EGD showing bleeding from AVMs. The patient has also been evaluated by Hematology/Oncology. She was supposed to see Hematology out of town at [place], but the patient has not been there yet. There have been issues with noncompliance. No active bleeding noted at this time. The patient was transfused packed RBCs. She has received 2 units. Her hemoglobin is up to 7.3 from 4.1. Repeat labs from today are pending. The patient states she was dialyzed yesterday. PAST MEDICAL HISTORY: 1. End-stage renal disease. 2. Anemia of chronic disease as well as anemia from possibly underlying GI bleed, with stool for occult blood being negative on previous admissions. The patient had an EGD done by Dr. Dooley in September of 2018 which showed AVMs, but no active bleeding was noted at that time. She is status post packed RBCs transfusion. We will repeat CBC today. Consider GI consult again. 3. CKD mineral bone disorder. Maintain patient on her phosphate binders in the form of PhosLo and continue with the Rocaltrol as well. 4. Hypertension, controlled. 5. Hypothyroidism, maintained on supplementation. PLAN: Repeat CBC today. Next hemodialysis will be on Saturday. MMODL / IJN: [id number] /
[2019-01-31 11:42] VITALS: BP 110/69; PULSE 68; TEMP 98
--- NOTE | 2019-01-31 12:13 | P.HPIM ---
History of Present Illness H&P Date: 01/31/19 Chief Complaint: Weakness and fatigue This is a 69-year-old female, well known to me with end-stage renal dialysis disease on hemodialysis Saturday. She has a history of chronic recurrent anemia. She is requiring transfusions approximately every 2 weeks. She frequently presents to [facility] but is now here at [facility]. She is a patient of my partner. She reports finishing dialysis yesterday and the becoming more weak as time goes on. She knows the warning signs present emergency room here. She is found to have a hemoglobin of 4.1. She is now status post 2 units and resting comfortably in her hospital bed. She is supposed to attend a hematology oncology appointment [facility] but has not made it yet. She's had multiple EGDs and colonoscopies and workup for anemia, no significant findings. Review of Systems All systems: negative Past Medical History Past Medical History: Asthma, Cancer, COPD, Dialysis, GERD/Reflux, GI Bleed, Hearing Disorder / Deafness, Hypertension, Osteoarthritis (OA), Renal Disease, Thyroid Disorder Additional Past Medical History / Comment(s): HEMODIALYSIS SAT,SAT, SAT-, anemia- receives blood tranfusions weekly, past upper and lower GI bleeds L breast cancer with L mastectomy and chemotherapy, arthritis in multiple joints, hypothyroid, [place] bilaterally History of Any Multi-Drug Resistant Organisms: None Reported Past Surgical History: Breast Surgery, Hysterectomy, Tubal Ligation Additional Past Surgical History / Comment(s): L BREAST BIOPSY, LEFT MASTECTOMY , DIALYSIS GRAFT- UPPER LEFT ARM, PARTIAL THYROIDECTOMY,COLONOSCOPIES, EGDS, D&C, L SHOULDER CYST REMOVED. Past Anesthesia/Blood Transfusion Reactions: No Reported Reaction, Motion Sickness Additional Past Anesthesia/Blood Transfusion Reaction / Comment(s): Pt has received numerous transfusions without reaction. Past Psychological History: No Psychological Hx Reported Additional Psychological History / Comment(s): Pt resides alone. She has a nebulizer. She uses no assistive device. She does not drive, she takes the bus. Smoking Status: Current every day smoker Past Alcohol Use History: None Reported Additional Past Alcohol Use History / Comment(s): STARTED SMOKING AT AGE 17 SMOKES LESS THAN 1/2PPD Past Drug Use History: None Reported - Past Family History Daughter(s) Family Medical History: Deep Vein Thrombosis (DVT) Mother Family Medical History: Cancer Additional Family Medical History / Comment(s): OVARIAN Brother(s) Family Medical History: Cancer Additional Family Medical History / Comment(s): Brother had "blood" cancer. Medications and Allergies Home Medications Medication Instructions Recorded Confirmed Type Albuterol Nebulized [Ventolin 2.5 mg INHALATION RT-BID PRN 01/26/15 01/30/19 History Nebulized] Labetalol HCl 200 mg PO TID PRN 01/26/15 01/30/19 History Levothyroxine Sodium [Synthroid] 100 mcg PO DAILY 09/23/18 01/30/19 History Calcitriol [Rocaltrol] 0.5 mcg PO DAILY 01/30/19 01/30/19 History Calcium Acetate [PhosLo] 667 mg PO TID 01/30/19 01/30/19 History traMADol HCL [Ultram] 50 mg PO Q6H PRN 01/30/19 01/30/19 History Allergies Allergy/AdvReac Type Severity Reaction Status Date / Time No Known Allergies Allergy Verified 01/30/19 10:51 Physical Exam Vitals: Vital Signs Temp Pulse Pulse Resp BP BP Pulse Ox 01/31/19 11:37 98 F 68 18 110/69 100 01/31/19 08:34 97.5 F L 75 18 109/64 100 01/31/19 08:18 74 01/31/19 08:08 72 01/31/19 04:00 97.4 F L 65 18 130/67 100 01/31/19 00:00 97.7 F 70 18 117/55 100 01/30/19 21:19 80 01/30/19 21:10 80 01/30/19 20:01 98.0 F 77 18 119/61 100 01/30/19 20:00 98.0 F 77 18 119/61 100 01/30/19 19:02 98.1 F 80 16 146/70 01/30/19 18:20 98.1 F 79 16 114/59 01/30/19 17:51 98.1 F 87 16 102/51 01/30/19 17:41 98.1 F 83 97/63 01/30/19 16:00 97.9 F 82 16 122/62 98 01/30/19 15:58 97.8 F 79 16 110/58 01/30/19 15:45 97.8 F 79 16 120/58 99 01/30/19 15:12 97.8 F 79 16 120/58 99 01/30/19 14:50 98.3 F 88 20 101/59 99 01/30/19 14:30 98.1 F 80 18 118/63 100 01/30/19 14:20 98.0 F 78 18 120/64 100 01/30/19 13:00 97.8 F 77 18 118/62 100 Intake and Output 01/30/19 01/31/19 01/31/19 22:59 06:59 14:59 Intake Total 1240 240 Output Total 1000 Balance 240 240 Intake: Oral 240 Blood Product 1240 Rc As-1 Unit 310 [id number] Rc As-3 Unit 310 [id number] Output: Hemodialysis 1000 Other: Voiding Method Toilet Toilet # Voids 1 Weight 77.6 kg GENERAL: Fatigue -Greek woman who looks her stated age and in no acute distress. HEAD: Atraumatic, normocephalic. EYES: Pupils equal round and reactive to light, extraocular movements intact, sclera anicteric, conjunctiva are normal. ENT:nares patent, oropharynx clear without exudates. Moist mucous membranes. NECK: Normal range of motion, supple without lymphadenopathy or JVD, no thyromegaly LUNGS: Breath sounds coarse to auscultation bilaterally and equal. No wheezes rales or rhonchi. HEART: Regular rate and rhythm without rubs or gallops.S1S2 Normal, some over 6 systolic ejection murmur noted today. ABDOMEN: Soft, nontender, normoactive bowel sounds. No guarding, no rebound. No masses appreciated. EXTREMITIES: Normal range of motion, no pitting or edema. No clubbing or cyanosis. Renal bruit in the left arm is auscultated. NEUROLOGICAL: Cranial nerves II through XII grossly intact. Normal speech, normal gait. PSYCH: Normal mood, normal affect. SKIN: Warm, Dry, normal turgor, no rashes or lesions noted. Results CBC & Chem 7: 01/31/19 08:35 01/30/19 11:54 Labs: Abnormal Lab Results - Last 24 Hours (Table) 01/30/19 01/30/19 01/30/19 Range/Units 11:53 11:54 11:54 WBC (3.8-10.6) k/uL RBC 1.35 L (3.80-5.40) m/uL Hgb 4.1 L* (11.4-16.0) gm/dL Hct 13.6 L* (34.0-46.0) % MCV 100.3 H (80.0-100.0) fL MCHC 30.4 L (31.0-37.0) g/dL RDW 17.0 H (11.5-15.5) % Lymphocytes # 0.2 L (1.0-4.8) k/uL Potassium 5.2 H (3.5-5.1) mmol/L Chloride 108 H (98-107) mmol/L Carbon Dioxide 17 L (22-30) mmol/L BUN 138 H* (7-17) mg/dL Creatinine 10.38 H* (0.52-1.04) mg/dL Calcium 6.7 L (8.4-10.2) mg/dL Magnesium 2.4 H (1.6-2.3) mg/dL Alkaline Phosphatase 36 L (38-126) U/L Total Protein 5.0 L (6.3-8.2) g/dL Albumin 2.7 L (3.5-5.0) g/dL Crossmatch See Detail 01/30/19 01/31/19 Range/Units 20:28 08:35 WBC 3.7 L (3.8-10.6) k/uL RBC 2.46 L 2.65 L (3.80-5.40) m/uL Hgb 7.3 L D 7.7 L (11.4-16.0) gm/dL Hct 22.3 L 23.8 L (34.0-46.0) % MCV (80.0-100.0) fL MCHC (31.0-37.0) g/dL RDW 17.1 H 17.7 H (11.5-15.5) % Lymphocytes # 0.3 L 0.4 L (1.0-4.8) k/uL Potassium (3.5-5.1) mmol/L Chloride (98-107) mmol/L Carbon Dioxide (22-30) mmol/L BUN (7-17) mg/dL Creatinine (0.52-1.04) mg/dL Calcium (8.4-10.2) mg/dL Magnesium (1.6-2.3) mg/dL Alkaline Phosphatase (38-126) U/L Total Protein (6.3-8.2) g/dL Albumin (3.5-5.0) g/dL Crossmatch Thrombosis Risk Factor Assmnt - DVT/VTE Prophylaxis DVT/VTE Prophylaxis: Low risk, early ambulation encouraged - Choose All That Apply Any of the Below Risk Factors Present?: No Each Risk Factor Represents 2 Points: Age 61-74 years Thrombosis Risk Factor Assessment Total Risk Factor Score: 2 Thrombosis Risk Factor Assessment Level: Low Risk Assessment and Plan (1) Acute anemia Current Visit: No Status: Acute Code(s): D64.9 - ANEMIA, UNSPECIFIED SNOMED Code(s): 300045596 (2) Dialysis patient, noncompliant Current Visit: No Status: Acute Code(s): Z91.15 - PATIENT'S NONCOMPLIANCE WITH RENAL DIALYSIS SNOMED Code(s): 281817784224330 (3) COPD (chronic obstructive pulmonary disease) Current Visit: Yes Status: Acute Code(s): J44.9 - CHRONIC OBSTRUCTIVE PULMONARY DISEASE, UNSPECIFIED SNOMED Code(s): 25471127 (4) Essential (primary) hypertension Current Visit: Yes Status: Acute Code(s): I10 - ESSENTIAL (PRIMARY) HYPERTENSION SNOMED Code(s): 00866499 (5) ESRD (end stage renal disease) Current Visit: No Status: Acute Code(s): N18.6 - END STAGE RENAL DISEASE SNOMED Code(s): 20755345 (6) Hypothyroid Current Visit: No Status: Acute Code(s): E03.9 - HYPOTHYROIDISM, UNSPECIFIED SNOMED Code(s): 40600433 (7) Tobacco abuse Current Visit: No Status: Acute Code(s): Z72.0 - TOBACCO USE SNOMED Code(s): 250537588 Plan: She has already received 2 units packed red blood cells and is doing well. Nephrology consult is pending. She most likely be discharged later today.
--- NOTE | 2019-01-31 12:15 | P.DS ---
Providers Date of admission: 01/30/19 13:09 Expected date of discharge: 01/31/19 Attending physician: Jacob Littlejohn Consults: 01/30/19 13:09 Consult Physician Urgent Consulting Provider: Elizabeth Nugent Consult Reason/Comments: Chronic renal failure Do you want consulting provider notified?: Yes 01/30/19 16:32 Consult Physician Routine Consulting Provider: Karri Fernández Consult Reason/Comments: HGB 4.1, chronic anemia Do you want consulting provider notified?: Yes Primary care physician: Jacob Littlejohn - Discharge Diagnosis(es) (1) Acute anemia Current Visit: No Status: Acute (2) Dialysis patient, noncompliant Current Visit: No Status: Acute (3) COPD (chronic obstructive pulmonary disease) Current Visit: Yes Status: Acute (4) Essential (primary) hypertension Current Visit: Yes Status: Acute (5) ESRD (end stage renal disease) Current Visit: No Status: Acute (6) Hypothyroid Current Visit: No Status: Acute (7) Tobacco abuse Current Visit: No Status: Acute Hospital Course: This is a 69-year-old female, well known to me with end-stage renal dialysis disease on hemodialysis Saturday. She has a history of chronic recurrent anemia. She is requiring transfusions approximately every 2 weeks. She frequently presents to [facility] but is now here at [facility]. She is a patient of my partner. She reports finishing dialysis yesterday and the becoming more weak as time goes on. She knows the warning signs present emergency room here. She is found to have a hemoglobin of 4.1. She is now status post 2 units and resting comfortably in her hospital bed. She is supposed to attend a hematology oncology appointment [facility] but has not made it yet. She's had multiple EGDs and colonoscopies and workup for anemia, no significant findings. She has improved after transfusion and is stable. She is tolerating diet and will like to be discharged home. Patient Condition at Discharge: Poor Plan - Discharge Summary Discharge Rx Participant: No New Discharge Prescriptions: Continue Albuterol Nebulized [Ventolin Nebulized] 2.5 mg INHALATION RT-BID PRN PRN Reason: Shortness Of Breath Labetalol HCl 200 mg PO TID PRN PRN Reason: elevated blood pressure Levothyroxine Sodium [Synthroid] 100 mcg PO DAILY Calcium Acetate [PhosLo] 667 mg PO TID Calcitriol [Rocaltrol] 0.5 mcg PO DAILY traMADol HCL [Ultram] 50 mg PO Q6H PRN PRN Reason: Pain Discharge Medication List Albuterol Nebulized [Ventolin Nebulized] 2.5 mg INHALATION RT-BID PRN 01/26/15 [History] Labetalol HCl 200 mg PO TID PRN 01/26/15 [History] Levothyroxine Sodium [Synthroid] 100 mcg PO DAILY 09/23/18 [History] Calcitriol [Rocaltrol] 0.5 mcg PO DAILY 01/30/19 [History] Calcium Acetate [PhosLo] 667 mg PO TID 01/30/19 [History] traMADol HCL [Ultram] 50 mg PO Q6H PRN 01/30/19 [History] Follow up Appointment(s)/Referral(s): Jacob Littlejohn Jr, DO [Primary Care Provider] - 1-2 days Elizabeth Nugent MD [STAFF PHYSICIAN] - 1 Week Discharge Disposition: HOME SELF-CARE
== END 2019-01-31 14:52 | disposition home or self-care (01) | DRG 682 ==
LOC: EC 10:34 → 3SCARD 13:09
PROVIDERS: ADMIT Family Medicine; ATTEND Family Medicine
PROC: 5A1D70Z Performance of Urinary Filtration, Intermittent, Less than 6 Hours Per Day (ICD-10-PCS; principal; 2019-01-30)
PROC: 30233N1 Transfusion of Nonautologous Red Blood Cells into Peripheral Vein, Percutaneous Approach (ICD-10-PCS; principal; 2019-01-30)
DX: I12.0 Hypertensive chronic kidney disease with stage 5 chronic kidney disease or end stage renal disease (principal); N18.6 End stage renal disease; J44.9 Chronic obstructive pulmonary disease, unspecified; D63.1 Anemia in chronic kidney disease; E03.9 Hypothyroidism, unspecified; F17.210 Nicotine dependence, cigarettes, uncomplicated; H91.90 Unspecified hearing loss, unspecified ear; K21.9 Gastro-esophageal reflux disease without esophagitis; E83.89 Other disorders of mineral metabolism; M15.9 Polyosteoarthritis, unspecified; Z79.890 Hormone replacement therapy; Z79.899 Other long term (current) drug therapy; Z90.12 Acquired absence of left breast and nipple; Z90.710 Acquired absence of both cervix and uterus; Z99.2 Dependence on renal dialysis; Z85.3 Personal history of malignant neoplasm of breast; Z92.21 Personal history of antineoplastic chemotherapy; Z98.51 Tubal ligation status; Z91.15 Patient's noncompliance with renal dialysis; Z82.49 Family history of ischemic heart disease and other diseases of the circulatory system; Z80.41 Family history of malignant neoplasm of ovary; Z80.8 Family history of malignant neoplasm of other organs or systems; Z84.1 Family history of disorders of kidney and ureter
CPT/HCPCS: 36415; 80053; 83735; 85025; 85610; 85730; 86850; 86900; 86901; 86920; 90935; 93005; 94640; 99285

== ENCOUNTER 2019-02-07 21:42 | Emergency (ER) | payer MEDICARE, OTHER ==
[2019-02-07] MEDS ORDERED: diphenhydrAMINE 50 MG/ML 1 ML VIAL IVP ONE (22:12)
[2019-02-07] MEDS ORDERED: ACETAMINOPHEN TAB 325 MG TAB PO ONE (22:12)
--- NOTE | 2019-02-07 22:48 | XR ---
EXAM: XR Chest, 1 View CLINICAL HISTORY: ITS.REASON XR Reason: Port placement TECHNIQUE: Frontal view of the chest. COMPARISON: 10/07/18 FINDINGS: Lungs: No evidence for acute pulmonary consolidation. Pleural space: Blunting of the right costophrenic sulcus which could be related to a small effusion or pleural scarring, similar to the previous exam. No visualized pneumothorax. Heart: Unremarkable. No cardiomegaly. Bones/joints: Stable appearance to the osseous structures. Vasculature: There is a slightly uncoiled configuration to the aorta with atherosclerotic plaque, similar to the previous exam. Likely vascular stents are noted within the upper extremities. Tubes, lines and devices: Port-A-Cath noted overlying the right chest. The catheter tip overlies the right atrium. IMPRESSION: Port-A-Cath is identified with tip extending to the right atrium. Blunting of the right costophrenic sulcus may be related to chronic pleural scarring or small effusion.
[2019-02-08 00:01] LABS: Albumin 2.8 g/dL (3.5-5.0); Calcium 7.6 mg/dL (8.4-10.2); Phosphorus 5.5 mg/dL (2.5-4.5); Total Bilirubin 0.2 mg/dL (0.2-1.3); Total Protein 5.1 g/dL (6.3-8.2)
[2019-02-08 00:02] LABS: Basophils % (A) 1 %; Eosinophils # (A) 0.1 k/uL (0-0.7); Eosinophils % (A) 3 %; Hypochromasia Slight; Lymphocytes # (A) 0.3 k/uL (1.0-4.8); Lymphocytes % (A) 7 %; MCH 29.3 pg (25.0-35.0); MCHC 32.1 g/dL (31.0-37.0); MCV 91.2 fL (80.0-100.0); Mean Platelet Volume 7.9; Monocytes # (A) 0.3 k/uL (0-1.0); Monocytes % (A) 8 %; Neutrophils # (A) 3.6 k/uL (1.3-7.7); Neutrophils % (A) 80 %; Platelet Count 238 k/uL (150-450); RBC 1.58 m/uL (3.80-5.40); RDW 15.9 % (11.5-15.5); WBC 4.5 k/uL (3.8-10.6)
[2019-02-08 00:04] LABS: HGB 4.6 gm/dL (11.4-16.0)
[2019-02-08 00:06] LABS: HCT 14.4 % (34.0-46.0)
--- NOTE | 2019-02-08 03:35 | ED ---
Weakness HPI - General Chief complaint: Weakness Stated complaint: Weakness Time Seen by Provider: 02/07/19 22:06 Source: patient Mode of arrival: wheelchair Limitations: no limitations - History of Present Illness Initial comments: Yolande is a 69yo female with extensive past medical history significant for end-stage renal disease chronic anemia requiring recurrent blood transfusions, patient presents to the ED today for evaluation of fatigue and lightheadedness. Patient reports that she is concerned that her blood is low again and that she needs a transfusion. Chest pain or palpitations. He has been referred to specialist at [facility] she will follow-up with next week for further evaluation of her chronic anemia. Patient reports she usually gets transfusion every 1-2 weeks due to her anemia. - Related Data Home Medications Medication Instructions Recorded Confirmed Albuterol Nebulized [Ventolin 2.5 mg INHALATION RT-BID PRN 01/26/15 02/07/19 Nebulized] Labetalol HCl 200 mg PO TID PRN 01/26/15 02/07/19 Levothyroxine Sodium [Synthroid] 100 mcg PO DAILY 09/23/18 02/07/19 Calcitriol [Rocaltrol] 0.5 mcg PO DAILY 01/30/19 02/07/19 Calcium Acetate [PhosLo] 667 mg PO TID 01/30/19 02/07/19 traMADol HCL [Ultram] 50 mg PO Q6H PRN 01/30/19 02/07/19 Allergies Allergy/AdvReac Type Severity Reaction Status Date / Time No Known Allergies Allergy Verified 02/07/19 22:20 Review of Systems ROS Statement: Those systems with pertinent positive or pertinent negative responses have been documented in the HPI. ROS Other: All systems not noted in ROS Statement are negative. Past Medical History Past Medical History: Asthma, Cancer, COPD, Dialysis, GERD/Reflux, GI Bleed, Hearing Disorder / Deafness, Hypertension, Osteoarthritis (OA), Renal Disease, Thyroid Disorder Additional Past Medical History / Comment(s): HEMODIALYSIS MON,WED, FRI-, anemia- receives blood tranfusions weekly, past upper and lower GI bleeds L breast cancer with L mastectomy and chemotherapy, arthritis in multiple joints, hypothyroid, [place] bilaterally History of Any Multi-Drug Resistant Organisms: None Reported Past Surgical History: Breast Surgery, Hysterectomy, Tubal Ligation Additional Past Surgical History / Comment(s): L BREAST BIOPSY, LEFT MASTECTOMY , DIALYSIS GRAFT- UPPER LEFT ARM, PARTIAL THYROIDECTOMY,COLONOSCOPIES, EGDS, D&C, L SHOULDER CYST REMOVED. Past Anesthesia/Blood Transfusion Reactions: No Reported Reaction, Motion Sickness Additional Past Anesthesia/Blood Transfusion Reaction / Comment(s): Pt has rec eived numerous transfusions without reaction. Past Psychological History: No Psychological Hx Reported Smoking Status: Current every day smoker Past Alcohol Use History: None Reported Past Drug Use History: None Reported - Past Family History Daughter(s) Family Medical History: Deep Vein Thrombosis (DVT) Mother Family Medical History: Cancer Additional Family Medical History / Comment(s): OVARIAN Brother(s) Family Medical History: Cancer Additional Family Medical History / Comment(s): Brother had "blood" cancer. General Exam - General Exam Comments Initial Comments: Physical Exam GENERAL: Chronically ill-appearing No acute distress HENT: Normocephalic, Atraumatic. EYES: PERRL, EOMI Conjunctival pallor PULMONARY: Unlabored respirations. No audible rales rhonchi or wheezing was noted. CARDIOVASCULAR: There is a regular rate and rhythm without any murmurs gallops or rubs. Dialysis access and left upper extremity Port present in right upper chest ABDOMEN: Soft and nontender with normal bowel sounds. SKIN: Skin is clear with no lesions or rashes and otherwise unremarkable. : Deferred NEUROLOGIC: Patient is alert and oriented x3. Moving all extremities spontaneously MUSCULOSKELETAL: Normal extremities with adequate strength and full range of motion. No lower extremity swelling or edema. No calf tenderness. PSYCHIATRIC: Normal psychiatric evaluation Limitations: no limitations Course Vital Signs 02/07/19 02/08/19 02/08/19 21:47 00:45 01:35 Temperature 99.0 F 98.6 F 98.4 F Pulse Rate 82 76 75 Respiratory 18 14 13 Rate Blood Pressure 114/69 112/63 124/64 O2 Sat by Pulse 100 97 99 Oximetry 02/08/19 02/08/19 02/08/19 01:45 02:15 03:45 Temperature 98.4 F 98.6 F 98.1 F Pulse Rate 75 77 77 Respiratory 14 14 14 Rate Blood Pressure 108/67 128/66 130/75 O2 Sat by Pulse 100 99 100 Oximetry 02/08/19 02/08/19 02/08/19 04:09 04:19 04:49 Temperature 98.1 F 98.2 F 98.1 F Pulse Rate 73 72 71 Respiratory 13 14 14 Rate Blood Pressure 135/80 125/84 128/79 O2 Sat by Pulse 100 99 100 Oximetry Medical Decision Making - Medical Decision Making The patient was seen and evaluated, history is obtained from the patient and review of medical record Labs were obtained Hemoglobin is 4.6 today Reviewing the chart it appears as though the patient's hemoglobin usually drops to the mid fours she is transfusion she hangs out with a hemoglobin in the sevens and then dropped again to the force. This is very much baseline for the patient. She will receive 2 units of blood here in the emergency department. Patient care was discussed with her primary care physician Dr. Kwong who is very familiar with the patient, he agrees with the plan for transfusion of 2 units and discharged home. - Lab Data Result diagrams: 02/07/19 23:40 02/07/19 23:40 Lab Results 02/07/19 02/07/19 02/07/19 Range/Units 23:40 23:40 23:40 WBC 4.5 (3.8-10.6) k/uL RBC 1.58 L (3.80-5.40) m/uL Hgb 4.6 L* D (11.4-16.0) gm/dL Hct 14.4 L* (34.0-46.0) % MCV 91.2 (80.0-100.0) fL MCH 29.3 (25.0-35.0) pg MCHC 32.1 (31.0-37.0) g/dL RDW 15.9 H (11.5-15.5) % Plt Count 238 (150-450) k/uL Neutrophils % 80 % Lymphocytes % 7 % Monocytes % 8 % Eosinophils % 3 % Basophils % 1 % Neutrophils # 3.6 (1.3-7.7) k/uL Lymphocytes # 0.3 L (1.0-4.8) k/uL Monocytes # 0.3 (0-1.0) k/uL Eosinophils # 0.1 (0-0.7) k/uL Basophils # 0.0 (0-0.2) k/uL Hypochromasia Slight Sodium 138 (137-145) mmol/L Potassium 5.0 (3.5-5.1) mmol/L Chloride 102 (98-107) mmol/L Carbon Dioxide 27 (22-30) mmol/L Anion Gap 9 mmol/L BUN 78 H (7-17) mg/dL Creatinine 7.67 H* (0.52-1.04) mg/dL Est GFR (CKD-EPI)AfAm 6 (>60 ml/min/1.73 sqM) Est GFR (CKD-EPI)NonAf 5 (>60 ml/min/1.73 sqM) Glucose 84 (74-99) mg/dL Calcium 7.6 L (8.4-10.2) mg/dL Phosphorus 5.5 H (2.5-4.5) mg/dL Total Bilirubin 0.2 (0.2-1.3) mg/dL AST 21 (14-36) U/L ALT 14 (9-52) U/L Alkaline Phosphatase 38 (38-126) U/L Total Protein 5.1 L (6.3-8.2) g/dL Albumin 2.8 L (3.5-5.0) g/dL Blood Type O Positive Blood Type Recheck No Antibody Screen NEGATIVE Crossmatch See Detail Spec Expiration Date 02/10/2019 234 Disposition Clinical Impression: Anemia, Dialysis patient, noncompliant Disposition: ADMITTED IP TO THIS [facility] Condition: Stable Instructions (If sedation given, give patient instructions): Anemia (ED) Is patient prescribed a controlled substance at d/c from ED?: No Referrals: Jacob Littlejohn Jr, [Primary Care Provider] - 1-2 days
[2019-02-08 04:21] VITALS: RESP 14
[2019-02-08 04:57] VITALS: PULSE 71
[2019-02-08 06:55] VITALS: BP 144/62; TEMP 98
== END 2019-02-08 06:25 | disposition home or self-care (01) ==
LOC: EC 21:42
DX: D64.9 Anemia, unspecified (principal); Z91.15 Patient's noncompliance with renal dialysis; J44.9 Chronic obstructive pulmonary disease, unspecified; H91.93 Unspecified hearing loss, bilateral; E03.9 Hypothyroidism, unspecified; F17.200 Nicotine dependence, unspecified, uncomplicated; Z79.890 Hormone replacement therapy; Z79.899 Other long term (current) drug therapy; Z85.3 Personal history of malignant neoplasm of breast; Z92.21 Personal history of antineoplastic chemotherapy; Z90.12 Acquired absence of left breast and nipple; Z99.2 Dependence on renal dialysis; Z80.8 Family history of malignant neoplasm of other organs or systems
CPT/HCPCS: 99285 ×2; 96374 ×2; 36415; 86900; 86901; 80053; 84100; 85025; 86850; 86920; 71045; P9016; J1200

== ENCOUNTER 2019-02-18 18:16 | Observation (INO) | payer MEDICARE, OTHER ==
[2019-02-18 19:17] LABS: Potassium 3.2 mmol/L (3.5-5.1)
[2019-02-18 19:18] LABS: Anisocytosis Slight; Basophils % (A) 0 %; Eosinophils # (A) 0.2 k/uL (0-0.7); Eosinophils % (A) 4 %; Lymphocytes # (A) 0.3 k/uL (1.0-4.8); Lymphocytes % (A) 7 %; MCH 31.7 pg (25.0-35.0); MCHC 34.3 g/dL (31.0-37.0); MCV 92.3 fL (80.0-100.0); Mean Platelet Volume 6.7; Monocytes # (A) 0.2 k/uL (0-1.0); Monocytes % (A) 5 %; Neutrophils # (A) 3.8 k/uL (1.3-7.7); Neutrophils % (A) 83 %; Platelet Count 258 k/uL (150-450); RDW 16.3 % (11.5-15.5); WBC 4.5 k/uL (3.8-10.6)
[2019-02-18 19:25] LABS: HCT 16.6 % (34.0-46.0); HGB 5.7 gm/dL (11.4-16.0)
[2019-02-18] MEDS ORDERED: PANTOPRAZOLE 40 MG/10 ML VIAL IVP STA (19:34)
--- NOTE | 2019-02-18 19:47 | ED ---
General Adult HPI - General Chief complaint: Recheck/Abnormal Lab/Rx Stated complaint: Low hemoglobin Time Seen by Provider: 02/18/19 18:30 Source: patient Mode of arrival: ambulatory Limitations: no limitations - History of Present Illness Initial comments: 69-year-old female with a history of ESRD on HD Saturday, Saturday, Saturday presenting from dialysis with a chief complaint of anemia. Patient states that her hemoglobin was found to be 5. States she normally has black stool secondary to taking iron, but denies any recent known GI bleeding or symptoms consistent with symptomatic anemia. She had an EGD one week ago that she said was negative. States this was done at [facility] and the GI doctor told her he would like to do a colonoscopy, however she is not scheduled that yet. She admits to multiple blood transfusions in the past but states she is unsure of the etiology of her anemia other than her ESRD. She currently is asymptomatic. She did finish her dialysis today. - Related Data Home Medications Medication Instructions Recorded Confirmed Albuterol Nebulized [Ventolin 2.5 mg INHALATION RT-BID PRN 01/26/15 02/18/19 Nebulized] Labetalol HCl 200 mg PO TID PRN 01/26/15 02/18/19 Levothyroxine Sodium [Synthroid] 100 mcg PO DAILY 09/23/18 02/18/19 Calcitriol [Rocaltrol] 0.5 mcg PO DAILY 01/30/19 02/18/19 Calcium Acetate [PhosLo] 667 mg PO TID 01/30/19 02/18/19 traMADol HCL [Ultram] 50 mg PO Q6H PRN 01/30/19 02/18/19 Allergies Allergy/AdvReac Type Severity Reaction Status Date / Time No Known Allergies Allergy Verified 02/18/19 18:44 Review of Systems ROS Statement: Those systems with pertinent positive or pertinent negative responses have been documented in the HPI. Review of Systems Constitutional: Denies fever, chills Eyes: Denies change in vision, Denies pain Ears, nose, mouth, throat: Denies headaches, Denies sore throat Cardiovascular: Denies chest pain. Denies palpitations Respiratory: Denies shortness of breath, Denies cough Gastrointestinal: Denies abdominal pain. Denies nausea, vomiting, diarrhea. Genitourinary: Denies hematuria, Denies infections Musculoskeletal: Denies pain, Denies swelling Integumentary: Denies rash Neurological: Denies headache, focal weakness, focal numbness Psychiatric: Denies anxiety, Denies depression Hematologic/Lymphatic: Denies easy bleeding or bruising ROS Other: All systems not noted in ROS Statement are negative. Past Medical History Past Medical History: Asthma, Cancer, COPD, Dialysis, GERD/Reflux, GI Bleed, Hearing Disorder / Deafness, Hypertension, Osteoarthritis (OA), Renal Disease, Thyroid Disorder Additional Past Medical History / Comment(s): HEMODIALYSIS MON,WED, FRI-, anemia- receives blood tranfusions weekly, past upper and lower GI bleeds L breast cancer with L mastectomy and chemotherapy, arthritis in multiple joints, hypothyroid, [place] bilaterally History of Any Multi-Drug Resistant Organisms: None Reported Past Surgical History: Breast Surgery, Hysterectomy, Tubal Ligation Additional Past Surgical History / Comment(s): L BREAST BIOPSY, LEFT MASTECTOMY , DIALYSIS GRAFT- UPPER LEFT ARM, PARTIAL THYROIDECTOMY,COLONOSCOPIES, EGDS, D&C, L SHOULDER CYST REMOVED. Past Anesthesia/Blood Transfusion Reactions: No Reported Reaction, Motion Sickness Additional Past Anesthesia/Blood Transfusion Reaction / Comment(s): Pt has received numerous transfusions without reaction. Past Psychological History: No Psychological Hx Reported Smoking Status: Current every day smoker Past Alcohol Use History: None Reported Past Drug Use History: None Reported - Past Family History Daughter(s) Family Medical History: Deep Vein Thrombosis (DVT) Mother Family Medical History: Cancer Additional Family Medical History / Comment(s): OVARIAN Brother(s) Family Medical History: Cancer Additional Family Medical History / Comment(s): Brother had "blood" cancer. General Exam - General Exam Comments Initial Comments: General: Awake, alert, No acute Distress HENT: Normocephalic. Atraumatic Eyes: PERRL. EOMI. No injected conjunctiva Neck: Full ROM Chest/Lungs: Clear to auscultation bilaterally. No wheezing, rhonchi, or rales Cardiac: Regular rate, rhythm. No murmurs or rubs. Palpable thrill in left AV fistula. Abdomen/GI: Soft, nontender, nondistended. No rebound, guarding, or rigidity. Musculoskeletal: Full ROM Skin: Warm, dry, intact Neurologic: A/Ox3, no weakness, no sensory deficit, no abnormal gait, no coordination deficit Limitations: no limitations Course Vital Signs 02/18/19 02/18/19 02/18/19 18:25 20:20 20:36 Temperature 98.0 F 98.7 F 98.6 F Pulse Rate 95 86 82 Respiratory 18 18 18 Rate Blood Pressure 122/56 100/56 111/49 O2 Sat by Pulse 98 97 100 Oximetry Medical Decision Making - Medical Decision Making 69-year-old female presenting with chief complaint of a hemoglobin of 5. Initial exam the patient is awake, alert, no acute distress. VSS. Patient is denying any recent bleeding. No abdominal pain. Lobe and he responded be 5.7. I discussed this with the patient who was agreeable to a blood transfusion. She refused a rectal exam FOBT testing. I spoke with Dr. Littlejohn who knows the patient well. He is agreeable to observation for transfusion and monitoring of respiratory status. - Lab Data Result diagrams: 02/18/19 18:50 02/18/19 18:50 Lab Results 02/18/19 02/18/19 02/18/19 Range/Units 18:50 18:50 18:50 WBC 4.5 (3.8-10.6) k/uL RBC 1.80 L (3.80-5.40) m/uL Hgb 5.7 L* (11.4-16.0) gm/dL Hct 16.6 L* (34.0-46.0) % MCV 92.3 (80.0-100.0) fL MCH 31.7 (25.0-35.0) pg MCHC 34.3 (31.0-37.0) g/dL RDW 16.3 H (11.5-15.5) % Plt Count 258 (150-450) k/uL Neutrophils % 83 % Lymphocytes % 7 % Monocytes % 5 % Eosinophils % 4 % Basophils % 0 % Neutrophils # 3.8 (1.3-7.7) k/uL Lymphocytes # 0.3 L (1.0-4.8) k/uL Monocytes # 0.2 (0-1.0) k/uL Eosinophils # 0.2 (0-0.7) k/uL Basophils # 0.0 (0-0.2) k/uL Anisocytosis Slight Sodium 136 L (137-145) mmol/L Potassium 3.2 L (3.5-5.1) mmol/L Chloride 98 (98-107) mmol/L Carbon Dioxide 34 H (22-30) mmol/L Anion Gap 4 mmol/L BUN 24 H (7-17) mg/dL Creatinine 3.27 H (0.52-1.04) mg/dL Est GFR (CKD-EPI)AfAm 16 (>60 ml/min/1.73 sqM) Est GFR (CKD-EPI)NonAf 14 (>60 ml/min/1.73 sqM) Glucose 90 (74-99) mg/dL Calcium 8.0 L (8.4-10.2) mg/dL Blood Type O Positive Blood Type Recheck No Antibody Screen NEGATIVE Crossmatch See Detail Spec Expiration Date 02/21/2019 2352 Disposition Clinical Impression: Anemia, ESRD (end stage renal disease), Low hemoglobin Disposition: ADMITTED IP TO THIS [facility] Referrals: Jacob Littlejohn Jr, [Primary Care Provider] - 1-2 days Decision to Admit Reason: Admit from EC Decision Date: 02/18/19 Decision Time: 19:53
[2019-02-18] MEDS ORDERED: NALOXONE 0.4 MG/ML 1 ML VIAL IV PRN (19:54)
[2019-02-18] MEDS ORDERED: traMADol 50 MG TAB PO PRN (20:41)
[2019-02-18] MEDS ORDERED: LABETALOL 200 MG TAB PO PRN (20:41)
[2019-02-18] MEDS ORDERED: ALBUTEROL NEBULIZED 2.5 MG/3 ML INHALATION PRN (20:41)
[2019-02-18] MEDS ORDERED: CALCIUM ACETATE 667 MG CAP PO SCH (22:00)
[2019-02-18 23:54] VITALS: BMI 27.3
[2019-02-19 03:59] VITALS: BP 135/59; PULSE 77; TEMP 98.3
[2019-02-19 04:01] VITALS: RESP 16
[2019-02-19 05:45] LABS: Anisocytosis Slight; Basophils % (A) 1 %; Eosinophils # (A) 0.2 k/uL (0-0.7); Eosinophils % (A) 4 %; Lymphocytes # (A) 0.2 k/uL (1.0-4.8); Lymphocytes % (A) 5 %; MCH 30.1 pg (25.0-35.0); MCV 91.5 fL (80.0-100.0); Mean Platelet Volume 6.9; Monocytes # (A) 0.2 k/uL (0-1.0); Monocytes % (A) 5 %; Neutrophils # (A) 3.9 k/uL (1.3-7.7); Neutrophils % (A) 85 %; Platelet Count 226 k/uL (150-450); RBC 2.63 m/uL (3.80-5.40); RDW 16.2 % (11.5-15.5); WBC 4.6 k/uL (3.8-10.6)
[2019-02-19 05:50] LABS: HGB 7.9 gm/dL (11.4-16.0)
[2019-02-19] MEDS ORDERED: LEVOTHYROXINE 100 MCG TAB PO SCH (06:30)
[2019-02-19] MEDS ORDERED: CALCITRIOL 0.25 MCG CAP PO SCH (09:00)
--- NOTE | 2019-02-19 18:39 | P.DS ---
Providers Date of admission: 02/18/19 19:54 Expected date of discharge: 02/19/19 Attending physician: Jacob Littlejohn Primary care physician: [facility] Course: Patient left AMA, prior to being seen. Patient Condition at Discharge: Undetermined Plan - Discharge Summary Discharge Rx Participant: No New Discharge Prescriptions: No Action Albuterol Nebulized [Ventolin Nebulized] 2.5 mg INHALATION RT-BID PRN PRN Reason: Shortness Of Breath Labetalol HCl 200 mg PO TID PRN PRN Reason: elevated blood pressure Levothyroxine Sodium [Synthroid] 100 mcg PO DAILY Calcium Acetate [PhosLo] 667 mg PO TID Calcitriol [Rocaltrol] 0.5 mcg PO DAILY traMADol HCL [Ultram] 50 mg PO Q6H PRN PRN Reason: Pain Discharge Medication List Albuterol Nebulized [Ventolin Nebulized] 2.5 mg INHALATION RT-BID PRN 01/26/15 [History] Labetalol HCl 200 mg PO TID PRN 01/26/15 [History] Levothyroxine Sodium [Synthroid] 100 mcg PO DAILY 09/23/18 [History] Calcitriol [Rocaltrol] 0.5 mcg PO DAILY 01/30/19 [History] Calcium Acetate [PhosLo] 667 mg PO TID 01/30/19 [History] traMADol HCL [Ultram] 50 mg PO Q6H PRN 01/30/19 [History] Follow up Appointment(s)/Referral(s): Jacob Littlejohn Jr, [Primary Care Provider] - 1-2 days Discharge Disposition: Left Against Medical Advice
== END 2019-02-19 05:39 | disposition left against medical advice (07) ==
LOC: EC 18:16 → 3SCARD 19:54
PROVIDERS: ADMIT Family Medicine; ATTEND Family Medicine
DX: D64.9 Anemia, unspecified (principal); I12.0 Hypertensive chronic kidney disease with stage 5 chronic kidney disease or end stage renal disease; N18.6 End stage renal disease; Z99.2 Dependence on renal dialysis; Z53.21 Procedure and treatment not carried out due to patient leaving prior to being seen by health care provider; J44.9 Chronic obstructive pulmonary disease, unspecified; M19.90 Unspecified osteoarthritis, unspecified site; E89.0 Postprocedural hypothyroidism; H91.93 Unspecified hearing loss, bilateral; F17.200 Nicotine dependence, unspecified, uncomplicated; Z87.19 Personal history of other diseases of the digestive system; Z85.3 Personal history of malignant neoplasm of breast; Z92.21 Personal history of antineoplastic chemotherapy; Z79.890 Hormone replacement therapy; Z79.899 Other long term (current) drug therapy; Z79.891 Long term (current) use of opiate analgesic; Z83.2 Family history of diseases of the blood and blood-forming organs and certain disorders involving the immune mechanism; Z80.41 Family history of malignant neoplasm of ovary; Z80.6 Family history of leukemia; Z91.19 Patient's noncompliance with other medical treatment and regimen
CPT/HCPCS: 36430 ×2; 96374; 99284; 36415; 86900; 86901; 80048; 85025 ×2; 86850; 86920; G0378 ×2; P9016 ×2; C9113

== ENCOUNTER 2021-04-13 15:42 | Inpatient (IN) | payer MEDICARE, OTHER ==
[2021-04-13 16:25] LABS: Anisocytosis Slight; Basophils % (A) 1 %; Eosinophils # (A) 0.3 k/uL (0-0.7); Eosinophils % (A) 6 %; Hypochromasia Slight; Lymphocytes # (A) 0.5 k/uL (1.0-4.8); Lymphocytes % (A) 7 %; MCH 30.3 pg (25.0-35.0); MCHC 33.1 g/dL (31.0-37.0); MCV 91.8 fL (80.0-100.0); Mean Platelet Volume 7.2; Monocytes # (A) 0.4 k/uL (0-1.0); Monocytes % (A) 7 %; Neutrophils # (A) 4.8 k/uL (1.3-7.7); Neutrophils % (A) 76 %; Platelet Count 410 k/uL (150-450); Poikilocytosis Slight; RBC 1.93 m/uL (3.80-5.40); RDW 17.2 % (11.5-15.5); WBC 6.2 k/uL (3.8-10.6)
--- NOTE | 2021-04-13 16:25 | ED ---
General Adult HPI - General Chief complaint: Recheck/Abnormal Lab/Rx Stated complaint: Low Hemoglobin Time Seen by Provider: 04/13/21 15:51 Source: patient Mode of arrival: ambulatory Limitations: no limitations - History of Present Illness Initial comments: Dictation was produced using Isabella Oliver dictation software. please excuse any grammatical, word or spelling errors. Chief Complaint: 71-year-old female past medical history of end-stage renal disease presents to the emergency department for low hemoglobin. History of Present Illness: This 71-year-old female she has chronic history of anemia. She gets dialysis regularly. She had her blood drawn yesterday at dialysis. She was called today and told that she should come to the emergency department for low hemoglobin. Patient was told that her hemoglobin was 5. She has chronic history of anemia and has had hemoglobins as low as 3 she reports. She denies any black stools. No abdominal pain. She denies any symptoms currently. The ROS documented in this emergency department record has been reviewed and confirmed by me. Those systems with pertinent positive or negative responses have been documented in the HPI. All other systems are other negative and/or noncontributory. PHYSICAL EXAM: General Impression: Alert and oriented x3, not in acute distress HEENT: Normocephalic atraumatic, extra-ocular movements intact, pupils equal and reactive to light bilaterally, mucous membranes moist. Cardiovascular: Heart regular rate and rhythm Chest: Able to complete full sentences, no retractions, no tachypnea Abdomen: abdomen soft, non-tender, non-distended, no organomegaly Musculoskeletal: Pulses present and equal in all extremities, no peripheral edema Motor: no focal deficits noted Neurological: CN II-XII grossly intact, no focal motor or sensory deficits noted Skin: Intact with no visualized rashes Psych: Normal affect and mood ED course:-year-old female who is well-appearing. She is here today for hemoglobin of 5.0. Patient gets dialysis weekly. She had her labs checked at dialysis. Patient denies any significant symptoms. Her vital signs are within acceptable limits. Does not appear to be in acute distress. She denies any symptoms of gastrointestinal bleed. Stool occult blood is positive Laboratory evaluation shows hemoglobin 5.9 with hematocrit of 17.7 RDW of 17.2. Coag panel is negative. Metabolic panel was within acceptable limits. Still "blood is positive. Patient transfuse 1 unit of blood. We do not have GI coverage. I did discuss with general surgeon Dr. Keith Hugo who is agreeable for patient to be admitted to our hospital for consultation per case discussed with Dr. Kwong is what set patient scares the hospitalist. Patient is agreeable to admission. Patient given 40 mg of IV Protonix. EKG interpretation: Ventricular rate 91, normal sinus rhythm,. Interval 154, QRS 92, QTC 479. No NV prolongation, no QTC prolongation, no ST or T-wave changes noted. EKG compared to 01/30/2019 showing no changes. Overall, this EKG is unremarkable - Related Data Home Medications Medication Instructions Recorded Confirmed Labetalol HCl 200 mg PO DAILY 01/26/15 04/13/21 Acetaminophen Tab [Tylenol Tab] 500 mg PO Q6HR PRN 04/13/21 04/13/21 Levothyroxine Sodium [Synthroid] 200 mcg PO DAILY 04/13/21 04/13/21 amLODIPine [Norvasc] 10 mg PO DAILY 04/13/21 04/13/21 Allergies Allergy/AdvReac Type Severity Reaction Status Date / Time No Known Allergies Allergy Verified 04/13/21 17:26 Review of Systems ROS Statement: Those systems with pertinent positive or pertinent negative responses have been documented in the HPI. ROS Other: All systems not noted in ROS Statement are negative. Past Medical History Past Medical History: Asthma, Cancer, COPD, Dialysis, GERD/Reflux, GI Bleed, Hearing Disorder / Deafness, Hypertension, Osteoarthritis (OA), Renal Disease, Thyroid Disorder Additional Past Medical History / Comment(s): HEMODIALYSIS MON,SAT, SAT-, anemia- receives blood tranfusions weekly, past upper and lower GI bleeds L breast cancer with L mastectomy and chemotherapy, arthritis in multiple joints, hypothyroid, [place] bilaterally History of Any Multi-Drug Resistant Organisms: None Reported Past Surgical History: Breast Surgery, Hysterectomy, Tubal Ligation Additional Past Surgical History / Comment(s): L BREAST BIOPSY, LEFT MASTECTOMY , DIALYSIS GRAFT- UPPER LEFT ARM, PARTIAL THYROIDECTOMY,COLONOSCOPIES, EGDS, D&C, L SHOULDER CYST REMOVED. Past Anesthesia/Blood Transfusion Reactions: No Reported Reaction, Motion Sickness Additional Past Anesthesia/Blood Transfusion Reaction / Comment(s): Pt has received numerous transfusions without reaction. Past Psychological History: No Psychological Hx Reported Smoking Status: Never smoker Past Alcohol Use History: None Reported Past Drug Use History: None Reported - Past Family History Daughter(s) Family Medical History: Deep Vein Thrombosis (DVT) Mother Family Medical History: Cancer Additional Family Medical History / Comment(s): OVARIAN Brother(s) Family Medical History: Cancer Additional Family Medical History / Comment(s): Brother had "blood" cancer. General Exam Limitations: no limitations Course Vital Signs 04/13/21 04/13/21 04/13/21 15:44 16:47 17:40 Temperature 97.9 F 98.7 F Pulse Rate 94 90 87 Respiratory 16 18 18 Rate Blood Pressure 155/71 163/78 157/81 O2 Sat by Pulse 94 L 100 95 Oximetry Medical Decision Making - Lab Data Result diagrams: 04/13/21 16:13 04/13/21 16:13 Lab Results 04/13/21 04/13/21 04/13/21 Range/Units 16:00 16:13 16:13 WBC 6.2 (3.8-10.6) k/uL RBC 1.93 L (3.80-5.40) m/uL Hgb 5.9 L* (11.4-16.0) gm/dL Hct 17.7 L* (34.0-46.0) % MCV 91.8 (80.0-100.0) fL MCH 30.3 (25.0-35.0) pg MCHC 33.1 (31.0-37.0) g/dL RDW 17.2 H (11.5-15.5) % Plt Count 410 (150-450) k/uL MPV 7.2 Neutrophils % 76 % Lymphocytes % 7 % Monocytes % 7 % Eosinophils % 6 % Basophils % 1 % Neutrophils # 4.8 (1.3-7.7) k/uL Lymphocytes # 0.5 L (1.0-4.8) k/uL Monocytes # 0.4 (0-1.0) k/uL Eosinophils # 0.3 (0-0.7) k/uL Basophils # 0.0 (0-0.2) k/uL Hypochromasia Slight Poikilocytosis Slight Anisocytosis Slight PT (9.0-12.0) sec INR (<1.2) APTT (22.0-30.0) sec Sodium (137-145) mmol/L Potassium (3.5-5.1) mmol/L Chloride (98-107) mmol/L Carbon Dioxide (22-30) mmol/L Anion Gap mmol/L BUN (7-17) mg/dL Creatinine (0.52-1.04) mg/dL Est GFR (CKD-EPI)AfAm (>60 ml/min/1.73 sqM) Est GFR (CKD-EPI)NonAf (>60 ml/min/1.73 sqM) Glucose (74-99) mg/dL Plasma Lactic Acid Chin (0.7-2.0) mmol/L Calcium (8.4-10.2) mg/dL Magnesium (1.6-2.3) mg/dL Stool Occult Blood Positive H (Negative) Blood Type O Positive Blood Type Recheck O Pos Bld Type Recheck Status No Antibody Screen NEGATIVE Crossmatch See Detail Spec Expiration Date 04/16/2021 - 229904/13/21 04/13/21 04/13/21 Range/Units 16:13 16:13 16:13 WBC (3.8-10.6) k/uL RBC (3.80-5.40) m/uL Hgb (11.4-16.0) gm/dL Hct (34.0-46.0) % MCV (80.0-100.0) fL MCH (25.0-35.0) pg MCHC (31.0-37.0) g/dL RDW (11.5-15.5) % Plt Count (150-450) k/uL MPV Neutrophils % % Lymphocytes % % Monocytes % % Eosinophils % % Basophils % % Neutrophils # (1.3-7.7) k/uL Lymphocytes # (1.0-4.8) k/uL Monocytes # (0-1.0) k/uL Eosinophils # (0-0.7) k/uL Basophils # (0-0.2) k/uL Hypochromasia Poikilocytosis Anisocytosis PT 10.6 (9.0-12.0) sec INR 1.0 (<1.2) APTT 26.3 (22.0-30.0) sec Sodium 138 (137-145) mmol/L Potassium 4.7 (3.5-5.1) mmol/L Chloride 99 (98-107) mmol/L Carbon Dioxide 28 (22-30) mmol/L Anion Gap 11 mmol/L BUN 64 H (7-17) mg/dL Creatinine 6.92 H (0.52-1.04) mg/dL Est GFR (CKD-EPI)AfAm 6 (>60 ml/min/1.73 sqM) Est GFR (CKD-EPI)NonAf 5 (>60 ml/min/1.73 sqM) Glucose 111 H (74-99) mg/dL Plasma Lactic Acid Chin 0.8 (0.7-2.0) mmol/L Calcium 7.6 L (8.4-10.2) mg/dL Magnesium 2.0 (1.6-2.3) mg/dL Stool Occult Blood (Negative) Blood Type Blood Type Recheck Bld Type Recheck Status Antibody Screen Crossmatch Spec Expiration Date Disposition Clinical Impression: Anemia, GI bleed Disposition: ADMITTED IP TO THIS [facility] Condition: Fair Referrals: Jacob Littlejohn Jr, [Primary Care Provider] - 1-2 days
[2021-04-13] MEDS ORDERED: PANTOPRAZOLE 40 MG/10 ML VIAL IVP STA (16:27)
[2021-04-13 16:28] LABS: HCT 17.7 % (34.0-46.0); HGB 5.9 gm/dL (11.4-16.0)
[2021-04-13 16:29] LABS: Calcium 7.6 mg/dL (8.4-10.2); Partial Thromboplastin Time 26.3 sec (22.0-30.0); Potassium 4.7 mmol/L (3.5-5.1); Prothrombin Time 10.6 sec (9.0-12.0)
[2021-04-13 16:57] VITALS: RESP 18
[2021-04-13] MEDS ORDERED: NALOXONE 0.4 MG/ML 1 ML VIAL IV PRN (17:42)
[2021-04-13] MEDS ORDERED: DESMOPRESSIN ACETATE 4 MCG/ML VIAL (MDV) IV STA (17:43)
[2021-04-13] MEDS ORDERED: SODIUM CHLORIDE 0.9% 1,000 ML IV SCH (17:45)
[2021-04-13] MEDS ORDERED: ACETAMINOPHEN TAB 325 MG TAB PO STA (20:50)
[2021-04-13] MEDS ORDERED: DESMOPRESSIN ACETATE 4 MCG/ML VIAL (MDV) IV ONE (21:15)
[2021-04-13 21:30] VITALS: BP 174/92; PULSE 84; TEMP 98.2
== END 2021-04-13 22:37 | disposition left against medical advice (07) | DRG 377 ==
LOC: EC 15:42 → 4SSUR 17:43
PROVIDERS: ADMIT Family Medicine; ATTEND Family Medicine
DX: K92.2 Gastrointestinal hemorrhage, unspecified (principal); N18.6 End stage renal disease; I12.0 Hypertensive chronic kidney disease with stage 5 chronic kidney disease or end stage renal disease; D64.9 Anemia, unspecified; E03.9 Hypothyroidism, unspecified; H91.90 Unspecified hearing loss, unspecified ear; J44.9 Chronic obstructive pulmonary disease, unspecified; Z79.890 Hormone replacement therapy; Z90.12 Acquired absence of left breast and nipple; Z90.710 Acquired absence of both cervix and uterus; Z99.2 Dependence on renal dialysis; C50.812 Malignant neoplasm of overlapping sites of left female breast; K21.9 Gastro-esophageal reflux disease without esophagitis; M19.90 Unspecified osteoarthritis, unspecified site
CPT/HCPCS: 36415; 80048; 82272; 83605; 83735; 85025; 85610; 85730; 86850; 86900; 86901; 86920; 93005; 96374; 99285

== ENCOUNTER 2021-09-20 09:53 | Inpatient (IN) | payer MEDICARE, OTHER ==
[2021-09-20] MEDS ORDERED: SODIUM BICARB 8.4% 50 ML SYR (1 MEQ/ML) IV ONE (10:19)
[2021-09-20] MEDS ORDERED: DEXTROSE 50% SYRINGE 50 ML IVP ONE ×2 (10:19→12:31)
[2021-09-20] MEDS ORDERED: ALBUTEROL NEB (CONC) 2.5 MG/0.5 ML INHALATION ONE ×3 (10:19→12:31)
[2021-09-20] MEDS ORDERED: CALCIUM GLUCONATE 1 GM in SODIUM CHLORIDE 0.9% 100 ML IVPB ONE ×2 (10:19→12:31)
[2021-09-20] MEDS ORDERED: INSULIN REGULAR 100 UNIT/ML VIAL (IV) IV ONE ×2 (10:19→12:31)
[2021-09-20 10:59] LABS: Anisocytosis Moderate; Basophils % (A) 1 %; Eosinophils # (A) 0.2 k/uL (0-0.7); Eosinophils % (A) 4 %; HCT 21.2 % (34.0-46.0); Hypochromasia Marked; Lymphocytes # (A) 0.3 k/uL (1.0-4.8); Lymphocytes % (A) 5 %; MCH 29.3 pg (25.0-35.0); MCHC 30.1 g/dL (31.0-37.0); MCV 97.3 fL (80.0-100.0); Macrocytosis Slight; Mean Platelet Volume 9.5; Monocytes # (A) 0.2 k/uL (0-1.0); Monocytes % (A) 4 %; Neutrophils # (A) 4.1 k/uL (1.3-7.7); Neutrophils % (A) 85 %; Platelet Count 197 k/uL (150-450); RBC 2.18 m/uL (3.80-5.40); RDW 20.3 % (11.5-15.5); WBC 4.8 k/uL (3.8-10.6)
[2021-09-20 11:08] LABS: HGB 6.4 gm/dL (11.4-16.0)
[2021-09-20 11:16] LABS: Albumin 3.4 g/dL (3.5-5.0); Magnesium 2.4 mg/dL (1.6-2.3); Total Bilirubin 0.5 mg/dL (0.2-1.3); Total Protein 6.4 g/dL (6.3-8.2)
[2021-09-20] MEDS ORDERED: SODIUM POLYSTYRENE SULFONATE 15 GM/60 ML BOTTLE PO ONE (11:29)
[2021-09-20 11:30] LABS: Potassium 8.3 mmol/L (3.5-5.1)
--- NOTE | 2021-09-20 11:50 | XR ---
EXAMINATION TYPE: XR chest 1V DATE OF EXAM: 09/20/2021 COMPARISON: 02/07/2019 INDICATION: Weakness, short of breath TECHNIQUE: Single frontal view of the chest is obtained. FINDINGS: The heart size is normal. The pulmonary vasculature is normal. The lungs are clear. 4 is present on the right with the tip in the proximal right atrium. IMPRESSION: 1. No acute pulmonary process.
[2021-09-20] MEDS ORDERED: NALOXONE 0.4 MG/ML 1 ML VIAL IV PRN (12:11)
[2021-09-20] MEDS ORDERED: MORPHINE SULFATE 4 MG/ML SYRINGE IV PRN (12:11)
--- NOTE | 2021-09-20 12:14 | ED ---
General Adult HPI - General Chief complaint: Weakness Stated complaint: weakness Time Seen by Provider: 09/20/21 10:05 Source: patient, EMS, RN notes reviewed, old records reviewed Mode of arrival: EMS Limitations: no limitations - History of Present Illness Initial comments: Patient is a 71-year-old female with past medical history remarkable for ESRD on dialysis, chronic GI bleed, hypertension, was missed her last 3 runs of dialysis because "I did not have a ride" presents emergency department over feeling weak for the last day. She is missed her last 3 runs of dialysis. Denies any abdominal pain, nausea, vomiting, cough, chest pain, shortness of breath. Does endorse chronic melanotic stools which are still present at this time. States that not gotten any worse. Denies any hematemesis. Has no other acute complaints at this time. - Related Data Home Medications Medication Instructions Recorded Confirmed Calcium Acetate 1,334 mg PO TID 09/20/21 09/20/21 Labetalol [Trandate] 100 mg PO TID 09/20/21 09/20/21 Sertraline [Zoloft] 50 mg PO HS 09/20/21 09/20/21 hydrALAZINE HCL 50 mg PO TID 09/20/21 09/20/21 Allergies Allergy/AdvReac Type Severity Reaction Status Date / Time No Known Allergies Allergy Verified 09/20/21 11:02 Review of Systems ROS Statement: Those systems with pertinent positive or pertinent negative responses have been documented in the HPI. Review of Systems: CONST: Denies fever EYES: Denies blurry vision ENT: Denies nasal congestion C/V: Denies Chest pain RESP: Denies shortness of breath GI: Denies abdominal pain : Denies dysuria SKIN: Denies rash. MSK: Denies joint pain. NEURO: Denies headache ROS Other: All systems not noted in ROS Statement are negative. Past Medical History Past Medical History: Asthma, Cancer, COPD, Dialysis, GERD/Reflux, GI Bleed, Hearing Disorder / Deafness, Hypertension, Osteoarthritis (OA), Renal Disease, Thyroid Disorder Additional Past Medical History / Comment(s): HEMODIALYSIS MON,WED, FRI-, anemia- receives blood tranfusions weekly, past upper and lower GI bleeds L breast cancer with L mastectomy and chemotherapy, arthritis in multiple joints, hypothyroid, [place] bilaterally History of Any Multi-Drug Resistant Organisms: None Reported Past Surgical History: Breast Surgery, Hysterectomy, Tubal Ligation Additional Past Surgical History / Comment(s): L BREAST BIOPSY, LEFT MASTECTOMY , DIALYSIS GRAFT- UPPER LEFT ARM, PARTIAL THYROIDECTOMY,COLONOSCOPIES, EGDS, D &C, L SHOULDER CYST REMOVED. Past Anesthesia/Blood Transfusion Reactions: No Reported Reaction, Motion Sickness Additional Past Anesthesia/Blood Transfusion Reaction / Comment(s): Pt has received numerous transfusions without reaction. Past Psychological History: No Psychological Hx Reported Smoking Status: Current every day smoker Past Alcohol Use History: None Reported Past Drug Use History: None Reported - Past Family History Daughter(s) Family Medical History: Deep Vein Thrombosis (DVT) Mother Family Medical History: Cancer Additional Family Medical History / Comment(s): OVARIAN Brother(s) Family Medical History: Cancer Additional Family Medical History / Comment(s): Brother had "blood" cancer. General Exam - General Exam Comments Initial Comments: General: Appears in no acute distress. HEAD: Normal with no signs of head trauma. EYES: PERRLA, EOMI, conjunctiva normal, no discharge. ENT: Hearing grossly intact, normal oropharynx. RESPIRATORY: Clear breath sounds bilaterally. No wheezes, rales, or rhonchi. C/V: Regular rate and rhythm. S1 and S2 auscultated, no edema, peripheral pulses 2+ and intact throughout. Patient has a right chest port for IV access. Patient has left upper extremity AV fistula with palpable thrill and audible bruit. ABD: Abd is soft, nontender, nondistended. Rectal exam was completed by myself and revealed no gross blood, however there is positive occult blood. Performed in the presence of a staff member. EXT: Normal range of motion, no obvious deformity SKIN: No rashes or lesions observed on exposed skin. NEURO: Alert and oriented x 4. Cranial nerves II-XII intact. No focal sensory or strength deficits. Limitations: no limitations Course Vital Signs 09/20/21 09/20/21 09/20/21 09:56 10:57 11:08 Temperature 98.1 F Pulse Rate 74 66 64 Respiratory 18 Rate Blood Pressure 137/68 O2 Sat by Pulse 99 Oximetry 09/20/21 09/20/21 12:11 13:10 Temperature Pulse Rate 72 77 Respiratory 18 16 Rate Blood Pressure 148/75 O2 Sat by Pulse 98 Oximetry Procedures - [place] Protocol (Time Out) Nurse: Sylvain Howell Medical Decision Making - Medical Decision Making Based on the patient's presentation and physical exam, there is concern for electrolyte abnormality secondary to missed dialysis. This includes possible hyperkalemia. Therefore we will obtain relatively broad workup, as well as occult blood studies, urinalysis, as well as a screening EKG. She was in agreement this plan. Screening EKG revealed PT waves concerning for acute hyperkalemia. She was therefore admitted to the hyperkalemic cocktail including calcium. We will continue to monitor her potassium level she is here in the department. EKG otherwise showed no signs of acute ischemia. Chest x-ray revealed no acute cardio pulmonary process. Laboratory studies are remarkable for a hemoglobin of 6.4, which does appear to be chronic. She occasionally does present over 7. Potassium is 8.3. BUN/creatinine are elevated in the setting of ESRD on hemodialysis. Patient is hypocalcemic to 6.0. Troponin is negative. Occult blood is positive. Covid is negative. I spoke with the patient, and she will receive a unit of blood due to her blood loss anemia which appears to be chronic. She was in agreement this plan. She consented to blood. She also requires dialysis. Repeat potassium was found to be 7.6 and she was administered another round of hyperkalemic cocktail including calcium. Patient requires dialysis. I did speak with nephrology on-call, Dr. Nugent will arrange for dialysis, however currently another patient is in line to get dialysis done here in the department. Patient is . I spoke with the admitting team under Dr. Kwong was in agreement with this plan. He requested I place Dr. Dooley onboard for her chronic GI bleed. She is receive multiple scopes in the past without any known etiology for her GI bleeding. She'll be given Protonix. As the patient is waiting for dialysis, due to her hyperkalemia rather than admitted to stepdown, the plan is to admit her to ICU so she can receive dialysis faster. She does need ICU admission criteria based on her anemia as well as hyperkalemia. I did discuss the case with the ICU attending, Dr. Jordan who accepted the patient. Patient will therefore be admitted to ICU in serious condition. Patient's pending dialysis. She was in agreement this plan. - Lab Data Result diagrams: 09/20/21 10:48 09/20/21 11:56 Lab Results 09/20/21 09/20/21 09/20/21 Range/Units 10:48 10:48 10:48 WBC 4.8 (3.8-10.6) k/uL RBC 2.18 L (3.80-5.40) m/uL Hgb 6.4 L* (11.4-16.0) gm/dL Hct 21.2 L (34.0-46.0) % MCV 97.3 (80.0-100.0) fL MCH 29.3 (25.0-35.0) pg MCHC 30.1 L (31.0-37.0) g/dL RDW 20.3 H (11.5-15.5) % Plt Count 197 (150-450) k/uL MPV 9.5 Neutrophils % 85 % Lymphocytes % 5 % Monocytes % 4 % Eosinophils % 4 % Basophils % 1 % Neutrophils # 4.1 (1.3-7.7) k/uL Lymphocytes # 0.3 L (1.0-4.8) k/uL Monocytes # 0.2 (0-1.0) k/uL Eosinophils # 0.2 (0-0.7) k/uL Basophils # 0.0 (0-0.2) k/uL Hypochromasia Marked Anisocytosis Moderate Macrocytosis Slight PT (9.0-12.0) sec INR (<1.2) APTT (22.0-30.0) sec Sodium 139 (137-145) mmol/L Potassium 8.3 H* (3.5-5.1) mmol/L Chloride 103 (98-107) mmol/L Carbon Dioxide 13 L (22-30) mmol/L Anion Gap 23 mmol/L BUN 183 H* (7-17) mg/dL Creatinine 16.64 H* (0.52-1.04) mg/dL Est GFR (CKD-EPI)AfAm 2 (>60 ml/min/1.73 sqM) Est GFR (CKD-EPI)NonAf 2 (>60 ml/min/1.73 sqM) Glucose 113 H (74-99) mg/dL Plasma Lactic Acid Chin 0.6 L (0.7-2.0) mmol/L Calcium 6.0 L* (8.4-10.2) mg/dL Magnesium 2.4 H (1.6-2.3) mg/dL Total Bilirubin 0.5 (0.2-1.3) mg/dL AST 22 (14-36) U/L ALT 8 (4-34) U/L Alkaline Phosphatase 42 (38-126) U/L Troponin I (0.000-0.034) ng/mL Total Protein 6.4 (6.3-8.2) g/dL Albumin 3.4 L (3.5-5.0) g/dL Stool Occult Blood (Negative) Coronavirus (PCR) (Not Detectd) Blood Type Blood Type Recheck Bld Type Recheck Status Antibody Screen Crossmatch Spec Expiration Date 09/20/21 09/20/21 09/20/21 Range/Units 10:48 11:35 11:47 WBC (3.8-10.6) k/uL RBC (3.80-5.40) m/uL Hgb (11.4-16.0) gm/dL Hct (34.0-46.0) % MCV (80.0-100.0) fL MCH (25.0-35.0) pg MCHC (31.0-37.0) g/dL RDW (11.5-15.5) % Plt Count (150-450) k/uL MPV Neutrophils % % Lymphocytes % % Monocytes % % Eosinophils % % Basophils % % Neutrophils # (1.3-7.7) k/uL Lymphocytes # (1.0-4.8) k/uL Monocytes # (0-1.0) k/uL Eosinophils # (0-0.7) k/uL Basophils # (0-0.2) k/uL Hypochromasia Anisocytosis Macrocytosis PT (9.0-12.0) sec INR (<1.2) APTT (22.0-30.0) sec Sodium (137-145) mmol/L Potassium (3.5-5.1) mmol/L Chloride (98-107) mmol/L Carbon Dioxide (22-30) mmol/L Anion Gap mmol/L BUN (7-17) mg/dL Creatinine (0.52-1.04) mg/dL Est GFR (CKD-EPI)AfAm (>60 ml/min/1.73 sqM) Est GFR (CKD-EPI)NonAf (>60 ml/min/1.73 sqM) Glucose (74-99) mg/dL Plasma Lactic Acid Chin (0.7-2.0) mmol/L Calcium (8.4-10.2) mg/dL Magnesium (1.6-2.3) mg/dL Total Bilirubin (0.2-1.3) mg/dL AST (14-36) U/L ALT (4-34) U/L Alkaline Phosphatase (38-126) U/L Troponin I <0.012 (0.000-0.034) ng/mL Total Protein (6.3-8.2) g/dL Albumin (3.5-5.0) g/dL Stool Occult Blood Positive H (Negative) Coronavirus (PCR) Not Detected (Not Detectd) Blood Type Blood Type Recheck Bld Type Recheck Status Antibody Screen Crossmatch Spec Expiration Date 09/20/21 09/20/21 09/20/21 Range/Units 11:56 11:56 11:56 WBC (3.8-10.6) k/uL RBC (3.80-5.40) m/uL Hgb (11.4-16.0) gm/dL Hct (34.0-46.0) % MCV (80.0-100.0) fL MCH (25.0-35.0) pg MCHC (31.0-37.0) g/dL RDW (11.5-15.5) % Plt Count (150-450) k/uL MPV Neutrophils % % Lymphocytes % % Monocytes % % Eosinophils % % Basophils % % Neutrophils # (1.3-7.7) k/uL Lymphocytes # (1.0-4.8) k/uL Monocytes # (0-1.0) k/uL Eosinophils # (0-0.7) k/uL Basophils # (0-0.2) k/uL Hypochromasia Anisocytosis Macrocytosis PT 12.2 H (9.0-12.0) sec INR 1.1 (<1.2) APTT 24.8 (22.0-30.0) sec Sodium (137-145) mmol/L Potassium 7.6 H* (3.5-5.1) mmol/L Chloride (98-107) mmol/L Carbon Dioxide (22-30) mmol/L Anion Gap mmol/L BUN (7-17) mg/dL Creatinine (0.52-1.04) mg/dL Est GFR (CKD-EPI)AfAm (>60 ml/min/1.73 sqM) Est GFR (CKD-EPI)NonAf (>60 ml/min/1.73 sqM) Glucose (74-99) mg/dL Plasma Lactic Acid Chin (0.7-2.0) mmol/L Calcium (8.4-10.2) mg/dL Magnesium (1.6-2.3) mg/dL Total Bilirubin (0.2-1.3) mg/dL AST (14-36) U/L ALT (4-34) U/L Alkaline Phosphatase (38-126) U/L Troponin I (0.000-0.034) ng/mL Total Protein (6.3-8.2) g/dL Albumin (3.5-5.0) g/dL Stool Occult Blood (Negative) Coronavirus (PCR) (Not Detectd) Blood Type O Positive Blood Type Recheck O Pos Bld Type Recheck Status No Antibody Screen NEGATIVE Crossmatch See Detail Spec Expiration Date 09/23/20212355 - EKG Data -: EKG Interpreted by Me EKG Comments: 12-lead Electrocardiogram Interpretation Note EKG was reviewed and interpreted by myself. 12-lead ECG performed at 1013 is interpreted by me as revealing normal sinus rhythm at a rate of 69 beats per minute. [place] is leftward deviated. TN interval is 205 ms, QRS duration is 151 ms, QTc is 515 ms.. There are peak T waves suggestive of acute hyperkalemia. There were no ST or T wave abnormalities to suggest myocardial ischemia or injury. R wave progression across the precordium was delayed.. By my interpretation this EKG is non-diagnostic for acute ischemia. It is similar to prior EKGs except for the peaked T waves which is suggestive of acute hyperkalemia in the setting of missed dialysis. Critical Care Time Critical Care Time: Yes Total Critical Care Time: 35 Critical Care Time: Upon my evaluation, this patient had a high probability of imminent or life- threatening deterioration due to chronic blood loss anemia, symptomatic anemia, acute hyperkalemia secondary to missed dialysis, which required my direct attention, intervention, and personal management. I have personally provided 35 minutes of critical care time exclusive of time spent on separately billable procedures. Time includes review of laboratory data, radiology results, discussion with consultants, and monitoring for potential decompensation. Interventions were performed as documented in my note. Disposition Clinical Impression: Missed dialysis, Chronic GI bleeding, Symptomatic anemia, Hyperkalemia, Occult blood in stools Disposition: ADMITTED IP TO THIS HOSP Condition: Serious
[2021-09-20 12:25] LABS: INR 1.1 (<1.2); Partial Thromboplastin Time 24.8 sec (22.0-30.0); Prothrombin Time 12.2 sec (9.0-12.0)
[2021-09-20] MEDS ORDERED: GELATIN SPONGE,ABSORB (SMALL) 1 EACH SPONGE ONE (13:00)
[2021-09-20] MEDS ORDERED: LIDOCAINE 1% INJ 10MG/ML (20 ML MDV) ONE (13:00)
[2021-09-20 13:46] LABS: Glucose,Whole Blood 79 mg/dL (75-99)
[2021-09-20] MEDS: ONDANSETRON 4 MG/2 ML VIAL IVP PRN (14:02)
[2021-09-20] MEDS ORDERED: MIDODRINE 5 MG TAB PO PRN (14:40)
--- NOTE | 2021-09-20 15:30 | P.CNPUL ---
<Sierra Jesus M - Last Filed: 09/20/21 15:30> History of Present Illness Consult date: 09/20/21 Requesting physician: Ortiz Valle Chief complaint: Weakness, hyperkalemia History of present illness: 71-year-old -[place] female with past medical history of ESRD on hemodialysis on Saturday schedule, chronic iron deficiency anemia, previous history of GI bleeding, history of COPD, hypertension, hypothyroidism, previous history of smoking presented to the emergency department on 09/20/2021 with complaints of weakness. Apparently patient had missed her hemodialysis. Denies any shortness of breath, room air pulse ox is 99%, patient reports no fever or chills, chest x-ray from the emergency department showed no acute pulmonary process. Admission blood work showed acute hyperkalemia with potassium of 8.3, BUN of 183, creatinine of 16.6, hemoglobin of 6.4. White blood cell count was normal at 4.8, platelet count was 197 lactic acid was 0.6, troponin level was less than 0.012, stool for a blood was positi ve, COVID-19 PCR was negative. Nephrology has been consulted and emergent hemodialysis has been ordered, in the meantime patient received 2 A of calcium gluconate, 2 A of 50% dextrose, 2 doses of regular insulin 10 units each, 1 amp of sodium bicarbonate, and 15 g of Kayexalate in the emergency department. Apparently patient had an episode of nausea and vomiting. She is currently admitted to the intensive care unit while awaiting her emergent hemodialysis. She is in no acute distress, breathing comfortably, vital signs are stable. EKG showed normal sinus rhythm with nonspecific T-wave abnormality, and incomplete right bundle branch block. But no bradycardia. Review of Systems All systems: negative Constitutional: Reports weakness, Denies chills, Denies fever Eyes: denies blurred vision, denies pain Ears, nose, mouth and throat: Denies headache, Denies sore throat Cardiovascular: Denies chest pain, Denies shortness of breath Respiratory: Denies cough Gastrointestinal: Denies abdominal pain, Denies diarrhea, Denies nausea, Denies vomiting Genitourinary: Denies dysuria, Denies hematuria Musculoskeletal: Denies myalgias Integumentary: Denies pruritus, Denies rash Neurological: Denies numbness, Denies weakness Psychiatric: Denies anxiety, Denies depression Endocrine: Denies fatigue, Denies weight change Past Medical History Past Medical History: Asthma, Cancer, COPD, Dialysis, GERD/Reflux, GI Bleed, Hearing Disorder / Deafness, Hypertension, Osteoarthritis (OA), Renal Disease, Thyroid Disorder Additional Past Medical History / Comment(s): HEMODIALYSIS MON,WED, FRI-, anemia- receives blood tranfusions weekly, past upper and lower GI bleeds L breast cancer with L mastectomy and chemotherapy, arthritis in multiple joints, hypothyroid, [place] bilaterally History of Any Multi-Drug Resistant Organisms: None Reported Past Surgical History: Breast Surgery, Hysterectomy, Tubal Ligation Additional Past Surgical History / Comment(s): L BREAST BIOPSY, LEFT MASTECTOMY , DIALYSIS GRAFT- UPPER LEFT ARM, PARTIAL THYROIDECTOMY,COLONOSCOPIES, EGDS, D&C, L SHOULDER CYST REMOVED. Past Anesthesia/Blood Transfusion Reactions: No Reported Reaction, Motion Sickness Additional Past Anesthesia/Blood Transfusion Reaction / Comment(s): Pt has received numerous transfusions without reaction. Past Psychological History: No Psychological Hx Reported Smoking Status: Current every day smoker Past Alcohol Use History: None Reported Past Drug Use History: None Reported - Past Family History Daughter(s) Family Medical History: Deep Vein Thrombosis (DVT) Mother Family Medical History: Cancer Additional Family Medical History / Comment(s): OVARIAN Brother(s) Family Medical History: Cancer Additional Family Medical History / Comment(s): Brother had "blood" cancer. Medications and Allergies Home Medications Medication Instructions Recorded Confirmed Type Calcium Acetate 1,334 mg PO TID 09/20/21 09/20/21 History Labetalol [Trandate] 100 mg PO TID 09/20/21 09/20/21 History Sertraline [Zoloft] 50 mg PO HS 09/20/21 09/20/21 History hydrALAZINE HCL 50 mg PO TID 09/20/21 09/20/21 History Allergies Allergy/AdvReac Type Severity Reaction Status Date / Time No Known Allergies Allergy Verified 09/20/21 11:02 Physical Exam Vitals: Vital Signs Temp Pulse Resp BP Pulse Ox 09/20/21 12:11 72 18 148/75 98 09/20/21 11:08 64 09/20/21 10:57 66 09/20/21 09:56 98.1 F 74 18 137/68 99 Intake and Output 09/19/21 09/20/21 09/20/21 22:59 06:59 14:59 Other: Weight 35.38 kg GENERAL EXAM: Lethargic but responsive pleasant, 71-year-old -[place] female on room air resting comfortably in bed, satting 98% comfortable in no apparent distress. HEAD: Normocephalic/atraumatic. EYES: Normal reaction of pupils, equal size. Conjunctiva pink, sclera white. NOSE: Clear with pink turbinates. THROAT: No erythema or exudates. NECK: No masses, no JVD, no thyroid enlargement, no adenopathy. CHEST: No chest wall deformity. Symmetrical expansion. LUNGS: Equal air entry with no crackles, wheeze, rhonchi or dullness. CVS: Regular rate and rhythm, normal S1 and S2, no gallops, no murmurs, no rubs ABDOMEN: Soft, nontender. No hepatosplenomegaly, normal bowel sounds, no guarding or rigidity. EXTREMITIES: No clubbing, no edema, no cyanosis, 2+ pulses and upper and lower extremities. left upper arm AV fistula MUSCULOSKELETAL: Muscle strength and tone normal. SPINE: No scoliosis or deformity SKIN: No rashes CENTRAL NERVOUS SYSTEM: Lethargic but arousable to voice. No focal deficits, tone is normal in all 4 extremities. Results - Laboratory Findings CBC and BMP: 09/20/21 10:48 09/20/21 11:56 PT/INR, D-dimer PT 12.2 sec (9.0-12.0) H 09/20/21 11:56 INR 1.1 (<1.2) 09/20/21 11:56 Abnormal lab findings: Abnormal Labs 09/20/21 09/20/21 09/20/21 10:48 10:48 10:48 RBC 2.18 L Hgb 6.4 L* Hct 21.2 L MCHC 30.1 L RDW 20.3 H Lymphocytes # 0.3 L PT Potassium 8.3 H* Carbon Dioxide 13 L BUN 183 H* Creatinine 16.64 H* Glucose 113 H Plasma Lactic Acid Chin 0.6 L Calcium 6.0 L* Magnesium 2.4 H Albumin 3.4 L Stool Occult Blood Crossmatch 09/20/21 09/20/21 09/20/21 11:35 11:56 11:56 RBC Hgb Hct MCHC RDW Lymphocytes # PT Potassium 7.6 H* Carbon Dioxide BUN Creatinine Glucose Plasma Lactic Acid Chin Calcium Magnesium Albumin Stool Occult Blood Positive H Crossmatch See Detail 09/20/21 11:56 RBC Hgb Hct MCHC RDW Lymphocytes # PT 12.2 H Potassium Carbon Dioxide BUN Creatinine Glucose Plasma Lactic Acid Chin Calcium Magnesium Albumin Stool Occult Blood Crossmatch - Diagnostic Findings Chest x-ray: report reviewed, image reviewed Assessment and Plan Plan: Assessment: #1. Acute hyperkalemia related to missed hemodialysis treatment. Serum potassium on admission is 8.3, patient is awaiting emergent hemodialysis treatment. Hyperkalemia was treated per protocol #2. Chronic anemia, possibly related to GI bleeding, occult stool was positive. Patient has a history of chronic anemia requiring blood transfusions, previous history of GI bleeding. Patient had a EGD in September 2018 that showed scattered angiectasia in the proximal small bowel in the proximal jejunum with no active bleeding status post gold probe cautery, and hiatal hernia #3. Previous history of recurrent GI bleeding with history of recurrent melena #4. End-stage renal disease on hemodialysis on Saturday schedule #5. History of left breast cancer with mastectomy and chemotherapy #6. Hypothyroidism #7. Hypertension #8. COPD #9. Hypothyroidism #10. Chronic smoker Plan: Patient was admitted to the intensive care unit She is getting ready to have emergent hemodialysis Hyperkalemia has been treated per protocol, repeat potassium has been noted We'll add Protonix 40 mg twice daily Patient will be transfused with 1 unit of packed red blood cells Consult GI service for acute anemia with possibility of bleeding Follow-up electrolytes and renal profile after hemodialysis We'll continue to follow I performed a history & physical examination of the patient and discussed their management with my nurse practitioner, Sierra Jesus. I reviewed the nurse practitioner's note and agree with the documented findings and plan of care. Lung sounds are positive for diffuse wheezes throughout the lung moreira. The findings and the impression was discussed with the patient. I attest to the documentation by the nurse practitioner. I have personally seen and examined the patient, performed the documentation and the assessment and plan as written. Number of minutes spent on the visit: [20] Time with Patient: Greater than 30 <Jarad Jordan - Last Filed: 09/20/21 15:41> Physical Exam Vitals: Vital Signs Temp Pulse Resp BP Pulse Ox 09/20/21 15:00 78 12 97/63 96 09/20/21 14:45 80 12 84/50 98 09/20/21 14:39 97.6 F 79 12 81/34 97 09/20/21 14:30 78 12 85/60 97 09/20/21 14:20 76 13 88/60 97 09/20/21 14:10 76 13 85/64 97 09/20/21 14:00 80 13 115/52 96 09/20/21 13:58 97.6 F 79 18 99/51 96 09/20/21 13:50 78 15 86/55 97 09/20/21 13:48 97.6 F 76 18 89/34 09/20/21 13:40 79 13 121/68 94 L 09/20/21 13:30 85 18 116/31 95 09/20/21 13:20 79 20 128/55 95 09/20/21 13:10 77 16 09/20/21 12:11 72 18 148/75 98 09/20/21 11:08 64 09/20/21 10:57 66 09/20/21 09:56 98.1 F 74 18 137/68 99 Intake and Output 09/20/21 09/20/21 09/20/21 06:59 14:59 22:59 Intake Total 310 Output Total 0 0 Balance 310 0 Intake: Blood Product 310 Rc As-1 Unit 310 [id number] Output: Urine 0 0 Other: Weight 35.38 kg Results - Laboratory Findings CBC and BMP: 09/20/21 10:48 09/20/21 11:56 PT/INR, D-dimer PT 12.2 sec (9.0-12.0) H 09/20/21 11:56 INR 1.1 (<1.2) 09/20/21 11:56 Abnormal lab findings: Abnormal Labs 09/20/21 09/20/21 09/20/21 10:48 10:48 10:48 RBC 2.18 L Hgb 6.4 L* Hct 21.2 L MCHC 30.1 L RDW 20.3 H Lymphocytes # 0.3 L PT Potassium 8.3 H* Carbon Dioxide 13 L BUN 183 H* Creatinine 16.64 H* Glucose 113 H Plasma Lactic Acid Chin 0.6 L Calcium 6.0 L* Magnesium 2.4 H Albumin 3.4 L Stool Occult Blood Crossmatch 09/20/21 09/20/21 09/20/21 11:35 11:56 11:56 RBC Hgb Hct MCHC RDW Lymphocytes # PT Potassium 7.6 H* Carbon Dioxide BUN Creatinine Glucose Plasma Lactic Acid Chin Calcium Magnesium Albumin Stool Occult Blood Positive H Crossmatch See Detail 09/20/21 11:56 RBC Hgb Hct MCHC RDW Lymphocytes # PT 12.2 H Potassium Carbon Dioxide BUN Creatinine Glucose Plasma Lactic Acid Chin Calcium Magnesium Albumin Stool Occult Blood Crossmatch
[2021-09-20] MEDS: CALCIUM ACETATE 667 MG TAB PO SCH ×2 (17:32→20:52)
[2021-09-20 17:37] LABS: Glucose,Whole Blood 81 mg/dL (75-99)
[2021-09-20 17:57] LABS: Anisocytosis Slight; HCT 22.9 % (34.0-46.0); HGB 7.3 gm/dL (11.4-16.0); Hypochromasia Moderate; MCH 30.3 pg (25.0-35.0); MCHC 31.8 g/dL (31.0-37.0); MCV 95.4 fL (80.0-100.0); Macrocytosis Slight; Mean Platelet Volume 7.3; Platelet Count 174 k/uL (150-450); Poikilocytosis Slight; RDW 18.9 % (11.5-15.5); WBC 5.2 k/uL (3.8-10.6)
[2021-09-20 18:11] LABS: Calcium 7.4 mg/dL (8.4-10.2); Potassium 3.2 mmol/L (3.5-5.1)
[2021-09-20] MEDS: PANTOPRAZOLE 40 MG/10 ML VIAL IVP SCH (20:36)
[2021-09-20 20:37] LABS: Glucose,Whole Blood 71 mg/dL (75-99)
[2021-09-20] MEDS: SERTRALINE 50 MG TAB PO SCH (20:51)
[2021-09-20 21:09] LABS: Glucose,Whole Blood 72 mg/dL (75-99)
[2021-09-20 21:42] LABS: Glucose,Whole Blood 81 mg/dL (75-99)
[2021-09-21 00:47] LABS: Anisocytosis Slight; Basophils % (A) 0 %; Eosinophils % (A) 0 %; HCT 22.2 % (34.0-46.0); HGB 7.1 gm/dL (11.4-16.0); Hypochromasia Marked; Lymphocytes # (A) 0.3 k/uL (1.0-4.8); Lymphocytes % (A) 5 %; MCH 30.6 pg (25.0-35.0); MCHC 32.2 g/dL (31.0-37.0); MCV 95.1 fL (80.0-100.0); Macrocytosis Slight; Mean Platelet Volume 8.2; Monocytes # (A) 0.3 k/uL (0-1.0); Monocytes % (A) 5 %; Neutrophils % (A) 88 %; Platelet Count 176 k/uL (150-450); Poikilocytosis Slight; RBC 2.33 m/uL (3.80-5.40); RDW 18.6 % (11.5-15.5); WBC 5.7 k/uL (3.8-10.6)
[2021-09-21 00:59] LABS: Calcium 7.1 mg/dL (8.4-10.2); Potassium 4.1 mmol/L (3.5-5.1)
[2021-09-21 01:30] LABS: Hepatitis B Surface AB- Quant 3.5 mIU/mL; Hepatitis B Surface Antibody Nonreactive (Nonreactive)
[2021-09-21 01:33] LABS: Hepatitis B Surface Antigen Nonreactive (Nonreactive)
[2021-09-21 06:27] LABS: Glucose,Whole Blood 103 mg/dL (75-99)
[2021-09-21] MEDS: ONDANSETRON 4 MG/2 ML VIAL IVP PRN (07:39)
[2021-09-21 07:56] LABS: Anisocytosis Slight; Basophils % (A) 0 %; Eosinophils # (A) 0.1 k/uL (0-0.7); Eosinophils % (A) 2 %; HCT 21.2 % (34.0-46.0); Hypochromasia Marked; Lymphocytes # (A) 0.3 k/uL (1.0-4.8); Lymphocytes % (A) 5 %; MCH 30.3 pg (25.0-35.0); MCHC 31.9 g/dL (31.0-37.0); MCV 95.2 fL (80.0-100.0); Macrocytosis Slight; Mean Platelet Volume 8.2; Monocytes # (A) 0.4 k/uL (0-1.0); Monocytes % (A) 7 %; Neutrophils # (A) 4.4 k/uL (1.3-7.7); Neutrophils % (A) 85 %; Platelet Count 176 k/uL (150-450); Poikilocytosis Moderate; RBC 2.23 m/uL (3.80-5.40); RDW 18.9 % (11.5-15.5); WBC 5.2 k/uL (3.8-10.6)
[2021-09-21 08:00] LABS: Albumin 2.7 g/dL (3.5-5.0); Potassium 4.5 mmol/L (3.5-5.1); Total Bilirubin 0.4 mg/dL (0.2-1.3); Total Protein 5.5 g/dL (6.3-8.2)
[2021-09-21 08:05] LABS: HGB 6.8 gm/dL (11.4-16.0)
[2021-09-21] MEDS: CALCIUM ACETATE 667 MG TAB PO SCH ×3 (09:02→21:04)
[2021-09-21] MEDS: PANTOPRAZOLE 40 MG/10 ML VIAL IVP SCH ×2 (09:08→21:04)
[2021-09-21 11:53] LABS: Glucose,Whole Blood 98 mg/dL (75-99)
--- NOTE | 2021-09-21 11:53 | P.PN ---
Subjective Progress Note Date: 09/21/21 Principal diagnosis: Hyperkalemia and chronic renal failure, acute metabolic encephalopathy 71-year-old -[place] female with past medical history of ESRD on hemodialysis on Saturday schedule, chronic iron deficiency anemia, previous history of GI bleeding, history of COPD, hypertension, hypothyroidism, previous history of smoking presented to the emergency department on 09/20/2021 with complaints of weakness. Apparently patient had missed her hemodialysis. Denies any shortness of breath, room air pulse ox is 99%, patient reports no fever or chills, chest x-ray from the emergency department showed no acute pulmonary process. Admission blood work showed acute hyperkalemia with potassium of 8.3, BUN of 183, creatinine of 16.6, hemoglobin of 6.4. White blood cell count was normal at 4.8, platelet count was 197 lactic acid was 0.6, troponin level was less than 0.012, stool for a blood was positive, COVID-19 PCR was negative. Nephrology has been consulted and emergent hemodialysis has been ordered, in the meantime patient received 2 A of calcium gluconate, 2 A of 50% dextrose, 2 doses of regular insulin 10 units each, 1 amp of sodium bicarbonate, and 15 g of Kayexalate in the emergency department. Apparently patient had an episode of nausea and vomiting. She is currently admitted to the intensive care unit while awaiting her emergent hemodialysis. She is in no acute distress, breathing comfortably, vital signs are stable. EKG showed normal sinus rhythm with nonspecific T-wave abnormality, and incomplete right bundle branch block. But no bradycardia. Reevaluated today on 09/21/2021, patient is doing well, she has been dialyzed yesterday, and she is being dialyzed during my evaluation this morning. Patient seems to be doing great, she is asymptomatic, her mental status is back to baseline, and no major issues over the last 24 hours. Patient is hemodynamically stable, hemoglobin is 6.8 today, patient is having EGD by gastroenterology today. Electrolytes are normal BUN is 77 creatinine 7.81. Objective - Vital Signs Vital signs: Vital Signs Temp 98.0 F 09/21/21 08:00 Pulse 80 09/21/21 10:00 Resp 5 L 09/21/21 10:00 BP 108/59 09/21/21 10:00 Pulse Ox 96 09/21/21 10:00 Intake & Output 09/20/21 09/21/21 09/21/21 18:59 06:59 18:59 Intake Total 810 210 0 Output Total 0 0 0 Balance 810 210 0 Weight 35.38 kg 79.3 kg Intake: Oral 210 0 Blood Product 310 Rc As-1 Unit 310 [id number] Hemodialysis 500 Output: Urine 0 0 0 Other: # Bowel Movements 1 - Exam Physical Exam: Revealed 71-year-old female in no distress, on room air. Head: Atraumatic, normocephalic. HEENT:[Neck is supple.] [No neck masses.] [No thyromegaly.] [No JVD.] Chest: [Clear throughout, no crackles, no rhonchi, no wheezes.] Cardiac Exam: [Normal S1 and S2, no S3 gallop, no murmur.] Abdomen: [Soft, nontender, no megaly, no rebound, no guarding, normal bowel sounds.] Extremities: [No clubbing, no edema, no cyanosis.] Left arm AV fistula is not ed. Neurological Exam: [No focal neurologic deficit.] No gross focal deficits. Psychiatric: Normal mood affect and normal mental status examination. Skin: No rashes. - Labs CBC & Chem 7: 09/21/21 06:55 09/21/21 06:55 Labs: Abnormal Lab Results - Last 24 Hours (Table) 09/20/21 09/20/21 09/20/21 Range/Units 11:56 11:56 11:56 RBC (3.80-5.40) m/uL Hgb (11.4-16.0) gm/dL Hct (34.0-46.0) % RDW (11.5-15.5) % Lymphocytes # (1.0-4.8) k/uL PT 12.2 H (9.0-12.0) sec Sodium (137-145) mmol/L Potassium 7.6 H* (3.5-5.1) mmol/L BUN (7-17) mg/dL Creatinine (0.52-1.04) mg/dL POC Glucose (mg/dL) (75-99) mg/dL Calcium (8.4-10.2) mg/dL Total Protein (6.3-8.2) g/dL Albumin (3.5-5.0) g/dL Crossmatch See Detail 09/20/21 09/20/21 09/20/21 Range/Units 17:37 17:37 20:35 RBC 2.40 L (3.80-5.40) m/uL Hgb 7.3 L (11.4-16.0) gm/dL Hct 22.9 L (34.0-46.0) % RDW 18.9 H (11.5-15.5) % Lymphocytes # (1.0-4.8) k/uL PT (9.0-12.0) sec Sodium (137-145) mmol/L Potassium 3.2 L (3.5-5.1) mmol/L BUN 62 H (7-17) mg/dL Creatinine 5.85 H (0.52-1.04) mg/dL POC Glucose (mg/dL) 71 L (75-99) mg/dL Calcium 7.4 L (8.4-10.2) mg/dL Total Protein (6.3-8.2) g/dL Albumin (3.5-5.0) g/dL Crossmatch 09/20/21 09/21/21 09/21/21 Range/Units 21:03 00:03 00:04 RBC 2.33 L (3.80-5.40) m/uL Hgb 7.1 L (11.4-16.0) gm/dL Hct 22.2 L (34.0-46.0) % RDW 18.6 H (11.5-15.5) % Lymphocytes # 0.3 L (1.0-4.8) k/uL PT (9.0-12.0) sec Sodium 136 L (137-145) mmol/L Potassium (3.5-5.1) mmol/L BUN 68 H (7-17) mg/dL Creatinine 7.19 H* (0.52-1.04) mg/dL POC Glucose (mg/dL) 72 L (75-99) mg/dL Calcium 7.1 L (8.4-10.2) mg/dL Total Protein (6.3-8.2) g/dL Albumin (3.5-5.0) g/dL Crossmatch 09/21/21 09/21/21 09/21/21 Range/Units 06:25 06:55 06:55 RBC 2.23 L (3.80-5.40) m/uL Hgb 6.8 L* (11.4-16.0) gm/dL Hct 21.2 L (34.0-46.0) % RDW 18.9 H (11.5-15.5) % Lymphocytes # 0.3 L (1.0-4.8) k/uL PT (9.0-12.0) sec Sodium 136 L (137-145) mmol/L Potassium (3.5-5.1) mmol/L BUN 77 H (7-17) mg/dL Creatinine 7.81 H* (0.52-1.04) mg/dL POC Glucose (mg/dL) 103 H (75-99) mg/dL Calcium 7.0 L (8.4-10.2) mg/dL Total Protein 5.5 L (6.3-8.2) g/dL Albumin 2.7 L (3.5-5.0) g/dL Crossmatch Assessment and Plan Assessment: Impression: Acute hyperkalemia secondary to noncompliance with hemodialysis treatment, resolved after hemodialysis. Chronic anemia secondary to chronic GI bleeding and chronic occult stools positi ve. Patient is going for further GI workup today by Dr. Hernandez. History of end-stage renal disease. History of left breast cancer with mastectomy and chemotherapy Benign essential hypertension Hypothyroidism History of COPD, inactive Recommendation: Transfer patient out of the ICU Consider discharging the patient home today. However decision to discharge the patient home will be made after her EGD and GI workup as scheduled to be done later this afternoon. Continue Protonix. Continue to monitor hemoglobin and transfuse if needed. Will continue to follow. Time with Patient: Less than 30
--- NOTE | 2021-09-21 12:26 | P.HPIM ---
History of Present Illness H&P Date: 09/20/21 Chief Complaint: Weakness, fatigue, missed hemodialysis 3 This is a 71-year-old female with end-stage renal disease on hemodialysis Saturday with history of chronic recurrent anemia with transfusions, multiple scopes in the past. Missed 3 hemodialysis treatments-stage she didn't have a ride. Denies shortness of breath, maintaining O2 sats in the high 90s on room air.Chest x-ray reported no acute pulmonary process. Reports melana stools. Denies chest pain, palpitations. Denies nausea vomiting or diarrhea. Hemoglobin 6.4, platelets 197 , EKG reporting normal sinus rhythm, incomplete right bundle branch block ,with peaked T waves . Troponin negative 1 .Received hyperkalemic cocktail, and multiple rounds. Emergent dialysis been arranged as per nephr ology. Review of Systems ROS Statement: Those systems with pertinent positive or pertinent negative responses have been documented in the HPI. ROS Other: All systems not noted in ROS Statement are negative. Past Medical History Past Medical History: Asthma, Cancer, COPD, Dialysis, GERD/Reflux, GI Bleed, Hearing Disorder / Deafness, Hypertension, Osteoarthritis (OA), Renal Disease, Thyroid Disorder Additional Past Medical History / Comment(s): HEMODIALYSIS SAT,SAT, SAT-, anemia- receives blood tranfusions weekly, past upper and lower GI bleeds L breast cancer with L mastectomy and chemotherapy, arthritis in multiple joints, hypothyroid, [place] bilaterally History of Any Multi-Drug Resistant Organisms: None Reported Past Surgical History: Breast Surgery, Hysterectomy, Tubal Ligation Additional Past Surgical History / Comment(s): L BREAST BIOPSY, LEFT MASTECTOMY , DIALYSIS GRAFT- UPPER LEFT ARM, PARTIAL THYROIDECTOMY,COLONOSCOPIES, EGDS, D&C, L SHOULDER CYST REMOVED. Past Anesthesia/Blood Transfusion Reactions: No Reported Reaction, Motion Sickness Additional Past Anesthesia/Blood Transfusion Reaction / Comment(s): Pt has received numerous transfusions without reaction. Past Psychological History: No Psychological Hx Reported Smoking Status: Current every day smoker Past Alcohol Use History: None Reported Past Drug Use History: None Reported - Past Family History Daughter(s) Family Medical History: Deep Vein Thrombosis (DVT) Mother Family Medical History: Cancer Additional Family Medical History / Comment(s): OVARIAN Brother(s) Family Medical History: Cancer Additional Family Medical History / Comment(s): Brother had "blood" cancer. Medications and Allergies Home Medications Medication Instructions Recorded Confirmed Type Calcium Acetate 1,334 mg PO TID 09/20/21 09/20/21 History Labetalol [Trandate] 100 mg PO TID 09/20/21 09/20/21 History Sertraline [Zoloft] 50 mg PO HS 09/20/21 09/20/21 History hydrALAZINE HCL 50 mg PO TID 09/20/21 09/20/21 History Allergies Allergy/AdvReac Type Severity Reaction Status Date / Time No Known Allergies Allergy Verified 09/20/21 11:02 Physical Exam Vitals: Vital Signs Temp Pulse Resp BP BP Pulse Ox 09/20/21 17:14 146/57 09/20/21 17:00 80 9 L 132/62 96 09/20/21 16:45 86 17 107/55 97 09/20/21 16:30 85 26 H 82/46 98 09/20/21 16:15 85 16 90/61 98 09/20/21 16:00 97.8 F 85 14 115/56 98 09/20/21 15:45 82 7 L 99/41 97 09/20/21 15:30 83 11 L 96/57 96 09/20/21 15:15 80 12 82/53 97 09/20/21 15:00 78 12 97/63 96 09/20/21 14:45 80 12 84/50 98 09/20/21 14:39 97.6 F 79 12 81/34 97 09/20/21 14:30 78 12 85/60 97 09/20/21 14:20 76 13 88/60 97 09/20/21 14:10 76 13 85/64 97 09/20/21 14:00 80 13 115/52 96 09/20/21 13:58 97.6 F 79 18 99/51 96 09/20/21 13:50 78 15 86/55 97 09/20/21 13:48 97.6 F 76 18 89/34 09/20/21 13:40 79 13 121/68 94 L 09/20/21 13:30 85 18 116/31 95 09/20/21 13:20 79 20 128/55 95 09/20/21 13:10 77 16 09/20/21 12:11 72 18 148/75 98 09/20/21 11:08 64 09/20/21 10:57 66 09/20/21 09:56 98.1 F 74 18 137/68 99 Intake and Output 09/20/21 09/20/21 09/20/21 06:59 14:59 22:59 Intake Total 310 500 Output Total 0 0 Balance 310 500 Intake: Blood Product 310 Rc As-1 Unit 310 [id number] Hemodialysis 500 Output: Urine 0 0 Other: Weight 35.38 kg GENERAL: Fatigue -[place] woman who looks her stated age and in no acute distress. HEAD: Atraumatic, normocephalic. EYES: Pupils equal round and reactive to light, extraocular movements intact, sclera anicteric, conjunctiva are normal. ENT:nares patent, oropharynx clear without exudates. Moist mucous membranes. NECK: Normal range of motion, supple without lymphadenopathy or JVD, no thyromegaly. Right chest port. LUNGS: Breath sounds coarse to auscultation bilaterally and equal. No wheezes rales or rhonchi. HEART: Regular rate and rhythm without rubs or gallops.S1S2 Normal, some over 6 systolic ejection murmur noted today. ABDOMEN: Soft, nontender, normoactive bowel sounds. No guarding, no rebound. No masses appreciated. EXTREMITIES: Normal range of motion, no pitting or edema. No clubbing or cyanosis. Left upper arm AV fistula. NEUROLOGICAL: Cranial nerves II through XII grossly intact. Normal speech, normal gait. PSYCH: Normal mood, normal affect. SKIN: Warm, Dry, normal turgor, no rashes or lesions noted. Results CBC & Chem 7: 09/21/21 06:55 09/21/21 06:55 Labs: Abnormal Lab Results - Last 24 Hours (Table) 09/20/21 09/20/21 09/20/21 Range/Units 10:48 10:48 10:48 RBC 2.18 L (3.80-5.40) m/uL Hgb 6.4 L* (11.4-16.0) gm/dL Hct 21.2 L (34.0-46.0) % MCHC 30.1 L (31.0-37.0) g/dL RDW 20.3 H (11.5-15.5) % Lymphocytes # 0.3 L (1.0-4.8) k/uL PT (9.0-12.0) sec Potassium 8.3 H* (3.5-5.1) mmol/L Carbon Dioxide 13 L (22-30) mmol/L BUN 183 H* (7-17) mg/dL Creatinine 16.64 H* (0.52-1.04) mg/dL Glucose 113 H (74-99) mg/dL Plasma Lactic Acid Chin 0.6 L (0.7-2.0) mmol/L Calcium 6.0 L* (8.4-10.2) mg/dL Magnesium 2.4 H (1.6-2.3) mg/dL Albumin 3.4 L (3.5-5.0) g/dL Stool Occult Blood (Negative) Crossmatch 09/20/21 09/20/21 09/20/21 Range/Units 11:35 11:56 11:56 RBC (3.80-5.40) m/uL Hgb (11.4-16.0) gm/dL Hct (34.0-46.0) % MCHC (31.0-37.0) g/dL RDW (11.5-15.5) % Lymphocytes # (1.0-4.8) k/uL PT (9.0-12.0) sec Potassium 7.6 H* (3.5-5.1) mmol/L Carbon Dioxide (22-30) mmol/L BUN (7-17) mg/dL Creatinine (0.52-1.04) mg/dL Glucose (74-99) mg/dL Plasma Lactic Acid Chin (0.7-2.0) mmol/L Calcium (8.4-10.2) mg/dL Magnesium (1.6-2.3) mg/dL Albumin (3.5-5.0) g/dL Stool Occult Blood Positive H (Negative) Crossmatch See Detail 09/20/21 09/20/21 Range/Units 11:56 17:37 RBC 2.40 L (3.80-5.40) m/uL Hgb 7.3 L (11.4-16.0) gm/dL Hct 22.9 L (34.0-46.0) % MCHC (31.0-37.0) g/dL RDW 18.9 H (11.5-15.5) % Lymphocytes # (1.0-4.8) k/uL PT 12.2 H (9.0-12.0) sec Potassium (3.5-5.1) mmol/L Carbon Dioxide (22-30) mmol/L BUN (7-17) mg/dL Creatinine (0.52-1.04) mg/dL Glucose (74-99) mg/dL Plasma Lactic Acid Chin (0.7-2.0) mmol/L Calcium (8.4-10.2) mg/dL Magnesium (1.6-2.3) mg/dL Albumin (3.5-5.0) g/dL Stool Occult Blood (Negative) Crossmatch Assessment and Plan Assessment: Assessment and Plan (1)Acute hyperkalemia secondary to missed dialysis 3 (2) chronic anemia, in a patient with history of AVMs, history of multiple blood transfusions, occult stool positive (3) Dialysis patient, noncompliant Current Visit: No Status: Acute Code(s): Z91.15 - PATIENT'S NONCOMPLIANCE WITH RENAL DIALYSIS SNOMED Code(s): 199759975945658 (4) COPD (chronic obstructive pulmonary disease) Current Visit: Yes Status: Acute Code(s): J44.9 - CHRONIC OBSTRUCTIVE PULMONARY DISEASE, UNSPECIFIED SNOMED Code(s): 28402695 (5) Essential (primary) hypertension Current Visit: Yes Status: Acute Code(s): I10 - ESSENTIAL (PRIMARY) HYPERTENSION SNOMED Code(s): 15194798 (6) ESRD (end stage renal disease) Current Visit: No Status: Acute Code(s): N18.6 - END STAGE RENAL DISEASE SNOMED Code(s): 58057653 (7) Hypothyroid Current Visit: No Status: Acute Code(s): E03.9 - HYPOTHYROIDISM, UNSPECIFIED SNOMED Code(s): 40993704 (8) Tobacco abuse Current Visit: No Status: Acute Code(s): Z72.0 - TOBACCO USE SNOMED Code(s): 819968569 Plan: Continue current medication regime, monitoring and symptomatic treatment. Hyperkalemia protocol in place ,Nephrology on consult for emergent hemodialysis. Repeat potassium. One unit of packed RBCs ordered .GI consult in place. The impression and plan of care has been dictated as directed. : I performed a history and examination of this patient, discussed the same with the dictator. I agree with the dictator's note ,documented as a scribe. Any additional findings or plans will be noted.
--- NOTE | 2021-09-21 12:37 | P.NPCON ---
History of Present Illness - Reason for Consult end stage renal disease - History of Present Illness Patient is a 71-year-old female with end-stage renal disease on hemodialysis on a Saturday schedule. She also has a history of previous GI bleed related to AVMs and has had multiple admissions to the hospital with severe anemia with hemoglobin around 3-4 g/dL and hyperkalemia. Patient has history of noncompliance with dialysis. Patient is admitted to the hospital with increased weakness she has not had dialysis for the last week as outpatient. No obvious bleeding reported per patient. Her potassium was 8.3 meq/L and hemoglobin was 6.4 on admission. Patient has received a unit of packed RBCs. She was dialyzed yesterday and is currently being dialyzed again today. Patient states that she did not have transportation to come to dialysis. Past Medical History Past Medical History: Asthma, Cancer, COPD, Dialysis, GERD/Reflux, GI Bleed, He aring Disorder / Deafness, Hypertension, Osteoarthritis (OA), Renal Disease, Thyroid Disorder Additional Past Medical History / Comment(s): HEMODIALYSIS SAT,SAT, SAT-, anemia- receives blood tranfusions weekly, past upper and lower GI bleeds L breast cancer with L mastectomy and chemotherapy, arthritis in multiple joints, hypothyroid, [place] bilaterally History of Any Multi-Drug Resistant Organisms: None Reported Past Surgical History: Breast Surgery, Hysterectomy, Tubal Ligation Additional Past Surgical History / Comment(s): L BREAST BIOPSY, LEFT MASTECTOMY , DIALYSIS GRAFT- UPPER LEFT ARM, PARTIAL THYROIDECTOMY,COLONOSCOPIES, EGDS, D&C, L SHOULDER CYST REMOVED. Past Anesthesia/Blood Transfusion Reactions: No Reported Reaction, Motion Sickness Additional Past Anesthesia/Blood Transfusion Reaction / Comment(s): Pt has received numerous transfusions without reaction. Past Psychological History: No Psychological Hx Reported Smoking Status: Current every day smoker Past Alcohol Use History: None Reported Past Drug Use History: None Reported - Past Family History Daughter(s) Family Medical History: Deep Vein Thrombosis (DVT) Mother Family Medical History: Cancer Additional Family Medical History / Comment(s): OVARIAN Brother(s) Family Medical History: Cancer Additional Family Medical History / Comment(s): Brother had "blood" cancer. Medications and Allergies Home Medications Medication Instructions Recorded Confirmed Type Calcium Acetate 1,334 mg PO TID 09/20/21 09/20/21 History Labetalol [Trandate] 100 mg PO TID 09/20/21 09/20/21 History Sertraline [Zoloft] 50 mg PO HS 09/20/21 09/20/21 History hydrALAZINE HCL 50 mg PO TID 09/20/21 09/20/21 History Allergies Allergy/AdvReac Type Severity Reaction Status Date / Time No Known Allergies Allergy Verified 09/20/21 11:02 Physical Exam Vitals: Vital Signs Temp Pulse Pulse Resp BP BP Pulse Ox 09/21/21 12:00 79 11 L 135/57 97 09/21/21 11:50 98.0 F 79 12 135/57 09/21/21 11:00 75 12 161/58 97 09/21/21 10:00 80 5 L 108/59 96 09/21/21 09:00 79 7 L 102/49 98 09/21/21 08:00 98.0 F 82 12 123/56 95 09/21/21 07:40 98 09/21/21 07:00 82 12 102/47 96 09/21/21 06:00 82 12 111/43 99 09/21/21 05:00 85 10 L 133/65 98 09/21/21 04:00 86 10 L 123/63 97 09/21/21 03:00 84 12 107/86 100 09/21/21 02:00 90 12 143/68 88 L 09/21/21 01:00 91 11 L 143/68 94 L 09/21/21 00:00 98.5 F 91 12 137/69 93 L 09/20/21 23:40 90 11 L 137/69 96 09/20/21 23:00 93 26 H 138/67 92 L 09/20/21 22:00 93 11 L 126/59 96 09/20/21 21:00 96 13 158/140 96 09/20/21 20:00 92 18 146/55 97 09/20/21 19:00 32 H 141/72 96 09/20/21 18:00 90 18 96 09/20/21 17:45 89 8 L 143/70 98 09/20/21 17:30 90 20 146/115 98 09/20/21 17:15 85 9 L 113/71 100 09/20/21 17:14 146/57 09/20/21 17:00 80 9 L 132/62 96 09/20/21 16:45 86 17 107/55 97 09/20/21 16:30 85 26 H 82/46 98 09/20/21 16:15 85 16 90/61 98 09/20/21 16:00 97.8 F 85 14 115/56 98 09/20/21 15:45 82 7 L 99/41 97 09/20/21 15:30 83 11 L 96/57 96 09/20/21 15:15 80 12 82/53 97 09/20/21 15:00 78 12 97/63 96 09/20/21 14:45 80 12 84/50 98 09/20/21 14:39 97.6 F 79 12 81/34 97 09/20/21 14:30 78 12 85/60 97 09/20/21 14:20 76 13 88/60 97 09/20/21 14:10 76 13 85/64 97 09/20/21 14:00 80 13 115/52 96 09/20/21 13:58 97.6 F 79 18 99/51 96 09/20/21 13:50 78 15 86/55 97 09/20/21 13:48 97.6 F 76 18 89/34 09/20/21 13:40 79 13 121/68 94 L 09/20/21 13:30 85 18 116/31 95 09/20/21 13:20 79 20 128/55 95 09/20/21 13:10 77 16 Intake and Output 09/20/21 09/21/21 09/21/21 22:59 06:59 14:59 Intake Total 620 90 0 Output Total 0 0 0 Balance 620 90 0 Intake: Oral 120 90 0 Hemodialysis 500 Output: Urine 0 0 0 Other: # Bowel Movements 1 Weight 79.3 kg Patient is awake comfortable. Not in any acute distress. Examination of the heart S1 and S2 Examination lungs bilateral breath sounds are heard Abdomen is soft nontender Examination lower extremities shows no evidence of edema Results - Lab Results Most recent lab results Calcium 7.0 mg/dL (8.4-10.2) L 09/21/21 06:55 Magnesium 2.4 mg/dL (1.6-2.3) H 09/20/21 10:48 09/21/21 06:55 09/21/21 06:55 Assessment and Plan Assessment: 1. End-stage renal disease on hemodialysis on a Saturday schedule with history of noncompliance with treatments as outpatient 2. Severe anemia with history of GI bleed related to AVMs. Patient is scheduled for EGD today. No obvious GI bleeding noted at this time 3. CK D mineral bone disorder 4. Hyperkalemia associated with noncompliance with dialysis and GI bleed, currently improved post dialysis Plan: Hemodialysis today. Continue with phosphate binders Repeat labs in a.m. Repeat hemodialysis in a.m.
--- NOTE | 2021-09-21 12:37 | P.PN ---
Subjective Progress Note Date: 09/21/21 This is a 71-year-old female with end-stage renal disease on hemodialysis Saturday with history of chronic recurrent anemia with transfusions, multiple scopes in the past. Missed 3 hemodialysis treatments-stage she didn't have a ride. Denies shortness of breath, maintaining O2 sats in the high 90s on room air.Chest x-ray reported no acute pulmonary process. Reports melana stools. Denies chest pain, palpitations. Denies nausea vomiting or diarrhea. Hemoglobin 6.4, platelets 197 , EKG reporting normal sinus rhythm, incomplete right bundle branch block ,with peaked T waves . Troponin negative 1 .Received hyperkalemic cocktail, and multiple rounds. Emergent dialysis been arranged as per nephrology. 09/21/2021 receiving second hemodialysis this morning. BUN 77, creatinine 7.81. Status post 1 unit of packed RBCs, current hemoglobin 6.8. Potassium 4.5. Evaluated by GI and patient is scheduled for EGD today. Denies chest pain, palpitations or shortness of breath. Maintaining O2 sats in the high 90s on room air. Objective - Vital Signs Vital signs: Vital Signs Temp 98.0 F 09/21/21 11:50 Pulse 79 09/21/21 12:00 Resp 11 L 09/21/21 12:00 BP 135/57 09/21/21 12:00 Pulse Ox 97 09/21/21 12:00 Intake & Output 09/20/21 09/21/21 09/21/21 18:59 06:59 18:59 Intake Total 810 210 0 Output Total 0 0 0 Balance 810 210 0 Weight 35.38 kg 79.3 kg Intake: Oral 210 0 Blood Product 310 Rc As-1 Unit 310 [id number] Hemodialysis 500 Output: Urine 0 0 0 Other: # Bowel Movements 1 - Exam GENERAL: Alert and oriented 2-3. Sitting up in bed, no acute distress. HEAD: Atraumatic, normocephalic. HEENT: Pupils equal ,round and reactive to light,conjunctiva are normal. Moist mucous membranes. NECK: Normal range of motion, supple without lymphadenopathy or JVD, no thyromegaly. Right chest port. LUNGS: Breath sounds coarse to auscultation bilaterally and equal. No wheezes rales or rhonchi. HEART: Regular rate and rhythm without rubs or gallops.S1S2 Normal, systolic ejection murmur. ABDOMEN: Soft, nontender, normoactive bowel sounds. No guarding, no rebound. No masses appreciated. EXTREMITIES: Normal range of motion, no pitting or edema. No clubbing or cyanosis. Left upper arm AV fistula. NEUROLOGICAL: Cranial nerves II through XII grossly intact. Normal speech, normal gait. PSYCH: Normal mood, normal affect. SKIN: Warm, Dry, normal turgor, no rashes or lesions noted. - Labs CBC & Chem 7: 09/21/21 06:55 09/21/21 06:55 Labs: Abnormal Lab Results - Last 24 Hours (Table) 09/20/21 09/20/21 09/20/21 Range/Units 11:56 11:56 17:37 RBC 2.40 L (3.80-5.40) m/uL Hgb 7.3 L (11.4-16.0) gm/dL Hct 22.9 L (34.0-46.0) % RDW 18.9 H (11.5-15.5) % Lymphocytes # (1.0-4.8) k/uL Sodium (137-145) mmol/L Potassium 7.6 H* (3.5-5.1) mmol/L BUN (7-17) mg/dL Creatinine (0.52-1.04) mg/dL POC Glucose (mg/dL) (75-99) mg/dL Calcium (8.4-10.2) mg/dL Total Protein (6.3-8.2) g/dL Albumin (3.5-5.0) g/dL Crossmatch See Detail 09/20/21 09/20/21 09/20/21 Range/Units 17:37 20:35 21:03 RBC (3.80-5.40) m/uL Hgb (11.4-16.0) gm/dL Hct (34.0-46.0) % RDW (11.5-15.5) % Lymphocytes # (1.0-4.8) k/uL Sodium (137-145) mmol/L Potassium 3.2 L (3.5-5.1) mmol/L BUN 62 H (7-17) mg/dL Creatinine 5.85 H (0.52-1.04) mg/dL POC Glucose (mg/dL) 71 L 72 L (75-99) mg/dL Calcium 7.4 L (8.4-10.2) mg/dL Total Protein (6.3-8.2) g/dL Albumin (3.5-5.0) g/dL Crossmatch 09/21/21 09/21/21 09/21/21 Range/Units 00:03 00:04 06:25 RBC 2.33 L (3.80-5.40) m/uL Hgb 7.1 L (11.4-16.0) gm/dL Hct 22.2 L (34.0-46.0) % RDW 18.6 H (11.5-15.5) % Lymphocytes # 0.3 L (1.0-4.8) k/uL Sodium 136 L (137-145) mmol/L Potassium (3.5-5.1) mmol/L BUN 68 H (7-17) mg/dL Creatinine 7.19 H* (0.52-1.04) mg/dL POC Glucose (mg/dL) 103 H (75-99) mg/dL Calcium 7.1 L (8.4-10.2) mg/dL Total Protein (6.3-8.2) g/dL Albumin (3.5-5.0) g/dL Crossmatch 09/21/21 09/21/21 Range/Units 06:55 06:55 RBC 2.23 L (3.80-5.40) m/uL Hgb 6.8 L* (11.4-16.0) gm/dL Hct 21.2 L (34.0-46.0) % RDW 18.9 H (11.5-15.5) % Lymphocytes # 0.3 L (1.0-4.8) k/uL Sodium 136 L (137-145) mmol/L Potassium (3.5-5.1) mmol/L BUN 77 H (7-17) mg/dL Creatinine 7.81 H* (0.52-1.04) mg/dL POC Glucose (mg/dL) (75-99) mg/dL Calcium 7.0 L (8.4-10.2) mg/dL Total Protein 5.5 L (6.3-8.2) g/dL Albumin 2.7 L (3.5-5.0) g/dL Crossmatch Assessment and Plan Assessment: Assessment and Plan (1)Acute hyperkalemia secondary to missed dialysis 3 (2) chronic anemia, in a patient with history of AVMs, history of multiple blood transfusions, occult stool positive (3) Dialysis patient, noncompliant Current Visit: No Status: Acute Code(s): Z91.15 - PATIENT'S NONCOMPLIANCE WITH RENAL DIALYSIS SNOMED Code(s): 119757163436572 (4) COPD (chronic obstructive pulmonary disease) Current Visit: Yes Status: Acute Code(s): J44.9 - CHRONIC OBSTRUCTIVE PULMONARY DISEASE, UNSPECIFIED SNOMED Code(s): 92368166 (5) Essential (primary) hypertension Current Visit: Yes Status: Acute Code(s): I10 - ESSENTIAL (PRIMARY) HYPERTENSION SNOMED Code(s): 35090522 (6) ESRD (end stage renal disease) Current Visit: No Status: Acute Code(s): N18.6 - END STAGE RENAL DISEASE SNOMED Code(s): 06374465 (7) Hypothyroid Current Visit: No Status: Acute Code(s): E03.9 - HYPOTHYROIDISM, UNSPECIFIED SNOMED Code(s): 01103046 (8) Tobacco abuse Current Visit: No Status: Acute Code(s): Z72.0 - TOBACCO USE SNOMED Code(s): 100983474 Plan: Continue current medication regime, monitoring and symptomatic treatment. Repeat Hemodialysis in progress .EGD scheduled for this afternoon. Close monitoring of coags with repeat labs ordered for a.m. The impression and plan of care has been dictated as directed. : I performed a history and examination of this patient, discussed the same with the dictator. I agree with the dictator's note ,documented as a scribe. Any additional findings or plans will be noted.
--- NOTE | 2021-09-21 12:51 | P.CONS ---
History of Present Illness - Reason for Consult Consult date: 09/21/21 Chronic GI bleed, melena Requesting physician: Julio Kwong - Chief Complaint Weakness - History of Present Illness This is a 71-year-old -[place] female who presented to the emergency department with complaints of feeling weak. Patient has multiple comorbidities including asthma, breast cancer, COPD, hypertension, thyroid disease GI bleeds with multiple AVMs,and end-stage renal disease on dialysis and missed dialysis 3 days. She was hyperkalemic and admitted into the ICU. She underwent hemodialysis yesterday and is scheduled again today. Patient had been reporting black stools over the last 2-3 days duration. She does have a history of multiple GI bleeds with AVMs. Had an EGD on September 20, 2018 that showed A AVMs status post argon plasma coagulation she continued to have bleeding she underwent another EGD on 09/23/[address] Fernández which showed no active bleeding only mild ascites blood in the stomach and duodenum and prior ablation of AVM site. She also underwent a small bowel capsule endoscopy on 09/25/2018 that showed multiple scattered AVMs in the proximal jejunum that were not bleeding. She currently denies any abdominal pain, nausea or vomiting. She is not on any anticoagulation. On admission she had hemoglobin 6.4 she was given 1 unit of PRBC transfusion and her hemoglobin came up to 7.3. Today she had a drop back down to 6.8. She states she has still been having dark stool. Review of Systems REVIEW OF SYSTEMS: CARDIOPULMONARY: No chest pain or shortness of breath. Gastrointestinal: No abdominal pain. No nausea or vomiting. No hematemesis, coffee-ground emesis. No rectal bleeding, reporting multiple plaques stool for the last 2-3 days duration. GENITOURINARY: No dysuria or hematuria. MUSCULOSKELETAL: Reports normal range of motion., Joint pain. SKIN: No rashes. No jaundice. ENDOCRINE: No chills, fevers. No excessive weight gain or loss. No polydipsia or polyuria. PSYCHIATRIC: Unremarkable. NEUROLOGY: No change in mental status. Denies dizziness, headache. ENT: Vision unremarkable. CONSTITUTIONAL: No recent weight loss. No fever, chills, night sweats. Past Medical History Past Medical History: Asthma, Cancer, COPD, Dialysis, GERD/Reflux, GI Bleed, Hearing Disorder / Deafness, Hypertension, Osteoarthritis (OA), Renal Disease, Thyroid Disorder Additional Past Medical History / Comment(s): HEMODIALYSIS MON,WED, FRI-, anemia- receives blood tranfusions weekly, past upper and lower GI bleeds L breast cancer with L mastectomy and chemotherapy, arthritis in multiple joints, hypothyroid, ELY [place] bilaterally History of Any Multi-Drug Resistant Organisms: None Reported Past Surgical History: Breast Surgery, Hysterectomy, Tubal Ligation Additional Past Surgical History / Comment(s): L BREAST BIOPSY, LEFT MASTECTOMY , DIALYSIS GRAFT- UPPER LEFT ARM, PARTIAL THYROIDECTOMY,COLONOSCOPIES, EGDS, D&C, L SHOULDER CYST REMOVED. Past Anesthesia/Blood Transfusion Reactions: No Reported Reaction, Motion Sickness Additional Past Anesthesia/Blood Transfusion Reaction / Comm: Pt has received numerous transfusions without reaction. Past Psychological History: No Psychological Hx Reported Smoking Status: Current every day smoker Past Alcohol Use History: None Reported Past Drug Use History: None Reported - Past Family History Daughter(s) Family Medical History: Deep Vein Thrombosis (DVT) Mother Family Medical History: Cancer Additional Family Medical History / Comment(s): OVARIAN Brother(s) Family Medical History: Cancer Additional Family Medical History / Comment(s): Brother had "blood" cancer. Medications and Allergies Home Medications Medication Instructions Recorded Confirmed Type Calcium Acetate 1,334 mg PO TID 09/20/21 09/20/21 History Labetalol [Trandate] 100 mg PO TID 09/20/21 09/20/21 History Sertraline [Zoloft] 50 mg PO HS 09/20/21 09/20/21 History hydrALAZINE HCL 50 mg PO TID 09/20/21 09/20/21 History Allergies Allergy/AdvReac Type Severity Reaction Status Date / Time No Known Allergies Allergy Verified 09/20/21 11:02 Physical Exam Vitals: Vital Signs Temp Pulse Resp BP BP Pulse Ox 09/21/21 07:40 98 09/21/21 07:00 82 12 102/47 96 09/21/21 06:00 82 12 111/43 99 09/21/21 05:00 85 10 L 133/65 98 09/21/21 04:00 86 10 L 123/63 97 09/21/21 03:00 84 12 107/86 100 09/21/21 02:00 90 12 143/68 88 L 09/21/21 01:00 91 11 L 143/68 94 L 09/21/21 00:00 98.5 F 91 12 137/69 93 L 09/20/21 23:40 90 11 L 137/69 96 09/20/21 23:00 93 26 H 138/67 92 L 09/20/21 22:00 93 11 L 126/59 96 09/20/21 21:00 96 13 158/140 96 09/20/21 20:00 92 18 146/55 97 09/20/21 19:00 32 H 141/72 96 09/20/21 18:00 90 18 96 09/20/21 17:45 89 8 L 143/70 98 09/20/21 17:30 90 20 146/115 98 09/20/21 17:15 85 9 L 113/71 100 09/20/21 17:14 146/57 09/20/21 17:00 80 9 L 132/62 96 09/20/21 16:45 86 17 107/55 97 09/20/21 16:30 85 26 H 82/46 98 09/20/21 16:15 85 16 90/61 98 09/20/21 16:00 97.8 F 85 14 115/56 98 09/20/21 15:45 82 7 L 99/41 97 09/20/21 15:30 83 11 L 96/57 96 09/20/21 15:15 80 12 82/53 97 09/20/21 15:00 78 12 97/63 96 09/20/21 14:45 80 12 84/50 98 09/20/21 14:39 97.6 F 79 12 81/34 97 09/20/21 14:30 78 12 85/60 97 09/20/21 14:20 76 13 88/60 97 09/20/21 14:10 76 13 85/64 97 09/20/21 14:00 80 13 115/52 96 09/20/21 13:58 97.6 F 79 18 99/51 96 09/20/21 13:50 78 15 86/55 97 09/20/21 13:48 97.6 F 76 18 89/34 09/20/21 13:40 79 13 121/68 94 L 09/20/21 13:30 85 18 116/31 95 09/20/21 13:20 79 20 128/55 95 09/20/21 13:10 77 16 02/23/22 12:11 72 18 148/75 98 09/20/21 11:08 64 09/20/21 10:57 66 09/20/21 09:56 98.1 F 74 18 137/68 99 Intake and Output 09/20/21 09/21/21 09/21/21 22:59 06:59 14:59 Intake Total 620 90 Output Total 0 0 0 Balance 620 90 0 Intake: Oral 120 90 Hemodialysis 500 Output: Urine 0 0 0 Other: # Bowel Movements 1 Weight 79.3 kg General appearance: The patient is alert, oriented, appears in no acute distress. HET: Head is normocephalic and atraumatic. Conjunctiva pink. Sclera anicteric. Neck: Supple without lymphadenopathy. Trachea midline. Heart: S1 S2. Regular rate and rhythm. Lungs: Clear to auscultation. Abdomen: Soft, nontender, nondistended with bowel sounds. No guarding or rigidity. Skin: No rashes. No jaundice. Extremities: Normal skin color and turgor. No pedal edema. Neurological: No focal deficits. Alert and oriented x3. Results CBC & Chem 7: 09/21/21 06:55 09/21/21 06:55 Labs: Abnormal Lab Results - Last 24 Hours (Table) 09/20/21 09/20/21 09/20/21 Range/Units 10:48 10:48 10:48 RBC 2.18 L (3.80-5.40) m/uL Hgb 6.4 L* (11.4-16.0) gm/dL Hct 21.2 L (34.0-46.0) % MCHC 30.1 L (31.0-37.0) g/dL RDW 20.3 H (11.5-15.5) % Lymphocytes # 0.3 L (1.0-4.8) k/uL PT (9.0-12.0) sec Sodium (137-145) mmol/L Potassium 8.3 H* (3.5-5.1) mmol/L Carbon Dioxide 13 L (22-30) mmol/L BUN 183 H* (7-17) mg/dL Creatinine 16.64 H* (0.52-1.04) mg/dL Glucose 113 H (74-99) mg/dL POC Glucose (mg/dL) (75-99) mg/dL Plasma Lactic Acid Chin 0.6 L (0.7-2.0) mmol/L Calcium 6.0 L* (8.4-10.2) mg/dL Magnesium 2.4 H (1.6-2.3) mg/dL Total Protein (6.3-8.2) g/dL Albumin 3.4 L (3.5-5.0) g/dL Stool Occult Blood (Negative) Crossmatch 09/20/21 09/20/21 09/20/21 Range/Units 11:35 11:56 11:56 RBC (3.80-5.40) m/uL Hgb (11.4-16.0) gm/dL Hct (34.0-46.0) % MCHC (31.0-37.0) g/dL RDW (11.5-15.5) % Lymphocytes # (1.0-4.8) k/uL PT (9.0-12.0) sec Sodium (137-145) mmol/L Potassium 7.6 H* (3.5-5.1) mmol/L Carbon Dioxide (22-30) mmol/L BUN (7-17) mg/dL Creatinine (0.52-1.04) mg/dL Glucose (74-99) mg/dL POC Glucose (mg/dL) (75-99) mg/dL Plasma Lactic Acid Chin (0.7-2.0) mmol/L Calcium (8.4-10.2) mg/dL Magnesium (1.6-2.3) mg/dL Total Protein (6.3-8.2) g/dL Albumin (3.5-5.0) g/dL Stool Occult Blood Positive H (Negative) Crossmatch See Detail 09/20/21 09/20/21 09/20/21 Range/Units 11:56 17:37 17:37 RBC 2.40 L (3.80-5.40) m/uL Hgb 7.3 L (11.4-16.0) gm/dL Hct 22.9 L (34.0-46.0) % MCHC (31.0-37.0) g/dL RDW 18.9 H (11.5-15.5) % Lymphocytes # (1.0-4.8) k/uL PT 12.2 H (9.0-12.0) sec Sodium (137-145) mmol/L Potassium 3.2 L (3.5-5.1) mmol/L Carbon Dioxide (22-30) mmol/L BUN 62 H (7-17) mg/dL Creatinine 5.85 H (0.52-1.04) mg/dL Glucose (74-99) mg/dL POC Glucose (mg/dL) (75-99) mg/dL Plasma Lactic Acid Chin (0.7-2.0) mmol/L Calcium 7.4 L (8.4-10.2) mg/dL Magnesium (1.6-2.3) mg/dL Total Protein (6.3-8.2) g/dL Albumin (3.5-5.0) g/dL Stool Occult Blood (Negative) Crossmatch 09/20/21 09/20/21 09/21/21 Range/Units 20:35 21:03 00:03 RBC (3.80-5.40) m/uL Hgb (11.4-16.0) gm/dL Hct (34.0-46.0) % MCHC (31.0-37.0) g/dL RDW (11.5-15.5) % Lymphocytes # (1.0-4.8) k/uL PT (9.0-12.0) sec Sodium 136 L (137-145) mmol/L Potassium (3.5-5.1) mmol/L Carbon Dioxide (22-30) mmol/L BUN 68 H (7-17) mg/dL Creatinine 7.19 H* (0.52-1.04) mg/dL Glucose (74-99) mg/dL POC Glucose (mg/dL) 71 L 72 L (75-99) mg/dL Plasma Lactic Acid Chin (0.7-2.0) mmol/L Calcium 7.1 L (8.4-10.2) mg/dL Magnesium (1.6-2.3) mg/dL Total Protein (6.3-8.2) g/dL Albumin (3.5-5.0) g/dL Stool Occult Blood (Negative) Crossmatch 09/21/21 09/21/21 09/21/21 Range/Units 00:04 06:25 06:55 RBC 2.33 L 2.23 L (3.80-5.40) m/uL Hgb 7.1 L 6.8 L* (11.4-16.0) gm/dL Hct 22.2 L 21.2 L (34.0-46.0) % MCHC (31.0-37.0) g/dL RDW 18.6 H 18.9 H (11.5-15.5) % Lymphocytes # 0.3 L 0.3 L (1.0-4.8) k/uL PT (9.0-12.0) sec Sodium (137-145) mmol/L Potassium (3.5-5.1) mmol/L Carbon Dioxide (22-30) mmol/L BUN (7-17) mg/dL Creatinine (0.52-1.04) mg/dL Glucose (74-99) mg/dL POC Glucose (mg/dL) 103 H (75-99) mg/dL Plasma Lactic Acid Chin (0.7-2.0) mmol/L Calcium (8.4-10.2) mg/dL Magnesium (1.6-2.3) mg/dL Total Protein (6.3-8.2) g/dL Albumin (3.5-5.0) g/dL Stool Occult Blood (Negative) Crossmatch 09/21/21 Range/Units 06:55 RBC (3.80-5.40) m/uL Hgb (11.4-16.0) gm/dL Hct (34.0-46.0) % MCHC (31.0-37.0) g/dL RDW (11.5-15.5) % Lymphocytes # (1.0-4.8) k/uL PT (9.0-12.0) sec Sodium 136 L (137-145) mmol/L Potassium (3.5-5.1) mmol/L Carbon Dioxide (22-30) mmol/L BUN 77 H (7-17) mg/dL Creatinine 7.81 H* (0.52-1.04) mg/dL Glucose (74-99) mg/dL POC Glucose (mg/dL) (75-99) mg/dL Plasma Lactic Acid Chin (0.7-2.0) mmol/L Calcium 7.0 L (8.4-10.2) mg/dL Magnesium (1.6-2.3) mg/dL Total Protein 5.5 L (6.3-8.2) g/dL Albumin 2.7 L (3.5-5.0) g/dL Stool Occult Blood (Negative) Crossmatch Assessment and Plan (1) GI bleed Narrative/Plan: 71-year-old female who presented to the emergency room with complaints of w eakness. She missed 3 days of her hemodialysis. She was noted on outpatient labs to be hyperkalemic as well as anemic with a hemoglobin of 6.4. She was admitted to the ICU given 1 unit of PRBC transfusion and dialysis site yesterday as well as scheduled today. She reports that she's been having multiple dark black stools for last 3-4 days duration. She also states that they are intermittent at times as well. She has a history of AVMs and has had multiple endoscopies including a small bowel video capsule endoscopy. Her last upper endoscopies were noted in 2018 with evidence of AVMs status post argon plasma coagulation. There is no abdominal pain, no nausea or vomiting. Will plan to p roceed with the EGD today. Likely dealing again with AVMs, patient is not on any anticoagulation. Current Visit: No Status: Acute Code(s): K92.2 - GASTROINTESTINAL HEMORRHAGE, UNSPECIFIED SNOMED Code(s): 17623859 (2) Melena Current Visit: No Status: Acute Code(s): K92.1 - MELENA SNOMED Code(s): 6208602 (3) Small bowel arteriovenous malformation Narrative/Plan: History of AVM status post argon plasma coagulation. Last EGD completed in August 2018. Current Visit: No Status: Acute Code(s): K55.20 - ANGIODYSPLASIA OF COLON WITHOUT HEMORRHAGE SNOMED Code(s): 176219953 (4) ESRD (end stage renal disease) Current Visit: No Status: Acute Code(s): N18.6 - END STAGE RENAL DISEASE SNOMED Code(s): 94492982 Plan: 1. Continue symptomatic and supportive care 2. Hemodialysis as ordered 3. Nothing by mouth 4. Protonix 40 mg twice a day GI prophylaxis 5. We'll proceed with EGD this afternoon 6. Daily CBC, transfuse per protocol Thank you for this consultation, we will continue to follow. Dr. Jacobo Dooley I agree with the dictator's note, documented as a scribe by Rose Flores.
[2021-09-21] MEDS ORDERED: LACTATED RINGERS 1,000 ML IV ONE ×2 (16:12)
[2021-09-21] MEDS ORDERED: LIDOCAINE 1% INJ 10MG/ML (20 ML MDV) ONE (16:14)
[2021-09-21] MEDS ORDERED: PROPOFOL 10 MG/ML 20 ML VIAL IV ONE (16:14)
--- NOTE | 2021-09-21 16:23 | P.PCN ---
Date of Procedure: 09/21/21 Procedure(s) Performed: BRIEF HISTORY: Patient is a 71-year-old, pleasant, after intermittent female with history of end-stage renal disease on hemodialysis admitted to the hospital with symptomatic anemia and hemoglobin of 6 and intermittent black tarry stools. She multiple EGDs and colonoscopies as well as capsule endoscopy in the past and was diagnosed with duodenal AVMs that they cauterized the last one was 2 years ago. Because of the recurrent anemia she is scheduled for repeat upper endoscopy today.. PROCEDURE PERFORMED: Esophagogastroduodenoscop with argon plasma coagulation . PREOPERATIVE DIAGNOSIS: Anemia/black tarry stools. IV sedation per anesthesia. PROCEDURE: After informed consent was obtained, the patient was brought into the endoscopy unit. IV sedation was administered by Anesthesia under continuous monitoring. Initially the Olympus GIF-140 video endoscope was inserted into the mouth. Esophagus intubated without any difficulty. It was gradually advanced into the stomach and duodenum and carefully examined. The bulb and the second part of the duodenum had 2 nonbleeding arteriovenous malformations with the patient contemplated with argon plasma. The scope at this time was withdrawn to the stomach, adequately insufflated with air, and upon careful examination, muc [place] of the antrum, body, cardia and the fundus appeared normal. The scope was then withdrawn into the esophagus. The GE junction was located at 39 cm from the incisors. The esophagus appeared normal. Mall hiatal hernia noted. There were no erosions or ulcerations seen and the patient tolerated the procedure well. IMPRESSION: 1. 2 small nonbleeding angiectasia/AVMs in the duodenum status post argon plasma coagulation as described above. 2. Small hiatal hernia. RECOMMENDATIONS: The findings of this examination were discussed with the patient . Diet will be advanced as tolerated. Monitor CBC daily. He'll follow with you closely..
[2021-09-21 17:05] LABS: Glucose,Whole Blood 98 mg/dL (75-99)
[2021-09-21] MEDS: SERTRALINE 50 MG TAB PO SCH (21:04)
[2021-09-21 21:18] LABS: Glucose,Whole Blood 100 mg/dL (75-99)
[2021-09-22 06:35] LABS: Glucose,Whole Blood 102 mg/dL (75-99)
--- NOTE | 2021-09-22 09:11 | P.PN ---
Subjective Patient is seen in follow-up for end-stage renal disease. She is maintained on hemodialysis on Saturday schedule. Has been noncompliant with dialysis treatments outpatient. Denies any active bleeding. Oral intake fair. Hemodynamically stable. Vital signs are stable. General: The patient appeared well nourished and normally developed. HEENT: Head exam is unremarkable. Neck is without jugular venous distension. LUNGS: Breath sounds decreased. HEART: Rate and Rhythm are regular. ABDOMEN: Soft, no distention. EXTREMITITES: No edema. Objective - Vital Signs Vital signs: Vital Signs Temp 98.2 F 09/22/21 08:00 Pulse 75 09/22/21 09:00 Resp 16 09/22/21 09:00 BP 114/65 09/22/21 09:00 Pulse Ox 100 09/22/21 08:00 Intake & Output 09/21/21 09/22/21 09/22/21 18:59 06:59 18:59 Intake Total 640 150 Output Total 1300 0 Balance -660 150 Intake: IV 100 Oral 240 150 Hemodialysis 300 Output: Urine 0 0 Hemodialysis 1300 Other: # Bowel Movements 1 - Labs CBC & Chem 7: 09/21/21 06:55 09/21/21 06:55 Labs: Abnormal Lab Results - Last 24 Hours (Table) 09/21/21 09/22/21 Range/Units 21:16 06:34 POC Glucose (mg/dL) 100 H 102 H (75-99) mg/dL Assessment and Plan Plan: Assessment: 1. End-stage renal disease maintained on hemodialysis on Saturday and Saturday schedule. 2. Noncompliance with hemodialysis treatments outpatient. 3. Anemia of chronic kidney disease with history of GI bleed. Underwent EGD yesterday which showed nonbleeding angiectasia/AVMs in the duodenum status post argon plasma coagulation. GI following. 4. Hypertension with chronic kidney disease. 5. Hyperkalemia secondary to chronic kidney disease, GI bleed and noncompliance with hemodialysis. Improved postdialysis. 6. Chronic kidney disease mineral bone disease. On PhosLo. Plan: Hemodialysis today. Hold midodrine for systolic blood pressure greater than 110. Add Aranesp. Monitor hemoglobin and transfuse as needed.
[2021-09-22 09:48] LABS: Anisocytosis Slight; HCT 21.1 % (34.0-46.0); Hypochromasia Marked; MCH 30.6 pg (25.0-35.0); MCHC 31.7 g/dL (31.0-37.0); MCV 96.4 fL (80.0-100.0); Macrocytosis Slight; Mean Platelet Volume 8.9; Platelet Count 189 k/uL (150-450); Poikilocytosis Slight; RBC 2.19 m/uL (3.80-5.40); RDW 18.4 % (11.5-15.5); WBC 5.9 k/uL (3.8-10.6)
[2021-09-22] MEDS ORDERED: DARBEPOETIN ALFA 40 MCG/0.4 ML SYRINGE SQ SCH (10:00)
[2021-09-22 10:03] LABS: HGB 6.7 gm/dL (11.4-16.0)
[2021-09-22 10:08] LABS: Appearance,Urine Cloudy (Clear); Bacteria,Urine Many /hpf; Bilirubin,Urine Negative (Negative); Blood,Urine Moderate (Negative); Color,Urine Yellow; Glucose,Urine (UA) Trace (Negative); Ketones,Urine Negative (Negative); Leukocyte Esterase,Urine Trace (Negative); Mucus,Urine Few /hpf; Nitrite,Urine Negative (Negative); Protein,Urine 3+ (Negative); RBC,Urine 4 /hpf (0-5); Specific Gravity,Urine 1.014 (1.001-1.035); Squamous Epithelial Cell,Urine 19 /hpf (0-4); Urobilinogen,Urine <2.0 mg/dL (<2.0); WBC,Urine 16 /hpf (0-5)
[2021-09-22] MEDS: CALCIUM ACETATE 667 MG TAB PO SCH ×3 (11:11→21:37)
[2021-09-22 11:29] LABS: Glucose,Whole Blood 91 mg/dL (75-99)
[2021-09-22] MEDS: PANTOPRAZOLE 40 MG/10 ML VIAL IVP SCH ×2 (11:34→21:36)
--- NOTE | 2021-09-22 14:06 | P.PN ---
Subjective Progress Note Date: 09/22/21 This is a 71-year-old female with end-stage renal disease on hemodialysis Saturday with history of chronic recurrent anemia with transfusions, multiple scopes in the past. Missed 3 hemodialysis treatments-stage she didn't have a ride. Denies shortness of breath, maintaining O2 sats in the high 90s on room air.Chest x-ray reported no acute pulmonary process. Reports melana stools. Denies chest pain, palpitations. Denies nausea vomiting or diarrhea. Hemoglobin 6.4, platelets 197 , EKG reporting normal sinus rhythm, incomplete right bundle branch block ,with peaked T waves . Troponin negative 1 .Received hyperkalemic cocktail, and multiple rounds. Emergent dialysis been arranged as per nephrology. 09/21/2021 receiving second hemodialysis this morning. BUN 77, creatinine 7.81. Status post 1 unit of packed RBCs, current hemoglobin 6.8. Potassium 4.5. Evaluated by GI and patient is scheduled for EGD today. Denies chest pain, palpitations or shortness of breath. Maintaining O2 sats in the high 90s on room air. 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 Tolerated procedure well, diet advanced. Receiving hemodialysis later today. Hemoglobin 6.7, scheduled for transfusion of packed RBCs. Vital signs stable, no tachycardia .Denies bleeding. Denies chest pain, palpitations or increased shortness of breath. Afebrile, normal WBC. Maintaining O2 sats in the high 90s to 100% on 2 L nasal cannula. Objective - Vital Signs Vital signs: Vital Signs Temp 98.2 F 09/22/21 08:00 Pulse 75 09/22/21 09:00 Resp 16 09/22/21 09:00 BP 114/65 09/22/21 09:00 Pulse Ox 100 09/22/21 08:00 Intake & Output 09/21/21 09/22/21 09/22/21 18:59 06:59 18:59 Intake Total 640 150 Output Total 1300 0 Balance -660 150 Intake: IV 100 Oral 240 150 Hemodialysis 300 Output: Urine 0 0 Hemodialysis 1300 Other: # Bowel Movements 1 - Exam GENERAL: Alert and oriented 2-3. Sitting up in bed, no acute distress. HEAD: Atraumatic, normocephalic. HEENT: Pupils equal ,round ,conjunctiva are normal. Moist mucous membranes. NECK: Supple, no JVD.Right chest port. LUNGS: Breath sounds coarse to auscultation bilaterally and equal. No wheezes rales or rhonchi. HEART: Regular rate and rhythm without rubs or gallops.S1S2 Normal, systolic ejection murmur. ABDOMEN: Soft, nontender, normoactive bowel sounds. No guarding, no rebound. EXTREMITIES: Normal range of motion, no pitting or edema. No clubbing or cyanosis. Left upper arm AV fistula. NEUROLOGICAL: Cranial nerves II through XII grossly intact. Normal speech, normal gait. SKIN: Warm, Dry, normal turgor, no rashes noted. - Labs CBC & Chem 7: 09/22/21 09:22 09/21/21 06:55 Labs: Abnormal Lab Results - Last 24 Hours (Table) 09/20/21 09/21/21 09/22/21 Range/Units 11:56 21:16 06:34 RBC (3.80-5.40) m/uL Hgb (11.4-16.0) gm/dL Hct (34.0-46.0) % RDW (11.5-15.5) % POC Glucose (mg/dL) 100 H 102 H (75-99) mg/dL Urine Appearance (Clear) Urine Protein (Negative) Urine Glucose (UA) (Negative) Urine Blood (Negative) Ur Leukocyte Esterase (Negative) Urine WBC (0-5) /hpf Ur Squamous Epith Cells (0-4) /hpf Urine Bacteria (None) /hpf Urine Mucus (None) /hpf Crossmatch See Detail 09/22/21 09/22/21 Range/Units 09:18 09:22 RBC 2.19 L (3.80-5.40) m/uL Hgb 6.7 L* (11.4-16.0) gm/dL Hct 21.1 L (34.0-46.0) % RDW 18.4 H (11.5-15.5) % POC Glucose (mg/dL) (75-99) mg/dL Urine Appearance Cloudy H (Clear) Urine Protein 3+ H (Negative) Urine Glucose (UA) Trace H (Negative) Urine Blood Moderate H (Negative) Ur Leukocyte Esterase Trace H (Negative) Urine WBC 16 H (0-5) /hpf Ur Squamous Epith Cells 19 H (0-4) /hpf Urine Bacteria Many H (None) /hpf Urine Mucus Few H (None) /hpf Crossmatch Assessment and Plan Assessment: Assessment and Plan (1)Acute hyperkalemia secondary to missed dialysis 3 (2) chronic anemia, in a patient with history of AVMs, history of multiple blood transfusions, occult stool positive.EGD reporting 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 (3) Dialysis patient, noncompliant Current Visit: No Status: Acute Code(s): Z91.15 - PATIENT'S NONCOMPLIANCE WITH RENAL DIALYSIS SNOMED Code(s): 420711192505125 (4) COPD (chronic obstructive pulmonary disease) Current Visit: Yes Status: Acute Code(s): J44.9 - CHRONIC OBSTRUCTIVE PULMONARY DISEASE, UNSPECIFIED SNOMED Code(s): 37506243 (5) Essential (primary) hypertension Current Visit: Yes Status: Acute Code(s): I10 - ESSENTIAL (PRIMARY) HYPERTENSION SNOMED Code(s): 42813256 (6) ESRD (end stage renal disease) Current Visit: No Status: Acute Code(s): N18.6 - END STAGE RENAL DISEASE SNOMED Code(s): 96371057 (7) Hypothyroid Current Visit: No Status: Acute Code(s): E03.9 - HYPOTHYROIDISM, UNSPECIFIED SNOMED Code(s): 92478628 (8) Tobacco abuse Current Visit: No Status: Acute Code(s): Z72.0 - TOBACCO USE SNOMED Code(s): 755461898 Plan: Continue current medication regime, monitoring and symptomatic treatment. Hemodialysis this afternoon. Scheduled for transfusion of packed RBCs. Close monitoring of coags with repeat labs ordered for a.m. discharge planning in progress. The impression and plan of care has been dictated as directed. : I performed a history and examination of this patient, discussed the same with the dictator. I agree with the dictator's note ,documented as a scribe. Any additional findings or plans will be noted.
[2021-09-22 15:33] LABS: Calcium 7.4 mg/dL (8.4-10.2); Potassium 4.2 mmol/L (3.5-5.1)
--- NOTE | 2021-09-22 15:53 | P.PN ---
Subjective Progress Note Date: 09/22/21 Hyperkalemia and chronic renal failure, acute metabolic encephalopathy 71-year-old -Citizen Of [place] female with past medical history of ESRD on hemodialysis on Saturday schedule, chronic iron deficiency anemia, previous history of GI bleeding, history of COPD, hypertension, hypothyroidism, previous history of smoking presented to the emergency department on 09/20/2021 with complaints of weakness. Apparently patient had missed her hemodialysis. Denies any shortness of breath, room air pulse ox is 99%, patient reports no fever or chills, chest x-ray from the emergency department showed no acute pulmonary process. Admission blood work showed acute hyperkalemia with potassium of 8.3, BUN of 183, creatinine of 16.6, hemoglobin of 6.4. White blood cell count was normal at 4.8, platelet count was 197 lactic acid was 0.6, troponin level was less than 0.012, stool for a blood was positive, COVID-19 PCR was negative. Nephrology has been consulted and emergent hemodialysis has been ordered, in the meantime patient received 2 A of calcium gluconate, 2 A of 50% dextrose, 2 doses of regular insulin 10 units each, 1 amp of sodium bicarbonate, and 15 g of Kayexalate in the emergency department. Apparently patient had an episode of nausea and vomiting. She is currently admitted to the intensive care unit while awaiting her emergent hemodialysis. She is in no acute distress, breathing comfortably, vital signs are stable. EKG showed normal sinus rhythm with nonspecific T-wave abnormality, and incomplete right bundle branch block. But no bradycardia. Reevaluated today on 09/21/2021, patient is doing well, she has been dialyzed yesterday, and she is being dialyzed during my evaluation this morning. Patient seems to be doing great, she is asymptomatic, her mental status is back to baseline, and no major issues over the last 24 hours. Patient is hemodynamically stable, hemoglobin is 6.8 today, patient is having EGD by gastroenterology today. Electrolytes are normal BUN is 77 creatinine 7.81. 09/22/2021, the patient is doing well and the patient is calm and comfortable and she denies having any shortness of breath. In fact, this morning, she was undergoing hemodialysis with a goal of ultrafiltration of more than 3 L. The patient is currently on room air oxygen and pulse ox 97%. No signs of any respiratory distress. No cough. No sputum production. No aspiration. No altered mentation. No chest pain. Hemoglobin is down again down to 6.7 and is being monitored. No signs of any acute GI bleeding. Note that the patient c ompleted EGD and colonoscopy yesterday and the patient was found to have a small AVMs of the duodenum and I plasma coagulation was applied. The patient was asked to gradually advance her diet as tolerated by gastroenterology. No evidence of any acute GI bleeding for now. The patient on IV Protonix. The BUN is a 52 with a creatinine of 6.5. Sodium is at 133. Calcium level is at 7.4. The white cell count of 5.9 with a hemoglobin of 6.7.. GI is on the case. The findings on the case. Hemodynamically stable. Objective - Vital Signs Vital signs: Vital Signs Temp 98.5 F 09/22/21 14:58 Pulse 84 09/22/21 14:58 Resp 18 09/22/21 14:58 BP 121/68 09/22/21 14:58 Pulse Ox 97 09/22/21 14:58 Intake & Output 09/21/21 09/22/21 09/22/21 18:59 06:59 18:59 Intake Total 640 150 Output Total 1300 0 100 Balance -660 150 -100 Intake: IV 100 Oral 240 150 Hemodialysis 300 Output: Urine 0 0 100 Hemodialysis 1300 Other: Voiding Method Bedside Commode # Bowel Movements 1 - Exam Physical Exam: Revealed 71-year-old female in no distress, on room air. No signs of any respiratory distress and the patient is calm and comfortable Head exam was generally normal. There was no scleral icterus or corneal arcus. Mucous membranes were moist.c. HEENT:[Neck is supple.] [No neck masses.] [No thyromegaly.] [No JVD.] Chest: [Clear throughout, no crackles, no rhonchi, no wheezes.] Cardiac Exam: [Normal S1 and S2, no S3 gallop, no murmur.] Abdomen: [Soft, nontender, no megaly, no rebound, no guarding, normal bowel alfredo nds.] Extremities: [No clubbing, no edema, no cyanosis.] Left arm AV fistula is noted. Neurological Exam: [No focal neurologic deficit.] No gross focal deficits. Psychiatric: Normal mood affect and normal mental status examination. Examination of the skin revealed no evidence of significant rashes, suspicious appearing nevi or other concerning lesions. - Labs CBC & Chem 7: 09/22/21 09:22 09/22/21 15:13 Labs: Abnormal Lab Results - Last 24 Hours (Table) 09/20/21 09/21/21 09/22/21 Range/Units 11:56 21:16 06:34 RBC (3.80-5.40) m/uL Hgb (11.4-16.0) gm/dL Hct (34.0-46.0) % RDW (11.5-15.5) % Sodium (137-145) mmol/L BUN (7-17) mg/dL Creatinine (0.52-1.04) mg/dL Glucose (74-99) mg/dL POC Glucose (mg/dL) 100 H 102 H (75-99) mg/dL Calcium (8.4-10.2) mg/dL Urine Appearance (Clear) Urine Protein (Negative) Urine Glucose (UA) (Negative) Urine Blood (Negative) Ur Leukocyte Esterase (Negative) Urine WBC (0-5) /hpf Ur Squamous Epith Cells (0-4) /hpf Urine Bacteria (None) /hpf Urine Mucus (None) /hpf Crossmatch See Detail 09/22/21 09/22/21 09/22/21 Range/Units 09:18 09:22 15:13 RBC 2.19 L (3.80-5.40) m/uL Hgb 6.7 L* (11.4-16.0) gm/dL Hct 21.1 L (34.0-46.0) % RDW 18.4 H (11.5-15.5) % Sodium 133 L (137-145) mmol/L BUN 52 H (7-17) mg/dL Creatinine 6.57 H (0.52-1.04) mg/dL Glucose 119 H (74-99) mg/dL POC Glucose (mg/dL) (75-99) mg/dL Calcium 7.4 L (8.4-10.2) mg/dL Urine Appearance Cloudy H (Clear) Urine Protein 3+ H (Negative) Urine Glucose (UA) Trace H (Negative) Urine Blood Moderate H (Negative) Ur Leukocyte Esterase Trace H (Negative) Urine WBC 16 H (0-5) /hpf Ur Squamous Epith Cells 19 H (0-4) /hpf Urine Bacteria Many H (None) /hpf Urine Mucus Few H (None) /hpf Crossmatch Assessment and Plan Plan: Acute hypoxic respiratory failure, likely secondary to fluid overload, improved and the patient is currently on room air oxygen. The patient is undergoing hemodialysis today. There is a goal of 3 L of ultrafiltration. The patient is not having any respiratory distress at this point in time. Acute hyperkalemia secondary to noncompliance with hemodialysis treatment, resolved after hemodialysis. 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 History of left breast cancer with mastectomy and chemotherapy Benign essential hypertension Hypothyroidism History of COPD, inactive Plan While she patient's hemoglobin. We'll monitor the hemoglobin is currently at 6.7. No active bleeding. Continue IV protonic's Advance diet as tolerated Hemodialysis with a total of 3 L of ultrafiltration at least today May transfer out of the intensive care unit and will continue to follow.
--- NOTE | 2021-09-22 16:05 | P.PN ---
Subjective Progress Note Date: 09/22/21 Principal diagnosis: GI bleed, anemia 71-year-old -[place] female with end-stage renal disease on hemodialysis presented to the emergency room with shortness of breath after missing 3 of her dialysis appointments. She was also noted to be anemic with reported blacks tar ry stools. Patient has a history of AVMs and has had multiple EGDs in the past. Yesterday she underwent EGD that showed 2 nonbleeding angiectasia/AVMs in the duodenum status post argon plasma coagulation and a small hiatal hernia. Today she states she has not had any bowel movement yesterday evening she had a small black bowel movement as well. She received 1 unit PRBC transfusion this admissi on. Her repeat hemoglobin today was 6.7, she does not meet criteria for transfusion per protocol. She denies any abdominal pain, nausea, or vomiting. She is tolerating her diet. Objective - Vital Signs Vital signs: Vital Signs Temp 98.2 F 09/22/21 08:00 Pulse 75 09/22/21 09:00 Resp 16 09/22/21 09:00 BP 114/65 09/22/21 09:00 Pulse Ox 100 09/22/21 08:00 Intake & Output 09/21/21 09/22/21 09/22/21 18:59 06:59 18:59 Intake Total 640 150 Output Total 1300 0 Balance -660 150 Intake: IV 100 Oral 240 150 Hemodialysis 300 Output: Urine 0 0 Hemodialysis 1300 Other: # Bowel Movements 1 - Exam General appearance: The patient is alert, oriented, appears in no acute distress. HET: Head is normocephalic and atraumatic. Conjunctiva pink. Sclera anicteric. Neck: Supple without lymphadenopathy. Abdomen: Soft, nontender, nondistended with bowel sounds. No guarding or rigidity. Extremities: Normal skin color and turgor. No pedal edema Skin: No rashes, no jaundice Neurological: No focal deficits. Alert and oriented -3. - Labs CBC & Chem 7: 09/22/21 09:22 09/22/21 15:13 Labs: Abnormal Lab Results - Last 24 Hours (Table) 09/21/21 09/22/21 Range/Units 21:16 06:34 POC Glucose (mg/dL) 100 H 102 H (75-99) mg/dL Assessment and Plan (1) GI bleed Narrative/Plan: 71-year-old female who presented to the emergency room with complaints of weakness. She missed 3 days of her hemodialysis. She was noted on outpatient labs to be hyperkalemic as well as anemic with a hemoglobin of 6.4. She was admitted to the ICU given 1 unit of PRBC transfusion and dialysis site yesterday as well as scheduled today. She reports that she's been having multiple dark black stools for last 3-4 days duration. She also states that they are intermittent at times as well. She has a history of AVMs and has had multiple endoscopies including a small bowel video capsule endoscopy. Her last upper endoscopies were noted in 2019 with evidence of AVMs status post argon plasma coagulation. There is no abdominal pain, no nausea or vomiting. Will plan to proceed with the EGD today. Likely dealing again with AVMs, patient is not on any anticoagulation. Patient is status post EGD with findings of 2 nonbleeding duodenal AVMs status post argon plasma coagulation. A small hiatal hernia. Current Visit: No Status: Acute Code(s): K92.2 - GASTROINTESTINAL HEMORRHAGE, UNSPECIFIED SNOMED Code(s): 45137467 (2) Melena Current Visit: No Status: Acute Code(s): K92.1 - MELENA SNOMED Code(s): 4887295 (3) Small bowel arteriovenous malformation Narrative/Plan: History of AVM status post argon plasma coagulation. Last EGD completed in August 2018. Current Visit: No Status: Acute Code(s): K55.20 - ANGIODYSPLASIA OF COLON WITHOUT HEMORRHAGE SNOMED Code(s): 618686122 (4) ESRD (end stage renal disease) Current Visit: No Status: Acute Code(s): N18.6 - END STAGE RENAL DISEASE SNOMED Code(s): 24532873 Plan: 1. Continue symptomatic and supportive care 2. Hemodialysis as ordered 3. Diet as tolerated 4. Protonix 40 mg twice a day GI prophylaxis 5. Patient is status post EGD with findings of 2 small nonbleeding duodenal AVM status post argon plasma coagulation 6. Daily CBC, transfuse per protocol Thank you for allowing us to participate in the care of the patient, the GI service will sign off, gastroenterology will not be available at the hospital this weekend. If further evaluation by gastroenterology is required the patient will need transfer as per the primary team's discretion. Dr. Jacobo Dooley I agree with the dictator's note, documented as a scribe by Rose Flores.
[2021-09-22] MEDS: SERTRALINE 50 MG TAB PO SCH (21:36)
[2021-09-22 22:54] VITALS: RESP 17
[2021-09-23 03:23] VITALS: PULSE 86
[2021-09-23 07:14] LABS: Glucose,Whole Blood 93 mg/dL (75-99)
[2021-09-23 07:24] VITALS: BP 166/70; TEMP 98.6
[2021-09-23] MEDS: PANTOPRAZOLE 40 MG/10 ML VIAL IVP SCH (07:42)
[2021-09-23] MEDS: CALCIUM ACETATE 667 MG TAB PO SCH (07:42)
--- NOTE | 2021-09-23 10:33 | P.DS ---
Providers Date of admission: 09/20/21 12:52 Expected date of discharge: 09/23/21 Attending physician: Julio Kwong Consults: 09/20/21 12:11 Consult Physician Stat Consulting Provider: Elizabeth Nugent Consult Reason/Comments: hyperkalemia, needs dialysis Do you want consulting provider notified?: Already Contacted 09/20/21 12:12 Consult Physician Routine Consulting Provider: Suki Dooley Consult Reason/Comments: chronic gi bleed Do you want consulting provider notified?: Yes 09/20/21 15:11 Consult Physician Routine Consulting Provider: Jarad Jordan Consult Reason/Comments: hyperkalemia, anemia, missed dialysis Do you want consulting provider notified?: Already Contacted Primary care physician: Jacob Littlejohn - tSeve Diagnosis(es) (1) Acute blood loss anemia Current Visit: No Status: Acute (2) Acute GI bleeding Current Visit: No Status: Acute (3) Symptomatic anemia Current Visit: Yes Status: Acute (4) Hyperkalemia Current Visit: Yes Status: Acute (5) Chronic GI bleeding Current Visit: Yes Status: Acute (6) Occult blood in stools Current Visit: Yes Status: Acute (7) Missed dialysis Current Visit: Yes Status: Acute (8) Dialysis patient, noncompliant Current Visit: No Status: Acute (9) ESRD (end stage renal disease) Current Visit: No Status: Acute (10) Essential (primary) hypertension Current Visit: No Status: Acute (11) Hypothyroid Current Visit: No Status: Acute (12) Tobacco abuse Current Visit: No Status: Acute Hospital Course: This is a 71-year-old female with end-stage renal disease on hemodialysis Saturday with history of chronic recurrent anemia with transfusions, multiple scopes in the past. Missed 3 hemodialysis treatments-stage she didn't have a ride. Denies shortness of breath, maintaining O2 sats in the high 90s on room air.Chest x-ray reported no acute pulmonary process. Reports melana stools. Denies chest pain, palpitations. Denies nausea vomiting or diarrhea. Hemoglobin 6.4, platelets 197 , EKG reporting normal sinus rhythm, incomplete right bundle branch block ,with peaked T waves . Troponin negative 1 .Received hyperkalemic cocktail, and multiple rounds. Emergent dialysis been arranged as per nephrology. 09/21/2021 receiving second hemodialysis this morning. BUN 77, creatinine 7.81.Status post 1 unit of packed RBCs, current hemoglobin 6.8. Potassium 4.5. Evaluated by GI and patient is scheduled for EGD today. Denies chest pain, palpitations or shortness of breath. Maintaining O2 sats in the high 90s on room air. 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 Tolerated procedure well, diet advanced. Receiving hemodialysis later today. Hemoglobin 6.7, scheduled for transfusion of packed RBCs. Vital signs stable, no tachycardia .Denies bleeding. Denies chest pain, palpitations or increased shortness of breath. Afebrile, normal WBC. Maintaining O2 sats in the high 90s to 100% on 2 L nasal cannula. 09/23/2021: Patient is resting comfortably. She has no complaints. She finished dialysis yesterday. Hemoglobin remained stable at 6.7. Oxygen saturation stable. She is requesting discharge. Patient Condition at Discharge: Serious Plan - Discharge Summary Discharge Rx Participant: Yes New Discharge Prescriptions: New Darbepoetin Marek [Aranesp] 40 mcg SQ Q7D each Dexlansoprazole [Dexilant] 60 mg PO DAILY #30 cap Continue Sertraline [Zoloft] 50 mg PO HS Labetalol [Trandate] 100 mg PO TID hydrALAZINE HCL 50 mg PO TID Calcium Acetate 1,334 mg PO TID Discharge Medication List Calcium Acetate 1,334 mg PO TID 09/20/21 [History] Labetalol [Trandate] 100 mg PO TID 09/20/21 [History] Sertraline [Zoloft] 50 mg PO HS 09/20/21 [History] hydrALAZINE HCL 50 mg PO TID 09/20/21 [History] Darbepoetin Marek [Aranesp] 40 mcg SQ Q7D each 09/23/21 [Rx] Dexlansoprazole [Dexilant] 60 mg PO DAILY #30 cap 09/23/21 [Rx] Follow up Appointment(s)/Referral(s): [facility] [NON-STAFF] - Jacob Littlejohn Jr, DO [Primary Care Provider] - 1-2 days Suki Dooley MD [STAFF PHYSICIAN] - 1 Week Patient Instructions/Handouts: Gastrointestinal Bleeding (DC), Hyperkalemia (DC) Activity/Diet/Wound Care/Special Instructions: Call [employer] to see if they can assist with transportation to and from dialysis Discharge/Stand Alone Forms: Who Do I Call? Discharge Disposition: HOME SELF-CARE
[2021-09-23 11:32] LABS: Glucose,Whole Blood 130 mg/dL (75-99)
--- NOTE | 2021-09-23 12:15 | P.PN ---
<Claribel Aviles - Last Filed: 09/23/21 12:03> Subjective Progress Note Date: 09/23/21 71-year-old -[place] female with past medical history of ESRD on hemodialysis on Saturday schedule, chronic iron deficiency anemia, previous history of GI bleeding, history of COPD, hypertension, hypothyroidism, previous history of smoking presented to the emergency department on 09/20/2021 with complaints of weakness. Apparently patient had missed her hemodialysis. Denies any shortness of breath, room air pulse ox is 99%, patient reports no fever or chills, chest x-ray from the emergency department showed no acute pulmonary process. Admission blood work showed acute hyperkalemia with potassium of 8.3, BUN of 183, creatinine of 16.6, hemoglobin of 6.4. White blood cell count was normal at 4.8, platelet count was 197 lactic acid was 0.6, troponin level was less than 0.012, stool for a blood was posi tive, COVID-19 PCR was negative. Nephrology has been consulted and emergent hemodialysis has been ordered, in the meantime patient received 2 A of calcium gluconate, 2 A of 50% dextrose, 2 doses of regular insulin 10 units each, 1 amp of sodium bicarbonate, and 15 g of Kayexalate in the emergency department. Apparently patient had an episode of nausea and vomiting. She is currently admitted to the intensive care unit while awaiting her emergent hemodialysis. She is in no acute distress, breathing comfortably, vital signs are stable. EKG showed normal sinus rhythm with nonspecific T-wave abnormality, and incomplete right bundle branch block. But no bradycardia. Reevaluated today on 09/21/2021, patient is doing well, she has been dialyzed yesterday, and she is being dialyzed during my evaluation this morning. Patient seems to be doing great, she is asymptomatic, her mental status is back to baseline, and no major issues over the last 24 hours. Patient is hemodynamically stable, hemoglobin is 6.8 today, patient is having EGD by gastroenterology today. Electrolytes are normal BUN is 77 creatinine 7.81. 09/22/2021, the patient is doing well and the patient is calm and comfortable and she denies having any shortness of breath. In fact, this morning, she was undergoing hemodialysis with a goal of ultrafiltration of more than 3 L. The patient is currently on room air oxygen and pulse ox 97%. No signs of any respiratory distress. No cough. No sputum production. No aspiration. No altered mentation. No chest pain. Hemoglobin is down again down to 6.7 and is being monitored. No signs of any acute GI bleeding. Note that the patient completed EGD and colonoscopy yesterday and the patient was found to have a small AVMs of the duodenum and I plasma coagulation was applied. The patient was asked to gradually advance her diet as tolerated by gastroenterology. No evidence of any acute GI bleeding for now. The patient on IV Protonix. The BUN is a 52 with a creatinine of 6.5. Sodium is at 133. Calcium level is at 7.4. The white cell count of 5.9 with a hemoglobin of 6.7.. GI is on the case. The findings on the case. Hemodynamically stable. The patient is seen today 09/23/2021 in follow-up on the regular medical floor. She is currently resting comfortably in bed. Awake and alert in no acute distress. Maintaining good O2 saturations in the 90s on room air. Afebrile. Hemodynamically stable. No bloody bowel movements. She remains on IV Protonix twice a day. Blood glucose 130. Objective - Vital Signs Vital signs: Vital Signs Temp 98.6 F 09/23/21 07:23 Pulse 86 09/23/21 08:00 Resp 17 09/23/21 08:00 BP 166/70 09/23/21 07:23 Pulse Ox 100 09/23/21 07:23 Intake & Output 09/22/21 09/23/21 09/23/21 18:59 06:59 18:59 Output Total 1100 Balance -1100 Output: Urine 100 Hemodialysis 1000 Other: Voiding Method Bedside Commode Bedside Commode Bedside Commode # Voids 0 # Bowel Movements 0 - Exam GENERAL EXAM: Alert, pleasant 71-year-old female patient, on room air, co mfortable in no apparent distress. HEAD: Normocephalic. EYES: Normal reaction of pupils, equal size. NOSE: Clear with pink turbinates. THROAT: No erythema or exudates. NECK: No masses, no JVD. CHEST: No chest wall deformity. LUNGS: Equal air entry with no crackles, wheeze, rhonchi or dullness. CVS: S1 and S2 normal with no audible murmur, regular rhythm. ABDOMEN: No hepatosplenomegaly, normal bowel sounds, no guarding or rigidity. SPINE: No scoliosis or deformity SKIN: No rashes CENTRAL NERVOUS SYSTEM: No focal deficits, tone is normal in all 4 extremities. EXTREMITIES: Left upper extremity AV fistula noted. There is no peripheral edema. No clubbing, no cyanosis. Peripheral pulses are intact. - Labs CBC & Chem 7: 09/22/21 09:22 09/22/21 15:13 Labs: Abnormal Lab Results - Last 24 Hours (Table) 09/20/21 09/22/21 09/23/21 Range/Units 11:56 15:13 11:30 Sodium 133 L (137-145) mmol/L BUN 52 H (7-17) mg/dL Creatinine 6.57 H (0.52-1.04) mg/dL Glucose 119 H (74-99) mg/dL POC Glucose (mg/dL) 130 H (75-99) mg/dL Calcium 7.4 L (8.4-10.2) mg/dL Crossmatch See Detail Microbiology - Last 24 Hours (Table) 09/22/21 09:18 Urine Culture - Preliminary Urine,Voided Assessment and Plan Assessment: Acute hypoxic respiratory failure, likely secondary to fluid overload, improved and the patient is currently on room air oxygen. The patient is not having any respiratory distress at this point in time. Acute hyperkalemia secondary to noncompliance with hemodialysis treatment, resolved after hemodialysis. 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 History of left breast cancer with mastectomy and chemotherapy Benign essential hypertension Hypothyroidism History of COPD, inactive Plan: The patient was seen and evaluated Stable and on room air We will see an as-needed basis I, the cosigning physician, performed a history & physical examination of the patient. Lungs sounds are clear. Maintaining good O2 saturations in the 90s on room air. I discussed the assessment and plan of care with my nurse practitioner, Claribel Aviles. I attest to the above note as dictated by her. I have personally seen and examined the patient, performed the documentation and the assessment and plan as written. Number of minutes spent on the visit: 10. <Vini Sol - Last Filed: 09/23/21 13:47> Objective - Vital Signs Vital signs: Vital Signs Temp 98.6 F 09/23/21 07:23 Pulse 86 09/23/21 08:00 Resp 17 09/23/21 08:00 BP 166/70 09/23/21 07:23 Pulse Ox 100 09/23/21 07:23 Intake & Output 09/22/21 09/23/21 09/23/21 18:59 06:59 18:59 Output Total 1100 Balance -1100 Output: Urine 100 Hemodialysis 1000 Other: Voiding Method Bedside Commode Bedside Commode Bedside Commode # Voids 0 # Bowel Movements 0 - Labs CBC & Chem 7: 09/22/21 09:22 09/22/21 15:13 Labs: Abnormal Lab Results - Last 24 Hours (Table) 09/22/21 09/23/21 Range/Units 15:13 11:30 Sodium 133 L (137-145) mmol/L BUN 52 H (7-17) mg/dL Creatinine 6.57 H (0.52-1.04) mg/dL Glucose 119 H (74-99) mg/dL POC Glucose (mg/dL) 130 H (75-99) mg/dL Calcium 7.4 L (8.4-10.2) mg/dL Microbiology - Last 24 Hours (Table) 09/22/21 09:18 Urine Culture - Preliminary Urine,Voided Assessment and Plan Assessment: I have personally seen and examined the patient and reviewed the documentation. I performed a joint evaluation with the nurse practitioner in this evaluation was done more than 10 minutes. I fully agree with the documentation above and the plan of care.
== END 2021-09-23 12:59 | disposition home or self-care (01) | DRG 640 ==
LOC: EC 09:53 → 2SICU 12:52 → 4SSUR 09-22 18:57
PROVIDERS: ADMIT Family Medicine; ATTEND Family Medicine
PROC: 5A1D70Z Performance of Urinary Filtration, Intermittent, Less than 6 Hours Per Day (ICD-10-PCS; principal; 2021-09-20)
PROC: 30233N1 Transfusion of Nonautologous Red Blood Cells into Peripheral Vein, Percutaneous Approach (ICD-10-PCS; 2021-09-20)
PROC: 0D598ZZ Destruction of Duodenum, Via Natural or Artificial Opening Endoscopic (ICD-10-PCS; 2021-09-21)
DX: E87.5 Hyperkalemia (principal); G93.41 Metabolic encephalopathy; J96.01 Acute respiratory failure with hypoxia; N18.6 End stage renal disease; D62 Acute posthemorrhagic anemia; Z20.822 Contact with and (suspected) exposure to COVID-19; I12.0 Hypertensive chronic kidney disease with stage 5 chronic kidney disease or end stage renal disease; N17.9 Acute kidney failure, unspecified; K55.20 Angiodysplasia of colon without hemorrhage; K31.819 Angiodysplasia of stomach and duodenum without bleeding; K44.9 Diaphragmatic hernia without obstruction or gangrene; D63.1 Anemia in chronic kidney disease; E03.9 Hypothyroidism, unspecified; R19.5 Other fecal abnormalities; E83.51 Hypocalcemia; E87.70 Fluid overload, unspecified; F17.210 Nicotine dependence, cigarettes, uncomplicated; H91.90 Unspecified hearing loss, unspecified ear; I45.10 Unspecified right bundle-branch block; J44.9 Chronic obstructive pulmonary disease, unspecified; M89.8X8 Other specified disorders of bone, other site; Z79.899 Other long term (current) drug therapy; Z85.3 Personal history of malignant neoplasm of breast; Z90.12 Acquired absence of left breast and nipple; Z90.710 Acquired absence of both cervix and uterus; Z91.15 Patient's noncompliance with renal dialysis; Z91.19 Patient's noncompliance with other medical treatment and regimen; Z99.2 Dependence on renal dialysis; Z79.890 Hormone replacement therapy; Z92.21 Personal history of antineoplastic chemotherapy
CPT/HCPCS: 36415; 43255; 71045; 80048; 80053; 81001; 82272; 83605; 83735; 84132; 84484; 85025; 85027; 85610; 85730; 86706; 86850; 86900; 86901; 86920; 87086; 87340; 87635; 90935; 93005; 94640; 96365; 96366; 96375; 99291

== ENCOUNTER 2021-09-28 17:10 | Emergency (ER) | payer MEDICARE, OTHER ==
--- NOTE | 2021-09-28 18:47 | ED ---
Recheck HPI - General Chief Complaint: Recheck/Abnormal Lab/Rx Stated Complaint: Irregular labs-Sent by PCP Time Seen by Provider: 09/28/21 18:02 Source: patient, RN notes reviewed Mode of arrival: ambulatory Limitations: no limitations - History of Present Illness Initial Comments: This is a pleasant 71-year-old female with long-standing chronic renal failure on hemodialysis Saturday, Saturday, and Saturday. Patient states she was told yesterday she could not have her dialysis because she had hemoglobin of 5. Patient was recently admitted to the hospital for gastrointestinal bleeding have an upper GI. Was performed by Dr. Dooley. She states that she did not have a colonoscopy. Patient states she does have some ongoing fatigue and occasional lightheadedness with change of position. However she denies any chest pain or shortness of breath. No abdominal pain. No bleeding from the sites. No problems with urination. No nausea or vomiting. Palpitations. No syncopal episodes. No skin rashes or lesions. No dark or tarry stools. No trinity tochezia. - Related Data Home Medications Medication Instructions Recorded Confirmed Calcium Acetate 1,334 mg PO TID 09/20/21 09/28/21 Labetalol [Trandate] 100 mg PO TID 09/20/21 09/28/21 Sertraline [Zoloft] 50 mg PO HS 09/20/21 09/28/21 hydrALAZINE HCL 50 mg PO TID 09/20/21 09/28/21 Previous Rx's Medication Instructions Recorded Darbepoetin Marek [Aranesp] 40 mcg SQ Q7D each 09/23/21 Dexlansoprazole [Dexilant] 60 mg PO DAILY #30 cap 09/23/21 Allergies Allergy/AdvReac Type Severity Reaction Status Date / Time No Known Allergies Allergy Verified 09/28/21 19:47 Review of Systems ROS Statement: Those systems with pertinent positive or pertinent negative responses have been documented in the HPI. ROS Other: All systems not noted in ROS Statement are negative. Past Medical History Past Medical History: Asthma, Cancer, COPD, Dialysis, GERD/Reflux, GI Bleed, Hearing Disorder / Deafness, Hypertension, Osteoarthritis (OA), Renal Disease, Thyroid Disorder Additional Past Medical History / Comment(s): HEMODIALYSIS SAT,SAT, SAT-, anemia- receives blood tranfusions weekly, past upper and lower GI bleeds L breast cancer with L mastectomy and chemotherapy, arthritis in multiple joints, hypothyroid, MI'KMAQ bilaterally History of Any Multi-Drug Resistant Organisms: None Reported Past Surgical History: Breast Surgery, Hysterectomy, Tubal Ligation Additional Past Surgical History / Comment(s): L BREAST BIOPSY, LEFT MASTECTOMY , DIALYSIS GRAFT- UPPER LEFT ARM, PARTIAL THYROIDECTOMY,COLONOSCOPIES, EGDS, D&C, L SHOULDER CYST REMOVED. Past Anesthesia/Blood Transfusion Reactions: No Reported Reaction, Motion Sickness Additional Past Anesthesia/Blood Transfusion Reaction / Comment(s): Pt has received numerous transfusions without reaction. Past Psychological History: No Psychological Hx Reported Smoking Status: Current every day smoker Past Alcohol Use History: None Reported Past Drug Use History: None Reported - Past Family History Daughter(s) Family Medical History: Deep Vein Thrombosis (DVT) Mother Family Medical History: Cancer Additional Family Medical History / Comment(s): OVARIAN Brother(s) Family Medical History: Cancer Additional Family Medical History / Comment(s): Brother had "blood" cancer. General Exam Limitations: no limitations General appearance: alert, in no apparent distress Head exam: Present: atraumatic, normocephalic, normal inspection Eye exam: Present: normal appearance, PERRL, EOMI, other (Pale conjunctiva). Absent: scleral icterus, conjunctival injection, periorbital swelling ENT exam: Present: normal exam, mucous membranes moist Neck exam: Present: normal inspection. Absent: tenderness, meningismus, lymphadenopathy Respiratory exam: Present: normal lung sounds bilaterally. Absent: respiratory distress, wheezes, rales, rhonchi, stridor Cardiovascular Exam: Present: regular rate, normal rhythm, normal heart sounds. Absent: systolic murmur, diastolic murmur, rubs, gallop, clicks GI/Abdominal exam: Present: soft, normal bowel sounds. Absent: distended, tenderness, guarding, rebound, rigid Extremities exam: Present: normal inspection, full ROM, normal capillary refill. Absent: tenderness, pedal edema, joint swelling, calf tenderness Back exam: Present: normal inspection Neurological exam: Present: alert, oriented X3, CN II-XII intact Psychiatric exam: Present: normal affect, normal mood Skin exam: Present: warm, dry, intact, normal color. Absent: rash Course Vital Signs 09/28/21 17:51 Temperature 98.5 F Pulse Rate 87 Respiratory 16 Rate Blood Pressure 121/68 O2 Sat by Pulse 99 Oximetry - Reevaluation(s) Reevaluation #1: 09/28/21 20:55 Medical record is reviewed Symptoms are unchanged, patient is essentially asymptomatic. Patient is informed of results and questions answered Patient in no distress Medical Decision Making - Medical Decision Making Patient presents with recurrent anemia. Patient states she believes she had a blood transfusion during her last day. Patient's hemoglobin subjectively 5 from yesterday. We'll reevaluate and likely admit the patient for observation and blood transfusion. Patient may need further evaluation by gastroenterology. Evidently the patient has a history of arteriovenous malformations and had to nonbleeding polyps on EGD during her last admission The case was discussed in detail with ED attending physician. Presentation, findings, treatment plan discussed in detail. Case was discussed in detail with the patient's primary care physician, Dr. Littlejohn.Patient's hemoglobin is 6.7 and evaluation here. This is actually stable for the patient. Patient was essentially asymptomatic. Dr. Littlejohn was okay with the patient being discharged if she can go to dialysis tomorrow. I did review this with the patient. The patient wants to be discharged she states she will go to dialysis. Again, patient is essentially asymptomatic, no evidence of volume overload. No distress. Patient was told to return to the ER for any signs or symptoms worsen. Told to return immediately if any other problems arise. All questions answered. Treatment plan discussed. Patient in agreement Every effort has been made to ensure accuracy of this dictation. However, due to the limitations of electronic medical records and dictation devices, errors in charting still occur. - Lab Data Result diagrams: 09/28/21 19:30 09/28/21 19:30 Lab Results 09/28/21 09/28/21 09/28/21 Range/Units 19:30 19:30 19:30 WBC 7.3 (3.8-10.6) k/uL RBC 2.19 L (3.80-5.40) m/uL Hgb 6.7 L* (11.4-16.0) gm/dL Hct 21.2 L (34.0-46.0) % MCV 96.8 (80.0-100.0) fL MCH 30.3 (25.0-35.0) pg MCHC 31.4 (31.0-37.0) g/dL RDW 18.8 H (11.5-15.5) % Plt Count 382 D (150-450) k/uL MPV 7.7 Neutrophils % 81 % Lymphocytes % 7 % Monocytes % 6 % Eosinophils % 5 % Basophils % 1 % Neutrophils # 5.9 (1.3-7.7) k/uL Lymphocytes # 0.5 L (1.0-4.8) k/uL Monocytes # 0.4 (0-1.0) k/uL Eosinophils # 0.3 (0-0.7) k/uL Basophils # 0.1 (0-0.2) k/uL Hypochromasia Marked Anisocytosis Slight Macrocytosis Slight PT 10.8 (9.0-12.0) sec INR 1.0 (<1.2) APTT 23.7 (22.0-30.0) sec Sodium 137 (137-145) mmol/L Potassium 3.8 (3.5-5.1) mmol/L Chloride 97 L (98-107) mmol/L Carbon Dioxide 26 (22-30) mmol/L Anion Gap 14 mmol/L BUN 53 H (7-17) mg/dL Creatinine 8.37 H* (0.52-1.04) mg/dL Est GFR (CKD-EPI)AfAm 5 (>60 ml/min/1.73 sqM) Est GFR (CKD-EPI)NonAf 4 (>60 ml/min/1.73 sqM) Glucose 103 H (74-99) mg/dL Calcium 7.1 L (8.4-10.2) mg/dL Phosphorus 6.3 H (2.5-4.5) mg/dL Magnesium 2.0 (1.6-2.3) mg/dL Total Bilirubin 0.4 (0.2-1.3) mg/dL AST 21 (14-36) U/L ALT 11 (4-34) U/L Alkaline Phosphatase 59 (38-126) U/L Total Protein 6.6 (6.3-8.2) g/dL Albumin 3.5 (3.5-5.0) g/dL Blood Type Blood Type Recheck Bld Type Recheck Status Antibody Screen Spec Expiration Date 09/28/21 Range/Units 19:30 WBC (3.8-10.6) k/uL RBC (3.80-5.40) m/uL Hgb (11.4-16.0) gm/dL Hct (34.0-46.0) % MCV (80.0-100.0) fL MCH (25.0-35.0) pg MCHC (31.0-37.0) g/dL RDW (11.5-15.5) % Plt Count (150-450) k/uL MPV Neutrophils % % Lymphocytes % % Monocytes % % Eosinophils % % Basophils % % Neutrophils # (1.3-7.7) k/uL Lymphocytes # (1.0-4.8) k/uL Monocytes # (0-1.0) k/uL Eosinophils # (0-0.7) k/uL Basophils # (0-0.2) k/uL Hypochromasia Anisocytosis Macrocytosis PT (9.0-12.0) sec INR (<1.2) APTT (22.0-30.0) sec Sodium (137-145) mmol/L Potassium (3.5-5.1) mmol/L Chloride (98-107) mmol/L Carbon Dioxide (22-30) mmol/L Anion Gap mmol/L BUN (7-17) mg/dL Creatinine (0.52-1.04) mg/dL Est GFR (CKD-EPI)AfAm (>60 ml/min/1.73 sqM) Est GFR (CKD-EPI)NonAf (>60 ml/min/1.73 sqM) Glucose (74-99) mg/dL Calcium (8.4-10.2) mg/dL Phosphorus (2.5-4.5) mg/dL Magnesium (1.6-2.3) mg/dL Total Bilirubin (0.2-1.3) mg/dL AST (14-36) U/L ALT (4-34) U/L Alkaline Phosphatase (38-126) U/L Total Protein (6.3-8.2) g/dL Albumin (3.5-5.0) g/dL Blood Type O Positive Blood Type Recheck O Pos Bld Type Recheck Status No Antibody Screen NEGATIVE Spec Expiration Date 10/01/2021 - 2329 Disposition Clinical Impression: Suspected condition not found, Chronic anemia, Chronic renal failure Narrative: Stable anemia Disposition: HOME SELF-CARE Condition: Stable Instructions (If sedation given, give patient instructions): Chronic Kidney Disease (ED), Anemia (ED) Additional Instructions: Make sure you make your dialysis appointment tomorrow without fail. Return to the ER immediately if he were unable to get the dialysis tomorrow. Follow-up with your regular physician as directed. Return to the ER immediately if any symptoms worsen, new symptoms arise, or any other problems develop. Is patient prescribed a controlled substance at d/c from ED?: No Referrals: Jacob Littlejohn Jr, DO [Primary Care Provider] - 1-2 days Time of Disposition: 20:54
[2021-09-28] MEDS ORDERED: PANTOPRAZOLE 40 MG/10 ML VIAL IVP STA (18:48)
[2021-09-28 20:03] LABS: Anisocytosis Slight; Basophils # (A) 0.1 k/uL (0-0.2); Basophils % (A) 1 %; Eosinophils # (A) 0.3 k/uL (0-0.7); Eosinophils % (A) 5 %; HCT 21.2 % (34.0-46.0); Hypochromasia Marked; Lymphocytes # (A) 0.5 k/uL (1.0-4.8); Lymphocytes % (A) 7 %; MCH 30.3 pg (25.0-35.0); MCHC 31.4 g/dL (31.0-37.0); MCV 96.8 fL (80.0-100.0); Macrocytosis Slight; Mean Platelet Volume 7.7; Monocytes # (A) 0.4 k/uL (0-1.0); Monocytes % (A) 6 %; Neutrophils # (A) 5.9 k/uL (1.3-7.7); Neutrophils % (A) 81 %; RBC 2.19 m/uL (3.80-5.40); RDW 18.8 % (11.5-15.5); WBC 7.3 k/uL (3.8-10.6)
[2021-09-28 20:05] LABS: Albumin 3.5 g/dL (3.5-5.0); Calcium 7.1 mg/dL (8.4-10.2); Phosphorus 6.3 mg/dL (2.5-4.5); Potassium 3.8 mmol/L (3.5-5.1); Total Bilirubin 0.4 mg/dL (0.2-1.3); Total Protein 6.6 g/dL (6.3-8.2)
[2021-09-28 20:08] LABS: Partial Thromboplastin Time 23.7 sec (22.0-30.0); Prothrombin Time 10.8 sec (9.0-12.0)
[2021-09-28 20:17] LABS: Platelet Count 382 k/uL (150-450)
[2021-09-28 20:18] LABS: HGB 6.7 gm/dL (11.4-16.0)
[2021-09-28 21:54] VITALS: BP 128/89; PULSE 89; RESP 18; TEMP 97.9
== END 2021-09-28 21:55 | disposition home or self-care (01) ==
LOC: EC 17:10
DX: J45.909 Unspecified asthma, uncomplicated (principal); I10 Essential (primary) hypertension; H91.90 Unspecified hearing loss, unspecified ear; F17.200 Nicotine dependence, unspecified, uncomplicated
CPT/HCPCS: 36415; 80053; 83735; 84100; 85025; 85610; 85730; 86850; 86900; 86901; 99283